=== PATIENT | female | born 1940 | race African-American/Black ===

== ENCOUNTER 2016-08-24 19:20 | Inpatient (IN) | payer MEDICARE, OTHER ==
[2016-08-24] VITALS (12 sets, daily range): BP systolic 117–194; BP diastolic 58–91; PULSE 96–107; RESP 24–32; TEMP 98.1; O2SAT 97–100
[~2016-08-24] VITALS: Ht 165.1 cm; Wt 95.0 kg
[~2016-08-24 19:20] MED LIST: AMLO5TAB22 PO; DULO20 PO; FURO80 PO; GLUCTAB PO; HYDR-3580 PO; HYDR25TA35 PO; ISOS60 PO; METO50CR PO; NEUR600T PO; TIZA4 PO
[2016-08-24] MEDS ORDERED: SODIUM CHLORIDE 0.9% FLUSH 10 ML FLUSH IVF PRN ×2 (19:30→20:30)
[2016-08-24] MEDS ORDERED: FUROSEMIDE 100 MG/10 ML VIAL IVP ONE (19:30)
--- NOTE | 2016-08-24 19:35 | PD ---
HPI Chief Complaint: Respiratory Distress Time Seen by Provider: 19:29 Travel History International Travel<30 days: No Contact w/Intl Traveler<30days: No Traveled to known affect area: No History of Present Illness HPI The patient is a 76-year-old female that apparently was short of breath earlier today and refused transport by fire rescue. She became lethargic and short of breath when a hospice nurse came to visit her today and she called the ambulance. The patient does state that she takes a fluid pill and that she gets fluid in her lungs. She also states she has diabetes. She was given Narcan in the field, her pupils were pinpoint prior to giving Narcan and she was lethargic. She was given 3 albuterol treatments in route. She was put on BiPAP by the ambulance personnel. Her CODE STATUS is unknown. Her medical problems are unknown other than what we learned about. Her medications are unknown. Review of old records reveals she has alcohol abuse and has had an opiate overdose as well as hyperlipidemia, noncompliance, arteriosclerotic cardiovascular disease, carotid artery disease, rheumatoid arthritis, gout, chronic pain, [id number] diabetes mellitus and hypertensive urgency. According to ambulance personnel the patient did become less lethargic after the Narcan. She is a patient of Dr. Joey Oconnell. [facility] Past Medical History Arthritis: No Asthma: Yes Anxiety: No Depression: No Heart Rhythm Problems: No Cancer: No Cardiac Catheterization: Yes Cardiovascular Problems: Yes (3 cardiac stents) High Cholesterol: Yes Chemotherapy: No Chest Pain: No Congestive Heart Failure: No COPD: No Cerebrovascular Accident: No Coronary Artery Disease: Yes Diabetes: Yes Patient Takes Glucophage: Yes Diminished Hearing: No Endocrine: Yes GERD: No Gout: Yes Genitourinary: No Headaches: Yes Hiatal Hernia: No Hypertension: Yes Immune Disorder: No Inguinal Hernia: Yes Implanted Vascular Access Dvce: Yes Kidney Stones: No Musculoskeletal: No Neurologic: Yes Psychiatric: No Reproductive: No Respiratory: Yes Immunizations Current: No Migraines: No Myocardial Infarction: Yes Renal Failure: No Seizures: No Sleep Apnea: No Thyroid Disease: No Ulcer: No Menopausal: Yes : 1 Para: 1 Miscarriage: 0 Tubal Ligation: Yes Past Surgical History Abdominal Surgery: Yes (INGUINAL HERNIA REPAIR) Body Medical Devices: heart stents Cardiac Surgery: Yes Coronary Stent: Yes ( 3 STENTS ) Ear Surgery: No Endocrine Surgery: No Eye Surgery: No Genitourinary Surgery: Yes (inguinal hernia) Gynecologic Surgery: No Oral Surgery: No Thoracic Surgery: No Other Surgery: Yes (stentsX3) Social History Alcohol Use: Yes (DAILY USE) Tobacco Use: No Substance Use: No Allergies-Medications (Allergen,Severity, Reaction): Coded Allergies: No Known Allergies (Unverified , 08/24/16) Reported Meds & Prescriptions Reported Meds & Active Scripts Active Active Prescriptions or Reported Medications Unobtainable Review of Systems ROS Limitations: Poor Historian Except as stated in HPI: all other systems reviewed are Neg Physical Exam Exam Limitations: Poor Historian Narrative GENERAL: The patient is alert and will answer some questions but is lethargic. She is obese. She is in slight respiratory distress. The vital signs show pulse rate of 107, respiratory rate of 32, blood pressure 194/91 with oximetry on her percent on BiPAP. The patient states that she does not have a living will and she is a full code. SKIN: Focused skin assessment warm/dry. HEAD: Atraumatic. Normocephalic. EYES: Pupils equal and round. No scleral icterus. No injection or drainage. ENT: No nasal bleeding or discharge. Mucous membranes pink and moist. NECK: Trachea midline. There is bilateral JVD. CARDIOVASCULAR: Regular rate and rhythm. No murmur appreciated. RESPIRATORY: No accessory muscle use. Scattered wheezes are heard bilaterally with a few questionable Rales bilaterally on the basis. Breath sounds equal bilaterally. GASTROINTESTINAL: Abdomen soft, non-tender, nondistended. Hepatic and splenic margins not palpable. MUSCULOSKELETAL: No obvious deformities. No clubbing. No cyanosis. There is 3 + bilateral lower extremity edema. NEUROLOGICAL: Awake and alert. No obvious cranial nerve deficits. Motor grossly within normal limits. Normal speech. PSYCHIATRIC: Appropriate mood and affect; insight and judgment normal. Data Data Last Documented VS Vital Signs Date Time Temp Pulse Resp B/P Pulse Ox O2 Delivery O2 Flow Rate FiO2 08/24/16 21:00 100 35 08/24/16 20:31 102 28 157/72 BiPAP 08/24/16 19:52 98.1 Orders Complete Blood Count With Diff (08/24/16 19:29) Comprehensive Metabolic Panel (08/24/16 19:29) B-Type Natriuretic Peptide (08/24/16 19:29) Act Partial Throm Time (Ptt) (08/24/16 19:29) Prothrombin Time / Inr (Pt) (08/24/16 19:29) Magnesium (Mg) (08/24/16 19:29) Troponin I (08/24/16 19:29) Urinalysis - C+S If Indicated (08/24/16 19:29) Iv Access Insert/Monitor (08/24/16 19:29) Electrocardiogram (08/24/16 19:29) Ecg Monitoring (08/24/16 19:29) Oximetry (08/24/16 19:29) Oxygen Administration (08/24/16 19:29) Chest, Single Ap (08/24/16 19:29) Sodium Chloride 0.9% Flush (Ns Flush) (08/24/16 19:30) Furosemide Inj (Lasix Inj) (08/24/16 19:30) Urinary Catheter Insert/Apply (08/24/16 19:30) Act Partial Throm Time (Ptt) (08/24/16 19:45) Thyroid Stimulating Hormone (08/24/16 19:45) Lactic Acid Sepsis Protocol (08/24/16 20:18) Blood Culture (08/24/16 20:18) Sodium Chloride 0.9% Flush (Ns Flush) (08/24/16 20:30) Blood Gas Venous (Vbg) (08/24/16 20:45) Labs Laboratory Tests Test 08/24/16 08/24/16 08/24/16 08/24/16 19:35 19:45 20:30 20:45 White Blood Count 11.3 TH/MM3 Red Blood Count 3.66 MIL/MM3 Hemoglobin 9.7 GM/DL Hematocrit 30.1 % Mean Corpuscular Volume 82.3 FL Mean Corpuscular Hemoglobin 26.6 PG Mean Corpuscular Hemoglobin 32.3 % Concent Red Cell Distribution Width 15.2 % Platelet Count 252 TH/MM3 Mean Platelet Volume 8.7 FL Neutrophils (%) (Auto) 76.9 % Lymphocytes (%) (Auto) 11.5 % Monocytes (%) (Auto) 10.4 % Eosinophils (%) (Auto) 0.6 % Basophils (%) (Auto) 0.6 % Neutrophils # (Auto) 8.7 TH/MM3 Lymphocytes # (Auto) 1.3 TH/MM3 Monocytes # (Auto) 1.2 TH/MM3 Eosinophils # (Auto) 0.1 TH/MM3 Basophils # (Auto) 0.1 TH/MM3 CBC Comment DIFF FINAL Differential Comment Prothrombin Time 11.0 SEC Prothromb Time International 1.0 RATIO Ratio Activated Partial 29.4 SEC Thromboplast Time Sodium Level 133 MEQ/L Potassium Level 4.5 MEQ/L Chloride Level 98 MEQ/L Carbon Dioxide Level 23.5 MEQ/L Anion Gap 12 MEQ/L Blood Urea Nitrogen 52 MG/DL Creatinine 3.33 MG/DL Estimat Glomerular Filtration 16 ML/MIN Rate Random Glucose 50 MG/DL Calcium Level 8.8 MG/DL Magnesium Level 2.0 MG/DL Total Bilirubin 0.5 MG/DL Aspartate Amino Transf 67 U/L (AST/SGOT) Alanine Aminotransferase 21 U/L (ALT/SGPT) Alkaline Phosphatase 92 U/L Troponin I 2.58 NG/ML B-Type Natriuretic Peptide 443 PG/ML Total Protein 7.5 GM/DL Albumin 3.1 GM/DL Thyroid Stimulating Hormone 1.040 uIU/ML 3rd Gen Urine Color YELLOW Urine Turbidity HAZY Urine pH 5.0 Urine Specific [place] 1.017 Urine Protein 30 mg/dL Urine Glucose (UA) NEG mg/dL Urine Ketones NEG mg/dL Urine Occult Blood TRACE Urine Nitrite NEG Urine Bilirubin NEG Urine Urobilinogen LESS THAN 2.0 MG/DL Urine Leukocyte Esterase NEG Urine Squamous Epithelial <1 /hpf Cells Urine Hyaline Casts 11 /lpf Microscopic Urinalysis Comment CULT NOT INDICATED Lactic Acid Level 0.9 mmol/L Blood Gas Puncture Site IV Blood Gas Patient Temperature 98.6 Venous Blood pH 7.17 Venous Blood Partial Pressure 62 mmHg CO2 Venous Blood Partial Pressure 46 mmHg O2 Venous Blood HCO3 21 mmol/L Venous Blood Oxygen Saturation 70 % Venous Blood Oxygen Content 8.9 Vol % Venous Blood Base Excess -5.9 mmol/L Oxygen Delivery Device BiPAP Blood Gas Ventilator Setting IPAP18/[id number] Blood Gas Inspired Oxygen 50 % [facility] Medical Decision Making Medical Screen Exam Complete: Yes Emergency Medical Condition: Yes Medical Record Reviewed: Yes Interpretation(s) The EKG shows sinus tachycardia of 106 occasional PVCs and possible anterior septal myocardial infarction which is old. The chest x-ray shows congestive heart failure with pulmonary edema. Differential Diagnosis COPD with acute exacerbation, congestive heart failure, pneumonia, narcotic overdose, anemia, renal insufficiency, electrolyte disorder, urinary tract infection, acute coronary syndrome Narrative Course There is no evidence for this patient having pneumonia other than the radiology reading. She does not have a fever, cough or significant leukocytosis. She does have renal insufficiency and elevation troponin I. The troponin I elevation is elevated likely because of the congestive heart failure and renal insufficiency. This will be monitored to see if she does have a acute coronary syndrome. Clinically, the patient has congestive heart failure and not pneumonia. I discussed the patient with ALKA Bartlett and she instructed me to admit the patient to Dr. Negrete. Diagnosis Primary Impression: Congestive heart failure Additional Impression: Elevated troponin I level Admitting Information Admitting Physician Requests: Admit Scripts Unable to Obtain Active Prescriptions or Reported Meds Serafin Lozano MD August 24, 2016 19:35
--- NOTE | 2016-08-24 20:10 | RADRPT ---
EXAM DATE/TIME: 08/24/2016 19:37 [facility] COMPARISON: CHEST SINGLE AP, August 05, 2015, 21:13. INDICATIONS : Shortness of breath. MEDICAL HISTORY : Hypertension. Myocardial infarction. Asthma. Coronary artery disease. SURGICAL HISTORY : Cardiac catheter with stent placement. ENCOUNTER: Initial ACUITY: 1 day PAIN SCORE: Non-responsive. LOCATION: Bilateral chest FINDINGS: A single portable frontal view the chest is limited by the portable nature in conjunction with the pa tient's body habitus. Left lower lobe opacity obscures the left hemidiaphragm. Right lung is clear. N o effusions. Mild cardiomegaly.CONCLUSION: Left lower lobe infiltrate. Karsten Michaels Jr., MD on August 24, 2016 at 20:08 Board Certified Radiologist. This report was verified electronically.
[2016-08-24 20:15] LABS: AUTOMATED NEUTROPHIL # 8.7 TH/MM3 (1.8-7.7); BASOPHIL # 0.1 TH/MM3 (0-0.2); BASOPHIL % 0.6 % (0.0-2.0); EOSINOPHIL # 0.1 TH/MM3 (0-0.4); EOSINOPHIL % 0.6 % (0.0-4.0); HEMATOCRIT 30.1 % (35.0-46.0); HEMO FLAGS DIFF FINAL; LYMPH % 11.5 % (9.0-44.0); LYMPHOCYTE # 1.3 TH/MM3 (1.0-4.8); MEAN CELL VOLUME 82.3 FL (80.0-100.0); MEAN CORPUSCULAR HEMOGLOBIN 26.6 PG (27.0-34.0); MEAN CORPUSCULAR HGB CONC 32.3 % (32.0-36.0); MONO % 10.4 % (0.0-8.0); NEUT % 76.9 % (16.0-70.0); PLATELET COUNT 252 TH/MM3 (150-450); RED BLOOD COUNT 3.66 MIL/MM3 (4.00-5.30); RED CELL DISTRIBUTION WIDTH 15.2 % (11.6-17.2); WHITE BLOOD COUNT 11.3 TH/MM3 (4.0-11.0)
[2016-08-24 20:21] LABS: APTT (PATIENT) 29.4 SEC (24.3-30.1)
[2016-08-24 20:40] LABS: ANION GAP 12 MEQ/L (5-15); AST (GOT) 67 U/L (15-37); BICARBONATE 23.5 MEQ/L (21.0-32.0); BLOOD UREA NITROGEN 52 MG/DL (7-18); CHLORIDE 98 MEQ/L (98-107); GLOMERULAR FILTRATION RATE 16 ML/MIN (>89); POTASSIUM 4.5 MEQ/L (3.5-5.1); SODIUM (NA) 133 MEQ/L (136-145)
[2016-08-24 20:48] LABS: ALKALINE PHOSPHATASE 92 U/L (45-117); ALT (GPT) 21 U/L (10-53); TOTAL BILIRUBIN ADULT 0.5 MG/DL (0.2-1.0)
[2016-08-24 20:51] LABS: BLOOD, URINE TRACE (NEG); COMMENT (UR) CULT NOT INDICATED; CULTURE IF INDICATED CULT NOT INDICATED; GLUCOSE,URINE NEG (NEG); HYALINE CAST, URINE 11 /lpf (RARE); KETONE, URINE NEG (NEG); NITRITE,URINE NEG (NEG); SQUAMOUS EPITHELIAL CELL URINE <1 /hpf (0-5); URINE COLOR YELLOW (YELLW/STRAW)
[2016-08-24 20:56] LABS: BLOOD GAS VENOUS BASE EXCESS -5.9 mmol/L (-2-2); BLOOD GAS VENOUS HCO3 21 mmol/L (22-26); BLOOD GAS VENOUS O2 CONTENT 8.9 Vol % (9.0-17.0); BLOOD GAS VENOUS O2 HGB SAT 70 % (70-76); BLOOD GAS VENOUS PCO2 62 mmHg (44-48); BLOOD GAS VENOUS PO2 46 mmHg (35-40); BLOOD GAS VENOUS pH 7.17 (7.360-7.400); TEMP CORR TO 98.6
[2016-08-24 20:57] LABS: CRITICAL VALUE YES; DRAW SITE IV; FIO2 50 %; OXYGEN DEVICE BiPAP; STAT YES; VENT SETTINGS IPAP18/EPAP6
[2016-08-24 21:48] LABS: BLOOD GAS BASE EXCESS -5.8 mmol/L (-2-2); BLOOD GAS CARBOXYHEMOGLOBIN 1.4 % (0-4); BLOOD GAS HCO3 21 mmol/L (22-26); BLOOD GAS METHEMOGLOBIN 0.8 % (0-2); BLOOD GAS O2 HGB SATURATION 95 % (90-100); BLOOD GAS OXYGEN CONTENT 12.5 Vol % (12.0-20.0); BLOOD GAS PCO2 58 mmHg (38-42); BLOOD GAS PO2 99 mmHG (61-120); BLOOD GAS TOTAL HGB 9.3 G/DL (12.0-16.0); CRITICAL VALUE YES; OXYGEN DEVICE BiPAP; TEMP CORR TO 98.6
[2016-08-24 21:49] LABS: DRAW SITE RT BRACHIAL; FIO2 35 %; NUMBER OF ARTERIAL PUNCTURES 1; STAT YES; VENT SETTINGS IPAP18/EPAP6
[2016-08-24] MEDS ORDERED: MAGNESIUM HYDROXIDE SUSP 30 ML CUP PO PRN (22:00)
[2016-08-24] MEDS ORDERED: SENNOSIDES 8.6 MG TAB PO PRN (22:00)
[2016-08-24] MEDS ORDERED: DEXTROSE 50% IN WATER 50 ML VIAL(D50) IV PRN (22:00)
[2016-08-24] MEDS ORDERED: LACTULOSE SYRUP 20 GM/30 ML CUP PO PRN (22:00)
[2016-08-24] MEDS ORDERED: DEXTROSE 5% IN WATE 500 ML INJ 500 ML IV SCH (22:00)
[2016-08-24] MEDS ORDERED: NALOXONE HCL 0.4 MG/ML AMP IV PRN (22:00)
[2016-08-24] MEDS ORDERED: GLUCAGON 1 MG/ML VIAL OTHER PRN (22:00)
[2016-08-24] MEDS ORDERED: ONDANSETRON HCL 4 MG/2 ML VIAL IVP PRN (22:00)
[2016-08-24] MEDS ORDERED: BISACODYL 10 MG SUPP RECTAL PRN (22:00)
[2016-08-24] MEDS ORDERED: ACETAMINOPHEN 325 MG TAB PO PRN (22:00)
[2016-08-24] MEDS: HEPARIN SODIUM - SQ 10,000 UNITS/ML VIAL SQ SCH (22:08)
--- NOTE | 2016-08-24 23:46 | RADRPT ---
EXAM DATE/TIME: 08/24/2016 22:45 [facility] COMPARISON: US KIDNEY/RENAL/BLADDER, August 04, 2015, 11:57. INDICATIONS : Increased BUN/Creatinine. MEDICAL HISTORY : Hypercholesterolemia. Hypertension. Myocardial infarction. Headaches. Asthma. Gout. Diabetes. SURGICAL HISTORY : Coronary artery stent. Tubal ligation. Inguinal hernia repair. ENCOUNTER: Subsequent ACUITY: 1 day PAIN SCORE: 1/10 LOCATION: Bilateral flank MEASUREMENTS: RIGHT KIDNEY: 10.1 x 5.0 x 4.4 cm LEFT KIDNEY: Non visualized. FINDINGS: RIGHT KIDNEY: Renal cortex is normal in thickness and echotexture. No hydronephrosis, stone, or mass. LEFT KIDNEY: Left kidney cannot be identified secondary to body habitus and difficulty positioning the patient. BLADDER: Hyde catheter within a decompressed bladder. CONCLUSION: Nonvisualization left kidney. Right kidney is unremarkable Brayan Haegn MD on August 24, 2016 at 23:44 Board Certified Radiologist. This report was verified electronically.
[2016-08-25] VITALS (17 sets, daily range): BP systolic 103–162; BP diastolic 56–72; PULSE 86–99; RESP 11–23; TEMP 96.8–99.3; O2SAT 92–100
[2016-08-25] MEDS ORDERED: CHLORHEXIDINE GLUCONATE 2 % 1 PACK (2 CLOTHS)(extra cloths) TOPICAL PRN (01:15)
[2016-08-25] MEDS: CHLORHEXIDINE GLUCONATE 2 % 1 PACK (2 CLOTHS)(taper/protocol) TOPICAL SCH (02:37)
[2016-08-25 04:23] LABS: AUTOMATED NEUTROPHIL # 7.8 TH/MM3 (1.8-7.7); BASOPHIL # 0.1 TH/MM3 (0-0.2); BASOPHIL % 0.5 % (0.0-2.0); EOSINOPHIL # 0.1 TH/MM3 (0-0.4); HEMATOCRIT 26.9 % (35.0-46.0); HEMO FLAGS DIFF FINAL; LYMPH % 13.9 % (9.0-44.0); LYMPHOCYTE # 1.5 TH/MM3 (1.0-4.8); MEAN CELL VOLUME 82.6 FL (80.0-100.0); MEAN CORPUSCULAR HEMOGLOBIN 26.5 PG (27.0-34.0); MONO % 13.8 % (0.0-8.0); NEUT % 70.8 % (16.0-70.0); PLATELET COUNT 241 TH/MM3 (150-450); RED BLOOD COUNT 3.26 MIL/MM3 (4.00-5.30); RED CELL DISTRIBUTION WIDTH 15.1 % (11.6-17.2)
[2016-08-25 04:53] LABS: BICARBONATE 25.3 MEQ/L (21.0-32.0); POTASSIUM 4.6 MEQ/L (3.5-5.1)
[2016-08-25 04:57] LABS: HDL CHOLESTEROL 79.3 MG/DL (40.0-60.0)
[2016-08-25 05:02] LABS: BLOOD GAS BASE EXCESS -4.2 mmol/L (-2-2); BLOOD GAS HCO3 23 mmol/L (22-26); BLOOD GAS METHEMOGLOBIN 1.2 % (0-2); BLOOD GAS O2 HGB SATURATION 92 % (90-100); BLOOD GAS OXYGEN CONTENT 11.4 Vol % (12.0-20.0); BLOOD GAS PCO2 59 mmHg (38-42); BLOOD GAS PO2 88 mmHg (61-120); BLOOD GAS TOTAL HGB 8.7 G/DL (12.0-16.0); TEMP CORR TO 98.6
[2016-08-25 05:03] LABS: CRITICAL VALUE YES; DRAW SITE RT RADIAL; FIO2 30 %; NUMBER OF ARTERIAL PUNCTURES 1; OXYGEN DEVICE BiPAP; STAT NO; ULNAR PULSE PRESENT; VENT SETTINGS 20IPAP/6EPAP
[2016-08-25] MEDS: DOCUSATE SODIUM 50 MG/SENNA 8.6 MG TAB PO SCH ×2 (09:00→21:39)
[2016-08-25] MEDS: SODIUM CHLORIDE 0.9% FLUSH 10 ML FLUSH IV FLUSH SCH ×2 (09:31→21:38)
[2016-08-25] MEDS: HEPARIN SODIUM - SQ 10,000 UNITS/ML VIAL SQ SCH (09:31)
[2016-08-25] MEDS ORDERED: DEXTROSE 50% IN WATER 50 ML VIAL(D50) IV PRN (09:45)
[2016-08-25] MEDS ORDERED: SODIUM CHLOR 0.9% 1000 ML INJ 1,000 ML IV ONE (09:45)
[2016-08-25] MEDS ORDERED: RESP: ALBUTEROL 2.5 MG/IPRATROPIUM 0.5 MG NEB (PRN) NEB (09:45)
[2016-08-25] MEDS ORDERED: GLUCAGON 1 MG/ML VIAL OTHER PRN (09:45)
[2016-08-25] MEDS ORDERED: ASPIRIN 325 MG TAB PO ONE (09:45)
[2016-08-25] MEDS: INSULIN NovoLIN REGULAR SUPPLEMENTAL SCALE SQ SCH ×4 (10:00→20:00)
[2016-08-25 10:05] LABS: BLOOD GAS BASE EXCESS -4.3 mmol/L (-2-2); BLOOD GAS CARBOXYHEMOGLOBIN 1.6 % (0-4); BLOOD GAS HCO3 22 mmol/L (22-26); BLOOD GAS METHEMOGLOBIN 1.2 % (0-2); BLOOD GAS O2 HGB SATURATION 97 % (90-100); BLOOD GAS OXYGEN CONTENT 12.6 Vol % (12.0-20.0); BLOOD GAS PCO2 58 mmHg (38-42); BLOOD GAS PO2 260 mmHg (61-120); BLOOD GAS TOTAL HGB 8.8 G/DL (12.0-16.0); TEMP CORR TO 98.6
[2016-08-25 10:06] LABS: CRITICAL VALUE YES; DRAW SITE RT RADIAL; FIO2 50 %; OXYGEN DEVICE BIPAP 20IPAP/6
[2016-08-25 10:07] LABS: NUMBER OF ARTERIAL PUNCTURES 1; STAT NO; ULNAR PULSE PRESENT
--- NOTE | 2016-08-25 10:15 | MH ---
cc: BRITTNY MALLOY MD DATE OF ADMISSION: 08/24/2016 DATE OF : 1940 CHIEF COMPLAINT Respiratory distress and non responsive according to the recond. RECENT TRAVEL: Travel in the last 30 days, unknown. HISTORY OF PRESENT ILLNESS This is a unfortunate 76-year-old black female who according to the record was found per her hospice nurse who had come for a visit. She was noted to be short of breath and lethargic and was sent to the emergency room for further evaluation. According to the record the patient was short of breath earlier in the day but refused transport from [facility], currently there is no family at the hospital and we are attempting to get in touch with a daughter to get further history. I looks like the patient is a Hospice patient she has multi comorbidities but it is unknown the extent of her history which includes her code status. She is currently on BiPAP, she is lethargic but she will respond to tactile or verbal stimuli with agitation and restlessness she is attempting to write a message on a piece of paper but is so weak she is unable to communicate. History will be obtained from records as much as possible. PAST MEDICAL HISTORY: 1. Noncompliance. 2. Arteriosclerotic heart disease. 3. Coronary artery disease. 4. Hyperlipidemia. 5. Rheumatoid arthritis. 6. Gout. 7. Chronic pain. 8. Non insulin dependant diabetes. 9. Hypertensive urgency. 10. Asthma. 11. coronary artery disease. According to the record the patient does take Glucophage. 12. Headaches. 13. Hypertension. 14. Implanted vascular device. 15. Neurologic disorders. 16. Previous myocardial infarction. PAST SURGICAL HISTORY: 1. Tubal ligation. 2. Inguinal hernia repair. 3. Coronary heart stents. 4. Implanted vascular device. ALLERGIES NO KNOWN ALLERGIES. MEDICATIONS: Active unknown. SOCIAL HISTORY There is daily use of alcohol noted in the record but unknown for any illicit drugs or tobacco use. REVIEW OF SYSTEMS Review of systems unable to obtain secondary to the patient's altered mental status and being a poor historian at this point. PHYSICAL EXAMINATION: VITAL SIGNS: Temperature 96.8 axillary and 98.3 orally. Pulse labile between 96 and 98. Regular rhythm, respiratory rate currently on BiPAP between 11 and 18. Blood pressure initially was 162/72 now 124/56. O2 saturation is 94 to 100 on 30% BiPAP when she becomes restless and anxious, her o2 percentage was turned up to 50%. PHYSICAL EXAMINATION GENERAL: Obese, mildly obese black male looks older than her stated age, resting in the bed, BiPAP on, lethargic but does respond to tactile or verbal stimuli in an anxious way. The skin is very dry, thick turgor especially on her lower extremities, mucous membranes are pale pink. HEAD, EYES, EARS, NOSE, AND THROAT: Atraumatic, normocephalic. Her eyes have some serous drainage and matting bilaterally. But no icterus. She has no nasal discharge. The oral cavity is not assessed secondary to be in on BiPAP. NECK: Neck is supple. Trachea is midline. CARDIOVASCULAR SYSTEM: Heart sounds S1-S2, probable systolic murmur heard at the left sternal border. She has no edema in her lower extremities but the skin turgor is very hard and thick. RESPIRATORY: Low volumes. She does have some respiratory wheezes heard in her upper miller. She had diminished sounds throughout and decreased sounds in her bases. GASTROINTESTINAL: Abdomen is round, taunt. The bowel sounds are present. MUSCULOSKELETAL: No obvious deformities, I would say that she has a trace to 1+ lower extremity edema. NEUROLOGICALLY: Lethargic. PSYCHIATRIC: Altered mental status, insight and judgement, unable to assess. DIAGNOSTIC DATA: White blood cell 11, RBC 3.26, hemoglobin 8.6, hematocrit 26.9, platelet count 241, neutrophil percentage 70.8. Monocyte 13.8, PT/INR is 1. Chemistry sodium 135, potassium 4.6, chloride 99, carbon dioxide 25.3, BUN is now 58, creatinine 3.25, glomerular filtration rate 17, random glucose is 94, it was 50 on admission, calcium 8.5. Troponins are positive with 2.58 and 2.79. B-type natriuretic peptide 443. Albumin 3.1, total protein 7.5, her HDL cholesterol is 79.3, TSH 1.040. Urine is hazy and yellow, pH is 5, specific gravity 1.017, protein 30, negative for glucose, ketones, nitrates, bilirubin and leukocyte esterase. Culture is not indicated. Methicillin-resistant Staphylococcus aureus is not indicated with a nasal smear. Blood gas this a.m. shows her temperature to be 98.6, bicarbonate 23, base access negative at 4.2, O2 saturation 92, pH is 7.21, pCO2 59, partial pressure of oxygen 88, o2 content 11.4. this is on BiPap at 30% and she is now at 50%. IMAGING STUDIES: Show chest x-ray to the left lower lobe infiltrate and renal ultrasound shows nonvisual left kidney, the right kidney is unremarkable. ASSESSMENT AND PLAN: 1. Chronic kidney disease. 2. Possible congestive heart failure. 3. Chronic obstructive pulmonary disease exacerbation. 4. History of alcohol use. 5. Coronary artery disease. 6. History of coronary artery disease. 7. History of hypertensive urgency. PLAN: 1. Our plan is to admit inpatient status. Currently we are working towards stabilizing the patient with vital signs at least of 4 hours with neuro checks she is on had a bi Pap for her respiratory status support. She does have an elevated PCO2, BiPAP is being used to assess with that control and return her back to a normal pH if that is possible. We have consulted cardiology for his expert opinion. 2. Renal diet when the patient is able to eat. 3. Currently she will be NPO. 4. In the emergency room she was given IV Lasix x one. She does have a Hyde catheter and she does have some urine output which appears to be yellow and hazy. 5. The patient's lactic acid was normal so she does not appear to be septic but we will monitor. 6. We will consult pulmonary for his expert opinion. 7. We are also consulting Hospice to see if we can obtain some history and find some family members. It has been suggested that the patient has a daughter, currently the intensive care staff is attempting to locate her along with hospice so we can get an accurate code status on this patient and know what her plan of care has been before this hospital admission. I see no note that there was any family with her when the Hospice nurse arrived. 8. We will continue monitoring her heart. It appears that she is in a sinus rhythm and will jump up to a tachycardic, sinus tachycardic rhythm with anxiety but returns back down when she begins to rest. 9. We will attempt any medication reconciliation needed, the patients plan of care is to stabilize her at present but we will continue to research what her goals and wishes are. Brittny Malloy MD DICTATED BY: CESIA Etienne /8:43 AM /9:42 AM
[2016-08-25] MEDS: DEXT 5%-NACL 0.9% 1000 ML INJ 1,000 ML IV SCH ×2 (10:54→23:08)
[2016-08-25] MEDS: methylPREDNISolone SOD SUCC 40 MG/1 ML VIAL IV PUSH SCH ×2 (10:54→17:01)
[2016-08-25] MEDS: ASPIRIN 300 MG SUPP RECTAL SCH (10:54)
[2016-08-25] MEDS: AZITHROMYCIN INJ 500 MG in SODIUM CHLOR 0.9% 250 ML INJ 250 ML IV SCH (10:55)
[2016-08-25] MEDS: PANTOPRAZOLE SODIUM 40 MG VIAL IV PUSH SCH (11:05)
[2016-08-25] MEDS: RESP: ALBUTEROL 2.5 MG/IPRATROPIUM 0.5 MG NEB (SCH) NEB ×4 (11:08→23:26)
[2016-08-25 12:27] LABS: HEMATOCRIT 26.3 % (35.0-46.0); MEAN CELL VOLUME 82.6 FL (80.0-100.0); MEAN CORPUSCULAR HEMOGLOBIN 26.4 PG (27.0-34.0); PLATELET COUNT 214 TH/MM3 (150-450); RED BLOOD COUNT 3.18 MIL/MM3 (4.00-5.30); RED CELL DISTRIBUTION WIDTH 15.2 % (11.6-17.2); REVIEW FLAG FINAL; WHITE BLOOD COUNT 10.1 TH/MM3 (4.0-11.0)
--- NOTE | 2016-08-25 12:45 | MB ---
cc: DOLORES SUAZO M.D. DATE OF CONSULTATION: 08/25/2016 DATE OF : 1940 REASON FOR CONSULTATION: The patient is a 76-year-old female with multiple medical comorbidities which include hypertension, diabetes mellitus, hyperlipidemia, coronary artery disease, morbid obesity, gout, questionable COPD, who presented to [facility] ED last night for shortness of breath and lethargy. She was found to have pinpoint pupils and she was given Narcan in the field along with albuterol treatments x3 en route. She was placed on BiPap by paramedics. A ABG was performed on a BiPap 18/6 with 35% FIO2 which showed acute hypercapnic respiratory failure with a pH of 7.19, CO2 58, pAO2 99, saturation of 95%. Her laboratory data on admission showed acute renal failure with a BUN of 52, creatinine 3.33 and elevated troponin at 2.58. The patient was given Lasix 80 mg IV push in the ER and was admitted under Dr. Negrete service from [facility]. She had a repeat arterial blood gas earlier this morning which showed acute respiratory acidosis with a pH of 7.21, CO2 59, pAO2 88 and bicarb of 23 with saturation of 92% on BiPap 20/6 with 30% FIO2. Chest x-ray on admission showed a left lower lobe infiltrate. Her labs from today showed renal dysfunction with creatinine of 3.25 and troponin elevated 2.79 from 2.58 last night. Critical care medicine was consulted for critical care management. The patient had an ultrasound of her kidneys which showed nonvisualization left kidney, right kidney is unremarkable. When seen she is awake, alert and remains on BiPap. PAST MEDICAL HISTORY: 1. Past medical history significant for diabetes mellitus. 2. Hypertension 3. Hyperlipidemia 4. Coronary artery disease 5. Chronic kidney disease 6. Gout PAST SURGICAL HISTORY: 1. Previous coronary stent placements x3 2. Previous inguinal hernia repair. SOCIAL HISTORY The patient has history of EtOH use. Nonsmoker. FAMILY HISTORY Noncontributory. CURRENT MEDICATIONS Reviewed. REVIEW OF SYSTEMS The review of systems as per HPI. Rest of the system unremarkable. PHYSICAL EXAMINATION: IN GENERAL: 76-year-old female lying in bed in no acute distress. VITAL SIGNS: Temperature 98.3. Pulse of 96 and blood pressure 153/70, saturation 100% on a BiPap. HEAD, EYES, EARS, NOSE, AND THROAT: Atraumatic, normocephalic pupil equal and round, reactive on accommodation. Extraocular muscles intact. Conjunctivae pink. Nonicteric sclerae. Oral mucosa within normal. NECK: Supple. No JVD, adenopathy or thyromegaly. Trachea midline. CARDIOVASCULAR SYSTEM: Regular rate and rhythm. Normal S1-S2. No murmurs, rubs or gallops noted. LUNGS: Pulmonary exam bilateral equal entry with crackles. ABDOMEN: Soft, obese, nontender, no distension. Positive bowel sounds. EXTREMITIES: No cyanosis, clubbing, +1 edema. NEUROLOGIC: No focal sensory deficit an awake and alert. LABORATORY DATA Sodium of 135, potassium 4.6, chloride 99, CO2 25, BUN 58, creatinine 3.25, glucose 94, troponin 2.79, WBC 11.0, hemoglobin 8.6, hematocrit 26, platelet count of 241, INR 1, PT 11.0, PTT 29.4. A urinalysis negative for nitrite, negative for leukocyte esterase. RADIOGRAPHY Chest x-ray Showed left lower lobe infiltrate. IMPRESSION 1. Acute hypercapnic respiratory failure. 2. Left-sided pneumonia. 3. Acute on chronic kidney disease. 4. Anemia. 5. Non-ST elevation IA. 6. History of diabetes mellitus. 7. Hypertension. [ 8. Hyperlipidemia. 9. Coronary artery disease. RECOMMENDATIONS 1. Monitor neuro status closely and avoid any sedatives. 2. Continue with oxygen and maintain sats above 92%. 3. Bronchodilators in the form of DuoNeb q. 4+ q. two p.r.n. for shortness of breath and start IV steroids Solu-Medrol 40 mg IV q. 4. Continue with noninvasive positive pressure ventilation. 5. We will repeat ABG now and if there is any worsening in respiratory status or clinical condition, we will proceed with intubation and mechanical ventilation. 6. Monitor heart rate and blood pressure closely and maintain MAP greater 65 mmHg. 7. Monitor cardiac enzymes with troponins and I will consult cardiology service. The case was discussed with Dr. Loaiza. Echocardiogram from July 2015 showed EF of 65-70% and pulmonary hypertension with a PA pressure 77 mmHg. 8. Will give aspirin 325 mg p.o. x1 now and repeat the 2-D echo. Next monitor renal function Is and Os and avoid nephrotoxins. Will consult nephrology service. Will give 1 liter bolus of normal saline and placed on maintenance fluids D5 NS at 75 an hour. 9. Renal ultrasound showed nonvisualization of left kidney, right kidney unremarkable. Keep n.p.o. for now until respiratory status improves and place on Protonix 40 mg IV daily for GI prophylaxis. 10. Place on antibiotics in the form of azithromycin and Zosyn and monitor for signs of infections which include fever and WBC. Check sputum culture with gram stain. 11. Follow up on blood cultures from the last night. 12. Placed on sliding scale insulin with Accu-Chek q. 6-hour for glycemic control 13. GI prophylaxis with Protonix 40 mg daily. 14. DVT prophylaxis with SCDs and will start heparin drip per cardiology's recommendations. MD CULLEN Tirado/germán /10:00 AM /12:31 PM
--- NOTE | 2016-08-25 12:48 | PD.CONS ---
HPI Service Nephrology Consult Requested By Dr. Menjivar Reason for Consult Acute and chronic kidney disease Primary Care Physician No Primary Care Physician History of Present Illness Patient is 76-year-old female with history of morbid obesity, congestive heart failure, alcohol consumption in the past, history of falls, renal insufficiency with last year. In showing 1.29, history of diabetes who has been admitted with increasing shortness of breath patient is placed on BiPAP and has given IV fluid boluses with improved urine output, her creatinine was 3.25. Declined from initial creatinine of 3.33. Patient is passing urine the 600 cc in the bag. She's been treated for pneumonia and placed on antibiotics. Review of Systems Constitutional: COMPLAINS OF: Fatigue Respiratory: COMPLAINS OF: Shortness of breath Cardiovascular: COMPLAINS OF: Dyspnea on Exertion, Lower Extremity Edema Musculoskeletal: COMPLAINS OF: Joint pain Neurologic: COMPLAINS OF: Abnormal gait Past Family Social History Allergies: Coded Allergies: No Known Allergies (Unverified , 08/24/16) Past Medical History Coronary artery disease status post stent obesity hypertension diabetes mellitus hyperlipidemia, rheumatoid arthritis, chronic pain, cellulitis asthma EtOH abuse frequent falls recent hip fracture anxiety, gout Past Surgical History Cardiac stents tubal ligation Inguinal hernia repair Reported Medications Reported Meds & Active Scripts Active Active Prescriptions or Reported Medications Unobtainable Active Ordered Medications Current Medications Medications (Trade) Dose Ordered Sig/Apolinar Route Start Time Stop Time Status Last Admin (NS Flush) 2 ml UNSCH PRN IV FLUSH 08/24/16 22:00 (NS Flush) 2 ml BID IV FLUSH 08/25/16 09:00 08/25/16 09:31 (Tylenol) 650 mg Q4H PRN PO 08/24/16 22:00 (Zofran Inj) 4 mg Q6H PRN IVP 08/24/16 22:00 (Narcan Inj) 0.4 mg UNSCH PRN IV 08/24/16 22:00 (Lindsey-Colace) 1 tab BID PO 08/25/16 09:00 (Milk Of Magnesia Liq) 30 ml Q12H PRN PO 08/24/16 22:00 (Senokot) 17.2 mg Q12H PRN PO 08/24/16 22:00 (Dulcolax Supp) 10 mg DAILY PRN RECTAL 08/24/16 22:00 (Lactulose Liq) 30 ml DAILY PRN PO 08/24/16 22:00 Miscellaneous Information Patient in critical care unit? Ass... [id number] .XX 08/25/16 01:15 (Chlorhexidine 2% Cloth) 3 pack DAILY@04 TOPICAL 08/25/16 04:00 08/29/16 04:01 08/25/16 02:37 Chlorhexidine Gluconate 3 pack 3 pack UNSCH PRN TOPICAL 08/25/16 01:15 08/30/16 01:06 (D5W-NS 1000 ml Inj) 1,000 ml @ 75 mls/hr [id number] IV 08/25/16 10:00 08/25/16 10:54 (SoluMEDROL INJ) 40 mg Q8H IV PUSH 08/25/16 10:00 08/25/16 10:54 (D50w (Vial) Inj) 50 ml UNSCH PRN IV 08/25/16 09:45 (Glucagon Inj) 1 mg UNSCH PRN OTHER 08/25/16 09:45 Insulin Human Regular 1 1 Q4H SQ 08/25/16 10:00 Piperacillin Sod/ Tazobactam Sod 50 ml @ 100 mls/hr Q8H IV 08/25/16 12:00 Azithromycin 500 mg/Sodium Chloride 250 ml @ 250 mls/hr Q24H IV 08/25/16 11:00 08/25/16 10:55 (Heparin-D5W Inj) 250 ml @ 0 mls/hr TITRATE IV 08/25/16 10:15 (Aspirin Supp) 300 mg DAILY RECTAL 08/25/16 10:15 08/25/16 10:54 (Protonix Inj) 40 mg DAILY IV PUSH 08/25/16 10:15 08/25/16 11:05 Family History Noncontributory Social History Denies smoking there is history of alcohol use in the past Physical Exam Vital Signs Vital Signs Date Time Temp Pulse Resp B/P Pulse Ox O2 Delivery O2 Flow Rate FiO2 08/25/16 12:00 96 08/25/16 12:00 98.9 96 15 133/71 99 08/25/16 10:00 94 08/25/16 08:00 98.9 87 19 125/66 100 08/25/16 08:00 87 08/25/16 07:30 100 30 08/25/16 06:00 86 08/25/16 04:33 100 30 08/25/16 04:00 89 08/25/16 04:00 96.8 89 11 124/56 100 08/25/16 02:00 91 08/25/16 00:34 98.3 98 18 162/72 94 08/25/16 00:31 98 30 08/25/16 00:20 99 32 08/24/16 23:45 96 25 117/61 100 BiPAP 08/24/16 23:05 98 30 08/24/16 22:45 98 24 127/60 98 BiPAP 08/24/16 22:09 101 25 128/58 97 Nasal Cannula 2 08/24/16 22:05 99 Nasal Cannula 2.00 08/24/16 21:56 100 30 08/24/16 21:00 100 35 08/24/16 20:31 102 28 157/72 100 BiPAP 08/24/16 19:52 98.1 08/24/16 19:49 101 30 159/73 100 BiPAP 08/24/16 19:32 100 BiPAP 08/24/16 19:25 107 32 194/91 100 08/24/16 19:20 100 50 08/24/16 19:20 100 BiPAP 50 Physical Exam GENERAL: Well-nourished, well-developed morbidly obese patient on BiPAP. SKIN: Warm and dry. HEAD: Normocephalic. EYES: No scleral icterus. No injection or drainage. NECK: Supple, trachea midline. No JVD or lymphadenopathy. CARDIOVASCULAR: Regular rate and rhythm without murmurs, gallops, or rubs. RESPIRATORY: Breath sounds diminished at bases. GASTROINTESTINAL: Abdomen soft, non-tender, distended. EXTREMITIES: No cyanosis, 2+ edema. NEUROLOGICAL: Awake, alert, and oriented x 3. Non-focal. Laboratory Laboratory Tests Test 08/24/16 08/24/16 08/24/16 08/24/16 19:35 19:45 20:30 20:45 White Blood Count 11.3 Red Blood Count 3.66 Hemoglobin 9.7 Hematocrit 30.1 Mean Corpuscular Volume 82.3 Mean Corpuscular Hemoglobin 26.6 Mean Corpuscular Hemoglobin 32.3 Concent Red Cell Distribution Width 15.2 Platelet Count 252 Mean Platelet Volume 8.7 Neutrophils (%) (Auto) 76.9 Lymphocytes (%) (Auto) 11.5 Monocytes (%) (Auto) 10.4 Eosinophils (%) (Auto) 0.6 Basophils (%) (Auto) 0.6 Neutrophils # (Auto) 8.7 Lymphocytes # (Auto) 1.3 Monocytes # (Auto) 1.2 Eosinophils # (Auto) 0.1 Basophils # (Auto) 0.1 CBC Comment DIFF FINAL Differential Comment Prothrombin Time 11.0 Prothromb Time International 1.0 Ratio Activated Partial 29.4 Thromboplast Time Sodium Level 133 Potassium Level 4.5 Chloride Level 98 Carbon Dioxide Level 23.5 Anion Gap 12 Blood Urea Nitrogen 52 Creatinine 3.33 Estimat Glomerular Filtration 16 Rate Random Glucose 50 Calcium Level 8.8 Magnesium Level 2.0 Total Bilirubin 0.5 Aspartate Amino Transf 67 (AST/SGOT) Alanine Aminotransferase 21 (ALT/SGPT) Alkaline Phosphatase 92 Troponin I 2.58 B-Type Natriuretic Peptide 443 Total Protein 7.5 Albumin 3.1 Thyroid Stimulating Hormone 1.040 3rd Gen Urine Color YELLOW Urine Turbidity HAZY Urine pH 5.0 Urine Specific [place] 1.017 Urine Protein 30 Urine Glucose (UA) NEG Urine Ketones NEG Urine Occult Blood TRACE Urine Nitrite NEG Urine Bilirubin NEG Urine Urobilinogen LESS THAN 2.0 Urine Leukocyte Esterase NEG Urine Squamous Epithelial <1 Cells Urine Hyaline Casts 11 Microscopic Urinalysis Comment CULT NOT INDICATED Lactic Acid Level 0.9 Blood Gas Puncture Site IV Blood Gas Patient Temperature 98.6 Venous Blood pH 7.17 Venous Blood Partial Pressure 62 CO2 Venous Blood Partial Pressure 46 O2 Venous Blood HCO3 21 Venous Blood Oxygen Saturation 70 Venous Blood Oxygen Content 8.9 Venous Blood Base Excess -5.9 Oxygen Delivery Device BiPAP Blood Gas Ventilator Setting IPAP18/EPAP6 Blood Gas Inspired Oxygen 50 Test 08/24/16 08/25/16 08/25/16 08/25/16 21:37 00:42 04:10 04:48 Blood Gas Puncture Site RT BRACHIAL RT RADIAL Blood Gas Patient Temperature 98.6 98.6 Blood Gas HCO3 21 23 Blood Gas Base Excess -5.8 -4.2 Blood Gas Oxygen Saturation 95 92 Arterial Blood pH 7.19 7.21 Arterial Blood Partial 58 59 Pressure CO2 Arterial Blood Partial 99 88 Pressure O2 Arterial Blood Oxygen Content 12.5 11.4 Arterial Blood 1.4 2.0 Carboxyhemoglobin Arterial Blood Methemoglobin 0.8 1.2 Blood Gas Hemoglobin 9.3 8.7 Oxygen Delivery Device BiPAP BiPAP Blood Gas Ventilator Setting IPAP18/EPAP6 20IPAP/6EPAP Blood Gas Inspired Oxygen 35 30 Nasal Screen MRSA (PCR) MRSA NOT DETECTED White Blood Count 11.0 Red Blood Count 3.26 Hemoglobin 8.6 Hematocrit 26.9 Mean Corpuscular Volume 82.6 Mean Corpuscular Hemoglobin 26.5 Mean Corpuscular Hemoglobin 32.0 Concent Red Cell Distribution Width 15.1 Platelet Count 241 Mean Platelet Volume 8.5 Neutrophils (%) (Auto) 70.8 Lymphocytes (%) (Auto) 13.9 Monocytes (%) (Auto) 13.8 Eosinophils (%) (Auto) 1.0 Basophils (%) (Auto) 0.5 Neutrophils # (Auto) 7.8 Lymphocytes # (Auto) 1.5 Monocytes # (Auto) 1.5 Eosinophils # (Auto) 0.1 Basophils # (Auto) 0.1 CBC Comment DIFF FINAL Differential Comment Sodium Level 135 Potassium Level 4.6 Chloride Level 99 Carbon Dioxide Level 25.3 Anion Gap 11 Blood Urea Nitrogen 58 Creatinine 3.25 Estimat Glomerular Filtration 17 Rate Random Glucose 94 Calcium Level 8.5 Troponin I 2.79 Triglycerides Level 84 Cholesterol Level 154 LDL Cholesterol 58 HDL Cholesterol 79.3 Cholesterol/HDL Ratio 1.94 Test 08/25/16 08/25/16 10:00 12:01 Blood Gas Puncture Site RT RADIAL Blood Gas Patient Temperature 98.6 Blood Gas HCO3 22 Blood Gas Base Excess -4.3 Blood Gas Oxygen Saturation 97 Arterial Blood pH 7.21 Arterial Blood Partial 58 Pressure CO2 Arterial Blood Partial 260 Pressure O2 Arterial Blood Oxygen Content 12.6 Arterial Blood 1.6 Carboxyhemoglobin Arterial Blood Methemoglobin 1.2 Blood Gas Hemoglobin 8.8 Oxygen Delivery Device BIPAP 20IPAP/6 Blood Gas Inspired Oxygen 50 White Blood Count 10.1 Red Blood Count 3.18 Hemoglobin 8.4 Hematocrit 26.3 Mean Corpuscular Volume 82.6 Mean Corpuscular Hemoglobin 26.4 Mean Corpuscular Hemoglobin 32.0 Concent Red Cell Distribution Width 15.2 Platelet Count 214 Mean Platelet Volume 8.6 Date/Time Procedure Status Source Growth 08/24/16 20:30 Aerobic Blood Culture - Preliminary Resulted Blood Peripheral NO GROWTH IN 1 DAY 08/24/16 20:30 Anaerobic Blood Culture - Preliminary Resulted Blood Peripheral NO GROWTH IN 1 DAY Result Diagram: 5/27/17 1201 08/25/16 0410 Imaging Last Impressions Chest X-Ray 08/24/16 1929 Signed Impressions: Service Date/Time: Wednesday, August 24, 2016 19:37 - CONCLUSION: Left lower lobe infiltrate. Karsten Michaels Jr., MD Renal Ultrasound 08/24/16 0000 Signed Impressions: Service Date/Time: Wednesday, August 24, 2016 22:45 - CONCLUSION: Nonvisualization left kidney. Right kidney is unremarkable Brayan Hagen MD Assessment and Plan Problem List: (1) JESENIA (acute kidney injury) Plan: She has hypoperfusion of the kidneys and likely due to congestive heart failure and the underlying coronary artery disease. The patient should be on diuretic use fluids cautiously Monitor intake and output I will place her on Bumex 1 mg daily Positive troponin Check ELIDA, urine protein electrophoresis for baseline (2) Carotid artery disease Plan: Status post previous stent (3) Congestive heart failure Plan: She has underlying disorder of the heart (4) DM (diabetes mellitus) Plan: Continue monitor (5) Bilateral lower extremity edema Plan: Due to congestive heart failure Problem Qualifiers (1) DM (diabetes mellitus): Evelin Samuels MD August 25, 2016 12:48
[2016-08-25 12:51] LABS: APTT (PATIENT) 32.1 SEC (24.3-30.1); PROTHROMBIN TIME - PATIENT 11.2 SEC (9.8-11.6)
[2016-08-25 12:54] LABS: BLOOD GAS BASE EXCESS -5.2 mmol/L (-2-2); BLOOD GAS CARBOXYHEMOGLOBIN 1.8 % (0-4); BLOOD GAS HCO3 21 mmol/L (22-26); BLOOD GAS METHEMOGLOBIN 1.3 % (0-2); BLOOD GAS O2 HGB SATURATION 95 % (90-100); BLOOD GAS PCO2 54 mmHg (38-42); BLOOD GAS PO2 124 mmHg (61-120); BLOOD GAS TOTAL HGB 8.8 G/DL (12.0-16.0); TEMP CORR TO 98.6
[2016-08-25 12:55] LABS: CRITICAL VALUE YES; FIO2 30 %; OXYGEN DEVICE BIPAP IPAP 20/EPAP10
[2016-08-25 12:56] LABS: DRAW SITE RT RADIAL; NUMBER OF ARTERIAL PUNCTURES 2; STAT NO; ULNAR PULSE PRESENT
[2016-08-25] MEDS ORDERED: BUMETANIDE INJ 1 MG/4 ML VIAL IV PUSH ONE (13:00)
--- NOTE | 2016-08-25 13:00 | MB ---
cc: KIT WILD M.D. DATE OF CONSULTATION: 08/25/2016 REASON FOR CONSULTATION: Tonya is a very pleasant 76-year lady, history of coronary disease status post PCI with stent to the LAD and left heart catheterization by Dr. Sam Bobo August 18, 2014 showed patent stents in the circ and LAD with mild disease in the right. An echocardiogram last year showed EF of 65%. The patient presents with chief complaint of shortness of breath, transferred by fire rescue. She was apparently being visited by hospice nurse at the time. Currently the patient is on BiPap. She appears to be lucid, and alert, but her speech is unintelligible, neither the nurse nor I can understand when she is trying to say. REVIEW OF SYSTEMS The review of systems is obviously unobtainable since I cannot clearly communicate with her. PAST MEDICAL HISTORY: Her past medical history as in history of present illness, she has a history of; Asthma. Hyperlipidemia. Coronary artery disease. Diabetes. Hypertension. Inguinal hernia. Myocardial infarction. Inguinal hernia repair. SOCIAL HISTORY: Drinks alcohol daily. Denies tobacco abuse. ALLERGIES NONE. MEDICATIONS: Albuterol Methylprednisolone Aspirin 325 times one. Piperacillin Tazobactam Azithromycin Albuterol. She received Lasix 80 IV x1 PHYSICAL EXAMINATION VITAL SIGNS: Sats are 100% percent on 30% oxygen delivered by BiPAP. Blood pressure 124/56, pulse 89, temperature 96.8. IN GENERAL: She appears to be alert, oriented x3 in mild distress NECK: Supple. No JVD or bruit. CARDIOVASCULAR SYSTEM: S1, S2. No murmurs, rubs or gallops. LUNGS: Clear to auscultation. ABDOMEN: Soft, nontender, nondistended. positive bowel sounds. EXTREMITIES: No lower extremity edema. RADIOLOGIC: Chest x-ray showed left lower lobe opacity that spares left hemidiaphragm. Conclusions; Left lower lobe infiltrate. EKG shows sinus tach at 106 beats per minute, anteroseptal Q-waves PVC left anterior fascicular block. LABORATORY DATA Blood gas on admission pH 7.17, pCO2 62, pO2 46, 50% oxygen. Blood gas today pH 7.21, pCO2 58, pO2 260 on 50% oxygen delivered by BiPap. INR 1.0, White count 1.3, hemoglobin 9.7, now is down to 8.6. hematocrit 26.9, platelet count 241, troponin is 2.58 followed by 2.79. BNP is 443, albumin 3.1, LDL is 58, sodium 135, potassium 4.6, chloride 99, bicarb 25.3, BUN 58, creatinine 3.25. AST is 67. TSH 1.040. FINAL DIAGNOSIS 1. Non STEMI 2. Coronary artery disease. 3. Respiratory acidosis. 4. Respiratory failure 5. Acute renal failure 6. Chronic renal insufficiency. 7. Pneumonia. 8. COPD exacerbation 9. Decompensated congestive heart failure 10. Anemia 11. Hyponatremia 12. Elevated white count 13. Diabetes mellitus 14. Possible narcotic overdose. 15. Hypoalbuminemia. 16. Elevated liver enzymes. DISCUSSION At this point and time I think the primary etiology to the patient's presentation is pneumonia and respiratory failure, I doubt that her troponin elevation is due to a primary obstructive etiology but I cannot completely rule this out. I suspect this is probably due to renal insufficiency, severe hypoxia and anemia. I discussed the case in detail with Dr. Menjivar, we will empirically anticoagulate her cautiously and check hemoglobin twice a day given the drop in hemoglobin. I do not think this patient is a good candidate for invasive evaluation and management due to the aforementioned multiple comorbidities and high risk for complications including mortality with intervention. The patient currently denies chest pain. Agree with renal consult, antibiotics per the senior chemist Dr. Menjivar. The patient's lipids are currently at goal therefore statin is not initiated. Beta-chantel not initiated due to respiratory distress and respiratory failure. RACHEL inhibitor not initiated due to renal insufficiency. I will defer RACHEL inhibitor and blood pressure parameters and diuretic dosing to renal. The patient's status is guarded, we will continue to follow up. MD PASCALE Salazar/germán /10:13 AM /12:47 PM
[2016-08-25 13:28] LABS: CKMB 8.3 NG/ML (0.5-3.6)
[2016-08-25] MEDS ORDERED: HALOPERIDOL LACTATE 5 MG/ML AMP IV PUSH ONE (14:30)
[2016-08-25] MEDS: PIPERACIL-TAZO 2.25 GM PREMIX 50 ML IV SCH ×2 (14:36→21:39)
--- NOTE | 2016-08-25 14:36 | HHI.PR ---
Objective Objective Results - Vital Signs Date Time Temp Pulse Resp B/P Pulse Ox O2 Delivery O2 Flow Rate FiO2 08/25/16 12:00 96 08/25/16 12:00 98.9 96 15 133/71 99 08/25/16 10:00 94 08/25/16 08:00 98.9 87 19 125/66 100 08/25/16 08:00 87 08/25/16 07:30 100 30 08/25/16 06:00 86 08/25/16 04:33 100 30 08/25/16 04:00 89 08/25/16 04:00 96.8 89 11 124/56 100 08/25/16 02:00 91 08/25/16 00:34 98.3 98 18 162/72 94 08/25/16 00:31 98 30 08/25/16 00:20 99 32 08/24/16 23:45 96 25 117/61 100 BiPAP 08/24/16 23:05 98 30 08/24/16 22:45 98 24 127/60 98 BiPAP 08/24/16 22:09 101 25 128/58 97 Nasal Cannula 2 08/24/16 22:05 99 Nasal Cannula 2.00 08/24/16 21:56 100 30 08/24/16 21:00 100 35 08/24/16 20:31 102 28 157/72 100 BiPAP 08/24/16 19:52 98.1 08/24/16 19:49 101 30 159/73 100 BiPAP 08/24/16 19:32 100 BiPAP 08/24/16 19:25 107 32 194/91 100 08/24/16 19:20 100 50 08/24/16 19:20 100 BiPAP 50 I/O 08/24/16 08/24/16 08/24/16 08/25/16 08/25/16 08/25/16 07:00 15:00 23:00 07:00 15:00 23:00 Intake Total 160 ml 157 ml Output Total 950 ml Balance 160 ml -793 ml Intake Oral 160 ml IV Total 157 ml Output Urine Total 950 ml Stool Total 0 ml # Bowel Movements 0 Result Diagram: 08/25/16 1201 08/25/16 7940 Other Results Laboratory Tests Test 08/24/16 08/24/16 08/24/16 08/24/16 19:35 19:45 20:30 20:45 White Blood Count 11.3 Red Blood Count 3.66 Hemoglobin 9.7 Hematocrit 30.1 Mean Corpuscular Volume 82.3 Mean Corpuscular Hemoglobin 26.6 Mean Corpuscular Hemoglobin 32.3 Concent Red Cell Distribution Width 15.2 Platelet Count 252 Mean Platelet Volume 8.7 Neutrophils (%) (Auto) 76.9 Lymphocytes (%) (Auto) 11.5 Monocytes (%) (Auto) 10.4 Eosinophils (%) (Auto) 0.6 Basophils (%) (Auto) 0.6 Neutrophils # (Auto) 8.7 Lymphocytes # (Auto) 1.3 Monocytes # (Auto) 1.2 Eosinophils # (Auto) 0.1 Basophils # (Auto) 0.1 CBC Comment DIFF FINAL Differential Comment Prothrombin Time 11.0 Prothromb Time International 1.0 Ratio Activated Partial 29.4 Thromboplast Time Sodium Level 133 Potassium Level 4.5 Chloride Level 98 Carbon Dioxide Level 23.5 Anion Gap 12 Blood Urea Nitrogen 52 Creatinine 3.33 Estimat Glomerular Filtration 16 Rate Random Glucose 50 Calcium Level 8.8 Magnesium Level 2.0 Total Bilirubin 0.5 Aspartate Amino Transf 67 (AST/SGOT) Alanine Aminotransferase 21 (ALT/SGPT) Alkaline Phosphatase 92 Troponin I 2.58 B-Type Natriuretic Peptide 443 Total Protein 7.5 Albumin 3.1 Thyroid Stimulating Hormone 1.040 3rd Gen Urine Color YELLOW Urine Turbidity HAZY Urine pH 5.0 Urine Specific [place] 1.017 Urine Protein 30 Urine Glucose (UA) NEG Urine Ketones NEG Urine Occult Blood TRACE Urine Nitrite NEG Urine Bilirubin NEG Urine Urobilinogen LESS THAN 2.0 Urine Leukocyte Esterase NEG Urine Squamous Epithelial <1 Cells Urine Hyaline Casts 11 Microscopic Urinalysis Comment CULT NOT INDICATED Lactic Acid Level 0.9 Blood Gas Puncture Site IV Blood Gas Patient Temperature 98.6 Venous Blood pH 7.17 Venous Blood Partial Pressure 62 CO2 Venous Blood Partial Pressure 46 O2 Venous Blood HCO3 21 Venous Blood Oxygen Saturation 70 Venous Blood Oxygen Content 8.9 Venous Blood Base Excess -5.9 Oxygen Delivery Device BiPAP Blood Gas Ventilator Setting IPAP18/EPAP6 Blood Gas Inspired Oxygen 50 Test 08/24/16 08/25/16 08/25/16 08/25/16 21:37 00:42 04:10 04:48 Blood Gas Puncture Site RT BRACHIAL RT RADIAL Blood Gas Patient Temperature 98.6 98.6 Blood Gas HCO3 21 23 Blood Gas Base Excess -5.8 -4.2 Blood Gas Oxygen Saturation 95 92 Arterial Blood pH 7.19 7.21 Arterial Blood Partial 58 59 Pressure CO2 Arterial Blood Partial 99 88 Pressure O2 Arterial Blood Oxygen Content 12.5 11.4 Arterial Blood 1.4 2.0 Carboxyhemoglobin Arterial Blood Methemoglobin 0.8 1.2 Blood Gas Hemoglobin 9.3 8.7 Oxygen Delivery Device BiPAP BiPAP Blood Gas Ventilator Setting IPAP18/EPAP6 20IPAP/6EPAP Blood Gas Inspired Oxygen 35 30 Nasal Screen MRSA (PCR) MRSA NOT DETECTED White Blood Count 11.0 Red Blood Count 3.26 Hemoglobin 8.6 Hematocrit 26.9 Mean Corpuscular Volume 82.6 Mean Corpuscular Hemoglobin 26.5 Mean Corpuscular Hemoglobin 32.0 Concent Red Cell Distribution Width 15.1 Platelet Count 241 Mean Platelet Volume 8.5 Neutrophils (%) (Auto) 70.8 Lymphocytes (%) (Auto) 13.9 Monocytes (%) (Auto) 13.8 Eosinophils (%) (Auto) 1.0 Basophils (%) (Auto) 0.5 Neutrophils # (Auto) 7.8 Lymphocytes # (Auto) 1.5 Monocytes # (Auto) 1.5 Eosinophils # (Auto) 0.1 Basophils # (Auto) 0.1 CBC Comment DIFF FINAL Differential Comment Sodium Level 135 Potassium Level 4.6 Chloride Level 99 Carbon Dioxide Level 25.3 Anion Gap 11 Blood Urea Nitrogen 58 Creatinine 3.25 Estimat Glomerular Filtration 17 Rate Random Glucose 94 Calcium Level 8.5 Troponin I 2.79 Triglycerides Level 84 Cholesterol Level 154 LDL Cholesterol 58 HDL Cholesterol 79.3 Cholesterol/HDL Ratio 1.94 Test 08/25/16 08/25/16 08/25/16 10:00 12:01 12:48 Blood Gas Puncture Site RT RADIAL RT RADIAL Blood Gas Patient Temperature 98.6 98.6 Blood Gas HCO3 22 21 Blood Gas Base Excess -4.3 -5.2 Blood Gas Oxygen Saturation 97 95 Arterial Blood pH 7.21 7.22 Arterial Blood Partial 58 54 Pressure CO2 Arterial Blood Partial 260 124 Pressure O2 Arterial Blood Oxygen Content 12.6 12.0 Arterial Blood 1.6 1.8 Carboxyhemoglobin Arterial Blood Methemoglobin 1.2 1.3 Blood Gas Hemoglobin 8.8 8.8 Oxygen Delivery Device BIPAP 20IPAP/6 BIPAP IPAP 20/EPAP10 Blood Gas Inspired Oxygen 50 30 White Blood Count 10.1 Red Blood Count 3.18 Hemoglobin 8.4 Hematocrit 26.3 Mean Corpuscular Volume 82.6 Mean Corpuscular Hemoglobin 26.4 Mean Corpuscular Hemoglobin 32.0 Concent Red Cell Distribution Width 15.2 Platelet Count 214 Mean Platelet Volume 8.6 Prothrombin Time 11.2 Prothromb Time International 1.0 Ratio Activated Partial 32.1 Thromboplast Time Total Creatine Kinase 1762 Creatine Kinase MB 8.3 Creatine Kinase MB % 0.5 Troponin I 2.75 Date/Time Procedure Status Source Growth 08/24/16 20:30 Aerobic Blood Culture - Preliminary Resulted Blood Peripheral NO GROWTH IN 1 DAY 08/24/16 20:30 Anaerobic Blood Culture - Preliminary Resulted Blood Peripheral NO GROWTH IN 1 DAY Physical Exam Physical Exam PHYSICAL EXAMINATION GENERAL: This is a well-developed, well-nourished female who appears to be in no acute distress. She is alert and awake, []. HEAD: Normocephalic without any lesion or mass noted. Facial features appear symmetric. EYES: Perrla, Normal eye movement, [] Icterus. [] Conj congestion. OROPHARYNGEAL: Oropharynx without erythema or edema. MOUTH/THROAT: Tongue midline []. Buccal mucosa is moist []. NECK: Supple. No nuchal rigidity or lymphadenopathy. Trachea midline without deviation. Thyroid not palpable, no bruits appreciated. CARDIAC: Regular rhythm, regular rate, S1 and S2 are heard. Murmur []; no gallops or rubs. LUNGS: Clear to auscultation bilaterally. [] wheeze, [] rhonchi or [] rale. No use of accessory muscles on inspiration or expiration. ABDOMEN: Soft, nontender, no organomegaly or masses. Bowel sounds are heard in all four quadrants. No rebound. No guarding. EXTREMITIES: [] edema. Pulses equal bilateral. [] cyanosis. NEUROLOGICAL: Patient mood and affect appropriate. Cranial nerves II through XII grossly intact. Muscle strength 5/5 in the upper and lower extremities bilaterally. Deep tendon reflexes are 2+ in the upper and lower extremities bilaterally. SKIN:Warm and moist PSYCH: Mood and affect appropriate A/P Assessment and Plan patient seen and examined Please refer to admission h 7 P for details 76 yr old female with encephalopathy, hypercapneuc resp failur likely sec to PNeumonia, JESENIA on CKD, elevated troponin likely sec to CKD and h/o DM Admit to ICU BIPAP for now, may need intubation as patient is fighting BIPAP restraints for now continue antibiotics i/v fluids Appreciate All consultants inputs neighbors at bed side discussed with nursing staff discussed with Brittny Tariq MD August 25, 2016 14:36
--- NOTE | 2016-08-25 15:49 | EKG ---
Date Performed: 08/24/2016 Time Performed: 19:28:11 PTAGE: 76 years EKG: SINUS TACHYCARDIA WITH OCCASIONAL VENTRICULAR PREMATURE COMPLEXES POSSIBLE LEFT ATRIAL ENLA RGEMENT ANTEROSEPTAL MYOCARDIAL INFARCTION ABNORMAL ECG Non-specific ST-T wave change [place] borderline leftward Since PREVIOUS TRACING 11/01/2015, T-wave changes anterolaterally have improved. PREVIOUS TRAC IN11/01/2015 13.27.45 DOCTOR: Sandeep Kumar Interpretating Date/Time 08/25/2016 15:48:32
--- NOTE | 2016-08-25 16:37 | MB ---
cc: HUNTER WERNER DATE OF CONSULTATION: 08/25/2016. REASON FOR CONSULTATION: Evaluation of shortness of breath. REQUESTING PHYSICIAN: Dr. Brittny Negrete. HISTORY OF PRESENT ILLNESS: Ms. Booker is a 76-year-old -[place] female with history of COPD and hypertension. The patient was brought to the hospital because her primary physician, Dr. Joey Oconnell, called for hospice consult. Mago went to see her at her home and found her unresponsive and EVAC was called. The patient was brought to the emergency room. She was found to have pinpoint pupils. She was given Narcan. She had a blood gas done in the hospital. Her pH was 7.17, pC02 of 62, p02 of 46 on 50% BiPAP. She was weaned down to 30% BiPAP. The last blood gas showed pH 7.22, pc02 54, p02 124. The patient then suddenly became awake and pulled off the mask and does not want anything to be done. Now she is on 4 liters nasal cannula saturating at 100% but again is very lethargic and not able to get any information from her. At this time, her niece and her , who lives in [facility] is here and she tells me that she talks to her frequently and tells me that she is drinking excessively and has been over-using her pain medication and also has been using cocaine. She has one daughter who is in [place] and as per the niece the daughter and the granddaughter will be arriving here on Saturday. PAST MEDICAL HISTORY: Her past medical history is as per the record and is significant for: 1. History of COPD. 2. Hypertension. 3. EtOH abuse. 4. Coronary artery disease. 5. Hyperlipidemia. 6. Rheumatoid arthritis. 7. Chronic pain. 8. Asthma. MEDICATIONS: She is currently on: 1. Albuterol and Atrovent nebulizer treatment. 2. Zithromax 500 milligrams a day. 3. Heparin drip because of increased troponin. 4. Aspirin 300 milligrams a day. 5. Protonix 40 milligrams a day. 6. Solu-Medrol 40 milligrams q. 8 hours. ALLERGIES: NO KNOWN DRUG ALLERGIES. SOCIAL HISTORY: She has history of smoking, alcohol and crack use. 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 FAMILY HISTORY: She has a daughter who lives in [place]. REVIEW OF SYSTEMS: Cannot assess. PHYSICAL EXAMINATION: GENERAL: An elderly female very lethargic on 4 liters nasal cannula. VITAL SIGNS: Blood pressure 136/71, heart rate 96, respirations 16, temperature 98.9. HEAD, EYES, EARS, NOSE, THROAT: Pupils are small but reactive to light. NECK: The neck is supple. JVP not raised. CHEST: Air entry equal bilaterally. No rhonchi. CARDIOVASCULAR: S1 and S2 normal. ABDOMEN: Benign. EXTREMITIES: No edema. LABORATORY EVALUATION: Her white blood cell count is 10.1, hemoglobin 10.4, hematocrit 26.3, MCV 82, platelet count 214,000. INR is 1.0. Sodium 135, potassium 4.6, chloride 99, carbon dioxide 25, BUN 58, creatinine 3.25. Troponin 2.79. IMAGING STUDIES: Her chest x-ray shows left lower lobe infiltrate. Ultrasound of the kidneys shows nonvisualization of the left kidney. IMPRESSION: 1. Hypercapnic respiratory failure. 2. Possible drug overdose. 3. Renal insufficiency. 4. Hypertension. 5. History of nicotine use, alcohol used and cocaine use. 6. Metabolic acidosis. 7. History of coronary artery disease. 8. Rheumatoid arthritis. PLAN: 1. I discussed with the patient's niece we will wean her oxygen to 2 liters nasal cannula and if she gets short of breath, put her on BiPAP and as a last resort, she will be intubated. 2. Continue her antibiotic. 3. Monitor electrolytes. I discussed this with Dr. Menjivar. Further treatment will depend on the course in the hospital. Thank you, Dr. Negrete, for this consult. MD ZELDA Nieves/JCBrenna /3:52 PM /3:58 PM ARIADNA
[2016-08-25] MEDS: MULTIVITAMIN TAB PO SCH (17:01)
[2016-08-25] MEDS: THIAMINE HCL 100 MG TAB PO SCH (17:01)
[2016-08-25] MEDS: FOLIC ACID 1 MG TAB PO SCH (17:01)
[2016-08-25 17:07] LABS: BLOOD GAS BASE EXCESS -4.4 mmol/L (-2-2); BLOOD GAS CARBOXYHEMOGLOBIN 1.7 % (0-4); BLOOD GAS HCO3 22 mmol/L (22-26); BLOOD GAS METHEMOGLOBIN 1.1 % (0-2); BLOOD GAS O2 HGB SATURATION 94 % (90-100); BLOOD GAS PCO2 54 mmHg (38-42); BLOOD GAS PO2 102 mmHg (61-120); BLOOD GAS TOTAL HGB 8.9 G/DL (12.0-16.0); CRITICAL VALUE YES; OXYGEN DEVICE NASAL CANNULA; TEMP CORR TO 98.6
[2016-08-25 17:08] LABS: DRAW SITE LT RADIAL; LITER FLOW 3 L/M; NUMBER OF ARTERIAL PUNCTURES 2; ULNAR PULSE PRESENT
[2016-08-25 17:09] LABS: STAT NO
[2016-08-25 19:01] LABS: APTT (PATIENT) 55.1 SEC (24.3-30.1)
[2016-08-25 19:18] LABS: URINE TOTAL PROTEIN TIMED 20.3 MG/DL
[2016-08-25 19:22] LABS: AMPHETAMINE, URINE NEG (NEG); BARBITURATES, URINE NEG (NEG); COCAINE, URINE NEG (NEG)
[2016-08-25 20:43] LABS: BLOOD GAS BASE EXCESS -4.1 mmol/L (-2-2); BLOOD GAS CARBOXYHEMOGLOBIN 1.4 % (0-4); BLOOD GAS HCO3 22 mmol/L (22-26); BLOOD GAS METHEMOGLOBIN 0.9 % (0-2); BLOOD GAS O2 HGB SATURATION 96 % (90-100); BLOOD GAS OXYGEN CONTENT 12.6 Vol % (12.0-20.0); BLOOD GAS PCO2 53 mmHg (38-42); BLOOD GAS PO2 118 mmHg (61-120); BLOOD GAS TOTAL HGB 9.2 G/DL (12.0-16.0); CRITICAL VALUE YES; TEMP CORR TO 98.6
[2016-08-25 20:44] LABS: DRAW SITE RT RADIAL; LITER FLOW 2 L/M; NUMBER OF ARTERIAL PUNCTURES 1; OXYGEN DEVICE NASAL CANNULA; STAT NO; ULNAR PULSE PRESENT
[2016-08-26] VITALS (18 sets, daily range): BP systolic 144–186; BP diastolic 80–86; PULSE 97–122; RESP 18–26; TEMP 98.4–99.4; O2SAT 93–100
[2016-08-26 01:13] LABS: APTT (PATIENT) 40.8 SEC (24.3-30.1)
[2016-08-26] MEDS: INSULIN NovoLIN REGULAR SUPPLEMENTAL SCALE SQ SCH ×6 (02:00→22:00)
[2016-08-26] MEDS: RESP: ALBUTEROL 2.5 MG/IPRATROPIUM 0.5 MG NEB (SCH) NEB ×6 (02:32→23:28)
[2016-08-26] MEDS: PIPERACIL-TAZO 2.25 GM PREMIX 50 ML IV SCH ×3 (03:37→20:51)
[2016-08-26] MEDS: methylPREDNISolone SOD SUCC 40 MG/1 ML VIAL IV PUSH SCH ×3 (03:38→17:49)
[2016-08-26] MEDS: CHLORHEXIDINE GLUCONATE 2 % 1 PACK (2 CLOTHS)(taper/protocol) TOPICAL SCH (04:00)
[2016-08-26 05:45] LABS: BLOOD GAS BASE EXCESS -2.9 mmol/L (-2-2); BLOOD GAS CARBOXYHEMOGLOBIN 1.5 % (0-4); BLOOD GAS HCO3 22 mmol/L (22-26); BLOOD GAS METHEMOGLOBIN 1.2 % (0-2); BLOOD GAS O2 HGB SATURATION 96 % (90-100); BLOOD GAS OXYGEN CONTENT 13.4 Vol % (12.0-20.0); BLOOD GAS PCO2 46 mmHg (38-42); BLOOD GAS PO2 121 mmHg (61-120); BLOOD GAS TOTAL HGB 9.8 G/DL (12.0-16.0); CRITICAL VALUE NO; DRAW SITE RT RADIAL; FIO2 30 %; NUMBER OF ARTERIAL PUNCTURES 1; OXYGEN DEVICE BIPAP; STAT NO; TEMP CORR TO 98.6; ULNAR PULSE PRESENT; VENT SETTINGS IPAP20/EPAP10
--- NOTE | 2016-08-26 07:54 | HHI.CCPN ---
Subjective Remarks/Hospital Course The patient is a 76-year-old female with multiple medical comorbidities which include hypertension, diabetes mellitus, hyperlipidemia, coronary artery disease , morbid obesity, gout, questionable COPD, who presented to [facility] ED last night for shortness of breath and lethargy. She was found to have pinpoint pupils and she was given Narcan in the field along with albuterol treatments x3 en route. She was placed on BiPap by paramedics. A ABG was performed on a BiPap 18/6 with 35% FIO2 which showed acute hypercapnic respiratory failure with a pH of 7.19, CO2 58, pAO2 99, saturation of 95%. Her laboratory data on admission showed acute renal failure with a BUN of 52, creatinine 3.33 and elevated troponin at 2.58. The patient was given Lasix 80 mg IV push in the ER and was admitted under Dr. Negrete service from [facility]. She had a repeat arterial blood gas earlier this morning which showed acute respiratory acidosis with a pH of 7.21, CO2 59, pAO2 88 and bicarb of 23 with saturation of 92% on BiPap 20/6 with 30% FIO2. Chest x-ray on admission showed a left lower lobe infiltrate. Her labs from today showed renal dysfunction with creatinine of 3.25 and troponin elevated 2.79 from 2.58 last night. Critical care medicine was consulted for critical care management. The patient had an ultrasound of her kidneys which showed nonvisualization left kidney, right kidney is unremarkable. When seen she is awake, alert and remains on BiPap. 08/26 Patient was on BIPAP overnight from 12A-6Am. ABG on BIPAP showed improvements in her resp acidosis with PH: 7.31/CO2: 46/PAO2:121. Now on 3L oxygen. On Heparin drip. Objective Vital Signs Date Time Temp Pulse Resp B/P Pulse Ox O2 Delivery O2 Flow Rate FiO2 08/26/16 02:35 100 30 08/26/16 02:00 97 08/26/16 00:00 98.4 22 144/80 08/26/16 00:00 Nasal Cannula 3.00 Intake and Output 08/25/16 08/25/16 08/26/16 08:00 16:00 00:00 Intake Total 157 ml 1595 ml 1055 ml Output Total 950 ml 725 ml 1850 ml Balance -793 ml 870 ml -795 ml Result Diagram: 08/25/16 1201 08/25/16 0410 Other Results Laboratory Tests Test 08/25/16 08/25/16 08/25/16 08/25/16 10:00 12:01 12:48 16:00 Blood Gas Puncture Site RT RADIAL RT RADIAL Blood Gas Patient Temperature 98.6 98.6 Blood Gas HCO3 22 mmol/L 21 mmol/L Blood Gas Base Excess -4.3 mmol/L -5.2 mmol/L Blood Gas Oxygen Saturation 97 % 95 % Arterial Blood pH 7.21 7.22 Arterial Blood Partial 58 mmHg 54 mmHg Pressure CO2 Arterial Blood Partial 260 mmHg 124 mmHg Pressure O2 Arterial Blood Oxygen Content 12.6 Vol % 12.0 Vol % Arterial Blood 1.6 % 1.8 % Carboxyhemoglobin Arterial Blood Methemoglobin 1.2 % 1.3 % Blood Gas Hemoglobin 8.8 G/DL 8.8 G/DL Oxygen Delivery Device BIPAP 20IPAP/6 BIPAP IPAP 20/EPAP10 Blood Gas Inspired Oxygen 50 % 30 % White Blood Count 10.1 TH/MM3 Red Blood Count 3.18 MIL/MM3 Hemoglobin 8.4 GM/DL Hematocrit 26.3 % Mean Corpuscular Volume 82.6 FL Mean Corpuscular Hemoglobin 26.4 PG Mean Corpuscular Hemoglobin 32.0 % Concent Red Cell Distribution Width 15.2 % Platelet Count 214 TH/MM3 Mean Platelet Volume 8.6 FL Prothrombin Time 11.2 SEC Prothromb Time International 1.0 RATIO Ratio Activated Partial 32.1 SEC Thromboplast Time Total Creatine Kinase 1762 U/L Creatine Kinase MB 8.3 NG/ML Creatine Kinase MB % 0.5 % Troponin I 2.75 NG/ML Urine Opiates Screen NEG Urine Barbiturates Screen NEG Urine Amphetamines Screen NEG Urine Benzodiazepines Screen NEG Urine Cocaine Screen NEG Urine Cannabinoids Screen NEG Test 08/25/16 08/25/16 08/25/16 08/26/16 17:00 18:16 20:35 00:07 Blood Gas Puncture Site LT RADIAL RT RADIAL Blood Gas Patient Temperature 98.6 98.6 Blood Gas HCO3 22 mmol/L 22 mmol/L Blood Gas Base Excess -4.4 mmol/L -4.1 mmol/L Blood Gas Oxygen Saturation 94 % 96 % Arterial Blood pH 7.23 7.24 Arterial Blood Partial 54 mmHg 53 mmHg Pressure CO2 Arterial Blood Partial 102 mmHg 118 mmHg Pressure O2 Arterial Blood Oxygen Content 12.0 Vol % 12.6 Vol % Arterial Blood 1.7 % 1.4 % Carboxyhemoglobin Arterial Blood Methemoglobin 1.1 % 0.9 % Blood Gas Hemoglobin 8.9 G/DL 9.2 G/DL Oxygen Delivery Device NASAL CANNULA NASAL CANNULA Blood Gas Liter Flow 3 L/M 2 L/M Activated Partial 55.1 SEC 40.8 SEC Thromboplast Time Troponin I 2.55 NG/ML Test 08/26/16 05:35 Blood Gas Puncture Site RT RADIAL Blood Gas Patient Temperature 98.6 Blood Gas HCO3 22 mmol/L Blood Gas Base Excess -2.9 mmol/L Blood Gas Oxygen Saturation 96 % Arterial Blood pH 7.31 Arterial Blood Partial 46 mmHg Pressure CO2 Arterial Blood Partial 121 mmHg Pressure O2 Arterial Blood Oxygen Content 13.4 Vol % Arterial Blood 1.5 % Carboxyhemoglobin Arterial Blood Methemoglobin 1.2 % Blood Gas Hemoglobin 9.8 G/DL Oxygen Delivery Device BIPAP Blood Gas Ventilator Setting IPAP20/EPAP10 Blood Gas Inspired Oxygen 30 % Imaging Last Impressions Chest X-Ray 08/24/16 1929 Signed Impressions: Service Date/Time: Wednesday, August 24, 2016 19:37 - CONCLUSION: Left lower lobe infiltrate. Karsten Michaels Jr., MD Renal Ultrasound 08/24/16 0000 Signed Impressions: Service Date/Time: Wednesday, August 24, 2016 22:45 - CONCLUSION: Nonvisualization left kidney. Right kidney is unremarkable Brayan Hagen MD Objective Remarks GENERAL: Patient is 76 yo lying in bed in NAD SKIN: Warm and dry. HEAD: Normocephalic. EYES: No scleral icterus. No injection or drainage. NECK: Supple, trachea midline. No JVD or lymphadenopathy. CARDIOVASCULAR:Tachy without murmurs, gallops, or rubs. RESPIRATORY: Breath sounds equal bilaterally. No accessory muscle use. GASTROINTESTINAL: Abdomen soft, non-tender, nondistended. MUSCULOSKELETAL: No cyanosis, edema. Neuro: Awake, restless A/P Assessment and Plan . Acute hypercapnic respiratory failure. 2. Left-sided pneumonia. 3. Acute on chronic kidney disease. 4. Anemia. 5. Non-ST elevation PR. 6. History of diabetes mellitus. 7. Hypertension. 8. Hyperlipidemia. 9. Coronary artery disease. 10 Hx ETOH, tobacco use Plan Neuro: Monitor neuro status and avoid any sedatives. Continue with thiamine, MVI and Folic acid. UDS is negative Pulm: Continue with oxygen and maintain sats above 92%. Bronchodilators, Solu-Medrol 40 mg IV q.8 NIPPV PRN for resp distress. Pulm is following- Dr. Butterfield CV: Monitor HR and BP and maintain MAP > 65 mmHg. Monitor cardiac enzymes with troponins, cards- Dr. Loaiza. Echo from July 2015 showed EF of 65-70% and pulmonary hypertension with a PA pressure 77 mmHg. For 2D echo, continue with ASA daily and heparin drip : Monitor renal function Is and Os and avoid nephrotoxins. Change IVF NS at 75 an hour, Bumex 1mg daily per renal. Renal ultrasound showed nonvisualization of left kidney, right kidney unremarkable. GI: on Protonix 40 mg IV daily for GI prophylaxis. ID: Continue with abx(azithromycin and Zosyn) and monitor for signs of infections( fever and WBC). Check sputum culture Follow up on blood cultures from 08/24: NGTD Endo: SSI with Accu-Chek q. 6-hour for glycemic control Heme: Monitor CBC GI prophylaxis with Protonix 40 mg daily. DVT prophylaxis with SCDs and will start heparin drip Follow up o labs level 3 Maeghan Menjivar MD August 26, 2016 07:54
[2016-08-26] MEDS ORDERED: SODIUM CHLOR 0.9% 1000 ML INJ 1,000 ML IV SCH (08:00)
[2016-08-26] MEDS: MULTIVITAMIN TAB PO SCH (09:00)
[2016-08-26] MEDS: FOLIC ACID 1 MG TAB PO SCH (09:00)
[2016-08-26] MEDS: THIAMINE HCL 100 MG TAB PO SCH (09:00)
[2016-08-26] MEDS: DOCUSATE SODIUM 50 MG/SENNA 8.6 MG TAB PO SCH ×2 (09:00→20:51)
[2016-08-26] MEDS ORDERED: HALOPERIDOL LACTATE 5 MG/ML AMP IV PUSH ONE (09:15)
[2016-08-26] MEDS: SODIUM CHLORIDE 0.9% FLUSH 10 ML FLUSH IV FLUSH SCH ×2 (09:37→20:54)
[2016-08-26] MEDS: AZITHROMYCIN INJ 500 MG in SODIUM CHLOR 0.9% 250 ML INJ 250 ML IV SCH (10:10)
[2016-08-26] MEDS: PANTOPRAZOLE SODIUM 40 MG VIAL IV PUSH SCH (10:13)
[2016-08-26] MEDS: BUMETANIDE INJ 1 MG/4 ML VIAL IV PUSH SCH (10:14)
[2016-08-26] MEDS: ASPIRIN 300 MG SUPP RECTAL SCH (10:14)
[2016-08-26] MEDS ORDERED: LORazepam 2 MG/ML VIAL ONE (11:43)
[2016-08-26] MEDS ORDERED: LORazepam 2 MG/ML VIAL IV PUSH ONE (11:45)
--- NOTE | 2016-08-26 11:54 | HHI.PR ---
Subjective Subjective Remarks on BIPAP, anxious, just received Haldol following simple commands unable to obtain ROS on heparin gtt Review of Systems Constitutional Constitutional Remarks unable to obtain ROS Vitals/Results Intake & Output 08/25/16 08/25/16 08/26/16 15:00 23:00 07:00 Intake Total 1595 ml 1055 ml 528 ml Output Total 725 ml 1850 ml 1000 ml Balance 870 ml -795 ml -472 ml Intake Oral 240 ml IV Total 1595 ml 815 ml 528 ml Output Urine Total 725 ml 1850 ml 1000 ml # Bowel Movements 0 1 Vital Signs Vital Signs Date Time Temp Pulse Resp B/P Pulse Ox O2 Delivery O2 Flow Rate FiO2 08/26/16 11:25 98 35 08/26/16 08:11 94 Nasal Cannula 3.00 08/26/16 06:00 99 08/26/16 04:00 99 08/26/16 04:00 Nasal Cannula 3.00 30 08/26/16 04:00 98.7 106 18 147/80 98 08/26/16 02:35 100 30 08/26/16 02:00 97 08/26/16 00:00 98.4 103 22 144/80 100 08/26/16 00:00 Nasal Cannula 3.00 30 08/26/16 00:00 103 08/25/16 22:00 87 08/25/16 20:26 100 Nasal Cannula 2.00 08/25/16 20:00 99.3 98 23 134/61 92 08/25/16 20:00 Nasal Cannula 3.00 30 08/25/16 20:00 95 08/25/16 18:00 90 08/25/16 17:00 Nasal Cannula 3.00 08/25/16 16:00 99.2 90 16 103/59 100 08/25/16 16:00 Nasal Cannula 4.00 08/25/16 16:00 90 08/25/16 14:00 Nasal Cannula 4.00 08/25/16 14:00 99 08/25/16 12:00 Bi-Pap 30 08/25/16 12:00 96 08/25/16 12:00 98.9 96 15 133/71 99 CBC/BMP: 08/25/16 1201 08/25/16 0410 Lab Results Laboratory Tests Test 08/25/16 08/25/16 08/25/1627/17 12:01 12:48 16:00 17:00 White Blood Count 10.1 TH/MM3 Red Blood Count 3.18 MIL/MM3 Hemoglobin 8.4 GM/DL Hematocrit 26.3 % Mean Corpuscular Volume 82.6 FL Mean Corpuscular Hemoglobin 26.4 PG Mean Corpuscular Hemoglobin 32.0 % Concent Red Cell Distribution Width 15.2 % Platelet Count 214 TH/MM3 Mean Platelet Volume 8.6 FL Prothrombin Time 11.2 SEC Prothromb Time International 1.0 RATIO Ratio Activated Partial 32.1 SEC Thromboplast Time Total Creatine Kinase 1762 U/L Creatine Kinase MB 8.3 NG/ML Creatine Kinase MB % 0.5 % Troponin I 2.75 NG/ML Blood Gas Puncture Site RT RADIAL LT RADIAL Blood Gas Patient Temperature 98.6 98.6 Blood Gas HCO3 21 mmol/L 22 mmol/L Blood Gas Base Excess -5.2 mmol/L -4.4 mmol/L Blood Gas Oxygen Saturation 95 % 94 % Arterial Blood pH 7.22 7.23 Arterial Blood Partial 54 mmHg 54 mmHg Pressure CO2 Arterial Blood Partial 124 mmHg 102 mmHg Pressure O2 Arterial Blood Oxygen Content 12.0 Vol % 12.0 Vol % Arterial Blood 1.8 % 1.7 % Carboxyhemoglobin Arterial Blood Methemoglobin 1.3 % 1.1 % Blood Gas Hemoglobin 8.8 G/DL 8.9 G/DL Oxygen Delivery Device BIPAP IPAP NASAL CANNULA 20/EPAP10 Blood Gas Inspired Oxygen 30 % Urine Opiates Screen NEG Urine Barbiturates Screen NEG Urine Amphetamines Screen NEG Urine Benzodiazepines Screen NEG Urine Cocaine Screen NEG Urine Cannabinoids Screen NEG Blood Gas Liter Flow 3 L/M Test 08/25/16 08/25/16 08/26/16 08/26/16 18:16 20:35 00:07 05:35 Activated Partial 55.1 SEC 40.8 SEC Thromboplast Time Troponin I 2.55 NG/ML Blood Gas Puncture Site RT RADIAL RT RADIAL Blood Gas Patient Temperature 98.6 98.6 Blood Gas HCO3 22 mmol/L 22 mmol/L Blood Gas Base Excess -4.1 mmol/L -2.9 mmol/L Blood Gas Oxygen Saturation 96 % 96 % Arterial Blood pH 7.24 7.31 Arterial Blood Partial 53 mmHg 46 mmHg Pressure CO2 Arterial Blood Partial 118 mmHg 121 mmHg Pressure O2 Arterial Blood Oxygen Content 12.6 Vol % 13.4 Vol % Arterial Blood 1.4 % 1.5 % Carboxyhemoglobin Arterial Blood Methemoglobin 0.9 % 1.2 % Blood Gas Hemoglobin 9.2 G/DL 9.8 G/DL Oxygen Delivery Device NASAL CANNULA BIPAP Blood Gas Liter Flow 2 L/M Blood Gas Ventilator Setting IPAP20/EPAP10 Blood Gas Inspired Oxygen 30 % Physical Exam General General Appearance: Well Developed, Anxious Eyes Eye Exam: Pupils Equal, Pupils Reactive Ears & Nose Ears & Nose Exam: Nasal Mucosa [place] Throat Throat Exam: Oral Mucosa [place] & Moist Neck Neck Exam: Neck Supple, Trachea Midline Pulmonary Resp Exam: Crackles, Decreased Bases Cardiology CV Exam: Regular Gastrointestinal/Abdomen GI Exam: Soft, Non-Tender, Bowel Sounds Present, Non-Distended Musculoskeletal MS Exam: Joints Intact Integumentary Skin Exam: Warm, Dry Extremeties Extremities Exam: Pedal Pulses Palpable, Trace Edema Neurologic Neuro Exam: Awake, Moving All Extremities VTE Prophylaxis VTE Prophylaxis Meds: Heparin Assessment/Plan Problem List: (1) Respiratory failure (2) NSTEMI (non-ST elevated myocardial infarction) (3) Anemia (4) Elevated troponin I level (5) Congestive heart failure (6) DM (diabetes mellitus) (7) JESENIA (acute kidney injury) (8) Pneumonia (9) Chronic kidney disease (10) CAD (coronary artery disease) (11) HYPERTENSION NOS (12) Heart murmur Assessment/Plan 76 year elderly pt. with multiple comorbidities, was on hospice. Patient was found unresponsive, and respiratory distress Acute respiratory failure, hypercapnic, hypoxic Possible pneumonia, left lower lobe. Maybe aspiration. Critical care currently managing, patient on BiPAP. Pulmonology also following patient Continue with IV steroids, DuoNeb's, -Continue with empiric antibiotics and follow cultures -ABG results noted, respiratory acidosis improving. Acute CHF Elevated troponin, possibly non-STEMI secondary to cardiac demand Decrease IV fluids to 50 an hour Continue with IV Bumex Monitor intake and output 2-D echo currently pending -Appreciate cardiology input-Patient not appropriate candidate for any invasive cardiology procedures. Continue with IV heparin -Continue aspirin -Lipid profile results noted. Acute on CKD, minimal improvement. Diuresing well. -continue cautious hydration -continue Bumex 1 mg IV daily -appreciate nephrology input. Questionable report of OD, ETOH, substance abuse. -drug screen negative -continue Folic acid and Thiamine and MVI Anemia, poss. CKD -monitor CBC closely Hypertension, stable -Monitor closely -will obtain home med list. Condition guarded, patient was on hospice. Consult palliative care for assistance with identifying goals of care, CODE STATUS. D/W RN D/W Dr. Negrete This pt. was seen by myself and Dr. Negrete, this note is written on her behalf. Problem Qualifiers (1) Respiratory failure: Qualified Code: J96.02 - Acute respiratory failure with hypercapnia (2) Anemia: Qualified Code: D64.9 - Anemia, unspecified type (3) Congestive heart failure: Qualified Code: I50.9 - Acute congestive heart failure, unspecified congestive heart failure type (4) DM (diabetes mellitus): (5) Pneumonia: Qualified Code: J18.1 - Pneumonia of left lower lobe due to infectious organism (6) CAD (coronary artery disease): Qualified Code: I25.10 - Coronary artery disease involving [place] coronary artery of [place] heart, angina presence unspecified Frannie Bassett August 26, 2016 11:54
--- NOTE | 2016-08-26 11:55 | PD.CARD.PN ---
Subjective Subjective Remarks on bipap, alert in nad Objective Vital Signs / I&O Vital Signs Date Time Temp Pulse Resp B/P Pulse Ox O2 Delivery O2 Flow Rate FiO2 08/26/16 11:25 98 35 08/26/16 08:11 94 Nasal Cannula 3.00 08/26/16 06:00 99 08/26/16 04:00 99 08/26/16 04:00 Nasal Cannula 3.00 30 08/26/16 04:00 98.7 106 18 147/80 98 08/26/16 02:35 100 30 08/26/16 02:00 97 08/26/16 00:00 98.4 103 22 144/80 100 08/26/16 00:00 Nasal Cannula 3.00 30 08/26/16 00:00 103 08/25/16 22:00 87 08/25/16 20:26 100 Nasal Cannula 2.00 08/25/16 20:00 99.3 98 23 134/61 92 08/25/16 20:00 Nasal Cannula 3.00 30 08/25/16 20:00 95 08/25/16 18:00 90 08/25/16 17:00 Nasal Cannula 3.00 08/25/16 16:00 99.2 90 16 103/59 100 08/25/16 16:00 Nasal Cannula 4.00 08/25/16 16:00 90 08/25/16 14:00 Nasal Cannula 4.00 08/25/16 14:00 99 08/25/16 12:00 Bi-Pap 30 08/25/16 12:00 96 08/25/16 12:00 98.9 96 15 133/71 99 I/O 08/25/16 08/25/16 08/25/16 08/26/16 08/26/16 08/26/16 07:00 15:00 23:00 07:00 15:00 23:00 Intake Total 157 ml 1595 ml 1055 ml 528 ml Output Total 950 ml 725 ml 1850 ml 1000 ml Balance -793 ml 870 ml -795 ml -472 ml Intake Oral 240 ml IV Total 157 ml 1595 ml 815 ml 528 ml Output Urine Total 950 ml 725 ml 1850 ml 1000 ml Stool Total 0 ml # Bowel Movements 0 0 1 Laboratory GENERAL: SKIN: Warm and dry. HEAD: Normocephalic. EYES: No scleral icterus. No injection or drainage. NECK: Supple, trachea midline. No JVD or lymphadenopathy. CARDIOVASCULAR: Regular rate and rhythm without murmurs, gallops, or rubs. RESPIRATORY: Breath sounds equal bilaterally. No accessory muscle use. GASTROINTESTINAL: Abdomen soft, non-tender, nondistended. MUSCULOSKELETAL: No cyanosis, or edema. BACK: Nontender without obvious deformity. No CVA tenderness. Laboratory Tests Test 08/25/16 08/25/16 08/25/16 08/25/16 12:01 12:48 16:00 17:00 White Blood Count 10.1 TH/MM3 Red Blood Count 3.18 MIL/MM3 Hemoglobin 8.4 GM/DL Hematocrit 26.3 % Mean Corpuscular Volume 82.6 FL Mean Corpuscular Hemoglobin 26.4 PG Mean Corpuscular Hemoglobin 32.0 % Concent Red Cell Distribution Width 15.2 % Platelet Count 214 TH/MM3 Mean Platelet Volume 8.6 FL Prothrombin Time 11.2 SEC Prothromb Time International 1.0 RATIO Ratio Activated Partial 32.1 SEC Thromboplast Time Total Creatine Kinase 1762 U/L Creatine Kinase MB 8.3 NG/ML Creatine Kinase MB % 0.5 % Troponin I 2.75 NG/ML Blood Gas Puncture Site RT RADIAL LT RADIAL Blood Gas Patient Temperature 98.6 98.6 Blood Gas HCO3 21 mmol/L 22 mmol/L Blood Gas Base Excess -5.2 mmol/L -4.4 mmol/L Blood Gas Oxygen Saturation 95 % 94 % Arterial Blood pH 7.22 7.23 Arterial Blood Partial 54 mmHg 54 mmHg Pressure CO2 Arterial Blood Partial 124 mmHg 102 mmHg Pressure O2 Arterial Blood Oxygen Content 12.0 Vol % 12.0 Vol % Arterial Blood 1.8 % 1.7 % Carboxyhemoglobin Arterial Blood Methemoglobin 1.3 % 1.1 % Blood Gas Hemoglobin 8.8 G/DL 8.9 G/DL Oxygen Delivery Device BIPAP IPAP NASAL CANNULA 20/EPAP10 Blood Gas Inspired Oxygen 30 % Urine Opiates Screen NEG Urine Barbiturates Screen NEG Urine Amphetamines Screen NEG Urine Benzodiazepines Screen NEG Urine Cocaine Screen NEG Urine Cannabinoids Screen NEG Blood Gas Liter Flow 3 L/M Test 08/25/16 08/25/16 08/26/16 08/26/16 18:16 20:35 00:07 05:35 Activated Partial 55.1 SEC 40.8 SEC Thromboplast Time Troponin I 2.55 NG/ML Blood Gas Puncture Site RT RADIAL RT RADIAL Blood Gas Patient Temperature 98.6 98.6 Blood Gas HCO3 22 mmol/L 22 mmol/L Blood Gas Base Excess -4.1 mmol/L -2.9 mmol/L Blood Gas Oxygen Saturation 96 % 96 % Arterial Blood pH 7.24 7.31 Arterial Blood Partial 53 mmHg 46 mmHg Pressure CO2 Arterial Blood Partial 118 mmHg 121 mmHg Pressure O2 Arterial Blood Oxygen Content 12.6 Vol % 13.4 Vol % Arterial Blood 1.4 % 1.5 % Carboxyhemoglobin Arterial Blood Methemoglobin 0.9 % 1.2 % Blood Gas Hemoglobin 9.2 G/DL 9.8 G/DL Oxygen Delivery Device NASAL CANNULA BIPAP Blood Gas Liter Flow 2 L/M Blood Gas Ventilator Setting IPAP20/EPAP10 Blood Gas Inspired Oxygen 30 % Assessment and Plan Problem List: (1) Liver function tests abnormal (2) Chronic kidney disease (3) Troponin level elevated (4) Non-compliant behavior (5) CORONARY ATHEROSCLEROSIS OF [place] CORONARY VESSEL (6) CAD (coronary artery disease) (7) Carotid stenosis (8) DM (diabetes mellitus) (9) JESENIA (acute kidney injury) (10) NSTEMI (non-ST elevated myocardial infarction) Assessment and Plan 1.) NSTEMI - trop elevation due to hypoxia, arf, cri, anemia, on hep, aspirin, ldl at goal, statin held due to elevated lft, leni held due to arf, beta chantel held due to respiratory failure, continue supportive care Problem Qualifiers (1) DM (diabetes mellitus): Real Loaiza MD August 26, 2016 11:55
[2016-08-26 11:56] LABS: AUTOMATED NEUTROPHIL # 8.7 TH/MM3 (1.8-7.7); BASOPHIL % 0.2 % (0.0-2.0); HEMATOCRIT 27.5 % (35.0-46.0); HEMO FLAGS DIFF FINAL; LYMPH % 4.1 % (9.0-44.0); LYMPHOCYTE # 0.4 TH/MM3 (1.0-4.8); MEAN CELL VOLUME 81.6 FL (80.0-100.0); MEAN CORPUSCULAR HEMOGLOBIN 26.7 PG (27.0-34.0); MEAN CORPUSCULAR HGB CONC 32.7 % (32.0-36.0); MONO % 4.6 % (0.0-8.0); NEUT % 91.1 % (16.0-70.0); PLATELET COUNT 259 TH/MM3 (150-450); RED BLOOD COUNT 3.37 MIL/MM3 (4.00-5.30); RED CELL DISTRIBUTION WIDTH 15.4 % (11.6-17.2); WHITE BLOOD COUNT 9.5 TH/MM3 (4.0-11.0)
[2016-08-26 11:57] LABS: AUTOMATED NEUTROPHIL # 8.6 TH/MM3 (1.8-7.7); BASOPHIL % 0.3 % (0.0-2.0); HEMATOCRIT 27.1 % (35.0-46.0); HEMO FLAGS DIFF FINAL; LYMPH % 3.4 % (9.0-44.0); LYMPHOCYTE # 0.3 TH/MM3 (1.0-4.8); MEAN CELL VOLUME 81.1 FL (80.0-100.0); MEAN CORPUSCULAR HEMOGLOBIN 26.7 PG (27.0-34.0); MEAN CORPUSCULAR HGB CONC 32.9 % (32.0-36.0); MONO % 4.9 % (0.0-8.0); NEUT % 91.4 % (16.0-70.0); PLATELET COUNT 247 TH/MM3 (150-450); RED BLOOD COUNT 3.34 MIL/MM3 (4.00-5.30); RED CELL DISTRIBUTION WIDTH 15.4 % (11.6-17.2); WHITE BLOOD COUNT 9.5 TH/MM3 (4.0-11.0)
--- NOTE | 2016-08-26 11:59 | HHI.NPPN ---
Subjective History of Present Illness 76 year old female with ARF/CHF/Pneumonia Objective Data Data 08/25/16 08/26/16 19:00 07:00 Intake Total 1595 ml 1583 ml Output Total 725 ml 2850 ml Balance 870 ml -1267 ml Intake Oral 240 ml IV Total 1595 ml 1343 ml Output Urine Total 725 ml 2850 ml # Bowel Movements 1 Vital Signs Date Time Temp Pulse Resp B/P Pulse Ox O2 Delivery O2 Flow Rate FiO2 08/26/16 11:25 98 35 08/26/16 08:11 94 Nasal Cannula 3.00 08/26/16 06:00 99 08/26/16 04:00 99 08/26/16 04:00 Nasal Cannula 3.00 30 08/26/16 04:00 98.7 106 18 147/80 98 08/26/16 02:35 100 30 08/26/16 02:00 97 08/26/16 00:00 98.4 103 22 144/80 100 08/26/16 00:00 Nasal Cannula 3.00 30 08/26/16 00:00 103 08/25/16 22:00 87 08/25/16 20:26 100 Nasal Cannula 2.00 08/25/16 20:00 99.3 98 23 134/61 92 08/25/16 20:00 Nasal Cannula 3.00 30 08/25/16 20:00 95 08/25/16 18:00 90 08/25/16 17:00 Nasal Cannula 3.00 08/25/16 16:00 99.2 90 16 103/59 100 08/25/16 16:00 Nasal Cannula 4.00 08/25/16 16:00 90 08/25/16 14:00 Nasal Cannula 4.00 08/25/16 14:00 99 08/25/16 12:00 Bi-Pap 30 08/25/16 12:00 96 08/25/16 12:00 98.9 96 15 133/71 99 -: 08/25/16 1201 08/25/16 0410 Physical Exam General Appearance: Well Developed, Anxious Eyes Eye Exam: Pupils Equal, Pupils Reactive Ears & Nose Ears & Nose Exam: Nasal Mucosa [place] Throat Throat Exam: Oral Mucosa [place] & Moist Neck Neck Exam: Neck Supple, Trachea Midline Pulmonary Resp Exam: Crackles, Decreased Bases Cardiology CV Exam: Regular Gastrointestinal/Abdomen GI Exam: Soft, Non-Tender, Bowel Sounds Present, Non-Distended Musculoskeletal MS Exam: Joints Intact Integumentary Skin Exam: Warm, Dry Extremeties Extremities Exam: Pedal Pulses Palpable, Trace Edema Neurologic Neuro Exam: Awake, Moving All Extremities Assessment/Plan Problem List: (1) JESENIA (acute kidney injury) Plan: She has hypoperfusion of the kidneys and likely due to congestive heart failure and the underlying coronary artery disease. she has good response to Bumex 3.5 L out CXR showed pulmonary edema EKG abnormal Cardiology following NSTAMI (2) Carotid artery disease Plan: Status post previous stent (3) Congestive heart failure Plan: She has underlying disorder of the heart (4) DM (diabetes mellitus) Plan: Continue monitor (5) Bilateral lower extremity edema Plan: Due to congestive heart failure Problem Qualifiers (1) Congestive heart failure: Qualified Code: I50.9 - Acute congestive heart failure, unspecified congestive heart failure type (2) DM (diabetes mellitus): Evelin Samuels MD August 26, 2016 11:59
[2016-08-26 12:04] LABS: APTT (PATIENT) 58.5 SEC (24.3-30.1)
[2016-08-26 12:32] LABS: ALKALINE PHOSPHATASE 81 U/L (45-117); ALT (GPT) 19 U/L (10-53); ANION GAP 12 MEQ/L (5-15); AST (GOT) 42 U/L (15-37); BICARBONATE 25.1 MEQ/L (21.0-32.0); BICARBONATE 27.1 MEQ/L (21.0-32.0); BLOOD UREA NITROGEN 39 MG/DL (7-18); CHLORIDE 107 MEQ/L (98-107); CREATINE KINASE 707 U/L (26-192); GLOMERULAR FILTRATION RATE 30 ML/MIN (>89); POTASSIUM 3.7 MEQ/L (3.5-5.1); SODIUM (NA) 144 MEQ/L (136-145); TOTAL BILIRUBIN ADULT 0.3 MG/DL (0.2-1.0)
[2016-08-26] MEDS: ACETAMINOPHEN/HYDROcodone 325 MG/5 MG TAB PO PRN ×3 (12:41→22:20)
--- NOTE | 2016-08-26 12:48 | EC ---
Study Study Date:08/26/2016 STUDY CONCLUSIONS SUMMARY - Procedure narrative: Transthoracic echocardiography. Image quality was fair. Scanning was performed from the parasternal, apical, and subcostal acoustic windows. - Left ventricle: The cavity size was normal. Wall thickness was normal. Systolic function was normal. The estimated ejection fraction was in the range of 55% to 60%. Although no diagnostic regional wall motion abnormality was identified, this possibility cannot be completely excluded on the basis of this study. - Aortic valve: Trileaflet; moderately thickened, mildly calcified leaflets. Trace regurgitation. Mean gradient: 36mm Hg suggesting moderate stenosis. - Mitral valve: Mildly calcified annulus. Trace regurgitation. - Tricuspid valve: Mild regurgitation. - Pulmonary arteries: PA peak pressure: 69mm Hg (S). If LV function is below 40, please consider prescribing an ACEI or ARB or document rationale for non-use. PROCEDURE DATA STUDY STATUS: Elective. Procedure: Transthoracic echocardiography. Image quality was fair. Scanning was performed from the parasternal, apical, and subcostal acoustic windows. Study completion: The patient tolerated the procedure well. Transthoracic echocardiography. M-mode, complete 2D, complete spectral Doppler, and color Doppler. Height: Height: 65in. Weight: Weight: 227.5lb. Body mass index: BMI: 37.9kg/m^2. Body surface area: BSA: 2.09m^2. Patient status: Inpatient. CARDIAC ANATOMY LEFT VENTRICLE: The cavity size was normal. Wall thickness was normal. Systolic function was normal. The estimated ejection fraction was in the range of 55% to 60%. Although no diagnostic regional wall motion abnormality was identified, this possibility cannot be completely excluded on the basis of this study. AORTIC VALVE: Trileaflet; moderately thickened, mildly calcified leaflets. Doppler: Trace regurgitation. Valve area: 0.58cm^2(VTI). Indexed valve area: 0.28cm^2/m^2 (VTI). Valve area: 0.65cm^2 (Vmax). Indexed valve area: 0.31cm^2/m^2 (Vmax). Mean gradient: 36mm Hg suggesting moderate stenosis. Peak gradient: 77mm Hg (S). AORTA: Aortic root: The aortic root was normal in size. MITRAL VALVE: Mildly calcified annulus. Doppler: Transvalvular velocity was within the normal range. There was no evidence for stenosis. Trace regurgitation. Valve area by pressure half-time: 3.44cm^2. Indexed valve area by pressure half-time: 1.65cm^2/m^2. Valve area by continuity equation (using LVOT flow): 1.36cm^2. Indexed valve area by continuity equation (using LVOT flow): 0.65cm^2/m^2. Mean gradient: 5mm Hg (D). Peak gradient: 19mm Hg (D). LEFT ATRIUM: The atrium was normal in size. RIGHT VENTRICLE: The cavity size was normal. Wall thickness was normal. PULMONIC VALVE: Doppler: Transvalvular velocity was within the normal range. There was no evidence for stenosis. No regurgitation. TRICUSPID VALVE: Structurally normal valve. Doppler: Transvalvular velocity was within the normal range. Mild regurgitation. PULMONARY ARTERY: The main pulmonary artery was normal-sized. RIGHT ATRIUM: The atrium was normal in size. PERICARDIUM: There was no pericardial effusion. SYSTEMIC VEINS: Inferior vena cava: The vessel was normal in size. Patient weight: 227.5lb _Ejection fraction:_ 65-75% _Fractional shortening:_ 32% up to 5Kg 5-11.5Kg 11.6-22.9Kg 23-45Kg 45-57Kg Aortic Root 7-13 <17 13-22 17-27 17-27 LA diam 6-13 <23 24-38 33-47 37-40 RVID 10-17 7-15 7-15 7-18 8-17 LVIDd 12-22 <32 24-38 33-47 37-40 LVPW 2-4 3-6 5-7 6-8 7-8 IVS 2-4 3-6 5-7 6-8 7-8 BASIC MEASUREMENTS ADULT NORMAL Left ventricle LV internal dimension, ED, chordal 43.5 mm 43-52 level, PLAX LV internal dimension, ES, chordal 31.2 mm 23-38 level, PLAX Fractional shortening, chordal level, *28 % >29 PLAX LV posterior wall thickness, ED 7.54 mm IVS/LVPW ratio, ED *1.46 <1.3 Ventricular septum Septal thickness, ED 11 mm Left atrium Anterior-posterior dimension 32 mm Anterior-posterior dimension index 1.53 cm/m^2 <2.2 Right ventricle RV internal dimension, ED, PLAX 22.7 mm 19-38 DOPPLER MEASUREMENTS ADULT NORMAL Main pulmonary artery Pressure, S *69 mm Hg =30 Aortic valve Peak velocity, S 370 cm/s Mean velocity, S 277 cm/s VTI, S 42.4 cm Mean gradient, S 36 mm Hg Peak gradient, S 77 mm Hg Valve area, VTI 0.58 cm^2 Valve area index, VTI 0.28 cm^2/m^2 Valve area, Vmax 0.65 cm^2 Valve area index, Vmax 0.31 cm^2/m^2 Mitral valve Peak E-wave velocity 93.2 cm/s Peak A-wave velocity 144 cm/s Mean velocity, D 90.9 cm/s Pressure half-time 64 ms Mean gradient, D 5 mm Hg Peak gradient, D 19 mm Hg Peak E/A ratio 0.6 Valve area, pressure half-time 3.44 cm^2 Valve area index, pressure half-time 1.65 cm^2/m^2 Valve area, LVOT continuity 1.36 cm^2 Valve area index, LVOT continuity 0.65 cm^2/m^2 Tricuspid valve Regurgitant peak velocity 383 cm/s Peak RV-RA gradient, S 59 mm Hg Maximal regurgitant velocity 383 cm/s Systemic veins Estimated CVP 10 mm Hg Right ventricle RV pressure, S *69 mm Hg <30 LEGEND: Mean values are shown as u=mean value. Asterisk (*) moorcho values outside specified normal range. Prepared and signed by Prudencio Briones [id number]
[2016-08-26 12:56] LABS: CKMB 3.1 NG/ML (0.5-3.6)
[2016-08-26 13:10] LABS: BLOOD GAS BASE EXCESS -2.2 mmol/L (-2-2); BLOOD GAS CARBOXYHEMOGLOBIN 1.4 % (0-4); BLOOD GAS HCO3 23 mmol/L (22-26); BLOOD GAS METHEMOGLOBIN 1.2 % (0-2); BLOOD GAS O2 HGB SATURATION 96 % (90-100); BLOOD GAS OXYGEN CONTENT 12.2 Vol % (12.0-20.0); BLOOD GAS PCO2 45 mmHg (38-42); BLOOD GAS PO2 128 mmHg (61-120); BLOOD GAS TOTAL HGB 8.8 G/DL (12.0-16.0); TEMP CORR TO 98.6
[2016-08-26 13:11] LABS: CRITICAL VALUE NO; LITER FLOW 3 L/M; OXYGEN DEVICE NASAL CANNULA
[2016-08-26 13:12] LABS: DRAW SITE RT RADIAL; NUMBER OF ARTERIAL PUNCTURES 2; STAT NO; ULNAR PULSE PRESENT
[2016-08-26] MEDS ORDERED: ACETAMINOPHEN/HYDROcodone 325 MG/5 MG TAB PO ONE (14:45)
--- NOTE | 2016-08-26 16:16 | RADRPT ---
EXAM DATE/TIME: 08/26/2016 15:09 [place] COMPARISON: CHEST SINGLE AP, August 24, 2016, 19:37. INDICATIONS : Short of breath MEDICAL HISTORY : Hypertension. Myocardial infarction. Asthma. Coronary artery disease. SURGICAL HISTORY : Cardiac catheter with stent placement. ENCOUNTER: Initial ACUITY: 3 days PAIN SCORE: Non-responsive. LOCATION: Bilateral chest FINDINGS: Moderate patchy infiltrates are noted within the lungs bilaterally consistent with moderate pulmonary edema versus pneumonia. Clinical correlation is recommended. The heart is enlarged. Degenerative changes and scoliosis of the thoracic spine are noted. CONCLUSION: 1. Moderate patchy infiltrates bilaterally consistent with moderate pulmonary edema versus pneumonia . Clinical correlation is recommended. 2. Cardiomegaly. 3. Degenerative changes and scoliosis of the thoracic spine. 4. Degenerative changes are again noted involving the shoulders bilaterally. Marvin Doran MD on August 26, 2016 at 16:09 Board Certified Radiologist. This report was verified electronically.
[2016-08-26] MEDS: hydrALAZINE HCL 20 MG/ML VIAL IV PUSH PRN (18:08)
--- NOTE | 2016-08-26 19:03 | HHI.PR ---
Subjective Remarks 76 YOAA female with Hypercapnoic RF,COPD takes off CPAP and desaturates No Fever More awake, confused Objective Vital Signs Vital Signs Date Time Temp Pulse Resp B/P Pulse Ox O2 Delivery O2 Flow Rate FiO2 08/26/16 18:00 109 08/26/16 16:29 93 35 08/26/16 16:00 Bi-Pap 35 08/26/16 16:00 98.8 100 22 164/85 100 08/26/16 16:00 100 08/26/16 15:30 Bi-Pap 35 08/26/16 14:00 112 08/26/16 12:00 109 08/26/16 12:00 Nasal Cannula 3.00 08/26/16 12:00 99.0 109 24 151/80 100 08/26/16 11:25 98 35 08/26/16 10:00 Bi-Pap 30 08/26/16 10:00 105 08/26/16 08:11 94 Nasal Cannula 3.00 08/26/16 08:00 111 08/26/16 08:00 99.4 111 18 151/80 93 08/26/16 08:00 Nasal Cannula 3.00 08/26/16 06:00 99 08/26/16 04:00 99 08/26/16 04:00 Nasal Cannula 3.00 30 08/26/16 04:00 98.7 106 18 147/80 98 08/26/16 02:35 100 30 08/26/16 02:00 97 08/26/16 00:00 98.4 103 22 144/80 100 08/26/16 00:00 Nasal Cannula 3.00 30 08/26/16 00:00 103 08/25/16 22:00 87 08/25/16 20:26 100 Nasal Cannula 2.00 08/25/16 20:00 99.3 98 23 134/61 92 08/25/16 20:00 Nasal Cannula 3.00 30 08/25/16 20:00 95 I/O 08/25/16 08/25/16 08/25/16 08/26/16 08/26/16 08/26/16 07:00 15:00 23:00 07:00 15:00 23:00 Intake Total 157 ml 1595 ml 1055 ml 528 ml 970 ml Output Total 950 ml 725 ml 1850 ml 1000 ml 1500 ml Balance -793 ml 870 ml -795 ml -472 ml -530 ml Intake Oral 240 ml 120 ml IV Total 157 ml 1595 ml 815 ml 528 ml 850 ml Output Urine Total 950 ml 725 ml 1850 ml 1000 ml 1500 ml Stool Total 0 ml # Bowel Movements 0 0 1 Result Diagram: 08/26/16 1123 08/26/16 1123 Objective Remarks GENERAL: Obese female, mild sob SKIN: Warm and dry. HEAD: Normocephalic. EYES: No scleral icterus. No injection or drainage. NECK: Supple, trachea midline. No JVD or lymphadenopathy. CARDIOVASCULAR: Regular rate and rhythm without murmurs, gallops, or rubs. RESPIRATORY: Breath sounds equal bilaterally. No accessory muscle use. GASTROINTESTINAL: Abdomen soft, non-tender, nondistended. MUSCULOSKELETAL: No cyanosis, or edema. BACK: Nontender without obvious deformity. No CVA tenderness. A/P Assessment and Plan Hypercpnoic RF COPD HTN RA PLAN: Encourage to use CPAP Supplement 02 to keep sat >90% IV Solumedrol Cont x Jeff Butterfield MD August 26, 2016 19:03
[2016-08-26] MEDS ORDERED: BUMETANIDE INJ 1 MG/4 ML VIAL IV PUSH ONE (19:30)
[2016-08-26] MEDS ORDERED: METOPROLOL TARTRATE 25 MG TAB PO SCH (21:00)
[2016-08-26] MEDS ORDERED: NITROGLYCERIN 2% OINT 1 GM PACKET TOPICAL ONE (22:15)
[2016-08-26] MEDS: MELATONIN 5 MG TAB PO SCH (22:17)
[2016-08-26] MEDS: QUEtiapine FUMARATE 25 MG TAB PO SCH (22:17)
[2016-08-26] MEDS: DEXMEDETOMIDINE INJ 200 MCG in SODIUM CHLORIDE 0.9% INJ 50 ML IV SCH (22:42)
[2016-08-27] VITALS (14 sets, daily range): BP systolic 148–193; BP diastolic 70–133; PULSE 76–100; RESP 23–34; TEMP 97.4–98.8; O2SAT 90–100
[2016-08-27] MEDS: DEXMEDETOMIDINE INJ 200 MCG in SODIUM CHLORIDE 0.9% INJ 50 ML IV SCH ×4 (00:18→09:14)
[2016-08-27] MEDS: methylPREDNISolone SOD SUCC 40 MG/1 ML VIAL IV PUSH SCH ×3 (01:55→17:29)
[2016-08-27] MEDS: INSULIN NovoLIN REGULAR SUPPLEMENTAL SCALE SQ SCH ×6 (02:00→21:46)
[2016-08-27] MEDS: RESP: ALBUTEROL 2.5 MG/IPRATROPIUM 0.5 MG NEB (SCH) NEB ×6 (03:13→23:46)
[2016-08-27] MEDS: CHLORHEXIDINE GLUCONATE 2 % 1 PACK (2 CLOTHS)(taper/protocol) TOPICAL SCH (04:00)
[2016-08-27] MEDS: QUEtiapine FUMARATE 25 MG TAB PO SCH ×3 (04:06→20:42)
[2016-08-27] MEDS: PIPERACIL-TAZO 2.25 GM PREMIX 50 ML IV SCH ×3 (04:06→17:31)
[2016-08-27] MEDS: LABETALOL HCL 100 MG/20 ML VIAL IV PUSH PRN (04:49)
[2016-08-27] MEDS: hydrALAZINE HCL 20 MG/ML VIAL IV PUSH PRN ×2 (06:11)
[2016-08-27 06:12] LABS: BASOPHIL % 0.2 % (0.0-2.0); HEMATOCRIT 29.9 % (35.0-46.0); HEMO FLAGS DIFF FINAL; LYMPH % 4.2 % (9.0-44.0); LYMPHOCYTE # 0.5 TH/MM3 (1.0-4.8); MEAN CORPUSCULAR HEMOGLOBIN 25.6 PG (27.0-34.0); MEAN CORPUSCULAR HGB CONC 31.2 % (32.0-36.0); NEUT % 90.6 % (16.0-70.0); PLATELET COUNT 269 TH/MM3 (150-450); RED BLOOD COUNT 3.65 MIL/MM3 (4.00-5.30); RED CELL DISTRIBUTION WIDTH 15.3 % (11.6-17.2)
[2016-08-27 06:22] LABS: APTT (PATIENT) 43.2 SEC (24.3-30.1)
[2016-08-27 06:54] LABS: ALKALINE PHOSPHATASE 86 U/L (45-117); ALT (GPT) 22 U/L (10-53); ANION GAP 11 MEQ/L (5-15); AST (GOT) 42 U/L (15-37); BICARBONATE 27.3 MEQ/L (21.0-32.0); BLOOD UREA NITROGEN 34 MG/DL (7-18); CHLORIDE 108 MEQ/L (98-107); GLOMERULAR FILTRATION RATE 40 ML/MIN (>89); POTASSIUM 3.9 MEQ/L (3.5-5.1); SODIUM (NA) 146 MEQ/L (136-145); TOTAL BILIRUBIN ADULT 0.4 MG/DL (0.2-1.0)
--- NOTE | 2016-08-27 07:16 | HHI.CCPN ---
Subjective Remarks/Hospital Course The patient is a 76-year-old female with multiple medical comorbidities which include hypertension, diabetes mellitus, hyperlipidemia, coronary artery disease , morbid obesity, gout, questionable COPD, who presented to [facility] ED last night for shortness of breath and lethargy. She was found to have pinpoint pupils and she was given Narcan in the field along with albuterol treatments x3 en route. She was placed on BiPap by paramedics. A ABG was performed on a BiPap 18/6 with 35% FIO2 which showed acute hypercapnic respiratory failure with a pH of 7.19, CO2 58, pAO2 99, saturation of 95%. Her laboratory data on admission showed acute renal failure with a BUN of 52, creatinine 3.33 and elevated troponin at 2.58. The patient was given Lasix 80 mg IV push in the ER and was admitted under Dr. Negrete service from [facility]. She had a repeat arterial blood gas earlier this morning which showed acute respiratory acidosis with a pH of 7.21, CO2 59, pAO2 88 and bicarb of 23 with saturation of 92% on BiPap 20/6 with 30% FIO2. Chest x-ray on admission showed a left lower lobe infiltrate. Her labs from today showed renal dysfunction with creatinine of 3.25 and troponin elevated 2.79 from 2.58 last night. Critical care medicine was consulted for critical care management. The patient had an ultrasound of her kidneys which showed nonvisualization left kidney, right kidney is unremarkable. When seen she is awake, alert and remains on BiPap. 08/26 Patient was on BIPAP overnight from 12A-6Am. ABG on BIPAP showed improvements in her resp acidosis with PH: 7.31/CO2: 46/PAO2:121. Now on 3L oxygen. On Heparin drip. 08/27 Patient was placed on Precedex drip last night for agitation. Hypertensive. Afebrile. renal function is improving with Cr: 1.53 today from 1.95. Remains on Heparin drip. Objective Vital Signs Date Time Temp Pulse Resp B/P Pulse Ox O2 Delivery O2 Flow Rate FiO2 08/27/16 02:00 96 08/27/16 00:00 Bi-Pap 3.00 35 08/27/16 00:00 97.6 25 148/70 100 Intake and Output 08/26/16 08/26/16 08/27/16 08:00 16:00 00:00 Intake Total 528 ml 970 ml 454 ml Output Total 1000 ml 1500 ml 1500 ml Balance -472 ml -530 ml -1046 ml Result Diagram: 08/27/16 0514 08/27/16 0514 Other Results Laboratory Tests Test 08/26/16 08/26/16 08/26/16 08/27/16 11:23 12:58 22:12 05:14 White Blood Count 9.5 TH/MM3 11.0 TH/MM3 Red Blood Count 3.37 MIL/MM3 3.65 MIL/MM3 Hemoglobin 9.0 GM/DL 9.3 GM/DL Hematocrit 27.5 % 29.9 % Mean Corpuscular Volume 81.6 FL 82.0 FL Mean Corpuscular Hemoglobin 26.7 PG 25.6 PG Mean Corpuscular Hemoglobin 32.7 % 31.2 % Concent Red Cell Distribution Width 15.4 % 15.3 % Platelet Count 259 TH/MM3 269 TH/MM3 Mean Platelet Volume 8.6 FL 8.9 FL Neutrophils (%) (Auto) 91.1 % 90.6 % Lymphocytes (%) (Auto) 4.1 % 4.2 % Monocytes (%) (Auto) 4.6 % 5.0 % Eosinophils (%) (Auto) 0.0 % 0.0 % Basophils (%) (Auto) 0.2 % 0.2 % Neutrophils # (Auto) 8.7 TH/MM3 10.0 TH/MM3 Lymphocytes # (Auto) 0.4 TH/MM3 0.5 TH/MM3 Monocytes # (Auto) 0.4 TH/MM3 0.6 TH/MM3 Eosinophils # (Auto) 0.0 TH/MM3 0.0 TH/MM3 Basophils # (Auto) 0.0 TH/MM3 0.0 TH/MM3 CBC Comment DIFF FINAL DIFF FINAL Differential Comment Activated Partial 58.5 SEC 43.2 SEC Thromboplast Time Sodium Level 144 MEQ/L 146 MEQ/L Potassium Level 3.7 MEQ/L 3.9 MEQ/L Chloride Level 107 MEQ/L 108 MEQ/L Carbon Dioxide Level 25.1 MEQ/L 27.3 MEQ/L Anion Gap 12 MEQ/L 11 MEQ/L Blood Urea Nitrogen 39 MG/DL 34 MG/DL Creatinine 1.95 MG/DL 1.53 MG/DL Estimat Glomerular Filtration 30 ML/MIN 40 ML/MIN Rate Random Glucose 155 MG/DL 190 MG/DL Calcium Level 8.6 MG/DL 9.4 MG/DL Phosphorus Level 3.1 MG/DL Total Bilirubin 0.3 MG/DL 0.4 MG/DL Aspartate Amino Transf 42 U/L 42 U/L (AST/SGOT) Alanine Aminotransferase 19 U/L 22 U/L (ALT/SGPT) Alkaline Phosphatase 81 U/L 86 U/L Total Creatine Kinase 707 U/L Creatine Kinase MB 3.1 NG/ML Creatine Kinase MB % 0.4 % Troponin I 1.89 NG/ML 3.26 NG/ML Total Protein 7.1 GM/DL 7.5 GM/DL Albumin 2.7 GM/DL 2.8 GM/DL Blood Gas Puncture Site RT RADIAL Blood Gas Patient Temperature 98.6 Blood Gas HCO3 23 mmol/L Blood Gas Base Excess -2.2 mmol/L Blood Gas Oxygen Saturation 96 % Arterial Blood pH 7.33 Arterial Blood Partial 45 mmHg Pressure CO2 Arterial Blood Partial 128 mmHg Pressure O2 Arterial Blood Oxygen Content 12.2 Vol % Arterial Blood 1.4 % Carboxyhemoglobin Arterial Blood Methemoglobin 1.2 % Blood Gas Hemoglobin 8.8 G/DL Oxygen Delivery Device NASAL CANNULA Blood Gas Liter Flow 3 L/M Imaging Last Impressions Chest X-Ray 08/26/16 0000 Signed Impressions: Service Date/Time: Friday, August 26, 2016 15:09 - CONCLUSION: 1. Moderate patchy infiltrates bilaterally consistent with moderate pulmonary edema versus pneumonia. Clinical correlation is recommended. 2. Cardiomegaly. 3. Degenerative changes and scoliosis of the thoracic spine. 4. Degenerative changes are again noted involving the shoulders bilaterally. Marvin Doran MD Renal Ultrasound 08/24/16 0000 Signed Impressions: Service Date/Time: Wednesday, August 24, 2016 22:45 - CONCLUSION: Nonvisualization left kidney. Right kidney is unremarkable Brayan Hagen MD Objective Remarks GENERAL: Patient is 76 yo lying in bed in NAD SKIN: Warm and dry. HEAD: Normocephalic. EYES: No scleral icterus. No injection or drainage. NECK: Supple, trachea midline. No JVD or lymphadenopathy. CARDIOVASCULAR:Tachy without murmurs, gallops, or rubs. RESPIRATORY: Breath sounds equal bilaterally. No accessory muscle use. GASTROINTESTINAL: Abdomen soft, non-tender, nondistended. MUSCULOSKELETAL: No cyanosis, edema. Neuro: Awake, restless A/P Assessment and Plan 1. Acute hypercapnic respiratory failure. 2. Left-sided pneumonia. 3. Acute on chronic kidney disease. 4. Anemia. 5. Non-ST elevation NH. 6. History of diabetes mellitus. 7. Hypertension. 8. Hyperlipidemia. 9. Coronary artery disease. 10 Hx ETOH, tobacco use Plan Neuro: Placed on Precedex drip last night for agitation. Monitor neuro status and avoid any sedatives. Continue with thiamine, MVI and Folic acid. On Seroquel 25mg Q8, Melatonin 5,g qhs UDS is negative Pulm: Continue with oxygen and maintain sats above 92%. Bronchodilators, Solu-Medrol 40 mg IV q.8 NIPPV PRN for resp distress. Pulm is following- Dr. Butterfield CV: Monitor HR and BP and maintain MAP > 65 mmHg. Increase Lopressor 50mg Q12 Monitor cardiac enzymes with troponins, cards- Dr. Loaiza. Echo from July 2015 showed EF of 65-70% and pulmonary hypertension with a PA pressure 77 mmHg. Echo from 08/25 showed EF 55-60%, mod , pulm HTN with PAP 69mmHg, continue with ASA daily and heparin drip : Monitor renal function Is and Os and avoid nephrotoxins. Bumex 1mg daily , off IVF Renal ultrasound showed nonvisualization of left kidney, right kidney unremarkable. Renal function is improving with Cr: 1.53 today from 1.95 GI: on Protonix 40 mg IV daily for GI prophylaxis. ID: Continue with abx(azithromycin and Zosyn) and monitor for signs of infections( fever and WBC). Follow up on blood cultures from 08/24: NGTD Endo: SSI with Accu-Chek q. 6-hour for glycemic control Heme: Monitor CBC GI prophylaxis with Protonix 40 mg daily. DVT prophylaxis with SCDs and will start heparin drip Follow up o labs level 3 Meaghan Menjivar MD August 27, 2016 07:15
[2016-08-27 07:57] LABS: CREATINE KINASE 371 U/L (26-192)
[2016-08-27 08:37] LABS: CKMB 3.4 NG/ML (0.5-3.6)
[2016-08-27] MEDS: THIAMINE HCL 100 MG TAB PO SCH (09:11)
[2016-08-27] MEDS: FOLIC ACID 1 MG TAB PO SCH (09:12)
[2016-08-27] MEDS: BUMETANIDE INJ 1 MG/4 ML VIAL IV PUSH SCH (09:12)
[2016-08-27] MEDS: ASPIRIN 300 MG SUPP RECTAL SCH (09:12)
[2016-08-27] MEDS: MULTIVITAMIN TAB PO SCH (09:12)
[2016-08-27] MEDS: PANTOPRAZOLE SODIUM 40 MG VIAL IV PUSH SCH (09:12)
[2016-08-27] MEDS: SODIUM CHLORIDE 0.9% FLUSH 10 ML FLUSH IV FLUSH SCH ×2 (09:12→20:46)
[2016-08-27] MEDS: METOPROLOL TARTRATE 25 MG TAB PO SCH ×2 (09:13→20:42)
[2016-08-27] MEDS: DOCUSATE SODIUM 50 MG/SENNA 8.6 MG TAB PO SCH ×2 (09:13→20:43)
--- NOTE | 2016-08-27 09:32 | PD.CARD.PN ---
Subjective Subjective Remarks asleep in nad Objective Vital Signs / I&O Vital Signs Date Time Temp Pulse Resp B/P Pulse Ox O2 Delivery O2 Flow Rate FiO2 08/27/16 06:00 83 08/27/16 04:00 Bi-Pap 3.00 35 08/27/16 04:00 100 08/27/16 04:00 98.8 100 26 193/133 90 08/27/16 02:00 96 08/27/16 00:00 Bi-Pap 3.00 35 08/27/16 00:00 97.6 93 25 148/70 100 08/27/16 00:00 93 08/26/16 23:35 100 30 08/26/16 22:00 106 08/26/16 20:23 100 Nasal Cannula 3.00 08/26/16 20:00 98.4 122 26 186/86 100 08/26/16 20:00 Bi-Pap 3.00 35 08/26/16 20:00 122 08/26/16 18:00 109 08/26/16 16:29 93 35 08/26/16 16:00 Bi-Pap 35 08/26/16 16:00 98.8 100 22 164/85 100 08/26/16 16:00 100 08/26/16 15:30 Bi-Pap 35 08/26/16 14:00 112 08/26/16 12:00 109 08/26/16 12:00 Nasal Cannula 3.00 08/26/16 12:00 99.0 109 24 151/80 100 08/26/16 11:25 98 35 08/26/16 10:00 Bi-Pap 30 08/26/16 10:00 105 I/O 08/26/16 08/26/16 08/26/16 08/27/16 08/27/16 08/27/16 07:00 15:00 23:00 07:00 15:00 23:00 Intake Total 528 ml 970 ml 454 ml 300 ml Output Total 1000 ml 1500 ml 1500 ml 750 ml Balance -472 ml -530 ml -1046 ml -450 ml Intake Oral 120 ml 40 ml IV Total 528 ml 850 ml 454 ml 260 ml Output Urine Total 1000 ml 1500 ml 1500 ml 750 ml # Bowel Movements 1 1 1 Laboratory GENERAL: SKIN: Warm and dry. HEAD: Normocephalic. EYES: No scleral icterus. No injection or drainage. NECK: Supple, trachea midline. No JVD or lymphadenopathy. CARDIOVASCULAR: Regular rate and rhythm without murmurs, gallops, or rubs. RESPIRATORY: Breath sounds equal bilaterally. No accessory muscle use. GASTROINTESTINAL: Abdomen soft, non-tender, nondistended. MUSCULOSKELETAL: No cyanosis, or edema. BACK: Nontender without obvious deformity. No CVA tenderness. Laboratory Tests Test 08/26/16 08/26/16 08/26/16 08/27/16 11:23 12:58 22:12 05:14 White Blood Count 9.5 TH/MM3 11.0 TH/MM3 Red Blood Count 3.37 MIL/MM3 3.65 MIL/MM3 Hemoglobin 9.0 GM/DL 9.3 GM/DL Hematocrit 27.5 % 29.9 % Mean Corpuscular Volume 81.6 FL 82.0 FL Mean Corpuscular Hemoglobin 26.7 PG 25.6 PG Mean Corpuscular Hemoglobin 32.7 % 31.2 % Concent Red Cell Distribution Width 15.4 % 15.3 % Platelet Count 259 TH/MM3 269 TH/MM3 Mean Platelet Volume 8.6 FL 8.9 FL Neutrophils (%) (Auto) 91.1 % 90.6 % Lymphocytes (%) (Auto) 4.1 % 4.2 % Monocytes (%) (Auto) 4.6 % 5.0 % Eosinophils (%) (Auto) 0.0 % 0.0 % Basophils (%) (Auto) 0.2 % 0.2 % Neutrophils # (Auto) 8.7 TH/MM3 10.0 TH/MM3 Lymphocytes # (Auto) 0.4 TH/MM3 0.5 TH/MM3 Monocytes # (Auto) 0.4 TH/MM3 0.6 TH/MM3 Eosinophils # (Auto) 0.0 TH/MM3 0.0 TH/MM3 Basophils # (Auto) 0.0 TH/MM3 0.0 TH/MM3 CBC Comment DIFF FINAL DIFF FINAL Differential Comment Activated Partial 58.5 SEC 43.2 SEC Thromboplast Time Sodium Level 144 MEQ/L 146 MEQ/L Potassium Level 3.7 MEQ/L 3.9 MEQ/L Chloride Level 107 MEQ/L 108 MEQ/L Carbon Dioxide Level 25.1 MEQ/L 27.3 MEQ/L Anion Gap 12 MEQ/L 11 MEQ/L Blood Urea Nitrogen 39 MG/DL 34 MG/DL Creatinine 1.95 MG/DL 1.53 MG/DL Estimat Glomerular Filtration 30 ML/MIN 40 ML/MIN Rate Random Glucose 155 MG/DL 190 MG/DL Calcium Level 8.6 MG/DL 9.4 MG/DL Phosphorus Level 3.1 MG/DL Total Bilirubin 0.3 MG/DL 0.4 MG/DL Aspartate Amino Transf 42 U/L 42 U/L (AST/SGOT) Alanine Aminotransferase 19 U/L 22 U/L (ALT/SGPT) Alkaline Phosphatase 81 U/L 86 U/L Total Creatine Kinase 707 U/L 371 U/L Creatine Kinase MB 3.1 NG/ML 3.4 NG/ML Creatine Kinase MB % 0.4 % 0.9 % Troponin I 1.89 NG/ML 3.26 NG/ML 4.38 NG/ML Total Protein 7.1 GM/DL 7.5 GM/DL Albumin 2.7 GM/DL 2.8 GM/DL Blood Gas Puncture Site RT RADIAL Blood Gas Patient Temperature 98.6 Blood Gas HCO3 23 mmol/L Blood Gas Base Excess -2.2 mmol/L Blood Gas Oxygen Saturation 96 % Arterial Blood pH 7.33 Arterial Blood Partial 45 mmHg Pressure CO2 Arterial Blood Partial 128 mmHg Pressure O2 Arterial Blood Oxygen Content 12.2 Vol % Arterial Blood 1.4 % Carboxyhemoglobin Arterial Blood Methemoglobin 1.2 % Blood Gas Hemoglobin 8.8 G/DL Oxygen Delivery Device NASAL CANNULA Blood Gas Liter Flow 3 L/M Assessment and Plan Problem List: (1) Liver function tests abnormal (2) Chronic kidney disease (3) Troponin level elevated (4) Non-compliant behavior (5) CORONARY ATHEROSCLEROSIS OF [place] CORONARY VESSEL (6) CAD (coronary artery disease) (7) Carotid stenosis (8) DM (diabetes mellitus) (9) JESENIA (acute kidney injury) (10) NSTEMI (non-ST elevated myocardial infarction) Assessment and Plan 1.) NSTEMI - trop elevation due to hypoxia, arf, cri, anemia, on hep, aspirin, ldl at goal, statin held due to elevated lft, leni held due to arf, beta chantel started, continue supportive care. consider cath if patient consents and becomes more medically stable Problem Qualifiers (1) CAD (coronary artery disease): Qualified Code: I25.10 - Coronary artery disease involving [place] coronary artery of [place] heart, angina presence unspecified (2) DM (diabetes mellitus): Real Loaiza MD August 27, 2016 09:31
--- NOTE | 2016-08-27 10:58 | PD.CONS ---
Consult Service Palliative Care Consult Requested By Anthony CALLAWAY . Primary Care Physician No Primary Care Physician Reason for Consultation a. To assist with evaluation and management of symptoms including: dyspnea, anxiety/agitation, b. To assist medical decision maker(s) with: better understanding of current medical conditions; weighing benefits/burdens of medical treatment options; making medical treatment decisions. HPI History of Present Illness This 76-year-old patient presented to ED 08/24/16 with reports of shortness of breath, she apparently initially refused transport EMS. She later became lethargic and short of breath when a [facility] hospice nurse was visiting her, who then notified an ambulance. Patient reporting taking a fluid pill for fluid in her lungs also reporting diabetes. She did receive Narcan her EMS pupils were pinpoint, lethargic. According to EMS she was less lethargic after Narcan. She received albuterol nebulizers en route. EMS applied BiPAP. Other history not known. Per ED review of available records it was noted that she has a history of alcohol abuse, prior opiate overdose, hyperlipidemia, nonadherent to medication regimens, arteriosclerotic cardiovascular disease, CAD, RA, gout, chronic pain, diabetes, hypertension. * ED course: EKG noted sinus tach. Possible old anterior septal KS. CXR= congestive heart failure with pulmonary edema. BUN 52/creatinine 3.33. GFR 16. Glucose 50. Troponin I 2.58. BNP 443. Troponin felt to be secondary to CHF, renal insufficiency. Further monitoring warranted for a ACS. Lactic acid unremarkable. She was admitted for further evaluation and management of CHF. * Echocardiogram 08/26 EF= 5560 percent. No diagnostic regional wall motion abnormality identified, could not be completely excluded. Moderately thickened aortic valve trace regurg. Suggestive of moderate stenosis. Trace mitral regurg. PA peek pressure 69 * She was admitted to ICU, full code default though apparently attempting to locate family. Patient apparently on hospice in the home setting; attempting to locate family through hospice contacts. * Nephrology consulted; urine output adequate, JESENIA felt to be secondary to hypoperfusion of the kidneys secondary to CHF and underlying CAD. Cautious use of diuretics. ELIDA pending. Continue to follow. * Cardiology consulted; cardiology indicates underlying etiology is likely pneumonia and respiratory failure doubts troponin secondary to obstructive etiology but cannot rule out. Feels this is secondary to renal insufficiency severe hypoxia and anemia. Begin treatment with them. Anticoagulants, monitor H&H. Not a good candidate for invasive evaluation due to multiple comorbidities high risk. * Pulmonology consulted ; discussion with patient niece regarding weaning oxygen , BiPAP as needed, intubation as last resort. Continue antibiotics. * 08/26 patient on BiPAP overnight. Some improvement per ABG. On heparin drip. Some episodes of anxiety requiring Haldol. Following commands. Continues to go on/off of BiPAP. Desaturation when off of BiPAP. CXR notable for patchy infiltrates bilaterally consistent with moderate pulmonary edema versus pneumonia. Cardiomegaly. Palliative care was consulted to assist with clarification of goals of treatment as it was noted patient formerly on hospice. * 08/27 requiring Precedex drip overnight for agitation. Hypertensive. Renal functions improving-->> 34/ 1.53 * HOSPICE HISTORY : I d/w [facility]IAS rep 08/18/16, patient accounting representative had arrived to unit to follow-up on patient at time of my arrival for consultation-->> apparently pt was being evaluated for [facility] admission at home, had not been enrolled yet, and tufter operator out to do admitting visit notified EMS as pt was altered. This referral for hospice apparently came from med attending at recent [place] hospitalization for edema, cardiac conditions, recurrent falls. Patient seen in room, respiratory therapy at bedside. She is undergoing nebulizer treatment. She is awake though does not open eyes. She is confused, attempting to take off oxygen mask and nasal cannula. She intermittently follows commands. She appears oriented to self only. She does not answer most of my other questions. Function/Cognitive Trajectory Patient apparently lived at home , seeking hospice support prior to this admission.[ d/w V[facility]AS 08/27/16-->> apparently pt was being evaluated for [facility] admission [facility], and tufter operator notified EMS as pt was altered. This referral for hospice apparently came from med attending at recent [place] hospitalization for edema, cardiac conditions, recurrent falls] Per review of EMR she is noted to have [place] [facility] [place]) in 2014 following a fall and hip fracture. Other EMR visits available from [facility] note patient with frequent falls, often poor historian. Of note she has a visit 08/2014 which noted she was found in the home with poor surroundings/ home in disarray and unable to care for herself, +With some confusion /elevated alcohol level. 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 She was apparently scheduled prior to that to receive home health services but presented to the hospital before that was initiated. She refused SNF placement at that discharge.--08/27 1pm upon later conversation with patient daughter, granddaughter who live out of state and informed that patient had been living at home independently able to attend her own needs, and for the most part cognitively sharp intermittent Past Family Social History Coded Allergies: No Known Allergies (Unverified , 08/24/16) Past Medical History Coronary artery disease status post stent obesity hypertension diabetes mellitus hyperlipidemia, rheumatoid arthritis, chronic pain, cellulitis asthma EtOH abuse frequent falls recent hip fracture anxiety, gout . Past Surgical History Cardiac stents tubal ligation Inguinal hernia repair . Reported Medications Patient unable to provide med hx current presentation, per most recent admission in our EMR 10/2015 meds at that time: Norvasc (Amlodipine Besylate) 10 Mg Tab 10 Mg PO DAILY 30 Days Imdur 60 Mg (Isosorbide Mononitrate) 60 Mg Tabcr 60 Mg PO DAILY 30 Days Metformin (Metformin HCl) 500 Mg Tab 500 Mg PO BID Zanaflex 4 mg (Tizanidine HCl) 4 Mg Tab 4 Mg PO Q8H Hydrocodone/Acetaminophen 7.5 mg/325 mg 1 Tab 1 Tab PO QID PRN Trimethoprim Sulfate/Poly (Polymyxin B-Trimethoprim) Polymyxn Flaquita 1 Drop LEFT EYE TID Metoprolol Succinate ER 50 mg (Metoprolol Succinate) 50 Mg Tab 50 Mg PO DAILY Gabapentin 100 Mg Cap 300 Mg PO TID Lasix 20 Mg Tab (Furosemide) 20 Mg Tab 20 Mg PO BID . Current Medications Medications (Trade) Dose Ordered Sig/Apolinar Route Start Time Stop Time Status Last Admin (NS Flush) 2 ml UNSCH PRN IV FLUSH 08/24/16 22:00 (NS Flush) 2 ml BID IV FLUSH 08/25/16 09:00 08/27/16 09:12 (Tylenol) 650 mg Q4H PRN PO 08/24/16 22:00 (Zofran Inj) 4 mg Q6H PRN IVP 08/24/16 22:00 (Narcan Inj) 0.4 mg UNSCH PRN IV 08/24/16 22:00 (Lindsey-Colace) 1 tab BID PO 08/25/16 09:00 08/27/16 09:13 (Milk Of Magnesia Liq) 30 ml Q12H PRN PO 08/24/16 22:00 (Senokot) 17.2 mg Q12H PRN PO 08/24/16 22:00 (Dulcolax Supp) 10 mg DAILY PRN RECTAL 08/24/16 22:00 (Lactulose Liq) 30 ml DAILY PRN PO 08/24/16 22:00 Miscellaneous Information Patient in critical care unit? Ass... [id number] .XX 08/25/16 01:15 (Chlorhexidine 2% Cloth) 3 pack DAILY@04 TOPICAL 08/25/16 04:00 08/29/16 04:01 08/27/16 04:00 (Chlorhexidine 2% Cloth) 3 pack UNSCH PRN TOPICAL 08/25/16 01:15 08/30/16 01:06 (SoluMEDROL INJ) 40 mg Q8H IV PUSH 08/25/16 10:00 08/27/16 09:31 (D50w (Vial) Inj) 50 ml UNSCH PRN IV 08/25/16 09:45 (Glucagon Inj) 1 mg UNSCH PRN OTHER 08/25/16 09:45 Insulin Human Regular 1 1 Q4H SQ 08/25/16 10:00 08/27/16 06:00 Piperacillin Sod/ Tazobactam Sod 50 ml @ 100 mls/hr Q8H IV 08/25/16 12:00 08/27/16 04:06 Azithromycin 500 mg/Sodium Chloride 250 ml @ 250 mls/hr Q24H IV 08/25/16 11:00 08/26/16 10:10 (Heparin-D5W Inj) 250 ml @ 0 mls/hr TITRATE IV 08/25/16 10:15 (Aspirin Supp) 300 mg DAILY RECTAL 08/25/16 10:15 08/27/16 09:12 (Protonix Inj) 40 mg DAILY IV PUSH 08/25/16 10:15 08/27/16 09:12 (Bumex Inj) 1 mg DAILY IV PUSH 08/26/16 09:00 08/27/16 09:12 (Vitamin B1) 100 mg DAILY PO 08/25/16 15:45 08/27/16 09:11 (Folate) 1 mg DAILY PO 08/25/16 15:45 08/27/16 09:12 (Theragran) 1 tab DAILY PO 08/25/16 15:45 08/27/16 09:12 ([place] 5-325 Mg) 1 tab Q6H PRN PO 08/26/16 12:45 08/26/16 22:20 (Dilaudid Pf Inj) 0.8 mg Q4H PRN IV PUSH 08/26/16 15:30 Hydralazine HCl 10 mg 10 mg Q6H PRN IV PUSH 08/26/16 18:00 08/27/16 06:11 (Precedex Inj/NS Inj) 52 ml @ 0 mls/hr TITRATE IV 08/26/16 19:15 08/27/16 09:14 (Melatonin) 5 mg HS PO 08/26/16 21:00 08/26/16 22:17 (SEROquel) 25 mg Q8H PO 08/26/16 21:00 08/27/16 04:06 (Trandate Inj) 10 mg Q6H PRN IV PUSH 08/27/16 04:45 08/27/16 04:49 (Lopressor) 50 mg Q12HR PO 08/27/16 09:00 08/27/16 09:13 Family History Per review of EMR: Father of unknown causes Mother at 58 secondary to a stroke . Substance Use Tobacco: Family indicates lifetime nonsmoker Alcohol: Per EMR history of heavy alcohol use; family indicates "alcohol problems for a long time", though most recent drinking habits are not known Prescription med abuse: Per EMR history of opioid overdose, overuse of opiate medications; per prior records pharmacist indicating patient with frequent refill requests/forged prescriptions-per family they report long time opiate use /abuse for at least the past 15 years. 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 Supported by daughter, granddaughter who lives in [place]. Supported locally by a niece. Spiritual/Cultural Factors Orthodoxy . Living Will: Never completed Health Care Surrogate: Never completed Ethical and Legal Issues Patient is currently unable to participate in decision-making. Not clear if she will regain ability to participate. Reported to have a daughter in [place] en route. Per prior records is , with one child. Per [place] statutes this one child would be appropriate legal decision maker. Does not appear the patient has any written advance directive/HCS. Physical Exam Vital Signs Date Time Temp Pulse Resp B/P Pulse Ox O2 Delivery O2 Flow Rate FiO2 08/27/16 06:00 83 08/27/16 04:00 Bi-Pap 3.00 35 08/27/16 04:00 100 08/27/16 04:00 98.8 100 26 193/133 90 08/27/16 02:00 96 08/27/16 00:00 Bi-Pap 3.00 35 08/27/16 00:00 97.6 93 25 148/70 100 08/27/16 00:00 93 08/26/16 23:35 100 30 08/26/16 22:00 106 08/26/16 20:23 100 Nasal Cannula 3.00 08/26/16 20:00 98.4 122 26 186/86 100 08/26/16 20:00 Bi-Pap 3.00 35 08/26/16 20:00 122 08/26/16 18:00 109 08/26/16 16:29 93 35 08/26/16 16:00 Bi-Pap 35 08/26/16 16:00 98.8 100 22 164/85 100 08/26/16 16:00 100 08/26/16 15:30 Bi-Pap 35 08/26/16 14:00 112 08/26/16 12:00 109 08/26/16 12:00 Nasal Cannula 3.00 08/26/16 12:00 99.0 109 24 151/80 100 08/26/16 11:25 98 35 08/26/16 08/27/16 19:00 07:00 Intake Total 970 ml 754 ml Output Total 1500 ml 2250 ml Balance -530 ml -1496 ml Intake Oral 120 ml 40 ml IV Total 850 ml 714 ml Output Urine Total 1500 ml 2250 ml # Bowel Movements 2 Exam CONSTITUTIONAL/GENERAL: This is an adequately nourished patient, overweight female, confused, restless at times TUBES/LINES/DRAINS: Peripheral IV right upper extremity, Hyde catheter, nasal cannula, nebulizer mask, SCDs SKIN: No jaundice, rashes, or lesions. No wounds seen anteriorly. Skin temperature warm. HEAD: Atraumatic. Normocephalic. EYES: Pupils are pinpoint, questionable reaction to light. She squeezes eyes closed when I attempt to examine. No scleral icterus. No injection or drainage. Fundi not examined. ENT: Nose without bleeding or purulent drainage. Does not open mouth for oropharynx exam. NECK: Trachea midline. Supple, nontender. No palpable thyroid enlargement or nodularity. CARDIOVASCULAR: Regular rate and rhythm without murmur, difficult to auscultate over loud respiratory sounds. No JVD. Peripheral pulses symmetric. Trace peripheral edema. RESPIRATORY/CHEST: Symmetric, at times labored respirations. Loud expiratory wheezes throughout. Breath sounds equal bilaterally. GASTROINTESTINAL: Abdomen soft, no apparent tenderness, nondistended. No palpable masses. No guarding. Bowel sounds hypoactive. GENITOURINARY: Without palpable bladder distension. Hyde catheter in place- draining dark orange yellow urine. MUSCULOSKELETAL: Extremities without clubbing, cyanosis, or edema. No joint tenderness or effusion noted. No calf tenderness. No mottling or clubbing. LYMPHATICS: No palpable cervical or supraclavicular adenopathy. NEUROLOGICAL: Awake ; though keeps eyes closed. She does move all 4 extremities spontaneously. Intermittently follows commands. Confused, oriented to self only. PSYCHIATRIC: Intermittently restless at times. . Diagnostic Tests Laboratory Laboratory Tests Test 08/24/16 08/24/16 08/24/16 08/24/16 19:35 19:45 20:30 20:45 White Blood Count 11.3 TH/MM3 (4.0-11.0) Red Blood Count 3.66 MIL/MM3 (4.00-5.30) Hemoglobin 9.7 GM/DL (11.6-15.3) Hematocrit 30.1 % (35.0-46.0) Mean Corpuscular Volume 82.3 FL (80.0-100.0) Mean Corpuscular Hemoglobin 26.6 PG (27.0-34.0) Mean Corpuscular Hemoglobin 32.3 % Concent (32.0-36.0) Red Cell Distribution Width 15.2 % (11.6-17.2) Platelet Count 252 TH/MM3 (150-450) Mean Platelet Volume 8.7 FL (7.0-11.0) Neutrophils (%) (Auto) 76.9 % (16.0-70.0) Lymphocytes (%) (Auto) 11.5 % (9.0-44.0) Monocytes (%) (Auto) 10.4 % (0.0-8.0) Eosinophils (%) (Auto) 0.6 % (0.0-4.0) Basophils (%) (Auto) 0.6 % (0.0-2.0) Neutrophils # (Auto) 8.7 TH/MM3 (1.8-7.7) Lymphocytes # (Auto) 1.3 TH/MM3 (1.0-4.8) Monocytes # (Auto) 1.2 TH/MM3 (0-0.9) Eosinophils # (Auto) 0.1 TH/MM3 (0-0.4) Basophils # (Auto) 0.1 TH/MM3 (0-0.2) CBC Comment DIFF FINAL Differential Comment Prothrombin Time 11.0 SEC (9.8-11.6) Prothromb Time International 1.0 RATIO Ratio Activated Partial 29.4 SEC Thromboplast Time (24.3-30.1) Sodium Level 133 MEQ/L (136-145) Potassium Level 4.5 MEQ/L (3.5-5.1) Chloride Level 98 MEQ/L (98-107) Carbon Dioxide Level 23.5 MEQ/L (21.0-32.0) Anion Gap 12 MEQ/L (5-15) Blood Urea Nitrogen 52 MG/DL (7-18) Creatinine 3.33 MG/DL (0.50-1.00) Estimat Glomerular Filtration 16 ML/MIN (>89) Rate Random Glucose 50 MG/DL (74-106) Calcium Level 8.8 MG/DL (8.5-10.1) Magnesium Level 2.0 MG/DL (1.5-2.5) Total Bilirubin 0.5 MG/DL (0.2-1.0) Aspartate Amino Transf 67 U/L (15-37) (AST/SGOT) Alanine Aminotransferase 21 U/L (10-53) (ALT/SGPT) Alkaline Phosphatase 92 U/L (45-117) Troponin I 2.58 NG/ML (0.02-0.05) B-Type Natriuretic Peptide 443 PG/ML (0-100) Total Protein 7.5 GM/DL (6.4-8.2) Albumin 3.1 GM/DL (3.4-5.0) Thyroid Stimulating Hormone 1.040 uIU/ML 3rd Gen (0.358-3.740) Urine Color YELLOW (YELLW/STRAW) Urine Turbidity HAZY (CLEAR) Urine pH 5.0 (5.0-8.5) Urine Specific [place] 1.017 (1.002-1.035) Urine Protein 30 mg/dL (NEG-TRACE) Urine Glucose (UA) NEG mg/dL (NEG) Urine Ketones NEG mg/dL (NEG) Urine Occult Blood TRACE (NEG) Urine Nitrite NEG (NEG) Urine Bilirubin NEG (NEG) Urine Urobilinogen LESS THAN 2.0 MG/DL (LESS THAN 2.0) Urine Leukocyte Esterase NEG (NEG) Urine Squamous Epithelial <1 /hpf (0-5) Cells Urine Hyaline Casts 11 /lpf (RARE) Microscopic Urinalysis Comment CULT NOT INDICATED Lactic Acid Level 0.9 mmol/L (0.4-2.0) Blood Gas Puncture Site IV Blood Gas Patient Temperature 98.6 Venous Blood pH 7.17 (7.360-7.400) Venous Blood Partial Pressure 62 mmHg (44-48) CO2 Venous Blood Partial Pressure 46 mmHg (35-40) O2 Venous Blood HCO3 21 mmol/L (22-26) Venous Blood Oxygen Saturation 70 % (70-76) Venous Blood Oxygen Content 8.9 Vol % (9.0-17.0) Venous Blood Base Excess -5.9 mmol/L (-2-2) Oxygen Delivery Device BiPAP Blood Gas Ventilator Setting IPAP18/EPAP6 Blood Gas Inspired Oxygen 50 % Test 08/24/16 08/25/16 08/25/16 08/25/16 21:37 00:42 04:10 04:48 Blood Gas Puncture Site RT BRACHIAL RT RADIAL Blood Gas Patient Temperature 98.6 98.6 Blood Gas HCO3 21 mmol/L 23 mmol/L (22-26) (22-26) Blood Gas Base Excess -5.8 mmol/L -4.2 mmol/L (-2-2) (-2-2) Blood Gas Oxygen Saturation 95 % (90-100) 92 % (90-100) Arterial Blood pH 7.19 7.21 (7.380-7.420) (7.380-7.420) Arterial Blood Partial 58 mmHg (38-42) 59 mmHg (38-42) Pressure CO2 Arterial Blood Partial 99 mmHG 88 mmHg Pressure O2 (61-120) (61-120) Arterial Blood Oxygen Content 12.5 Vol % 11.4 Vol % (12.0-20.0) (12.0-20.0) Arterial Blood 1.4 % (0-4) 2.0 % (0-4) Carboxyhemoglobin Arterial Blood Methemoglobin 0.8 % (0-2) 1.2 % (0-2) Blood Gas Hemoglobin 9.3 G/DL 8.7 G/DL (12.0-16.0) (12.0-16.0) Oxygen Delivery Device BiPAP BiPAP Blood Gas Ventilator Setting IPAP18/EPAP6 20IPAP/6EPAP Blood Gas Inspired Oxygen 35 % 30 % Nasal Screen MRSA (PCR) MRSA NOT DETECTED (NOT DETECT) White Blood Count 11.0 TH/MM3 (4.0-11.0) Red Blood Count 3.26 MIL/MM3 (4.00-5.30) Hemoglobin 8.6 GM/DL (11.6-15.3) Hematocrit 26.9 % (35.0-46.0) Mean Corpuscular Volume 82.6 FL (80.0-100.0) Mean Corpuscular Hemoglobin 26.5 PG (27.0-34.0) Mean Corpuscular Hemoglobin 32.0 % Concent (32.0-36.0) Red Cell Distribution Width 15.1 % (11.6-17.2) Platelet Count 241 TH/MM3 (150-450) Mean Platelet Volume 8.5 FL (7.0-11.0) Neutrophils (%) (Auto) 70.8 % (16.0-70.0) Lymphocytes (%) (Auto) 13.9 % (9.0-44.0) Monocytes (%) (Auto) 13.8 % (0.0-8.0) Eosinophils (%) (Auto) 1.0 % (0.0-4.0) Basophils (%) (Auto) 0.5 % (0.0-2.0) Neutrophils # (Auto) 7.8 TH/MM3 (1.8-7.7) Lymphocytes # (Auto) 1.5 TH/MM3 (1.0-4.8) Monocytes # (Auto) 1.5 TH/MM3 (0-0.9) Eosinophils # (Auto) 0.1 TH/MM3 (0-0.4) Basophils # (Auto) 0.1 TH/MM3 (0-0.2) CBC Comment DIFF FINAL Differential Comment Sodium Level 135 MEQ/L (136-145) Potassium Level 4.6 MEQ/L (3.5-5.1) Chloride Level 99 MEQ/L (98-107) Carbon Dioxide Level 25.3 MEQ/L (21.0-32.0) Anion Gap 11 MEQ/L (5-15) Blood Urea Nitrogen 58 MG/DL (7-18) Creatinine 3.25 MG/DL (0.50-1.00) Estimat Glomerular Filtration 17 ML/MIN (>89) Rate Random Glucose 94 MG/DL (74-106) Calcium Level 8.5 MG/DL (8.5-10.1) Troponin I 2.79 NG/ML (0.02-0.05) Triglycerides Level 84 MG/DL (42-150) Cholesterol Level 154 MG/DL (120-200) LDL Cholesterol 58 MG/DL (0-99) HDL Cholesterol 79.3 MG/DL (40.0-60.0) Cholesterol/HDL Ratio 1.94 RATIO Test 08/25/16 08/25/16 08/25/16 08/25/16 10:00 12:01 12:48 16:00 Blood Gas Puncture Site RT RADIAL RT RADIAL Blood Gas Patient Temperature 98.6 98.6 Blood Gas HCO3 22 mmol/L 21 mmol/L (22-26) (22-26) Blood Gas Base Excess -4.3 mmol/L -5.2 mmol/L (-2-2) (-2-2) Blood Gas Oxygen Saturation 97 % (90-100) 95 % (90-100) Arterial Blood pH 7.21 7.22 (7.380-7.420) (7.380-7.420) Arterial Blood Partial 58 mmHg (38-42) 54 mmHg (38-42) Pressure CO2 Arterial Blood Partial 260 mmHg 124 mmHg Pressure O2 (61-120) (61-120) Arterial Blood Oxygen Content 12.6 Vol % 12.0 Vol % (12.0-20.0) (12.0-20.0) Arterial Blood 1.6 % (0-4) 1.8 % (0-4) Carboxyhemoglobin Arterial Blood Methemoglobin 1.2 % (0-2) 1.3 % (0-2) Blood Gas Hemoglobin 8.8 G/DL 8.8 G/DL (12.0-16.0) (12.0-16.0) Oxygen Delivery Device BIPAP 20IPAP/6 BIPAP IPAP 20/EPAP10 Blood Gas Inspired Oxygen 50 % 30 % White Blood Count 10.1 TH/MM3 (4.0-11.0) Red Blood Count 3.18 MIL/MM3 (4.00-5.30) Hemoglobin 8.4 GM/DL (11.6-15.3) Hematocrit 26.3 % (35.0-46.0) Mean Corpuscular Volume 82.6 FL (80.0-100.0) Mean Corpuscular Hemoglobin 26.4 PG (27.0-34.0) Mean Corpuscular Hemoglobin 32.0 % Concent (32.0-36.0) Red Cell Distribution Width 15.2 % (11.6-17.2) Platelet Count 214 TH/MM3 (150-450) Mean Platelet Volume 8.6 FL (7.0-11.0) Prothrombin Time 11.2 SEC (9.8-11.6) Prothromb Time International 1.0 RATIO Ratio Activated Partial 32.1 SEC Thromboplast Time (24.3-30.1) Total Creatine Kinase 1762 U/L (26-192) Creatine Kinase MB 8.3 NG/ML (0.5-3.6) Creatine Kinase MB % 0.5 % (0.0-4.0) Troponin I 2.75 NG/ML (0.02-0.05) Urine Opiates Screen NEG (NEG) Urine Barbiturates Screen NEG (NEG) Urine Amphetamines Screen NEG (NEG) Urine Benzodiazepines Screen NEG (NEG) Urine Cocaine Screen NEG (NEG) Urine Cannabinoids Screen NEG (NEG) Test 08/25/16 08/25/16 08/25/16 08/26/16 17:00 18:16 20:35 00:07 Blood Gas Puncture Site LT RADIAL RT RADIAL Blood Gas Patient Temperature 98.6 98.6 Blood Gas HCO3 22 mmol/L 22 mmol/L (22-26) (22-26) Blood Gas Base Excess -4.4 mmol/L -4.1 mmol/L (-2-2) (-2-2) Blood Gas Oxygen Saturation 94 % (90-100) 96 % (90-100) Arterial Blood pH 7.23 7.24 (7.380-7.420) (7.380-7.420) Arterial Blood Partial 54 mmHg (38-42) 53 mmHg (38-42) Pressure CO2 Arterial Blood Partial 102 mmHg 118 mmHg Pressure O2 (61-120) (61-120) Arterial Blood Oxygen Content 12.0 Vol % 12.6 Vol % (12.0-20.0) (12.0-20.0) Arterial Blood 1.7 % (0-4) 1.4 % (0-4) Carboxyhemoglobin Arterial Blood Methemoglobin 1.1 % (0-2) 0.9 % (0-2) Blood Gas Hemoglobin 8.9 G/DL 9.2 G/DL (12.0-16.0) (12.0-16.0) Oxygen Delivery Device NASAL CANNULA NASAL CANNULA Blood Gas Liter Flow 3 L/M 2 L/M Activated Partial 55.1 SEC 40.8 SEC Thromboplast Time (24.3-30.1) (24.3-30.1) Troponin I 2.55 NG/ML (0.02-0.05) Test 08/26/16 08/26/16 08/26/16 08/26/16 05:35 11:23 12:58 22:12 Blood Gas Puncture Site RT RADIAL RT RADIAL Blood Gas Patient Temperature 98.6 98.6 Blood Gas HCO3 22 mmol/L 23 mmol/L (22-26) (22-26) Blood Gas Base Excess -2.9 mmol/L -2.2 mmol/L (-2-2) (-2-2) Blood Gas Oxygen Saturation 96 % (90-100) 96 % (90-100) Arterial Blood pH 7.31 7.33 (7.380-7.420) (7.380-7.420) Arterial Blood Partial 46 mmHg (38-42) 45 mmHg (38-42) Pressure CO2 Arterial Blood Partial 121 mmHg 128 mmHg Pressure O2 (61-120) (61-120) Arterial Blood Oxygen Content 13.4 Vol % 12.2 Vol % (12.0-20.0) (12.0-20.0) Arterial Blood 1.5 % (0-4) 1.4 % (0-4) Carboxyhemoglobin Arterial Blood Methemoglobin 1.2 % (0-2) 1.2 % (0-2) Blood Gas Hemoglobin 9.8 G/DL 8.8 G/DL (12.0-16.0) (12.0-16.0) Oxygen Delivery Device BIPAP NASAL CANNULA Blood Gas Ventilator Setting IPAP20/EPAP10 Blood Gas Inspired Oxygen 30 % White Blood Count 9.5 TH/MM3 (4.0-11.0) Red Blood Count 3.37 MIL/MM3 (4.00-5.30) Hemoglobin 9.0 GM/DL (11.6-15.3) Hematocrit 27.5 % (35.0-46.0) Mean Corpuscular Volume 81.6 FL (80.0-100.0) Mean Corpuscular Hemoglobin 26.7 PG (27.0-34.0) Mean Corpuscular Hemoglobin 32.7 % Concent (32.0-36.0) Red Cell Distribution Width 15.4 % (11.6-17.2) Platelet Count 259 TH/MM3 (150-450) Mean Platelet Volume 8.6 FL (7.0-11.0) Neutrophils (%) (Auto) 91.1 % (16.0-70.0) Lymphocytes (%) (Auto) 4.1 % (9.0-44.0) Monocytes (%) (Auto) 4.6 % (0.0-8.0) Eosinophils (%) (Auto) 0.0 % (0.0-4.0) Basophils (%) (Auto) 0.2 % (0.0-2.0) Neutrophils # (Auto) 8.7 TH/MM3 (1.8-7.7) Lymphocytes # (Auto) 0.4 TH/MM3 (1.0-4.8) Monocytes # (Auto) 0.4 TH/MM3 (0-0.9) Eosinophils # (Auto) 0.0 TH/MM3 (0-0.4) Basophils # (Auto) 0.0 TH/MM3 (0-0.2) CBC Comment DIFF FINAL Differential Comment Activated Partial 58.5 SEC Thromboplast Time (24.3-30.1) Sodium Level 144 MEQ/L (136-145) Potassium Level 3.7 MEQ/L (3.5-5.1) Chloride Level 107 MEQ/L (98-107) Carbon Dioxide Level 25.1 MEQ/L (21.0-32.0) Anion Gap 12 MEQ/L (5-15) Blood Urea Nitrogen 39 MG/DL (7-18) Creatinine 1.95 MG/DL (0.50-1.00) Estimat Glomerular Filtration 30 ML/MIN (>89) Rate Random Glucose 155 MG/DL (74-106) Calcium Level 8.6 MG/DL (8.5-10.1) Phosphorus Level 3.1 MG/DL (2.5-4.9) Total Bilirubin 0.3 MG/DL (0.2-1.0) Aspartate Amino Transf 42 U/L (15-37) (AST/SGOT) Alanine Aminotransferase 19 U/L (10-53) (ALT/SGPT) Alkaline Phosphatase 81 U/L (45-117) Total Creatine Kinase 707 U/L (26-192) Creatine Kinase MB 3.1 NG/ML (0.5-3.6) Creatine Kinase MB % 0.4 % (0.0-4.0) Troponin I 1.89 NG/ML 3.26 NG/ML (0.02-0.05) (0.02-0.05) Total Protein 7.1 GM/DL (6.4-8.2) Albumin 2.7 GM/DL (3.4-5.0) Blood Gas Liter Flow 3 L/M Test 08/27/16 05:14 White Blood Count 11.0 TH/MM3 (4.0-11.0) Red Blood Count 3.65 MIL/MM3 (4.00-5.30) Hemoglobin 9.3 GM/DL (11.6-15.3) Hematocrit 29.9 % (35.0-46.0) Mean Corpuscular Volume 82.0 FL (80.0-100.0) Mean Corpuscular Hemoglobin 25.6 PG (27.0-34.0) Mean Corpuscular Hemoglobin 31.2 % Concent (32.0-36.0) Red Cell Distribution Width 15.3 % (11.6-17.2) Platelet Count 269 TH/MM3 (150-450) Mean Platelet Volume 8.9 FL (7.0-11.0) Neutrophils (%) (Auto) 90.6 % (16.0-70.0) Lymphocytes (%) (Auto) 4.2 % (9.0-44.0) Monocytes (%) (Auto) 5.0 % (0.0-8.0) Eosinophils (%) (Auto) 0.0 % (0.0-4.0) Basophils (%) (Auto) 0.2 % (0.0-2.0) Neutrophils # (Auto) 10.0 TH/MM3 (1.8-7.7) Lymphocytes # (Auto) 0.5 TH/MM3 (1.0-4.8) Monocytes # (Auto) 0.6 TH/MM3 (0-0.9) Eosinophils # (Auto) 0.0 TH/MM3 (0-0.4) Basophils # (Auto) 0.0 TH/MM3 (0-0.2) CBC Comment DIFF FINAL Differential Comment Activated Partial 43.2 SEC Thromboplast Time (24.3-30.1) Sodium Level 146 MEQ/L (136-145) Potassium Level 3.9 MEQ/L (3.5-5.1) Chloride Level 108 MEQ/L (98-107) Carbon Dioxide Level 27.3 MEQ/L (21.0-32.0) Anion Gap 11 MEQ/L (5-15) Blood Urea Nitrogen 34 MG/DL (7-18) Creatinine 1.53 MG/DL (0.50-1.00) Estimat Glomerular Filtration 40 ML/MIN (>89) Rate Random Glucose 190 MG/DL (74-106) Calcium Level 9.4 MG/DL (8.5-10.1) Total Bilirubin 0.4 MG/DL (0.2-1.0) Aspartate Amino Transf 42 U/L (15-37) (AST/SGOT) Alanine Aminotransferase 22 U/L (10-53) (ALT/SGPT) Alkaline Phosphatase 86 U/L (45-117) Total Creatine Kinase 371 U/L (26-192) Creatine Kinase MB 3.4 NG/ML (0.5-3.6) Creatine Kinase MB % 0.9 % (0.0-4.0) Troponin I 4.38 NG/ML (0.02-0.05) Total Protein 7.5 GM/DL (6.4-8.2) Albumin 2.8 GM/DL (3.4-5.0) Result Diagram: 08/27/16 0514 08/27/16 0514 Microbiology Microbiology Date/Time Procedure Status Source Growth 08/24/16 20:15 Aerobic Blood Culture - Preliminary Resulted Blood Peripheral NO GROWTH IN 2 DAYS 08/24/16 20:15 Anaerobic Blood Culture - Preliminary Resulted Blood Peripheral NO GROWTH IN 2 DAYS 08/24/16 20:30 Aerobic Blood Culture - Preliminary Resulted Blood Peripheral NO GROWTH IN 2 DAYS 08/24/16 20:30 Anaerobic Blood Culture - Preliminary Resulted Blood Peripheral NO GROWTH IN 2 DAYS Imaging Last Impressions Chest X-Ray 08/26/16 0000 Signed Impressions: Service Date/Time: Friday, August 26, 2016 15:09 - CONCLUSION: 1. Moderate patchy infiltrates bilaterally consistent with moderate pulmonary edema versus pneumonia. Clinical correlation is recommended. 2. Cardiomegaly. 3. Degenerative changes and scoliosis of the thoracic spine. 4. Degenerative changes are again noted involving the shoulders bilaterally. Marvin Doran MD Renal Ultrasound 08/24/16 0000 Signed Impressions: Service Date/Time: Wednesday, August 24, 2016 22:45 - CONCLUSION: Nonvisualization left kidney. Right kidney is unremarkable Brayan Hagen MD Patient/Family Conference Family Conference Time (mins): 30 Family Conference Location: Telephone Issues Discussed: --I have left a voicemail for patient daughter. She is reported to be en route from [place] expected to arrive Saturday. --I later spoke with the patient manuelito Jones. She is local and in fairly close communication with patient. She indicates that family had no idea patient was pursuing hospice enrollment, it does not sound as if they would support hospice at this time. She indicates they were not aware of recent hospice referral or recent hospitalization. She communicates with patient, patient family every so often. She indicates patient lives alone and had been "doing okay ". Reporting not a good appetite but patient never with a good appetite. Patient no longer drives. Patient able to walk without assistive devices. She does report patient with mild confusion on and off for some time, but the patient isn't always cognitively sharp. I briefly reviewed with her patient overall condition, treatments in place, the patient medically stable at this time though is high risk for potential complications and decline related to underlying medical conditions. Advised that we would like to meet further with daughter, and any other supporting family members as clinical course evolves to further clarify goals of treatment. ===>>1pm. Call back from patient daughter, granddaughter. Spoke with them at length via phone. They are currently out of state and will not be traveling to [place] until September 10. Discussion included the following: * Palliative care role, purpose, approach * Additional medical, psychosocial, and spiritual history * Patients general health, functional status, and cognitive changes in the months leading up to the current hospitalization * Patient/family understanding of the current medical problems * Patient/family understanding of prognosis * Patients goals of care as best understood from advance directives and/or conversations and/or values * Current medical treatment options and benefits/burdens of those options * Questions answered to the best of my ability * Palliative care contact information provided Spoke with patient granddaughter and mother (they are on the same line) at length. Review current hospitalization, diagnoses, treatments in place. Review the patient current condition is stable however she does remain high risk for potential complications/setbacks. Upon discussion of patient social, medical history they indicate that the patient does live alone, had been doing well, independent and able to attend to her own needs. They are unaware of any recent hospitalizations prompting a hospice referral. They are not certain if the patient was gravely ill and just didn't want to tell them, they were not aware of any hospice proceedings. They talked to the patient nearly every day. They indicate patient has struggled with prescription opiates and alcohol for many years at least the past 15 years. She has in the past gone to group homes or rehabilitation for treatment and had "gotten better" but then would relapse back to prescription medications. They are not certain of most recent use of substances they believe she was using Lortab though it is not known the quantity or frequency. Not known her most recent alcohol use habits. They endorse she has never smoked. She has had asthma for many years, has never had COPD. At this time they endorse patient would want to continue to treat whatever conditions are treatable including remain a full code, goals aggressive based on patient known wishes. They indicate they are NOT currently traveling to [place], originally planned to travel here urgently, however as pt is stable, now planning travel here September 10. . Assessment and Plan Disease Oriented Problem List: (1) Hypertensive urgency (2) ETOH abuse (3) Chronic pain (4) Mixed hyperlipidemia (5) Congestive heart failure (6) DM (diabetes mellitus) (7) Carotid artery disease (8) JESENIA (acute kidney injury) (9) Bilateral lower extremity edema (10) Respiratory failure (11) Anemia (12) CAD (coronary artery disease) (13) Chronic kidney disease (14) Elevated troponin I level (15) CORONARY ATHEROSCLEROSIS OF [place] CORONARY VESSEL (16) Liver function tests abnormal Symptom Scale: (1) Anxiety 0-10 Scale: Unable to quantify (2) Dyspnea 0-10 Scale: Unable to quantify (3) Pain 0-10 Scale: Unable to quantify Pertinent Non-Medical Issues Psychosocial:Per EMR: 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 Supported by daughter, granddaughter who lives in [place]. Supported locally by a niece. Spiritual:Orthodoxy Legal:Patient is currently unable to participate in decision-making. Not clear if she will regain ability to participate. Reported to have a daughter in [place] en route. Per prior records is , with one child. Per [place] statutes this one child would be appropriate legal decision maker. Does not appear the patient has any written advance directive/HCS. Ethical issues impacting care: Important Contacts Daughter MIESHA RICHARDSON ([place])- Would be approp legal dec maker granddaughter Kristi [phone]- is with pt MOTHER, can reach them at either # niece Mirian Alegria [phone] sister Ibis Booker [phone] Local friend/neighbor Ms Castaneda [phone] . Prognosis This patient was admitted for lethargy, shortness of breath. She apparently had been recently seeking hospice enrollment in the home setting. She has multiple chronic medical conditions including ASTHMA, CAD and CHF. Not clear that her cardiac function is end-stage at this time (echocardiogram this admission indicates EF 5560 percent), appears to have significant pulmonary issues currently. On and off of BiPAP. She has apparently had ongoing shortness of breath, edema, cardiac issues, and recurrent falls as per available history. As per review of records she has generally not been able to care for herself well in the home setting, and at times is not able to adhere to recommended medical treatments. Not clear she has a terminal diagnosis, some of her conditions possibly could be better managed if she had caregiver/ support to increase her adherence to medical treatments, possibly in an SNF setting. Code Status: Full Code Plan * Legal decision maker: Patient is currently unable to participate in decision- making. Not clear if she will regain ability to participate. Reported to have a daughter in [place] en route. Per prior records is , with one child. Per [place] statutes this one child would be appropriate legal decision maker. Does not appear the patient has any written advance directive/HCS. * Goals: Spoke with patient daughter, granddaughter via phone. At this time they endorse patient would want to continue to treat whatever conditions are treatable including remain a full code, goals aggressive based on patient known wishes. They are not sure why patient was seeking hospice enrollment, they are not aware of any recent acute illnesses. I have also spoken briefly with the patient niece, see family conference for additional detail. * CODE STATUS: Full code * SYMPTOMS: --Dyspnea-history ASTHMA, CHF. Requiring BiPAP this admission/ alternating w NC 4-5L .+ Wheezing.+ Pulmonary edema per CXR. EF 5560 %. paver operator reporting screening/admitting O2 sats 84% on room air. Recurrent falls, hospitalizations at other facilities,? Related to respiratory status. --Pain-possibly with chronic pain syndromes, in the past patient has been on multiple opiate analgesics, history of hip replacement. Reported recurrent falls. + Admitted with AMS/lethargy, cautious use of opiates. Currently has as needed [place], hydromorphone. Has not utilized yet. --Agitation/anxiety--has been altered since admission. History per EMR of EtOH, opiate use/abuse; possibly has some chronic encephalopathy?/ Recent use habits not known, Chronic anxiety?, Which would be exacerbated by dyspnea/SOB/ acute hospitalization. Has been requiring Precedex, Haldol on and off during admission course. Confused. Continue current management avoiding benzodiazepines if possible which could make potential delirium worse. Family indicates patient is usually cognitively sharp * Palliative care will continue to follow during hospital course as condition evolves, to assist patient/decision-maker with understanding of medical conditions, weighing benefits/burdens of treatment options, for clarification of goals of treatment. Additionally will assist with any symptoms of palliative concern Time Spent Total Floor Time (mins): 60 Thank you for the opportunity to participate in the care of Ms. Booker. Attestation To help prompt me to consider important information that might be impacting today's encounter and assessment, information from prior notes written by myself or my colleagues may have been "brought forward" into today's note. My signature on this note, however, is an attestation that I personally performed the exam, history, and/or decision-making noted today, and, unless otherwise indicated, the interactions with patient, family, and staff as well as the review of records all occurred today. I also attest that the listed assessment and stated plan reflect my best clinical judgment today based on the combination of historical information, prior notes, and today's exam/ interactions. When time spent is documented, it refers only to time spent today by the signer, or if indicated, combined time spent today by collaborating physician/nurse practitioner. Sultana Guerrier August 27, 2016 10:58
[2016-08-27] MEDS: AZITHROMYCIN INJ 500 MG in SODIUM CHLOR 0.9% 250 ML INJ 250 ML IV SCH (11:00)
--- NOTE | 2016-08-27 12:11 | HHI.PR ---
Subjective Subjective Remarks off Bipap, on oxygen at 3L/NC sats 98 on Precedex gtt, was agitated sleeping continue on hep gtt unable to obtain ROS Review of Systems Constitutional Constitutional Remarks unable to obtain ROS Vitals/Results Intake & Output 08/26/16 08/26/16 08/27/16 15:00 23:00 07:00 Intake Total 970 ml 454 ml 300 ml Output Total 1500 ml 1500 ml 750 ml Balance -530 ml -1046 ml -450 ml Intake Oral 120 ml 40 ml IV Total 850 ml 454 ml 260 ml Output Urine Total 1500 ml 1500 ml 750 ml # Bowel Movements 1 1 Vital Signs Vital Signs Date Time Temp Pulse Resp B/P Pulse Ox O2 Delivery O2 Flow Rate FiO2 08/27/16 08:25 100 Nasal Cannula 2.00 08/27/16 06:00 83 08/27/16 04:00 Bi-Pap 3.00 35 08/27/16 04:00 100 08/27/16 04:00 98.8 100 26 193/133 90 08/27/16 02:00 96 08/27/16 00:00 Bi-Pap 3.00 35 08/27/16 00:00 97.6 93 25 148/70 100 08/27/16 00:00 93 08/26/16 23:35 100 30 08/26/16 22:00 106 08/26/16 20:23 100 Nasal Cannula 3.00 08/26/16 20:00 98.4 122 26 186/86 100 08/26/16 20:00 Bi-Pap 3.00 35 08/26/16 20:00 122 08/26/16 18:00 109 08/26/16 16:29 93 35 08/26/16 16:00 Bi-Pap 35 08/26/16 16:00 98.8 100 22 164/85 100 08/26/16 16:00 100 08/26/16 15:30 Bi-Pap 35 08/26/16 14:00 112 CBC/BMP: 08/27/16 0514 08/27/16 0514 Lab Results Laboratory Tests Test 08/26/16 08/26/16 08/27/16 12:58 22:12 05:14 Blood Gas Puncture Site RT RADIAL Blood Gas Patient Temperature 98.6 Blood Gas HCO3 23 mmol/L Blood Gas Base Excess -2.2 mmol/L Blood Gas Oxygen Saturation 96 % Arterial Blood pH 7.33 Arterial Blood Partial 45 mmHg Pressure CO2 Arterial Blood Partial 128 mmHg Pressure O2 Arterial Blood Oxygen Content 12.2 Vol % Arterial Blood 1.4 % Carboxyhemoglobin Arterial Blood Methemoglobin 1.2 % Blood Gas Hemoglobin 8.8 G/DL Oxygen Delivery Device NASAL CANNULA Blood Gas Liter Flow 3 L/M Troponin I 3.26 NG/ML 4.38 NG/ML White Blood Count 11.0 TH/MM3 Red Blood Count 3.65 MIL/MM3 Hemoglobin 9.3 GM/DL Hematocrit 29.9 % Mean Corpuscular Volume 82.0 FL Mean Corpuscular Hemoglobin 25.6 PG Mean Corpuscular Hemoglobin 31.2 % Concent Red Cell Distribution Width 15.3 % Platelet Count 269 TH/MM3 Mean Platelet Volume 8.9 FL Neutrophils (%) (Auto) 90.6 % Lymphocytes (%) (Auto) 4.2 % Monocytes (%) (Auto) 5.0 % Eosinophils (%) (Auto) 0.0 % Basophils (%) (Auto) 0.2 % Neutrophils # (Auto) 10.0 TH/MM3 Lymphocytes # (Auto) 0.5 TH/MM3 Monocytes # (Auto) 0.6 TH/MM3 Eosinophils # (Auto) 0.0 TH/MM3 Basophils # (Auto) 0.0 TH/MM3 CBC Comment DIFF FINAL Differential Comment Activated Partial 43.2 SEC Thromboplast Time Sodium Level 146 MEQ/L Potassium Level 3.9 MEQ/L Chloride Level 108 MEQ/L Carbon Dioxide Level 27.3 MEQ/L Anion Gap 11 MEQ/L Blood Urea Nitrogen 34 MG/DL Creatinine 1.53 MG/DL Estimat Glomerular Filtration 40 ML/MIN Rate Random Glucose 190 MG/DL Calcium Level 9.4 MG/DL Total Bilirubin 0.4 MG/DL Aspartate Amino Transf 42 U/L (AST/SGOT) Alanine Aminotransferase 22 U/L (ALT/SGPT) Alkaline Phosphatase 86 U/L Total Creatine Kinase 371 U/L Creatine Kinase MB 3.4 NG/ML Creatine Kinase MB % 0.9 % Total Protein 7.5 GM/DL Albumin 2.8 GM/DL Physical Exam General General Appearance: Well Developed, No Acute Distress, Sleeping Eyes Eye Exam: Pupils Equal, Pupils Reactive Ears & Nose Ears & Nose Exam: Nasal Mucosa [place] Throat Throat Exam: Oral Mucosa [place] & Moist Neck Neck Exam: Neck Supple, Trachea Midline Pulmonary Resp Exam: Crackles, Decreased Bases Resp Remarks faint rales exp. wheezes Cardiology CV Exam: Regular, Murmur Gastrointestinal/Abdomen GI Exam: Soft, Non-Tender, Bowel Sounds Present, Non-Distended Genitourinary Exam: Clear Urine Remarks thomason Musculoskeletal MS Exam: Joints Intact Integumentary Skin Exam: Warm, Dry Extremeties Extremities Exam: Pedal Pulses Palpable, Trace Edema Neurologic Neuro Exam: Sedated VTE Prophylaxis VTE Prophylaxis Meds: Heparin Assessment/Plan Problem List: (1) Respiratory failure (2) NSTEMI (non-ST elevated myocardial infarction) (3) Anemia (4) Elevated troponin I level (5) Congestive heart failure (6) DM (diabetes mellitus) (7) JESENIA (acute kidney injury) (8) Pneumonia (9) Chronic kidney disease (10) CAD (coronary artery disease) (11) HYPERTENSION NOS (12) Heart murmur Assessment/Plan 76 year elderly pt. with multiple comorbidities, was on hospice. Patient was found unresponsive, and respiratory distress Acute respiratory failure, hypercapnic, hypoxic Possible pneumonia, left lower lobe. Maybe aspiration. Critical care currently managing, off Bipap -on Precedex for agitation Pulmonology also following patient Continue with IV steroids, DuoNeb's, -Continue with empiric antibiotics and follow cultures -repeat CXR results noted Agitation -started on Seroquel -continue Precedex Acute CHF Elevated troponin, possibly non-STEMI secondary to cardiac demand Continue with IV Bumex Monitor intake and output 2-D echo EF 55-60%, aortic valve thickened, mod stenosis -Appreciate cardiology input-Patient not appropriate candidate for any invasive cardiology procedures. Continue with IV heparin -Continue aspirin -Lipid profile results noted. Unable to start statins due to elevated LFTs -started on BB Acute on CKD, minimal improvement. Diuresing well. -continue cautious hydration -continue Bumex 1 mg IV daily -appreciate nephrology input. -renal function improving Questionable report of OD, ETOH, substance abuse. -drug screen negative -continue Folic acid and Thiamine and MVI Anemia, poss. CKD -monitor CBC closely Hypertension, stable -continue BB -PRN meds added Appreciate palliative care input Condition guarded continue with above treatment D/W Dr. Negrete This pt. was seen by myself and Dr. Negrete, this note is written on her behalf. Problem Qualifiers (1) Respiratory failure: Qualified Code: J96.02 - Acute respiratory failure with hypercapnia (2) Anemia: Qualified Code: D64.9 - Anemia, unspecified type (3) Congestive heart failure: Qualified Code: I50.9 - Acute congestive heart failure, unspecified congestive heart failure type (4) DM (diabetes mellitus): (5) Pneumonia: Qualified Code: J18.1 - Pneumonia of left lower lobe due to infectious organism (6) CAD (coronary artery disease): Qualified Code: I25.10 - Coronary artery disease involving [place] coronary artery of morongo heart, angina presence unspecified Frannie Bassett IT WE[employer] DEVELOPMENT CONSULTANT August 27, 2016 12:11
--- NOTE | 2016-08-27 12:28 | HHI.NPPN ---
Subjective History of Present Illness 76 year old female with ARF/CHF/Pneumonia Objective Data Data 08/26/16 08/27/16 19:00 07:00 Intake Total 970 ml 754 ml Output Total 1500 ml 2250 ml Balance -530 ml -1496 ml Intake Oral 120 ml 40 ml IV Total 850 ml 714 ml Output Urine Total 1500 ml 2250 ml # Bowel Movements 2 Vital Signs Date Time Temp Pulse Resp B/P Pulse Ox O2 Delivery O2 Flow Rate FiO2 08/27/16 08:25 100 Nasal Cannula 2.00 08/27/16 06:00 83 08/27/16 04:00 Bi-Pap 3.00 35 08/27/16 04:00 100 08/27/16 04:00 98.8 100 26 193/133 90 08/27/16 02:00 96 08/27/16 00:00 Bi-Pap 3.00 35 08/27/16 00:00 97.6 93 25 148/70 100 08/27/16 00:00 93 08/26/16 23:35 100 30 08/26/16 22:00 106 08/26/16 20:23 100 Nasal Cannula 3.00 08/26/16 20:00 98.4 122 26 186/86 100 08/26/16 20:00 Bi-Pap 3.00 35 08/26/16 20:00 122 08/26/16 18:00 109 08/26/16 16:29 93 35 08/26/16 16:00 Bi-Pap 35 08/26/16 16:00 98.8 100 22 164/85 100 08/26/16 16:00 100 08/26/16 15:30 Bi-Pap 35 08/26/16 14:00 112 -: 08/27/16 0514 08/27/16 0514 Physical Exam General Appearance: Well Developed, Anxious Eyes Eye Exam: Pupils Equal, Pupils Reactive Ears & Nose Ears & Nose Exam: Nasal Mucosa [place] Throat Throat Exam: Oral Mucosa [place] & Moist Neck Neck Exam: Neck Supple, Trachea Midline Pulmonary Resp Exam: Crackles, Decreased Bases Cardiology CV Exam: Regular Gastrointestinal/Abdomen GI Exam: Soft, Non-Tender, Bowel Sounds Present, Non-Distended Musculoskeletal MS Exam: Joints Intact Integumentary Skin Exam: Warm, Dry Extremeties Extremities Exam: Pedal Pulses Palpable, Trace Edema Neurologic Neuro Exam: Awake, Moving All Extremities Assessment/Plan Problem List: (1) JESENIA (acute kidney injury) Plan: She has hypoperfusion of the kidneys and likely due to congestive heart failure and the underlying coronary artery disease. she has good response to Bumex 3.7 L out received extra Bumex yesterday IVF decreased to 50 cc/hr chronic medical issues/ d/w Hospice [facility] following NSTAMI (2) Carotid artery disease Plan: Status post previous stent (3) Congestive heart failure Plan: She has underlying disorder of the heart (4) DM (diabetes mellitus) Plan: Continue monitor Problem Qualifiers (1) Congestive heart failure: Qualified Code: I50.9 - Acute congestive heart failure, unspecified congestive heart failure type (2) DM (diabetes mellitus): Evelin Samuels MD August 27, 2016 12:28
[2016-08-27] MEDS: ACETAMINOPHEN/HYDROcodone 325 MG/5 MG TAB PO PRN (16:27)
--- NOTE | 2016-08-27 16:56 | HHI.PR ---
Subjective Remarks 76 YOAA female with Hypercapnoic RF,COPD takes off CPAP and desaturates No Fever More awake, confused Weaned to NC Objective Vital Signs Vital Signs Date Time Temp Pulse Resp B/P Pulse Ox O2 Delivery O2 Flow Rate FiO2 08/27/16 12:00 95 Nasal Cannula 2.00 08/27/16 12:00 98.1 84 23 167/83 95 08/27/16 12:00 84 08/27/16 10:00 81 08/27/16 08:25 100 Nasal Cannula 2.00 08/27/16 08:00 97.4 80 23 172/83 99 08/27/16 08:00 99 Nasal Cannula 3.00 08/27/16 08:00 83 08/27/16 06:00 83 08/27/16 04:00 Bi-Pap 3.00 35 08/27/16 04:00 100 08/27/16 04:00 98.8 100 26 193/133 90 08/27/16 02:00 96 08/27/16 00:00 Bi-Pap 3.00 35 08/27/16 00:00 97.6 93 25 148/70 100 08/27/16 00:00 93 08/26/16 23:35 100 30 08/26/16 22:00 106 08/26/16 20:23 100 Nasal Cannula 3.00 08/26/16 20:00 98.4 122 26 186/86 100 08/26/16 20:00 Bi-Pap 3.00 35 08/26/16 20:00 122 08/26/16 18:00 109 I/O 08/26/16 08/26/16 08/26/16 08/27/16 08/27/16 08/27/16 06:59 14:59 22:59 06:59 14:59 22:59 Intake Total 528 ml 970 ml 454 ml 300 ml Output Total 1000 ml 1500 ml 1500 ml 750 ml Balance -472 ml -530 ml -1046 ml -450 ml Intake Oral 120 ml 40 ml IV Total 528 ml 850 ml 454 ml 260 ml Output Urine Total 1000 ml 1500 ml 1500 ml 750 ml # Bowel Movements 1 1 1 Result Diagram: 08/27/1651308/27/16513 Objective Remarks GENERAL: Obese female, mild sob SKIN: Warm and dry. HEAD: Normocephalic. EYES: No scleral icterus. No injection or drainage. NECK: Supple, trachea midline. No JVD or lymphadenopathy. CARDIOVASCULAR: Regular rate and rhythm without murmurs, gallops, or rubs. RESPIRATORY: Breath sounds equal bilaterally. No accessory muscle use. GASTROINTESTINAL: Abdomen soft, non-tender, nondistended. MUSCULOSKELETAL: No cyanosis, or edema. BACK: Nontender without obvious deformity. No CVA tenderness. A/P Assessment and Plan Hypercpnoic RF COPD HTN RA PLAN: Encourage to use CPAP Supplement 02 to keep sat >90% IV Solumedrol Cont Abx Wean off 02 if she maintains RA sat >90% Jeff Butterfield MD August 27, 2016 16:56
[2016-08-27] MEDS: HEPARIN-D5W INJ 250 ML IV SCH (17:32)
[2016-08-27] MEDS: MELATONIN 5 MG TAB PO SCH (20:42)
[2016-08-27] MEDS: HYDROmorphone HCL PF 1 MG/ML VIAL IV PUSH PRN (20:45)
[2016-08-28] VITALS (17 sets, daily range): BP systolic 156–207; BP diastolic 75–92; PULSE 73–90; RESP 21–34; TEMP 97.9–98.7; O2SAT 94–100
[2016-08-28] MEDS: PIPERACIL-TAZO 2.25 GM PREMIX 50 ML IV SCH ×4 (00:18→17:32)
[2016-08-28] MEDS: methylPREDNISolone SOD SUCC 40 MG/1 ML VIAL IV PUSH SCH ×3 (02:50→17:32)
[2016-08-28] MEDS: INSULIN NovoLIN REGULAR SUPPLEMENTAL SCALE SQ SCH ×6 (02:51→21:01)
[2016-08-28] MEDS: ACETAMINOPHEN/HYDROcodone 325 MG/5 MG TAB PO PRN ×4 (02:52→21:00)
[2016-08-28] MEDS: RESP: ALBUTEROL 2.5 MG/IPRATROPIUM 0.5 MG NEB (SCH) NEB ×5 (03:06→20:55)
[2016-08-28] MEDS: CHLORHEXIDINE GLUCONATE 2 % 1 PACK (2 CLOTHS)(taper/protocol) TOPICAL SCH (04:00)
[2016-08-28 05:50] LABS: AUTOMATED NEUTROPHIL # 9.1 TH/MM3 (1.8-7.7); BASOPHIL % 0.1 % (0.0-2.0); HEMATOCRIT 30.1 % (35.0-46.0); HEMO FLAGS DIFF FINAL; LYMPH % 6.6 % (9.0-44.0); LYMPHOCYTE # 0.7 TH/MM3 (1.0-4.8); MEAN CELL VOLUME 82.1 FL (80.0-100.0); MEAN CORPUSCULAR HEMOGLOBIN 25.9 PG (27.0-34.0); MEAN CORPUSCULAR HGB CONC 31.5 % (32.0-36.0); MONO % 6.8 % (0.0-8.0); NEUT % 86.5 % (16.0-70.0); PLATELET COUNT 266 TH/MM3 (150-450); RED BLOOD COUNT 3.66 MIL/MM3 (4.00-5.30); RED CELL DISTRIBUTION WIDTH 15.7 % (11.6-17.2); WHITE BLOOD COUNT 10.5 TH/MM3 (4.0-11.0)
[2016-08-28 06:14] LABS: ALT (GPT) 35 U/L (10-53); ANION GAP 9 MEQ/L (5-15); BICARBONATE 29.2 MEQ/L (21.0-32.0); BLOOD UREA NITROGEN 39 MG/DL (7-18); CHLORIDE 108 MEQ/L (98-107); GLOMERULAR FILTRATION RATE 36 ML/MIN (>89); POTASSIUM 3.7 MEQ/L (3.5-5.1); SODIUM (NA) 146 MEQ/L (136-145)
[2016-08-28 06:16] LABS: ALKALINE PHOSPHATASE 82 U/L (45-117); AST (GOT) 48 U/L (15-37); TOTAL BILIRUBIN ADULT 0.3 MG/DL (0.2-1.0)
[2016-08-28] MEDS: QUEtiapine FUMARATE 25 MG TAB PO SCH ×3 (06:17→20:59)
--- NOTE | 2016-08-28 07:26 | HHI.CCPN ---
Subjective Remarks/Hospital Course The patient is a 76-year-old female with multiple medical comorbidities which include hypertension, diabetes mellitus, hyperlipidemia, coronary artery disease , morbid obesity, gout, questionable COPD, who presented to [facility] ED last night for shortness of breath and lethargy. She was found to have pinpoint pupils and she was given Narcan in the field along with albuterol treatments x3 en route. She was placed on BiPap by paramedics. A ABG was performed on a BiPap 18/6 with 35% FIO2 which showed acute hypercapnic respiratory failure with a pH of 7.19, CO2 58, pAO2 99, saturation of 95%. Her laboratory data on admission showed acute renal failure with a BUN of 52, creatinine 3.33 and elevated troponin at 2.58. The patient was given Lasix 80 mg IV push in the ER and was admitted under Dr. Negrete service from [facility]. She had a repeat arterial blood gas earlier this morning which showed acute respiratory acidosis with a pH of 7.21, CO2 59, pAO2 88 and bicarb of 23 with saturation of 92% on BiPap 20/6 with 30% FIO2. Chest x-ray on admission showed a left lower lobe infiltrate. Her labs from today showed renal dysfunction with creatinine of 3.25 and troponin elevated 2.79 from 2.58 last night. Critical care medicine was consulted for critical care management. The patient had an ultrasound of her kidneys which showed nonvisualization left kidney, right kidney is unremarkable. When seen she is awake, alert and remains on BiPap. 08/26 Patient was on BIPAP overnight from 12A-6Am. ABG on BIPAP showed improvements in her resp acidosis with PH: 7.31/CO2: 46/PAO2:121. Now on 3L oxygen. On Heparin drip. 08/27 Patient was placed on Precedex drip last night for agitation. Hypertensive. Afebrile. renal function is improving with Cr: 1.53 today from 1.95. Remains on Heparin drip. 08/28 No events overnight. Patient is off Precedex drip. Awake and alert on heparin drip, Objective Vital Signs Date Time Temp Pulse Resp B/P Pulse Ox O2 Delivery O2 Flow Rate FiO2 08/28/16 06:00 89 08/28/16 04:00 98.5 24 156/75 99 08/28/16 04:00 Nasal Cannula 2.00 08/27/16 04:00 35 Intake and Output 08/27/16 08/27/16 08/28/16 08:00 16:00 00:00 Intake Total 300 ml 848 ml 762 ml Output Total 750 ml 1350 ml 550 ml Balance -450 ml -502 ml 212 ml Result Diagram: 08/28/16 0518 08/28/16 0518 Other Results Laboratory Tests Test 08/28/16 05:18 White Blood Count 10.5 TH/MM3 Red Blood Count 3.66 MIL/MM3 Hemoglobin 9.5 GM/DL Hematocrit 30.1 % Mean Corpuscular Volume 82.1 FL Mean Corpuscular Hemoglobin 25.9 PG Mean Corpuscular Hemoglobin 31.5 % Concent Red Cell Distribution Width 15.7 % Platelet Count 266 TH/MM3 Mean Platelet Volume 8.3 FL Neutrophils (%) (Auto) 86.5 % Lymphocytes (%) (Auto) 6.6 % Monocytes (%) (Auto) 6.8 % Eosinophils (%) (Auto) 0.0 % Basophils (%) (Auto) 0.1 % Neutrophils # (Auto) 9.1 TH/MM3 Lymphocytes # (Auto) 0.7 TH/MM3 Monocytes # (Auto) 0.7 TH/MM3 Eosinophils # (Auto) 0.0 TH/MM3 Basophils # (Auto) 0.0 TH/MM3 CBC Comment DIFF FINAL Differential Comment Sodium Level 146 MEQ/L Potassium Level 3.7 MEQ/L Chloride Level 108 MEQ/L Carbon Dioxide Level 29.2 MEQ/L Anion Gap 9 MEQ/L Blood Urea Nitrogen 39 MG/DL Creatinine 1.66 MG/DL Estimat Glomerular Filtration 36 ML/MIN Rate Random Glucose 144 MG/DL Calcium Level 9.0 MG/DL Total Bilirubin 0.3 MG/DL Aspartate Amino Transf 48 U/L (AST/SGOT) Alanine Aminotransferase 35 U/L (ALT/SGPT) Alkaline Phosphatase 82 U/L Total Protein 7.0 GM/DL Albumin 2.7 GM/DL Imaging Last Impressions Chest X-Ray 08/26/16 0000 Signed Impressions: Service Date/Time: Friday, August 26, 2016 15:09 - CONCLUSION: 1. Moderate patchy infiltrates bilaterally consistent with moderate pulmonary edema versus pneumonia. Clinical correlation is recommended. 2. Cardiomegaly. 3. Degenerative changes and scoliosis of the thoracic spine. 4. Degenerative changes are again noted involving the shoulders bilaterally. Marvin Doran MD Renal Ultrasound 08/24/16 0000 Signed Impressions: Service Date/Time: Wednesday, August 24, 2016 22:45 - CONCLUSION: Nonvisualization left kidney. Right kidney is unremarkable Brayan Hagen MD Objective Remarks GENERAL: Patient is 76 yo lying in bed in NAD SKIN: Warm and dry. HEAD: Normocephalic. EYES: No scleral icterus. No injection or drainage. NECK: Supple, trachea midline. No JVD or lymphadenopathy. CARDIOVASCULAR:Tachy without murmurs, gallops, or rubs. RESPIRATORY: Breath sounds equal bilaterally. No accessory muscle use. GASTROINTESTINAL: Abdomen soft, non-tender, nondistended. MUSCULOSKELETAL: No cyanosis, edema. Neuro: Awake, restless A/P Assessment and Plan 1. Acute hypercapnic respiratory failure. 2. Left-sided pneumonia. 3. Acute on chronic kidney disease. 4. Anemia. 5. Non-ST elevation [place]. 6. History of diabetes mellitus. 7. Hypertension. 8. Hyperlipidemia. 9. Coronary artery disease. 10 Hx ETOH, tobacco use Plan Neuro: Off Precedex drip. Monitor neuro status and avoid any sedatives. Continue with thiamine, MVI and Folic acid. On Seroquel 25mg Q8, Melatonin 5,g qhs UDS is negative Pulm: Continue with oxygen and maintain sats above 92%. Bronchodilators, Solu-Medrol 40 mg IV q.8 NIPPV PRN for resp distress. Pulm is following- Dr. Butterfield CV: Monitor HR and BP and maintain MAP > 65 mmHg. Lopressor 50mg Q12 Monitor cardiac enzymes with troponins, cards- Dr. Loaiza. Echo from July 2015 showed EF of 65-70% and pulmonary hypertension with a PA pressure 77 mmHg. Echo from 08/25 showed EF 55-60%, mod , pulm HTN with PAP 69mmHg, continue with ASA daily and heparin drip Not on Viral-I due to JESENIA, : Monitor renal function Is and Os and avoid nephrotoxins. Bumex 1mg daily , renal is following Dr. Samuels Renal ultrasound showed nonvisualization of left kidney, right kidney unremarkable. Cr: 1.66 from 1.53 GI: on Protonix 40 mg IV daily for GI prophylaxis. ID: Continue with abx(azithromycin and Zosyn) and monitor for signs of infections( fever and WBC). Blood cultures from 08/24: NGTD Endo: SSI with Accu-Chek q. 6-hour for glycemic control Heme: Monitor CBC GI prophylaxis with Protonix 40 mg daily. DVT prophylaxis with SCDs- heparin drip level 3 Meaghan Menjivar MD August 28, 2016 07:26
[2016-08-28] MEDS: HYDROmorphone HCL PF 1 MG/ML VIAL IV PUSH PRN ×3 (08:33→22:28)
[2016-08-28] MEDS: METOPROLOL TARTRATE 25 MG TAB PO SCH ×2 (08:38→21:00)
[2016-08-28] MEDS: THIAMINE HCL 100 MG TAB PO SCH (08:38)
[2016-08-28] MEDS: PANTOPRAZOLE SODIUM 40 MG VIAL IV PUSH SCH (08:38)
[2016-08-28] MEDS: FOLIC ACID 1 MG TAB PO SCH (08:39)
[2016-08-28] MEDS: MULTIVITAMIN TAB PO SCH (08:39)
[2016-08-28] MEDS: ASPIRIN 300 MG SUPP RECTAL SCH (08:39)
[2016-08-28] MEDS: BUMETANIDE INJ 1 MG/4 ML VIAL IV PUSH SCH (08:39)
[2016-08-28] MEDS: DOCUSATE SODIUM 50 MG/SENNA 8.6 MG TAB PO SCH ×2 (08:39→21:00)
[2016-08-28] MEDS: SODIUM CHLORIDE 0.9% FLUSH 10 ML FLUSH IV FLUSH SCH ×2 (08:39→20:59)
--- NOTE | 2016-08-28 09:04 | RADRPT ---
EXAM DATE/TIME: 08/28/2016 08:01 [place] COMPARISON: CHEST SINGLE AP, August 26, 2016, 15:09. INDICATIONS : COPD. MEDICAL HISTORY : Chronic obstructive pulmonary disease. Hypertension Myocardial infarction. Asthma. Coronary arter y disease. SURGICAL HISTORY : Cardiac catheter with stent placement. ENCOUNTER: Subsequent ACUITY: 4 - 6 days PAIN SCORE: 0/10 LOCATION: Bilateral chest FINDINGS: There continues to be some increase in central markings bilaterally with prominence the pulmonary vas culature suggestive of pulmonary edema. The pattern is about the same compared to the prior examinati on. The heart size remains enlarged but stable. Small bilateral effusions. No significant changes com pared to the prior study. CONCLUSION: No significant change with the pulmonary edema. Davon Orozco MD on August 28, 2016 at 9:01 Board Certified Radiologist. This report was verified electronically.
--- NOTE | 2016-08-28 09:55 | HHI.PR ---
Subjective Subjective Remarks off precedex, calm, pleasant awake, oriented x to self, hospital, year. Not sure why she is here appropriate, discussed hospice, asking if she is going to pt. states she lives alone and not sure what she took agreeable that needs more help and supervision sats 98 on oxygen at 2L/NC continue on hep gtt no cp no sob feeding herself and doing well Review of Systems Constitutional Constitutional Remarks 12 point ROS completed, limited Vitals/Results Intake & Output 08/27/16 08/27/16 08/28/16 15:00 23:00 07:00 Intake Total 848 ml 762 ml 578 ml Output Total 1350 ml 550 ml 450 ml Balance -502 ml 212 ml 128 ml Intake Oral 300 ml 480 ml 400 ml IV Total 548 ml 282 ml 178 ml Output Urine Total 1350 ml 550 ml 450 ml # Bowel Movements 1 1 1 Vital Signs Vital Signs Date Time Temp Pulse Resp B/P Pulse Ox O2 Delivery O2 Flow Rate FiO2 08/28/16 07:52 98 Nasal Cannula 2.00 08/28/16 06:00 89 08/28/16 04:00 78 08/28/16 04:00 98.5 78 24 156/75 99 08/28/16 04:00 100 Nasal Cannula 2.00 08/28/16 02:00 81 08/28/16 00:00 100 Nasal Cannula 2.00 08/28/16 00:00 98.2 80 30 167/82 100 08/28/16 00:00 80 08/27/16 22:00 76 08/27/16 21:25 100 High Flow Nasal Cannula 2.00 08/27/16 20:00 98.1 86 32 159/75 100 08/27/16 20:00 86 08/27/16 20:00 100 Nasal Cannula 2.00 08/27/16 18:00 80 08/27/16 16:00 91 08/27/16 16:00 97.8 91 34 175/81 100 08/27/16 16:00 100 Nasal Cannula 2.00 08/27/16 14:00 89 08/27/16 12:00 95 Nasal Cannula 2.00 08/27/16 12:00 98.1 84 23 167/83 95 08/27/16 12:00 84 08/27/16 10:00 81 CBC/BMP: 08/28/16 0518 08/28/16 0518 Lab Results Laboratory Tests Test 08/28/16 08/28/16 05:18 08:33 White Blood Count 10.5 TH/MM3 Red Blood Count 3.66 MIL/MM3 Hemoglobin 9.5 GM/DL Hematocrit 30.1 % Mean Corpuscular Volume 82.1 FL Mean Corpuscular Hemoglobin 25.9 PG Mean Corpuscular Hemoglobin 31.5 % Concent Red Cell Distribution Width 15.7 % Platelet Count 266 TH/MM3 Mean Platelet Volume 8.3 FL Neutrophils (%) (Auto) 86.5 % Lymphocytes (%) (Auto) 6.6 % Monocytes (%) (Auto) 6.8 % Eosinophils (%) (Auto) 0.0 % Basophils (%) (Auto) 0.1 % Neutrophils # (Auto) 9.1 TH/MM3 Lymphocytes # (Auto) 0.7 TH/MM3 Monocytes # (Auto) 0.7 TH/MM3 Eosinophils # (Auto) 0.0 TH/MM3 Basophils # (Auto) 0.0 TH/MM3 CBC Comment DIFF FINAL Differential Comment Sodium Level 146 MEQ/L Potassium Level 3.7 MEQ/L Chloride Level 108 MEQ/L Carbon Dioxide Level 29.2 MEQ/L Anion Gap 9 MEQ/L Blood Urea Nitrogen 39 MG/DL Creatinine 1.66 MG/DL Estimat Glomerular Filtration 36 ML/MIN Rate Random Glucose 144 MG/DL Calcium Level 9.0 MG/DL Total Bilirubin 0.3 MG/DL Aspartate Amino Transf 48 U/L (AST/SGOT) Alanine Aminotransferase 35 U/L (ALT/SGPT) Alkaline Phosphatase 82 U/L Total Protein 7.0 GM/DL Albumin 2.7 GM/DL Troponin I 3.06 NG/ML Physical Exam General General Appearance: Well Developed, No Acute Distress, Comfortable Eyes Eye Exam: Pupils Equal, Pupils Reactive Ears & Nose Ears & Nose Exam: Nasal Mucosa [place] Throat Throat Exam: Oral Mucosa [place] & Moist Neck Neck Exam: Neck Supple, Trachea Midline Pulmonary Resp Exam: Crackles, Decreased Bases Resp Remarks faint rales Cardiology CV Exam: Regular, Murmur Gastrointestinal/Abdomen GI Exam: Soft, Non-Tender, Bowel Sounds Present, Non-Distended Genitourinary Exam: Clear Urine Remarks thomason Musculoskeletal MS Exam: Joints Intact Integumentary Skin Exam: Warm, Dry Extremeties Extremities Exam: Pedal Pulses Palpable, Trace Edema Neurologic Neuro Exam: Alert, Awake, Speech Clear, Moving All Extremities, No Focal Deficits Psychiatric Psych Exam: Appropriate Responses VTE Prophylaxis VTE Prophylaxis Device: SCDs VTE Prophylaxis Meds: Heparin Assessment/Plan Problem List: (1) Respiratory failure (2) NSTEMI (non-ST elevated myocardial infarction) (3) Anemia (4) Elevated troponin I level (5) Congestive heart failure (6) DM (diabetes mellitus) (7) JESENIA (acute kidney injury) (8) Pneumonia (9) Chronic kidney disease (10) CAD (coronary artery disease) (11) HYPERTENSION NOS (12) Heart murmur Assessment/Plan 76 year elderly pt. with multiple comorbidities, was on hospice. Patient was found unresponsive, and respiratory distress Acute respiratory failure, hypercapnic, hypoxic Possible pneumonia, left lower lobe. Maybe aspiration. Critical care currently managing, off Bipap -off Precedex Pulmonology also following patient Continue with IV steroids, DuoNeb's, -Continue with empiric antibiotics and follow cultures -CXR results noted, pulm edema Agitation -continue Seroquel -improved, awake, oriented x 2, cooperative Acute CHF Elevated troponin, possibly non-STEMI secondary to cardiac demand Continue with IV Bumex Monitor intake and output 2-D echo EF 55-60%, aortic valve thickened, mod stenosis -Appreciate cardiology input-Patient not appropriate candidate for any invasive cardiology procedures. Continue with IV heparin-consider discontinuing -Continue aspirin -Lipid profile results noted. Unable to start statins due to elevated LFTs -continue BB Acute on CKD, minimal improvement. Diuresing well. -continue cautious hydration -continue Bumex 1 mg IV daily -appreciate nephrology input. -renal function improving Questionable report of OD, ETOH, substance abuse. -drug screen negative -continue Folic acid and Thiamine and MVI Anemia, poss. CKD -monitor CBC closely Hypertension, stable -continue BB -PRN meds added Appreciate palliative care input discussed hospice, pt. asking reason for services, questions answered. She agrees she needs more help and supervision. keep in ICU now, improving poss transfer out of ICU tomorrow if CCM agrees. D/W Dr. Negrete D/W RN D/W pt This pt. was seen by myself and Dr. Negrete, this note is written on her behalf. Problem Qualifiers (1) Respiratory failure: Qualified Code: J96.02 - Acute respiratory failure with hypercapnia (2) Anemia: Qualified Code: D64.9 - Anemia, unspecified type (3) Congestive heart failure: Qualified Code: I50.9 - Acute congestive heart failure, unspecified congestive heart failure type (4) DM (diabetes mellitus): (5) Pneumonia: Qualified Code: J18.1 - Pneumonia of left lower lobe due to infectious organism (6) CAD (coronary artery disease): Qualified Code: I25.10 - Coronary artery disease involving [place] coronary artery of [place] heart, angina presence unspecified Frannie Bassett August 28, 2016 09:55
--- NOTE | 2016-08-28 12:27 | HHI.NPPN ---
Subjective History of Present Illness 76 year old female with ARF/CHF/Pneumonia Objective Data Data 08/27/16 08/28/16 19:00 07:00 Intake Total 848 ml 1340 ml Output Total 1350 ml 1000 ml Balance -502 ml 340 ml Intake Oral 300 ml 880 ml IV Total 548 ml 460 ml Output Urine Total 1350 ml 1000 ml # Bowel Movements 1 2 Vital Signs Date Time Temp Pulse Resp B/P Pulse Ox O2 Delivery O2 Flow Rate FiO2 08/28/16 07:52 98 Nasal Cannula 2.00 08/28/16 06:00 89 08/28/16 04:00 78 08/28/16 04:00 98.5 78 24 156/75 99 08/28/16 04:00 100 Nasal Cannula 2.00 08/28/16 02:00 81 08/28/16 00:00 100 Nasal Cannula 2.00 08/28/16 00:00 98.2 80 30 167/82 100 08/28/16 00:00 80 08/27/16 22:00 76 08/27/16 21:25 100 High Flow Nasal Cannula 2.00 08/27/16 20:00 98.1 86 32 159/75 100 08/27/16 20:00 86 08/27/16 20:00 100 Nasal Cannula 2.00 08/27/16 18:00 80 08/27/16 16:00 91 08/27/16 16:00 97.8 91 34 175/81 100 08/27/16 16:00 100 Nasal Cannula 2.00 08/27/16 14:00 89 -: 08/28/16 0518 08/28/16 0518 Physical Exam General Appearance: Well Developed, No Acute Distress, Comfortable Eyes Eye Exam: Pupils Equal, Pupils Reactive Ears & Nose Ears & Nose Exam: Nasal Mucosa [place] Throat Throat Exam: Oral Mucosa [place] & Moist Neck Neck Exam: Neck Supple, Trachea Midline Pulmonary Resp Exam: Crackles, Decreased Bases Cardiology CV Exam: Regular, Murmur Gastrointestinal/Abdomen GI Exam: Soft, Non-Tender, Bowel Sounds Present, Non-Distended Genitourinary Exam: Clear Urine Musculoskeletal MS Exam: Joints Intact Integumentary Skin Exam: Warm, Dry Extremeties Extremities Exam: Pedal Pulses Palpable, Trace Edema Neurologic Neuro Exam: Alert, Awake, Speech Clear, Moving All Extremities, No Focal Deficits Psychiatric Psych Exam: Appropriate Responses VTE Prophylaxis Device: SCDs Assessment/Plan Problem List: (1) JESENIA (acute kidney injury) Plan: She has hypoperfusion of the kidneys and likely due to congestive heart failure and the underlying coronary artery disease. she has good response to Bumex 2.3 L out IVF stopped cr 1.6 change Bumex to PO chronic medical issues Cardiology following NSTAMI (2) Carotid artery disease Plan: Status post previous stent (3) Congestive heart failure Plan: She has underlying disorder of the heart (4) DM (diabetes mellitus) Plan: Continue monitor Problem Qualifiers (1) Congestive heart failure: Qualified Code: I50.9 - Acute congestive heart failure, unspecified congestive heart failure type (2) DM (diabetes mellitus): Evelin Samuels MD August 28, 2016 12:26
[2016-08-28] MEDS: AZITHROMYCIN INJ 500 MG in SODIUM CHLOR 0.9% 250 ML INJ 250 ML IV SCH (12:53)
[2016-08-28] MEDS: hydrALAZINE HCL 20 MG/ML VIAL IV PUSH PRN (12:54)
--- NOTE | 2016-08-28 14:00 | PD.CARD.PN ---
Subjective Subjective Remarks alert in nad Objective Vital Signs / I&O Vital Signs Date Time Temp Pulse Resp B/P Pulse Ox O2 Delivery O2 Flow Rate FiO2 08/28/16 13:00 85 08/28/16 12:51 28 08/28/16 12:00 95 Nasal Cannula 2.00 08/28/16 12:00 79 08/28/16 11:00 73 08/28/16 10:00 81 08/28/16 09:00 86 08/28/16 08:00 100 Nasal Cannula 2.00 08/28/16 08:00 82 08/28/16 07:52 98 Nasal Cannula 2.00 08/28/16 06:00 89 08/28/16 04:00 78 08/28/16 04:00 98.5 78 24 156/75 99 08/28/16 04:00 100 Nasal Cannula 2.00 08/28/16 02:00 81 08/28/16 00:00 100 Nasal Cannula 2.00 08/28/16 00:00 98.2 80 30 167/82 100 08/28/16 00:00 80 08/27/16 22:00 76 08/27/16 21:25 100 High Flow Nasal Cannula 2.00 08/27/16 20:00 98.1 86 32 159/75 100 08/27/16 20:00 86 08/27/16 20:00 100 Nasal Cannula 2.00 08/27/16 18:00 80 08/27/16 16:00 91 08/27/16 16:00 97.8 91 34 175/81 100 08/27/16 16:00 100 Nasal Cannula 2.00 08/27/16 14:00 89 I/O 08/27/16 08/27/16 08/27/16 08/28/16 08/28/16 08/28/16 07:00 15:00 23:00 07:00 15:00 23:00 Intake Total 300 ml 848 ml 762 ml 578 ml Output Total 750 ml 1350 ml 550 ml 450 ml Balance -450 ml -502 ml 212 ml 128 ml Intake Oral 40 ml 300 ml 480 ml 400 ml IV Total 260 ml 548 ml 282 ml 178 ml Output Urine Total 750 ml 1350 ml 550 ml 450 ml # Bowel Movements 1 1 1 1 Physical Exam GENERAL: SKIN: Warm and dry. HEAD: Normocephalic. EYES: No scleral icterus. No injection or drainage. NECK: Supple, trachea midline. No JVD or lymphadenopathy. CARDIOVASCULAR: Regular rate and rhythm without murmurs, gallops, or rubs. RESPIRATORY: Breath sounds equal bilaterally. No accessory muscle use. GASTROINTESTINAL: Abdomen soft, non-tender, nondistended. MUSCULOSKELETAL: No cyanosis, or edema. BACK: Nontender without obvious deformity. No CVA tenderness. Laboratory Laboratory Tests Test 08/28/16 08/28/16 05:18 08:33 White Blood Count 10.5 TH/MM3 Red Blood Count 3.66 MIL/MM3 Hemoglobin 9.5 GM/DL Hematocrit 30.1 % Mean Corpuscular Volume 82.1 FL Mean Corpuscular Hemoglobin 25.9 PG Mean Corpuscular Hemoglobin 31.5 % Concent Red Cell Distribution Width 15.7 % Platelet Count 266 TH/MM3 Mean Platelet Volume 8.3 FL Neutrophils (%) (Auto) 86.5 % Lymphocytes (%) (Auto) 6.6 % Monocytes (%) (Auto) 6.8 % Eosinophils (%) (Auto) 0.0 % Basophils (%) (Auto) 0.1 % Neutrophils # (Auto) 9.1 TH/MM3 Lymphocytes # (Auto) 0.7 TH/MM3 Monocytes # (Auto) 0.7 TH/MM3 Eosinophils # (Auto) 0.0 TH/MM3 Basophils # (Auto) 0.0 TH/MM3 CBC Comment DIFF FINAL Differential Comment Sodium Level 146 MEQ/L Potassium Level 3.7 MEQ/L Chloride Level 108 MEQ/L Carbon Dioxide Level 29.2 MEQ/L Anion Gap 9 MEQ/L Blood Urea Nitrogen 39 MG/DL Creatinine 1.66 MG/DL Estimat Glomerular Filtration 36 ML/MIN Rate Random Glucose 144 MG/DL Calcium Level 9.0 MG/DL Total Bilirubin 0.3 MG/DL Aspartate Amino Transf 48 U/L (AST/SGOT) Alanine Aminotransferase 35 U/L (ALT/SGPT) Alkaline Phosphatase 82 U/L Total Protein 7.0 GM/DL Albumin 2.7 GM/DL Troponin I 3.06 NG/ML Assessment and Plan Problem List: (1) Liver function tests abnormal (2) Chronic kidney disease (3) Troponin level elevated (4) Non-compliant behavior (5) CORONARY ATHEROSCLEROSIS OF [place] CORONARY VESSEL (6) CAD (coronary artery disease) (7) Carotid stenosis (8) DM (diabetes mellitus) (9) JESENIA (acute kidney injury) (10) NSTEMI (non-ST elevated myocardial infarction) Assessment and Plan 1.) NSTEMI - trop elevation due to hypoxia, arf, cri, anemia, on hep, aspirin, ldl at goal, statin held due to elevated lft, leni held due to arf, beta chantel started, continue supportive care. consider cath if patient consents and becomes more medically stable 2.) Moderate to severe - suspect she would be high risk for avr, will consult and d/w ct surg Problem Qualifiers (1) CAD (coronary artery disease): Qualified Code: I25.10 - Coronary artery disease involving [place] coronary artery of [place] heart, angina presence unspecified (2) DM (diabetes mellitus): Real Loaiza MD August 28, 2016 14:00
--- NOTE | 2016-08-28 16:39 | HHI.HCPN ---
Reason for visit a. To assist with evaluation and management of symptoms including: dyspnea, anxiety/agitation, b. To assist medical decision maker(s) with: better understanding of current medical conditions; weighing benefits/burdens of medical treatment options; making medical treatment decisions. Subjective/Interval History Pt is seen today to follow-up on confusion, dyspnea as well as goals. Stable, improving overnight. Tolerating nasal cannula today. CXR with no significant changes continues to indicate small bilateral pleural effusions, pulmonary edema. Unremarkable. WBC 10. Having bowel movements, adequate urine output via Hyde. Blood cultures from 08/24 negative to date. Medical attending, nursing reported patient with significantly improved neurological status today. Patient seen in room no visitors present. She is just awoken from a nap. She is alert, mostly oriented though at times forgetful and confuses detail. Oriented to president, [facility] , could not remember the hospital name and named the year 2011 but seem to retain correction of 2016. Fairly limited insight hospitalization. Endorses that she had been doing pretty well at home prior to this she does not recall the day she was found and brought into the hospital. She indicates her neighbor helps her with grocery shopping, she is able to prepare her own meals and takes care of her own house and takes care of herself. Offered to call her daughter to provide an update, she is in agreement with this. ROS essentially negative, she denies any pain, denies any breathing difficulties, reports no abdominal or GI complaints. Given her forgetfulness and limited insight would recommend utilize shared decision making involving her daughter with any decisions to be made going forward. Advance Directives Living Will: Never completed Health Care Surrogate: Never completed Objective Vital Signs Date Time Temp Pulse Resp B/P Pulse Ox O2 Delivery O2 Flow Rate FiO2 08/28/16 13:00 85 08/28/16 12:51 28 08/28/16 12:00 95 Nasal Cannula 2.00 08/28/16 12:00 79 08/28/16 11:00 73 08/28/16 10:00 81 08/28/16 09:00 86 08/28/16 08:00 100 Nasal Cannula 2.00 08/28/16 08:00 82 08/28/16 07:52 98 Nasal Cannula 2.00 08/28/16 06:00 89 08/28/16 04:00 78 08/28/16 04:00 98.5 78 24 156/75 99 08/28/16 04:00 100 Nasal Cannula 2.00 08/28/16 02:00 81 08/28/16 00:00 100 Nasal Cannula 2.00 08/28/16 00:00 98.2 80 30 167/82 100 08/28/16 00:00 80 08/27/16 22:00 76 08/27/16 21:25 100 High Flow Nasal Cannula 2.00 08/27/16 20:00 98.1 86 32 159/75 100 08/27/16 20:00 86 08/27/16 20:00 100 Nasal Cannula 2.00 08/27/16 18:00 80 Intake & Output 08/28/16 08/28/16 07:00 19:00 Intake Total 1340 ml Output Total 1000 ml Balance 340 ml Intake Oral 880 ml IV Total 460 ml Output Urine Total 1000 ml # Bowel Movements 2 Physical Exam CONSTITUTIONAL/GENERAL: This is an adequately nourished patient, overweight female, confused, restless at times TUBES/LINES/DRAINS: Peripheral IV right upper extremity, Hyde catheter, nasal cannula, nebulizer mask, SCDs SKIN: No jaundice, rashes, or lesions. No wounds seen anteriorly. Skin temperature warm. HEAD: Atraumatic. Normocephalic. EYES: Pupils are pinpoint, questionable reaction to light. She squeezes eyes closed when I attempt to examine. No scleral icterus. No injection or drainage. Fundi not examined. ENT: Nose without bleeding or purulent drainage. Does not open mouth for oropharynx exam. NECK: Trachea midline. Supple, nontender. No palpable thyroid enlargement or nodularity. CARDIOVASCULAR: Regular rate and rhythm without murmur, difficult to auscultate over loud respiratory sounds. No JVD. Peripheral pulses symmetric. Trace peripheral edema. RESPIRATORY/CHEST: Symmetric, at times labored respirations. Loud expiratory wheezes throughout. Breath sounds equal bilaterally. GASTROINTESTINAL: Abdomen soft, no apparent tenderness, nondistended. No palpable masses. No guarding. Bowel sounds hypoactive. GENITOURINARY: Without palpable bladder distension. Hyde catheter in place- draining dark orange yellow urine. MUSCULOSKELETAL: Extremities without clubbing, cyanosis, or edema. No joint tenderness or effusion noted. No calf tenderness. No mottling or clubbing. LYMPHATICS: No palpable cervical or supraclavicular adenopathy. NEUROLOGICAL: Awake ; though keeps eyes closed. She does move all 4 extremities spontaneously. Intermittently follows commands. Confused, oriented to self only. PSYCHIATRIC: Intermittently restless at times. . Diagnostic Tests Laboratory Laboratory Tests Test 08/25/16 08/25/16 08/25/16 08/26/16 17:00 18:16 20:35 00:07 Blood Gas Puncture Site LT RADIAL RT RADIAL Blood Gas Patient Temperature 98.6 98.6 Blood Gas HCO3 22 mmol/L 22 mmol/L (22-26) (22-26) Blood Gas Base Excess -4.4 mmol/L -4.1 mmol/L (-2-2) (-2-2) Blood Gas Oxygen Saturation 94 % (90-100) 96 % (90-100) Arterial Blood pH 7.23 7.24 (7.380-7.420) (7.380-7.420) Arterial Blood Partial 54 mmHg (38-42) 53 mmHg (38-42) Pressure CO2 Arterial Blood Partial 102 mmHg 118 mmHg Pressure O2 (61-120) (61-120) Arterial Blood Oxygen Content 12.0 Vol % 12.6 Vol % (12.0-20.0) (12.0-20.0) Arterial Blood 1.7 % (0-4) 1.4 % (0-4) Carboxyhemoglobin Arterial Blood Methemoglobin 1.1 % (0-2) 0.9 % (0-2) Blood Gas Hemoglobin 8.9 G/DL 9.2 G/DL (12.0-16.0) (12.0-16.0) Oxygen Delivery Device NASAL CANNULA NASAL CANNULA Blood Gas Liter Flow 3 L/M 2 L/M Activated Partial 55.1 SEC 40.8 SEC Thromboplast Time (24.3-30.1) (24.3-30.1) Troponin I 2.55 NG/ML (0.02-0.05) Test 08/26/16 08/26/16 08/26/16 08/26/16 05:35 11:23 12:58 22:12 Blood Gas Puncture Site RT RADIAL RT RADIAL Blood Gas Patient Temperature 98.6 98.6 Blood Gas HCO3 22 mmol/L 23 mmol/L (22-26) (22-26) Blood Gas Base Excess -2.9 mmol/L -2.2 mmol/L (-2-2) (-2-2) Blood Gas Oxygen Saturation 96 % (90-100) 96 % (90-100) Arterial Blood pH 7.31 7.33 (7.380-7.420) (7.380-7.420) Arterial Blood Partial 46 mmHg (38-42) 45 mmHg (38-42) Pressure CO2 Arterial Blood Partial 121 mmHg 128 mmHg Pressure O2 (61-120) (61-120) Arterial Blood Oxygen Content 13.4 Vol % 12.2 Vol % (12.0-20.0) (12.0-20.0) Arterial Blood 1.5 % (0-4) 1.4 % (0-4) Carboxyhemoglobin Arterial Blood Methemoglobin 1.2 % (0-2) 1.2 % (0-2) Blood Gas Hemoglobin 9.8 G/DL 8.8 G/DL (12.0-16.0) (12.0-16.0) Oxygen Delivery Device BIPAP NASAL CANNULA Blood Gas Ventilator Setting [id number]/[id number] Blood Gas Inspired Oxygen 30 % White Blood Count 9.5 TH/MM3 (4.0-11.0) Red Blood Count 3.37 MIL/MM3 (4.00-5.30) Hemoglobin 9.0 GM/DL (11.6-15.3) Hematocrit 27.5 % (35.0-46.0) Mean Corpuscular Volume 81.6 FL (80.0-100.0) Mean Corpuscular Hemoglobin 26.7 PG (27.0-34.0) Mean Corpuscular Hemoglobin 32.7 % Concent (32.0-36.0) Red Cell Distribution Width 15.4 % (11.6-17.2) Platelet Count 259 TH/MM3 (150-450) Mean Platelet Volume 8.6 FL (7.0-11.0) Neutrophils (%) (Auto) 91.1 % (16.0-70.0) Lymphocytes (%) (Auto) 4.1 % (9.0-44.0) Monocytes (%) (Auto) 4.6 % (0.0-8.0) Eosinophils (%) (Auto) 0.0 % (0.0-4.0) Basophils (%) (Auto) 0.2 % (0.0-2.0) Neutrophils # (Auto) 8.7 TH/MM3 (1.8-7.7) Lymphocytes # (Auto) 0.4 TH/MM3 (1.0-4.8) Monocytes # (Auto) 0.4 TH/MM3 (0-0.9) Eosinophils # (Auto) 0.0 TH/MM3 (0-0.4) Basophils # (Auto) 0.0 TH/MM3 (0-0.2) CBC Comment DIFF FINAL Differential Comment Activated Partial 58.5 SEC Thromboplast Time (24.3-30.1) Sodium Level 144 MEQ/L (136-145) Potassium Level 3.7 MEQ/L (3.5-5.1) Chloride Level 107 MEQ/L (98-107) Carbon Dioxide Level 25.1 MEQ/L (21.0-32.0) Anion Gap 12 MEQ/L (5-15) Blood Urea Nitrogen 39 MG/DL (7-18) Creatinine 1.95 MG/DL (0.50-1.00) Estimat Glomerular Filtration 30 ML/MIN (>89) Rate Random Glucose 155 MG/DL (74-106) Calcium Level 8.6 MG/DL (8.5-10.1) Phosphorus Level 3.1 MG/DL (2.5-4.9) Total Bilirubin 0.3 MG/DL (0.2-1.0) Aspartate Amino Transf 42 U/L (15-37) (AST/SGOT) Alanine Aminotransferase 19 U/L (10-53) (ALT/SGPT) Alkaline Phosphatase 81 U/L (45-117) Total Creatine Kinase 707 U/L (26-192) Creatine Kinase MB 3.1 NG/ML (0.5-3.6) Creatine Kinase MB % 0.4 % (0.0-4.0) Troponin I 1.89 NG/ML 3.26 NG/ML (0.02-0.05) (0.02-0.05) Total Protein 7.1 GM/DL (6.4-8.2) Albumin 2.7 GM/DL (3.4-5.0) Blood Gas Liter Flow 3 L/M Test 08/27/16 08/28/16 08/28/16 05:14 05:18 08:33 White Blood Count 11.0 TH/MM3 10.5 TH/MM3 (4.0-11.0) (4.0-11.0) Red Blood Count 3.65 MIL/MM3 3.66 MIL/MM3 (4.00-5.30) (4.00-5.30) Hemoglobin 9.3 GM/DL 9.5 GM/DL (11.6-15.3) (11.6-15.3) Hematocrit 29.9 % 30.1 % (35.0-46.0) (35.0-46.0) Mean Corpuscular Volume 82.0 FL 82.1 FL (80.0-100.0) (80.0-100.0) Mean Corpuscular Hemoglobin 25.6 PG 25.9 PG (27.0-34.0) (27.0-34.0) Mean Corpuscular Hemoglobin 31.2 % 31.5 % Concent (32.0-36.0) (32.0-36.0) Red Cell Distribution Width 15.3 % 15.7 % (11.6-17.2) (11.6-17.2) Platelet Count 269 TH/MM3 266 TH/MM3 (150-450) (150-450) Mean Platelet Volume 8.9 FL 8.3 FL (7.0-11.0) (7.0-11.0) Neutrophils (%) (Auto) 90.6 % 86.5 % (16.0-70.0) (16.0-70.0) Lymphocytes (%) (Auto) 4.2 % 6.6 % (9.0-44.0) (9.0-44.0) Monocytes (%) (Auto) 5.0 % (0.0-8.0) 6.8 % (0.0-8.0) Eosinophils (%) (Auto) 0.0 % (0.0-4.0) 0.0 % (0.0-4.0) Basophils (%) (Auto) 0.2 % (0.0-2.0) 0.1 % (0.0-2.0) Neutrophils # (Auto) 10.0 TH/MM3 9.1 TH/MM3 (1.8-7.7) (1.8-7.7) Lymphocytes # (Auto) 0.5 TH/MM3 0.7 TH/MM3 (1.0-4.8) (1.0-4.8) Monocytes # (Auto) 0.6 TH/MM3 0.7 TH/MM3 (0-0.9) (0-0.9) Eosinophils # (Auto) 0.0 TH/MM3 0.0 TH/MM3 (0-0.4) (0-0.4) Basophils # (Auto) 0.0 TH/MM3 0.0 TH/MM3 (0-0.2) (0-0.2) CBC Comment DIFF FINAL DIFF FINAL Differential Comment Activated Partial 43.2 SEC Thromboplast Time (24.3-30.1) Sodium Level 146 MEQ/L 146 MEQ/L (136-145) (136-145) Potassium Level 3.9 MEQ/L 3.7 MEQ/L (3.5-5.1) (3.5-5.1) Chloride Level 108 MEQ/L 108 MEQ/L (98-107) (98-107) Carbon Dioxide Level 27.3 MEQ/L 29.2 MEQ/L (21.0-32.0) (21.0-32.0) Anion Gap 11 MEQ/L (5-15) 9 MEQ/L (5-15) Blood Urea Nitrogen 34 MG/DL (7-18) 39 MG/DL (7-18) Creatinine 1.53 MG/DL 1.66 MG/DL (0.50-1.00) (0.50-1.00) Estimat Glomerular Filtration 40 ML/MIN (>89) 36 ML/MIN (>89) Rate Random Glucose 190 MG/DL 144 MG/DL (74-106) (74-106) Calcium Level 9.4 MG/DL 9.0 MG/DL (8.5-10.1) (8.5-10.1) Total Bilirubin 0.4 MG/DL 0.3 MG/DL (0.2-1.0) (0.2-1.0) Aspartate Amino Transf 42 U/L (15-37) 48 U/L (15-37) (AST/SGOT) Alanine Aminotransferase 22 U/L (10-53) 35 U/L (10-53) (ALT/SGPT) Alkaline Phosphatase 86 U/L (45-117) 82 U/L (45-117) Total Creatine Kinase 371 U/L (26-192) Creatine Kinase MB 3.4 NG/ML (0.5-3.6) Creatine Kinase MB % 0.9 % (0.0-4.0) Troponin I 4.38 NG/ML 3.06 NG/ML (0.02-0.05) (0.02-0.05) Total Protein 7.5 GM/DL 7.0 GM/DL (6.4-8.2) (6.4-8.2) Albumin 2.8 GM/DL 2.7 GM/DL (3.4-5.0) (3.4-5.0) Result Diagram: 08/28/1651708/28/16517 Assessment and Plan Disease Oriented Problem List: (1) Hypertensive urgency (2) ETOH abuse (3) Chronic pain (4) Mixed hyperlipidemia (5) Congestive heart failure (6) DM (diabetes mellitus) (7) Carotid artery disease (8) JESENIA (acute kidney injury) (9) Bilateral lower extremity edema (10) Respiratory failure (11) Anemia (12) CAD (coronary artery disease) (13) Chronic kidney disease (14) Elevated troponin I level (15) CORONARY ATHEROSCLEROSIS OF [place] CORONARY VESSEL (16) Liver function tests abnormal Symptom Scale: (1) Anxiety 0-10 Scale: Unable to quantify (2) Dyspnea 0-10 Scale: Unable to quantify (3) Pain 0-10 Scale: Unable to quantify Pertinent Non-Medical Issues Psychosocial:Per EMR: 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 Supported by daughter, granddaughter who lives in [place]. Supported locally by a niece. Spiritual:Evangelical Legal:Patient is currently unable to participate in decision-making. Not clear if she will regain ability to participate. Reported to have a daughter in [place] en route. Per prior records is , with one child. Per [place] statutes this one child would be appropriate legal decision maker. Does not appear the patient has any written advance directive/HCS. Ethical issues impacting care: Important Contacts Daughter MIESHA RICHARDSON ([place])- Would be approp legal dec maker granddaalda Berry [phone]- is with pt MOTHER, can reach them at either # niece Mirian Alegria [phone] sister Ibis Booker [phone] Local friend/neighbor Ms Castaneda [phone] . Prognosis This patient was admitted for lethargy, shortness of breath. She apparently had been recently seeking hospice enrollment in the home setting. She has multiple chronic medical conditions including ASTHMA, CAD and CHF. Not clear that her cardiac function is end-stage at this time (echocardiogram this admission indicates EF 5560 percent), appears to have significant pulmonary issues currently. On and off of BiPAP. She has apparently had ongoing shortness of breath, edema, cardiac issues, and recurrent falls as per available history. As per review of records she has generally not been able to care for herself well in the home setting, and at times is not able to adhere to recommended medical treatments. Not clear she has a terminal diagnosis, some of her conditions possibly could be better managed if she had caregiver/ support to increase her adherence to medical treatments, possibly in an SNF setting. Code Status: Full Code Plan * Legal decision maker: Patient mental status improving. She does still have some forgetfulness/ limited insight. Given her forgetfulness and limited insight would recommend utilize shared decision making involving her daughter with any decisions to be made going forward. Per [place] statutes this one child would be appropriate legal decision maker. Does not appear the patient has any written advance directive/HCS. * Goals: Updated patient daughter today via phone. Patient is becoming more clear and able to participate. Conditions appear to be generally improving. Does not appear she has a terminal or end-stage condition. Goals at this time are aggressive though daughter wants to continue to have ongoing discussions with her mom regarding any possible cardiovascular procedures etc. as they are not certain with what she would want to undergo. They're going have ongoing discussions regarding CODE STATUS as well. * CODE STATUS: Full code * SYMPTOMS: --Deconditioning-due to acute hospitalization recommend PT eval/assist with remobilization --Dyspnea-history ASTHMA, CHF. Requiring BiPAP this admission/ alternating w NC 4-5L .+ Wheezing.+ Pulmonary edema per CXR. EF 5560 %. 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 Recurrent falls, hospitalizations at other facilities,? Related to respiratory status. This is improved today now tolerating nasal cannula alternating with room air. Breathing comfortably. We'll continue to evaluate. --Pain-possibly with chronic pain syndromes, in the past patient has been on multiple opiate analgesics, history of hip replacement. Reported recurrent falls. + Admitted with AMS/lethargy, cautious use of opiates. Currently has as needed [place], hydromorphone. Has not utilized yet--the day during visit denies pain. We'll continue to evaluate. --Agitation/anxiety--has been altered since admission. History per EMR of EtOH, opiate use/abuse; possibly has some chronic encephalopathy?/ Recent use habits not known, Chronic anxiety?, Which would be exacerbated by dyspnea/SOB/ acute hospitalization. Has been requiring Precedex, Haldol on and off during admission course. Confused. Continue current management avoiding benzodiazepines if possible which could make potential delirium worse. Family indicates patient is usually cognitively sharp--this is improving today 08/28 she appears to be nearing baseline sharp mental status. * Palliative care will continue to follow during hospital course as condition evolves, to assist patient/decision-maker with understanding of medical conditions, weighing benefits/burdens of treatment options, for clarification of goals of treatment. Additionally will assist with any symptoms of palliative concern Attestation To help prompt me to consider important information that might be impacting today's encounter and assessment, information from prior notes written by myself or my colleagues may have been "brought forward" into today's note. My signature on this note, however, is an attestation that I personally performed the exam, history, and/or decision-making noted today, and, unless otherwise indicated, the interactions with patient, family, and staff as well as the review of records all occurred today. I also attest that the listed assessment and stated plan reflect my best clinical judgment today based on the combination of historical information, prior notes, and today's exam/ interactions. When time spent is documented, it refers only to time spent today by the signer, or if indicated, combined time spent today by collaborating physician/nurse practitioner. Sultana Guerrier August 28, 2016 16:39
[2016-08-28] MEDS: HEPARIN-D5W INJ 250 ML IV SCH (17:04)
--- NOTE | 2016-08-28 18:57 | HHI.PR ---
Subjective Remarks 76 YOAA female with Hypercapnoic RF,COPD takes off CPAP and desaturates No Fever More awake, confused Weaned to NC No new complaint Objective Vital Signs Vital Signs Date Time Temp Pulse Resp B/P Pulse Ox O2 Delivery O2 Flow Rate FiO2 08/28/16 14:00 79 08/28/16 13:00 85 08/28/16 12:51 28 08/28/16 12:00 95 Nasal Cannula 2.00 08/28/16 12:00 79 08/28/16 11:00 73 08/28/16 10:00 81 08/28/16 09:00 86 08/28/16 08:00 100 Nasal Cannula 2.00 08/28/16 08:00 82 08/28/16 07:52 98 Nasal Cannula 2.00 08/28/16 06:00 89 08/28/16 04:00 78 08/28/16 04:00 98.5 78 24 156/75 99 08/28/16 04:00 100 Nasal Cannula 2.00 08/28/16 02:00 81 08/28/16 00:00 100 Nasal Cannula 2.00 08/28/16 00:00 98.2 80 30 167/82 100 08/28/16 00:00 80 08/27/16 22:00 76 08/27/16 21:25 100 High Flow Nasal Cannula 2.00 08/27/16 20:00 98.1 86 32 159/75 100 08/27/16 20:00 86 08/27/16 20:00 100 Nasal Cannula 2.00 I/O 08/27/16 08/27/16 08/27/16 08/28/16 08/28/16 08/28/16 07:00 15:00 23:00 07:00 15:00 23:00 Intake Total 300 ml 848 ml 762 ml 578 ml Output Total 750 ml 1350 ml 550 ml 450 ml Balance -450 ml -502 ml 212 ml 128 ml Intake Oral 40 ml 300 ml 480 ml 400 ml IV Total 260 ml 548 ml 282 ml 178 ml Output Urine Total 750 ml 1350 ml 550 ml 450 ml # Bowel Movements 1 1 1 1 Result Diagram: 08/28/1618 08/28/1618 Objective Remarks GENERAL: Obese female, mild sob SKIN: Warm and dry. HEAD: Normocephalic. EYES: No scleral icterus. No injection or drainage. NECK: Supple, trachea midline. No JVD or lymphadenopathy. CARDIOVASCULAR: Regular rate and rhythm without murmurs, gallops, or rubs. RESPIRATORY: Breath sounds equal bilaterally. No accessory muscle use. GASTROINTESTINAL: Abdomen soft, non-tender, nondistended. MUSCULOSKELETAL: No cyanosis, or edema. BACK: Nontender without obvious deformity. No CVA tenderness. A/P Assessment and Plan Hypercpnoic RF COPD HTN RA PLAN: Encourage to use CPAP Supplement 02 to keep sat >90% IV Solumedrol Cont Abx Wean off 02 if she maintains RA sat >90% Stable from pulm standpoint to tr to floor Jeff Butterfield MD August 28, 2016 18:57
[2016-08-28] MEDS: MELATONIN 5 MG TAB PO SCH (20:59)
[2016-08-29] VITALS (13 sets, daily range): BP systolic 149–203; BP diastolic 70–91; PULSE 72–80; RESP 14–24; TEMP 97.9–98.2; O2SAT 98–100
[2016-08-29] MEDS: PIPERACIL-TAZO 2.25 GM PREMIX 50 ML IV SCH ×4 (00:20→18:00)
[2016-08-29] MEDS: RESP: ALBUTEROL 2.5 MG/IPRATROPIUM 0.5 MG NEB (SCH) NEB ×7 (00:35→23:31)
[2016-08-29] MEDS: methylPREDNISolone SOD SUCC 40 MG/1 ML VIAL IV PUSH SCH ×3 (02:19→17:02)
[2016-08-29] MEDS: INSULIN NovoLIN REGULAR SUPPLEMENTAL SCALE SQ SCH ×6 (02:21→21:35)
[2016-08-29] MEDS: QUEtiapine FUMARATE 25 MG TAB PO SCH ×3 (03:51→21:34)
[2016-08-29] MEDS: HYDROmorphone HCL PF 1 MG/ML VIAL IV PUSH PRN ×3 (03:51→18:45)
[2016-08-29] MEDS: CHLORHEXIDINE GLUCONATE 2 % 1 PACK (2 CLOTHS)(taper/protocol) TOPICAL SCH (04:00)
[2016-08-29 06:53] LABS: APTT (PATIENT) 56.1 SEC (24.3-30.1); AUTOMATED NEUTROPHIL # 8.3 TH/MM3 (1.8-7.7); BASOPHIL % 0.2 % (0.0-2.0); HEMATOCRIT 30.9 % (35.0-46.0); HEMO FLAGS DIFF FINAL; LYMPH % 6.5 % (9.0-44.0); LYMPHOCYTE # 0.6 TH/MM3 (1.0-4.8); MEAN CELL VOLUME 82.6 FL (80.0-100.0); MEAN CORPUSCULAR HEMOGLOBIN 25.7 PG (27.0-34.0); MEAN CORPUSCULAR HGB CONC 31.1 % (32.0-36.0); MONO % 7.1 % (0.0-8.0); NEUT % 86.2 % (16.0-70.0); PLATELET COUNT 253 TH/MM3 (150-450); RED BLOOD COUNT 3.74 MIL/MM3 (4.00-5.30); RED CELL DISTRIBUTION WIDTH 15.5 % (11.6-17.2); WHITE BLOOD COUNT 9.6 TH/MM3 (4.0-11.0)
[2016-08-29 07:01] LABS: ALT (GPT) 31 U/L (10-53); ANION GAP 10 MEQ/L (5-15); AST (GOT) 30 U/L (15-37); BICARBONATE 28.9 MEQ/L (21.0-32.0); BLOOD UREA NITROGEN 34 MG/DL (7-18); CHLORIDE 105 MEQ/L (98-107); GLOMERULAR FILTRATION RATE 37 ML/MIN (>89); SODIUM (NA) 144 MEQ/L (136-145)
[2016-08-29 07:04] LABS: ALKALINE PHOSPHATASE 71 U/L (45-117); TOTAL BILIRUBIN ADULT 0.3 MG/DL (0.2-1.0)
[2016-08-29] MEDS: PANTOPRAZOLE SODIUM 40 MG VIAL IV PUSH SCH (08:48)
[2016-08-29] MEDS: LABETALOL HCL 100 MG/20 ML VIAL IV PUSH PRN (08:48)
[2016-08-29] MEDS: THIAMINE HCL 100 MG TAB PO SCH (08:50)
[2016-08-29] MEDS: DOCUSATE SODIUM 50 MG/SENNA 8.6 MG TAB PO SCH ×2 (08:50→21:00)
[2016-08-29] MEDS: METOPROLOL TARTRATE 25 MG TAB PO SCH ×2 (08:50→21:35)
[2016-08-29] MEDS: MULTIVITAMIN TAB PO SCH (08:50)
[2016-08-29] MEDS: FOLIC ACID 1 MG TAB PO SCH (08:50)
[2016-08-29] MEDS: BUMETANIDE INJ 1 MG/4 ML VIAL IV PUSH SCH (08:50)
[2016-08-29] MEDS: ASPIRIN 300 MG SUPP RECTAL SCH (08:51)
[2016-08-29] MEDS: SODIUM CHLORIDE 0.9% FLUSH 10 ML FLUSH IV FLUSH SCH ×2 (08:51→21:35)
[2016-08-29] MEDS: ACETAMINOPHEN/HYDROcodone 325 MG/5 MG TAB PO PRN ×2 (09:01→16:08)
--- NOTE | 2016-08-29 10:46 | HHI.CCPN ---
Subjective Remarks/Hospital Course The patient is a 76-year-old female with multiple medical comorbidities which include hypertension, diabetes mellitus, hyperlipidemia, coronary artery disease , morbid obesity, gout, questionable COPD, who presented to [facility] ED last night for shortness of breath and lethargy. She was found to have pinpoint pupils and she was given Narcan in the field along with albuterol treatments x3 en route. She was placed on BiPap by paramedics. A ABG was performed on a BiPap 18/6 with 35% FIO2 which showed acute hypercapnic respiratory failure with a pH of 7.19, CO2 58, pAO2 99, saturation of 95%. Her laboratory data on admission showed acute renal failure with a BUN of 52, creatinine 3.33 and elevated troponin at 2.58. The patient was given Lasix 80 mg IV push in the ER and was admitted under Dr. Negrete service from [facility]. She had a repeat arterial blood gas earlier this morning which showed acute respiratory acidosis with a pH of 7.21, CO2 59, pAO2 88 and bicarb of 23 with saturation of 92% on BiPap 20/6 with 30% FIO2. Chest x-ray on admission showed a left lower lobe infiltrate. Her labs from today showed renal dysfunction with creatinine of 3.25 and troponin elevated 2.79 from 2.58 last night. Critical care medicine was consulted for critical care management. The patient had an ultrasound of her kidneys which showed nonvisualization left kidney, right kidney is unremarkable. When seen she is awake, alert and remains on BiPap. 08/26 Patient was on BIPAP overnight from 12A-6Am. ABG on BIPAP showed improvements in her resp acidosis with PH: 7.31/CO2: 46/PAO2:121. Now on 3L oxygen. On Heparin drip. 08/27 Patient was placed on Precedex drip last night for agitation. Hypertensive. Afebrile. renal function is improving with Cr: 1.53 today from 1.95. Remains on Heparin drip. 08/28 No events overnight. Patient is off Precedex drip. Awake and alert on heparin drip, Subjective 08/29: On nasal cannula. Afebrile. No acute events overnight. Remains on heparin drip. Objective Vital Signs Date Time Temp Pulse Resp B/P Pulse Ox O2 Delivery O2 Flow Rate FiO2 08/29/16 08:00 100 Nasal Cannula 2.00 08/29/16 06:00 77 08/29/16 04:00 97.9 16 193/90 08/27/16 04:00 35 Intake and Output 08/28/16 08/28/16 08/29/16 08:00 16:00 00:00 Intake Total 578 ml 748 ml 1151 ml Output Total 450 ml 750 ml 850 ml Balance 128 ml -2 ml 301 ml Result Diagram: 08/29/16 0510 08/29/16 0510 Other Results Microbiology Date/Time Procedure Status Source Growth 08/24/16 20:30 Aerobic Blood Culture - Preliminary Resulted Blood Peripheral NO GROWTH IN 4 DAYS 08/24/16 20:30 Anaerobic Blood Culture - Preliminary Resulted Blood Peripheral NO GROWTH IN 4 DAYS Imaging Last Impressions Chest X-Ray 08/28/16 0000 Signed Impressions: Service Date/Time: Sunday, August 28, 2016 08:01 - CONCLUSION: No significant change with the pulmonary edema. Davon Orozco MD Renal Ultrasound 08/24/16 0000 Signed Impressions: Service Date/Time: Wednesday, August 24, 2016 22:45 - CONCLUSION: Nonvisualization left kidney. Right kidney is unremarkable Brayan Hagen MD Objective Remarks GENERAL: 76-year-old female, lying in bed in no acute distress SKIN: Warm and dry. No rash HEAD: Normocephalic. EYES: No scleral icterus. No injection or drainage. NECK: Supple, trachea midline. No JVD or lymphadenopathy. CARDIOVASCULAR: RRR. S1, S2 No S4. 2/6 systolic murmur right upper sternal border RESPIRATORY: Breath sounds equal bilaterally. No accessory muscle use. GASTROINTESTINAL: Abdomen soft, non-tender, nondistended. Hypoactive bowel sounds MUSCULOSKELETAL: No significant peripheral edema Neuro: Awake, restless. Cranial nerves II through grossly intact. Strength is equal and symmetric with normal sensation. A/P Assessment and Plan Neuro/Psych: EtOH Peripheral neuropathy Chronic pain syndrome Anxiety disorder Frequent falls Currently on Dilaudid 0.8 mg every 4 hours as needed for pain Previously on Neurontin 300 mg twice a day PT/OT evaluate and treat Monitor for DTs Thiamine, folate and multivitamin daily On Seroquel 25 every 8 for anxiety CV: NSTEMI Hypertension Coronary artery disease history of stent Left carotid stenosis - high-grade 2014 Dyslipidemia Moderate aortic stenosis valve area 0.58 cm Hypertension/pulmonary 2-D echocardiogram revealed EF 55-60%. SUZE [address] moderate stenosis Currently on aspirin 81 mg by mouth daily previously on 300 per rectum daily Continue Lopressor 50 mg twice a day. No VIRAL inhibitor secondary to acute kidney injury. No lipid-lowering agents secondary to elevated liver function tests Dr. Loaiza following Resp: Acute hypoxic respiratory failure left-sided pneumonia History of asthma Nasal cannula to maintain saturations greater than equal to 92%. Currently on 3 L Incentive spirometry while awake Duo nebs every 4 hours GI: Advance diet as tolerated/heart healthy/renal. Pured Protonix for GI prophylaxis Lindsey-Colace twice a day for bowel regimen : Hyde if indicated Endo: Diabetes mellitus Gout Sliding-scale insulin to maintain euglycemia with Accu-Cheks every 4 hours Renal: Acute on chronic kidney injury Followed with nephrology. Avoid nephrotoxic drugs Accurate I's and O's Currently on Bumex 1 mg IV daily. Adequate diuresis Heme: Anemia/normocytic No indications for transfusion of blood products at this time. Recheck CBC in a.m. ID: Possible community-acquired pneumonia/left lumbar Currently on Zosyn/Zithromax since 08/24 08/24 - blood cultures 2 - no growth MSK: RA Morbid obesity PT/OT evaluate and treat FEN: Replace electrolytes as clinically indicated Access - Utilize peripheral IV. Central line if indicated Prophylaxis - GI - Protonix - DVT - SCD/heparin drip level 3 Uri Marie MD August 29, 2016 10:46 9. Coronary artery disease. 10 Hx ETOH, tobacco use Plan Neuro: Off Precedex drip. Monitor neuro status and avoid any sedatives. Continue with thiamine, MVI and Folic acid. On Seroquel 25mg Q8, Melatonin 5,g qhs UDS is negative Pulm: Continue with oxygen and maintain sats above 92%. Bronchodilators, Solu-Medrol 40 mg IV q.8 NIPPV PRN for resp distress. Pulm is following- Dr. Butterfield CV: Monitor HR and BP and maintain MAP > 65 mmHg. Lopressor 50mg Q12 Monitor cardiac enzymes with troponins, cards- Dr. Loaiza. Echo from July 2015 showed EF of 65-70% and pulmonary hypertension with a PA pressure 77 mmHg. Echo from 08/25 showed EF 55-60%, mod , pulm HTN with PAP 69mmHg, continue with ASA daily and heparin drip Not on Viral-I due to JESENIA, : Monitor renal function Is and Os and avoid nephrotoxins. Bumex 1mg daily , renal is following Dr. Samuels Renal ultrasound showed nonvisualization of left kidney, right kidney unremarkable. Cr: 1.66 from 1.53 GI: on Protonix 40 mg IV daily for GI prophylaxis. ID: Continue with abx(azithromycin and Zosyn) and monitor for signs of infections( fever and WBC). Blood cultures from 08/24: NGTD Endo: SSI with Accu-Chek q. 6-hour for glycemic control Heme: Monitor CBC GI prophylaxis with Protonix 40 mg daily. DVT prophylaxis with SCDs- heparin drip level 3 Uri Marie MD August 29, 2016 10:46
--- NOTE | 2016-08-29 11:17 | HHI.NPPN ---
Subjective History of Present Illness 76 year old female with ARF/CHF/Pneumonia Objective Data Data 08/28/16 08/29/16 19:00 07:00 Intake Total 748 ml 1784 ml Output Total 750 ml 1300 ml Balance -2 ml 484 ml Intake Oral 500 ml 880 ml IV Total 248 ml 904 ml Output Urine Total 750 ml 1300 ml # Bowel Movements 0 0 Vital Signs Date Time Temp Pulse Resp B/P Pulse Ox O2 Delivery O2 Flow Rate FiO2 08/29/16 08:00 100 Nasal Cannula 2.00 08/29/16 06:00 77 08/29/16 04:00 74 08/29/16 04:00 97.9 74 16 193/90 98 08/29/16 04:00 98 Nasal Cannula 2.00 08/29/16 02:00 72 08/29/16 00:00 98 Nasal Cannula 2.00 08/29/16 00:00 98.2 75 16 149/75 98 08/29/16 00:00 75 08/28/16 22:00 86 08/28/16 20:56 99 Nasal Cannula 2.00 08/28/16 20:00 90 08/28/16 20:00 98.2 90 24 207/92 98 08/28/16 20:00 98 Nasal Cannula 2.00 08/28/16 18:00 85 08/28/16 16:00 97.9 80 34 172/83 94 08/28/16 16:00 80 08/28/16 16:00 95 Nasal Cannula 2.00 08/28/16 14:00 79 08/28/16 13:00 85 08/28/16 12:51 28 08/28/16 12:00 95 Nasal Cannula 2.00 08/28/16 12:00 79 08/28/16 12:00 98.1 79 34 191/91 95 -: 08/29/16 0510 08/29/16 0510 Physical Exam General Appearance: Well Developed, No Acute Distress, Comfortable Eyes Eye Exam: Pupils Equal, Pupils Reactive Ears & Nose Ears & Nose Exam: Nasal [place] Throat Throat Exam: Oral [place] & Moist Neck Neck Exam: Neck Supple, Trachea Midline Pulmonary Resp Exam: Crackles, Decreased Bases Cardiology CV Exam: Regular, Murmur Gastrointestinal/Abdomen GI Exam: Soft, Non-Tender, Bowel Sounds Present, Non-Distended Genitourinary Exam: Clear Urine Musculoskeletal MS Exam: Joints Intact Integumentary Skin Exam: Warm, Dry Extremeties Extremities Exam: Pedal Pulses Palpable, Trace Edema Neurologic Neuro Exam: Alert, Awake, Speech Clear, Moving All Extremities, No Focal Deficits Psychiatric Psych Exam: Appropriate Responses VTE Prophylaxis Device: SCDs Assessment/Plan Problem List: (1) JESENIA (acute kidney injury) Plan: She has hypoperfusion of the kidneys and likely due to congestive heart failure and the underlying coronary artery disease. she has good response to Bumex 2 L out cr 1.6 on Bumex may change to PO chronic medical issues Cardiology following NSTAMI on heparin (2) Carotid artery disease Plan: Status post previous stent (3) Congestive heart failure Plan: She has underlying disorder of the heart (4) DM (diabetes mellitus) Plan: Continue monitor Problem Qualifiers (1) Congestive heart failure: Qualified Code: I50.9 - Acute congestive heart failure, unspecified congestive heart failure type (2) DM (diabetes mellitus): Evelin Samuels MD August 29, 2016 11:17
[2016-08-29] MEDS: AZITHROMYCIN INJ 500 MG in SODIUM CHLOR 0.9% 250 ML INJ 250 ML IV SCH (12:28)
--- NOTE | 2016-08-29 14:19 | HHI.PR ---
Subjective Interval History awake alert and oriented on 2 l NC answering questions appropriately BAck pain better on heparin GTT Vitals/Results Intake & Output 08/28/16 08/28/16 08/29/16 15:00 23:00 07:00 Intake Total 748 ml 1151 ml 633 ml Output Total 750 ml 850 ml 450 ml Balance -2 ml 301 ml 183 ml Intake Oral 500 ml 480 ml 400 ml IV Total 248 ml 671 ml 233 ml Output Urine Total 750 ml 850 ml 450 ml # Bowel Movements 0 0 Vital Signs Vital Signs Date Time Temp Pulse Resp B/P Pulse Ox O2 Delivery O2 Flow Rate FiO2 08/29/16 14:00 74 08/29/16 12:00 98 Nasal Cannula 2.00 08/29/16 10:00 78 08/29/16 08:00 72 08/29/16 08:00 100 Nasal Cannula 2.00 08/29/16 08:00 97 Nasal Cannula 2.00 08/29/16 06:00 77 08/29/16 04:00 74 08/29/16 04:00 97.9 74 16 193/90 98 08/29/16 04:00 98 Nasal Cannula 2.00 08/29/16 02:00 72 08/29/16 00:00 98 Nasal Cannula 2.00 08/29/16 00:00 98.2 75 16 149/75 98 08/29/16 00:00 75 08/28/16 22:00 86 08/28/16 20:56 99 Nasal Cannula 2.00 08/28/16 20:00 90 08/28/16 20:00 98.2 90 24 207/92 98 08/28/16 20:00 98 Nasal Cannula 2.00 08/28/16 18:00 85 08/28/16 16:00 97.9 80 34 172/83 94 08/28/16 16:00 80 08/28/16 16:00 95 Nasal Cannula 2.00 CBC/BMP: 08/29/16 0510 08/29/16 0510 Lab Results Laboratory Tests Test 08/29/16 05:10 White Blood Count 9.6 TH/MM3 Red Blood Count 3.74 MIL/MM3 Hemoglobin 9.6 GM/DL Hematocrit 30.9 % Mean Corpuscular Volume 82.6 FL Mean Corpuscular Hemoglobin 25.7 PG Mean Corpuscular Hemoglobin 31.1 % Concent Red Cell Distribution Width 15.5 % Platelet Count 253 TH/MM3 Mean Platelet Volume 8.8 FL Neutrophils (%) (Auto) 86.2 % Lymphocytes (%) (Auto) 6.5 % Monocytes (%) (Auto) 7.1 % Eosinophils (%) (Auto) 0.0 % Basophils (%) (Auto) 0.2 % Neutrophils # (Auto) 8.3 TH/MM3 Lymphocytes # (Auto) 0.6 TH/MM3 Monocytes # (Auto) 0.7 TH/MM3 Eosinophils # (Auto) 0.0 TH/MM3 Basophils # (Auto) 0.0 TH/MM3 CBC Comment DIFF FINAL Differential Comment Activated Partial 56.1 SEC Thromboplast Time Sodium Level 144 MEQ/L Potassium Level 4.0 MEQ/L Chloride Level 105 MEQ/L Carbon Dioxide Level 28.9 MEQ/L Anion Gap 10 MEQ/L Blood Urea Nitrogen 34 MG/DL Creatinine 1.62 MG/DL Estimat Glomerular Filtration 37 ML/MIN Rate Random Glucose 143 MG/DL Calcium Level 8.7 MG/DL Total Bilirubin 0.3 MG/DL Aspartate Amino Transf 30 U/L (AST/SGOT) Alanine Aminotransferase 31 U/L (ALT/SGPT) Alkaline Phosphatase 71 U/L Total Protein 6.8 GM/DL Albumin 2.7 GM/DL Physical Exam General General Appearance: Well Developed, No Acute Distress, Comfortable Eyes Eye Exam: Pupils Equal, Pupils Reactive Ears & Nose Ears & Nose Exam: Nasal [place] Throat Throat Exam: Oral [place] & Moist Neck Neck Exam: Neck Supple, Trachea Midline Pulmonary Resp Exam: Crackles, Decreased Bases Cardiology CV Exam: Regular, Murmur Gastrointestinal/Abdomen GI Exam: Soft, Non-Tender, Bowel Sounds Present, Non-Distended Genitourinary Exam: Clear Urine Musculoskeletal MS Exam: Joints Intact Integumentary Skin Exam: Warm, Dry Extremeties Extremities Exam: Pedal Pulses Palpable, Trace Edema Neurologic Neuro Exam: Alert, Awake, Speech Clear, Moving All Extremities, No Focal Deficits Psychiatric Psych Exam: Appropriate Responses VTE Prophylaxis VTE Prophylaxis Device: SCDs VTE Prophylaxis Meds: Heparin Assessment/Plan Problem List: (1) Respiratory failure (2) NSTEMI (non-ST elevated myocardial infarction) (3) Anemia (4) Elevated troponin I level (5) Congestive heart failure (6) DM (diabetes mellitus) (7) JESENIA (acute kidney injury) (8) Pneumonia (9) Chronic kidney disease (10) CAD (coronary artery disease) (11) HYPERTENSION NOS (12) Heart murmur Assessment/Plan 76 year elderly pt. with multiple comorbidities, was on hospice. Patient was found unresponsive, and respiratory distress Acute respiratory failure, hypercapnic, hypoxic Possible pneumonia, left lower lobe. Maybe aspiration. Critical care currently managing, off Bipap -off Precedex Pulmonology also following patient Continue with IV steroids, DuoNeb's, -Continue with empiric antibiotics and follow cultures -CXR results noted, pulm edema Agitation -continue Seroquel -improved, awake, oriented x 2, cooperative Acute CHF Elevated troponin, possibly non-STEMI secondary to cardiac demand Continue with IV Bumex Monitor intake and output 2-D echo EF 55-60%, aortic valve thickened, mod stenosis -Appreciate cardiology input Continue with IV heparin -awaiting CTS consult, if she is a candidate for VAlve repair surgery. If yes, Dr Loaiza would proceed with cardiac cath. -Continue aspirin -Lipid profile results noted. Unable to start statins due to elevated LFTs -continue BB Acute on CKD, minimal improvement. Diuresing well. -continue cautious hydration -continue Bumex 1 mg IV daily -appreciate nephrology input. -renal function improving Questionable report of OD, ETOH, substance abuse. -drug screen negative -continue Folic acid and Thiamine and MVI Anemia, poss. CKD -monitor CBC closely Hypertension, stable -continue BB -PRN meds added Appreciate palliative care input keep in ICU now, improving D/W Dr. Negrete D/W RN D/W pt This pt. was seen by myself and Dr. Negrete, this note is written on her behalf. Problem Qualifiers (1) Respiratory failure: Qualified Code: J96.02 - Acute respiratory failure with hypercapnia (2) Anemia: Qualified Code: D64.9 - Anemia, unspecified type (3) Congestive heart failure: Qualified Code: I50.9 - Acute congestive heart failure, unspecified congestive heart failure type (4) DM (diabetes mellitus): (5) Pneumonia: Qualified Code: J18.1 - Pneumonia of left lower lobe due to infectious organism (6) CAD (coronary artery disease): Qualified Code: I25.10 - Coronary artery disease involving [place] coronary artery of [place] heart, angina presence unspecified Brittny Negrete MD August 29, 2016 14:19
--- NOTE | 2016-08-29 14:24 | PD.CARD.PN ---
Subjective Subjective Remarks alert in nad Objective Vital Signs / I&O Vital Signs Date Time Temp Pulse Resp B/P Pulse Ox O2 Delivery O2 Flow Rate FiO2 08/29/16 14:00 74 08/29/16 12:00 98 Nasal Cannula 2.00 08/29/16 10:00 78 08/29/16 08:00 72 08/29/16 08:00 100 Nasal Cannula 2.00 08/29/16 08:00 97 Nasal Cannula 2.00 08/29/16 06:00 77 08/29/16 04:00 74 08/29/16 04:00 97.9 74 16 193/90 98 08/29/16 04:00 98 Nasal Cannula 2.00 08/29/16 02:00 72 08/29/16 00:00 98 Nasal Cannula 2.00 08/29/16 00:00 98.2 75 16 149/75 98 08/29/16 00:00 75 08/28/16 22:00 86 08/28/16 20:56 99 Nasal Cannula 2.00 08/28/16 20:00 90 08/28/16 20:00 98.2 90 24 207/92 98 08/28/16 20:00 98 Nasal Cannula 2.00 08/28/16 18:00 85 08/28/16 16:00 97.9 80 34 172/83 94 08/28/16 16:00 80 08/28/16 16:00 95 Nasal Cannula 2.00 I/O 08/28/16 08/28/16 08/28/16 08/29/16 08/29/16 08/29/16 07:00 15:00 23:00 07:00 15:00 23:00 Intake Total 578 ml 748 ml 1151 ml 633 ml Output Total 450 ml 750 ml 850 ml 450 ml Balance 128 ml -2 ml 301 ml 183 ml Intake Oral 400 ml 500 ml 480 ml 400 ml IV Total 178 ml 248 ml 671 ml 233 ml Output Urine Total 450 ml 750 ml 850 ml 450 ml # Bowel Movements 1 0 0 Physical Exam GENERAL: SKIN: Warm and dry. HEAD: Normocephalic. EYES: No scleral icterus. No injection or drainage. NECK: Supple, trachea midline. No JVD or lymphadenopathy. CARDIOVASCULAR: Regular rate and rhythm without murmurs, gallops, or rubs. RESPIRATORY: Breath sounds equal bilaterally. No accessory muscle use. GASTROINTESTINAL: Abdomen soft, non-tender, nondistended. MUSCULOSKELETAL: No cyanosis, or edema. BACK: Nontender without obvious deformity. No CVA tenderness. Laboratory Laboratory Tests Test 08/29/16 05:10 White Blood Count 9.6 TH/MM3 Red Blood Count 3.74 MIL/MM3 Hemoglobin 9.6 GM/DL Hematocrit 30.9 % Mean Corpuscular Volume 82.6 FL Mean Corpuscular Hemoglobin 25.7 PG Mean Corpuscular Hemoglobin 31.1 % Concent Red Cell Distribution Width 15.5 % Platelet Count 253 TH/MM3 Mean Platelet Volume 8.8 FL Neutrophils (%) (Auto) 86.2 % Lymphocytes (%) (Auto) 6.5 % Monocytes (%) (Auto) 7.1 % Eosinophils (%) (Auto) 0.0 % Basophils (%) (Auto) 0.2 % Neutrophils # (Auto) 8.3 TH/MM3 Lymphocytes # (Auto) 0.6 TH/MM3 Monocytes # (Auto) 0.7 TH/MM3 Eosinophils # (Auto) 0.0 TH/MM3 Basophils # (Auto) 0.0 TH/MM3 CBC Comment DIFF FINAL Differential Comment Activated Partial 56.1 SEC Thromboplast Time Sodium Level 144 MEQ/L Potassium Level 4.0 MEQ/L Chloride Level 105 MEQ/L Carbon Dioxide Level 28.9 MEQ/L Anion Gap 10 MEQ/L Blood Urea Nitrogen 34 MG/DL Creatinine 1.62 MG/DL Estimat Glomerular Filtration 37 ML/MIN Rate Random Glucose 143 MG/DL Calcium Level 8.7 MG/DL Total Bilirubin 0.3 MG/DL Aspartate Amino Transf 30 U/L (AST/SGOT) Alanine Aminotransferase 31 U/L (ALT/SGPT) Alkaline Phosphatase 71 U/L Total Protein 6.8 GM/DL Albumin 2.7 GM/DL Assessment and Plan Problem List: (1) Liver function tests abnormal (2) Chronic kidney disease (3) Troponin level elevated (4) Non-compliant behavior (5) CORONARY ATHEROSCLEROSIS OF [place] CORONARY VESSEL (6) CAD (coronary artery disease) (7) Carotid stenosis (8) DM (diabetes mellitus) (9) JESENIA (acute kidney injury) (10) NSTEMI (non-ST elevated myocardial infarction) Assessment and Plan 1.) NSTEMI - trop elevation due to hypoxia, arf, cri, anemia, on hep, aspirin, ldl at goal, statin held due to elevated lft, leni held due to arf, beta chantel started, continue supportive care. consider cath if patient consents and becomes more medically stable 2.) Moderate to severe - suspect she would be high risk for avr, will consult and d/w ct surg Problem Qualifiers (1) CAD (coronary artery disease): Qualified Code: I25.10 - Coronary artery disease involving [place] coronary artery of [place] heart, angina presence unspecified (2) DM (diabetes mellitus): Real Loaiaz MD August 29, 2016 14:23
--- NOTE | 2016-08-29 14:32 | MB ---
cc: JOAO KINCAID DATE OF CONSULTATION: 08/29/2016 DATE OF : 1940 HISTORY OF PRESENT ILLNESS A 76-year-old female that presented to the emergency room via [facility] for shortness of breath and lethargy, apparently was found to have pinpoint pupils, was given Narcan in the field also albuterol treatments and placed on BiPAP per the paramedics. They did an ABG in the emergency department that showed acute hypercapnic respiratory failure with a pH of 7.19, CO2 58, PO2 99 with sat of 95 on BiPAP. Her lab work showed acute renal failure with a BUN 52 and creatinine 3.3, elevated troponin 2.58. She was given some Lasix in the emergency department and was admitted to the intensive care unit. Chest x-ray also showed a left lower lobe infiltrate. During the course of her treatment she had an echocardiogram which showed an EF of 55-60%, moderate aortic stenosis, trace regurgitation. We were consulted regarding the aortic stenosis. The patient was also seen by Dr. Loaiza for a history of coronary disease status post PCI with stent to the LAD. Heart cath was done in 2014 which showed patent stents to the circumflex and LAD with mild disease in the right. The patient was confused after her initial admission and she seems to have some forgetfulness but is able to converse. PAST MEDICAL HISTORY 1. Asthma. 2. Hyperlipidemia. 3. Coronary artery disease. 4. Diabetes mellitus. 5. Hypertension. 6. Inguinal hernia repair. 7. Myocardial infarction. ALLERGIES No known allergies. MEDICATIONS Home medications: None have been reported. Current medications in the hospital include: 1. Albuterol. 2. Prednisone. 3. Aspirin. 4. Zosyn. 5. Azithromycin. REVIEW OF SYSTEMS As above in the HPI. Other 12 systems unremarkable. PHYSICAL EXAMINATION VITAL SIGNS: Blood pressure 149/70 to 190/90, heart rate 77, O2 sat 100 on two liters, afebrile. GENERAL: The patient is sitting up in bed awake, following commands, slightly forgetful. HEENT: Head is normocephalic, atraumatic. Pupils equal and reactive. Oral mucosa pink and moist. NECK: Supple. No JVD. HEART: Heart sounds S1, S2. Grade 2/6 systolic murmur right upper sternal border. LUNGS: Diminished in the bases, otherwise clear to auscultation. ABDOMEN: Soft, round, nontender. Positive bowel sounds. EXTREMITIES: No significant peripheral edema. NEUROLOGIC: Alert and oriented. Cranial nerves II through XII intact. Strength is equal with normal sensation. LABORATORY Hemoglobin 9.6, hematocrit 30, white cell count 9.6, platelet count 253. Sodium 144, potassium 4.0, BUN 34, creatinine improved to 1.62. Troponin elevated at 3.06. Currently the patient is on a heparin drip. Urine is unremarkable. Toxicology screen is negative. Micro is negative blood cultures in five days. IMAGING Chest x-ray yesterday morning: No significant change with pulmonary edema. EKG EKG showed initial sinus tachycardia with some poor R-wave progression. IMPRESSION 1. The patient ruled in for a non-ST elevation myocardial infarction with history of coronary artery disease, prior stenting to the LAD. Last catheterization was in 2014 which showed a patent stent to the circumflex and LAD at that time. 2. Coronary artery disease. 3. Respiratory failure with hypercapnic respiratory acidosis improved, now on nasal cannula at two liters. 4. Acute renal failure with chronic kidney disease. 5. Possible COPD exacerbation. 6. Decompensated congestive heart failure. 7. Anemia. 8. Diabetes mellitus. 9. Her records showed that she has some ETOH abuse, however, there is no ETOH level confirmed. PLAN/RECOMMENDATIONS At this time Dr. Kincaid did speak with the daughter who will be arriving in the area in the next couple of days for Roland, Mita Tapia, who states her mother is very coherent and is unaware of any home hospice involvement. However, palliative care did see the patient here in the hospital and is a full code. Depending upon the decision of the daughter the patient at this time wishes no surgical intervention. She still has not had even a cath at this point. We will leave this up to the discretion of the host/hostess restaurant whether to proceed with aggressive measures. We will continue to follow as needed. Dictated by: CHRISTINA Shanks MD JOSE Galvan/BEKA /1:01 PM /2:23 PM
[2016-08-29] MEDS: hydrALAZINE HCL 20 MG/ML VIAL IV PUSH PRN (16:07)
--- NOTE | 2016-08-29 20:14 | HHI.PR ---
Subjective Remarks 76 YOAA female with Hypercapnoic RF,COPD takes off CPAP and desaturates No Fever Weaned to NC Follows commands, in jolly mood today No new complaint Objective Vital Signs Vital Signs Date Time Temp Pulse Resp B/P Pulse Ox O2 Delivery O2 Flow Rate FiO2 08/29/16 18:00 80 08/29/16 16:00 97.9 75 18 203/88 100 08/29/16 16:00 98 Nasal Cannula 2.00 08/29/16 16:00 80 08/29/16 14:00 74 08/29/16 12:00 75 18 195/91 98 08/29/16 12:00 98 Nasal Cannula 2.00 08/29/16 10:00 75 19 156/70 100 08/29/16 10:00 78 08/29/16 08:00 72 08/29/16 08:00 100 Nasal Cannula 2.00 08/29/16 08:00 98.1 74 24 200/91 100 08/29/16 08:00 97 Nasal Cannula 2.00 08/29/16 06:00 77 08/29/16 04:00 74 08/29/16 04:00 97.9 74 16 193/90 98 08/29/16 04:00 98 Nasal Cannula 2.00 08/29/16 02:00 72 08/29/16 00:00 98 Nasal Cannula 2.00 08/29/16 00:00 98.2 75 16 149/75 98 08/29/16 00:00 75 08/28/16 22:00 86 08/28/16 20:56 99 Nasal Cannula 2.00 I/O 08/28/16 08/28/16 08/28/16 08/29/16 08/29/16 08/29/16 07:00 15:00 23:00 07:00 15:00 23:00 Intake Total 578 ml 748 ml 1151 ml 633 ml 157 ml Output Total 450 ml 750 ml 850 ml 450 ml 750 ml Balance 128 ml -2 ml 301 ml 183 ml -593 ml Intake Oral 400 ml 500 ml 480 ml 400 ml IV Total 178 ml 248 ml 671 ml 233 ml 157 ml Output Urine Total 450 ml 750 ml 850 ml 450 ml 750 ml # Bowel Movements 1 0 0 Result Diagram: 08/29/1610 08/29/16 0510 Objective Remarks GENERAL: Obese female, mild sob SKIN: Warm and dry. HEAD: Normocephalic. EYES: No scleral icterus. No injection or drainage. NECK: Supple, trachea midline. No JVD or lymphadenopathy. CARDIOVASCULAR: Regular rate and rhythm without murmurs, gallops, or rubs. RESPIRATORY: Breath sounds equal bilaterally. No accessory muscle use. GASTROINTESTINAL: Abdomen soft, non-tender, nondistended. MUSCULOSKELETAL: No cyanosis, or edema. BACK: Nontender without obvious deformity. No CVA tenderness. A/P Assessment and Plan Hypercpnoic RF COPD HTN RA PLAN: Encourage to use CPAP Supplement 02 to keep sat >90% DC Solumedrol Po prednisone Cont Abx Wean off 02 if she maintains RA sat >90% Stable from pulm standpoint to tr to floor Jeff Butterfield MD August 29, 2016 20:14
[2016-08-29] MEDS: MELATONIN 5 MG TAB PO SCH (21:34)
[2016-08-29] MEDS: predniSONE 10 MG TAB PO SCH (21:35)
[2016-08-29] MEDS: HEPARIN-D5W INJ 250 ML IV SCH (21:42)
[2016-08-30] VITALS (21 sets, daily range): BP systolic 129–183; BP diastolic 61–88; PULSE 57–83; RESP 12–32; TEMP 97.6–98.5; O2SAT 93–100
[2016-08-30] MEDS: PIPERACIL-TAZO 2.25 GM PREMIX 50 ML IV SCH ×4 (00:27→17:07)
[2016-08-30] MEDS: ACETAMINOPHEN/HYDROcodone 325 MG/5 MG TAB PO PRN ×3 (01:44→20:21)
[2016-08-30] MEDS: INSULIN NovoLIN REGULAR SUPPLEMENTAL SCALE SQ SCH ×6 (01:47→21:24)
[2016-08-30] MEDS: HYDROmorphone HCL PF 1 MG/ML VIAL IV PUSH PRN ×4 (02:42→21:25)
[2016-08-30] MEDS: RESP: ALBUTEROL 2.5 MG/IPRATROPIUM 0.5 MG NEB (SCH) NEB ×6 (03:14→23:19)
--- NOTE | 2016-08-30 04:59 | RADRPT ---
EXAM DATE/TIME: 08/30/2016 04:03 [place] COMPARISON: CHEST SINGLE AP, August 28, 2016, 8:01. INDICATIONS : Shortness of breath, possible pulmonary disease. MEDICAL HISTORY : Chronic obstructive pulmonary disease. Hypertension Myocardial infarction. Asthma SURGICAL HISTORY : Coronary artery stent. ENCOUNTER: Subsequent ACUITY: 1 week PAIN SCORE: 0/10 LOCATION: Bilateral chest FINDINGS: Hazy bilateral pleuroparenchymal opacity appears slightly worse than on previous. Cardiac contours ar e grossly stable with borderline heart size. There is mild central vascular congestion. CONCLUSION: Slight worsening in aeration Manjinder Serrano MD on August 30, 2016 at 4:57 Board Certified Radiologist. This report was verified electronically.
[2016-08-30] MEDS: QUEtiapine FUMARATE 25 MG TAB PO SCH ×3 (06:06→20:21)
[2016-08-30] MEDS: ASPIRIN 81 MG CHEW TAB CHEW SCH (08:55)
[2016-08-30] MEDS: SODIUM CHLORIDE 0.9% FLUSH 10 ML FLUSH IV FLUSH SCH ×2 (08:56→20:21)
[2016-08-30] MEDS: FOLIC ACID 1 MG TAB PO SCH (08:56)
[2016-08-30] MEDS: predniSONE 10 MG TAB PO SCH ×2 (08:56→20:21)
[2016-08-30] MEDS: BUMETANIDE INJ 1 MG/4 ML VIAL IV PUSH SCH (08:56)
[2016-08-30] MEDS: PANTOPRAZOLE SODIUM 40 MG VIAL IV PUSH SCH (08:56)
[2016-08-30] MEDS: METOPROLOL TARTRATE 25 MG TAB PO SCH ×2 (08:57→20:20)
[2016-08-30] MEDS: THIAMINE HCL 100 MG TAB PO SCH (08:57)
[2016-08-30] MEDS: MULTIVITAMIN TAB PO SCH (08:57)
[2016-08-30] MEDS: DOCUSATE SODIUM 50 MG/SENNA 8.6 MG TAB PO SCH ×2 (09:00→20:21)
[2016-08-30] MEDS: AZITHROMYCIN INJ 500 MG in SODIUM CHLOR 0.9% 250 ML INJ 250 ML IV SCH (10:04)
--- NOTE | 2016-08-30 10:23 | PD.CAR.PN ---
CVT Progress Note Subjective/Hospital Course: 76-year-old female with , who presented to [facility] ED for shortness of breath and lethargy. She was found to have pinpoint pupils and she was given Narcan in the field along with albuterol treatments x3 en route. She was placed on BiPap by paramedics. ABG was performed on a BiPap 18/6 with 35% FIO2 which showed acute hypercapnic respiratory failure with a pH of 7.19, CO2 58, pAO2 99, saturation of 95%. Her laboratory data on admission showed acute renal failure with a BUN of 52, creatinine 3.33 and elevated troponin at 2.58. The patient was given Lasix 80 mg IV push in the ER and was admitted under Dr. Negrete service from [facility]. She had a repeat arterial blood gas earlier this morning which showed acute respiratory acidosis with a pH of 7.21, CO2 59, pAO2 88 and bicarb of 23 with saturation of 92% on BiPap 20/6 with 30% FIO2. Chest x-ray on admission showed a left lower lobe infiltrate. Ruled in for possible NSTEMI - trop elevation may be elevated also with hypoxia, ARF, ECHO showed : Moderate to severe on hep, aspirin, ldl at goal, statin held due to elevated lft, leni held due to arf, beta chantel started, continue supportive care. consider cath if patient consents and becomes more medically stable 2.) Moderate to severe - valve area suspect she would be high risk for avr , will consult and d/w ct surg PMH : hypertension, diabetes mellitus, hyperlipidemia, coronary artery disease/ stent to LAD and Circ morbid obesity, gout, questionable COPD 08/29: On nasal cannula. Afebrile. No acute events overnight. Remains on heparin drip. 08/30 on nasal cannula at 2 liters, on Heparin gtt, leni held 2/2 creatinine , statin held 2/2 elevated LFT pt states she lives alone, her neighbor drives her if needed, she takes care of herself and is not under hospice care at home she wants to wait on arrival of her daughter from [place] to discuss any heart cath / and surgery Objective: GENERAL: A&0 x 3 SKIN: Warm and dry.fair skin turgor HEAD: Normocephalic. EYES: No scleral icterus. No injection or drainage. NECK: Supple, trachea midline. No JVD or lymphadenopathy. CARDIOVASCULAR: Regular rate and rhythm 2/6 sm RESPIRATORY: Breath sounds equal bilaterally diminished in bases . No accessory muscle use. GASTROINTESTINAL: Abdomen soft, non-tender, nondistended. MUSCULOSKELETAL: No cyanosis, or edema. BACK: Nontender without obvious deformity. No CVA tenderness. Vital Signs Date Time Temp Pulse Resp B/P Pulse Ox O2 Delivery O2 Flow Rate FiO2 08/30/16 08:06 99 Nasal Cannula 2.00 08/30/16 06:00 65 08/30/16 04:00 74 08/30/16 04:00 98.3 74 20 181/86 99 08/30/16 04:00 99 Nasal Cannula 2.00 08/30/16 02:00 72 08/30/16 00:00 97.6 69 12 183/87 100 08/30/16 00:00 69 08/30/16 00:00 99 Nasal Cannula 2.00 08/29/16 22:00 73 08/29/16 20:30 99 Nasal Cannula 2.00 08/29/16 20:00 98 Nasal Cannula 2.00 08/29/16 20:00 99 Nasal Cannula 2.00 08/29/16 20:00 98.2 74 14 153/71 99 08/29/16 20:00 74 08/29/16 18:00 80 08/29/16 16:00 97.9 75 18 203/88 100 08/29/16 16:00 98 Nasal Cannula 2.00 08/29/16 16:00 80 08/29/16 14:00 74 08/29/16 12:00 75 18 195/91 98 08/29/16 12:00 98 Nasal Cannula 2.00 Result Diagram: 08/29/16 0510 08/29/16 0510 (1) Liver function tests abnormal (2) Chronic kidney disease Plan: renal following / creatinine 1.62 (3) Troponin level elevated (4) Non-compliant behavior (5) CAD (coronary artery disease) Plan: ? NSTEMI/ cath 2014 patent stent LAD and Circ Dr Loaiza following / eval for Heart cath if pt agrees mod to severe await further discussion for TAVR vs AVR if pt and daughter agree (6) Carotid stenosis (7) DM (diabetes mellitus) (8) JESENIA (acute kidney injury) (9) NSTEMI (non-ST elevated myocardial infarction) Problem Qualifiers (1) CAD (coronary artery disease): Qualified Code: I25.10 - Coronary artery disease involving [place] coronary artery of [place] heart, angina presence unspecified (2) DM (diabetes mellitus): Mitali Bhagat Aug 30, 2016 10:23
[2016-08-30 10:46] LABS: AUTOMATED NEUTROPHIL # 9.7 TH/MM3 (1.8-7.7); BASOPHIL % 0.1 % (0.0-2.0); HEMATOCRIT 33.2 % (35.0-46.0); HEMO FLAGS DIFF FINAL; LYMPH % 6.9 % (9.0-44.0); LYMPHOCYTE # 0.8 TH/MM3 (1.0-4.8); MEAN CELL VOLUME 83.3 FL (80.0-100.0); MEAN CORPUSCULAR HEMOGLOBIN 25.3 PG (27.0-34.0); MEAN CORPUSCULAR HGB CONC 30.4 % (32.0-36.0); MONO % 7.9 % (0.0-8.0); NEUT % 85.1 % (16.0-70.0); PLATELET COUNT 238 TH/MM3 (150-450); RED BLOOD COUNT 3.98 MIL/MM3 (4.00-5.30); RED CELL DISTRIBUTION WIDTH 15.6 % (11.6-17.2); WHITE BLOOD COUNT 11.4 TH/MM3 (4.0-11.0)
--- NOTE | 2016-08-30 11:08 | HHI.NPPN ---
Subjective History of Present Illness 76 year old female with ARF/CHF/Pneumonia Objective Data Data 08/29/16 08/30/16 19:00 07:00 Intake Total 157 ml 1248 ml Output Total 750 ml 700 ml Balance -593 ml 548 ml Intake Oral 700 ml IV Total 157 ml 548 ml Output Urine Total 750 ml 700 ml Vital Signs Date Time Temp Pulse Resp B/P Pulse Ox O2 Delivery O2 Flow Rate FiO2 08/30/16 10:00 69 08/30/16 10:00 69 24 99 08/30/16 09:00 83 27 176/88 97 08/30/16 08:06 99 Nasal Cannula 2.00 08/30/16 08:00 97.6 72 18 170/81 100 08/30/16 08:00 100 Nasal Cannula 2.00 08/30/16 08:00 67 08/30/16 07:00 67 24 158/70 99 08/30/16 06:00 65 08/30/16 04:00 74 08/30/16 04:00 98.3 74 20 181/86 99 08/30/16 04:00 99 Nasal Cannula 2.00 08/30/16 02:00 72 08/30/16 00:00 97.6 69 12 183/87 100 08/30/16 00:00 69 08/30/16 00:00 99 Nasal Cannula 2.00 08/29/16 22:00 73 08/29/16 20:30 99 Nasal Cannula 2.00 08/29/16 20:00 98 Nasal Cannula 2.00 08/29/16 20:00 99 Nasal Cannula 2.00 08/29/16 20:00 98.2 74 14 153/71 99 08/29/16 20:00 74 08/29/16 18:00 80 08/29/16 16:00 97.9 75 18 203/88 100 08/29/16 16:00 98 Nasal Cannula 2.00 08/29/16 16:00 80 08/29/16 14:00 74 08/29/16 12:00 75 18 195/91 98 08/29/16 12:00 98 Nasal Cannula 2.00 -: 08/30/16 1015 08/29/16 0510 Physical Exam General Appearance: Well Developed, No Acute Distress, Comfortable Eyes Eye Exam: Pupils Equal, Pupils Reactive Ears & Nose Ears & Nose Exam: Nasal Mucosa [place] Throat Throat Exam: Oral Mucosa [place] & Moist Neck Neck Exam: Neck Supple, Trachea Midline Pulmonary Resp Exam: Crackles, Decreased Bases Cardiology CV Exam: Regular, Murmur Gastrointestinal/Abdomen GI Exam: Soft, Non-Tender, Bowel Sounds Present, Non-Distended Genitourinary Exam: Clear Urine Musculoskeletal MS Exam: Joints Intact Integumentary Skin Exam: Warm, Dry Extremeties Extremities Exam: Pedal Pulses Palpable, Trace Edema Neurologic Neuro Exam: Alert, Awake, Speech Clear, Moving All Extremities, No Focal Deficits Psychiatric Psych Exam: Appropriate Responses VTE Prophylaxis Device: SCDs Assessment/Plan Problem List: (1) JESENIA (acute kidney injury) Plan: She has hypoperfusion of the kidneys and likely due to congestive heart failure and the underlying coronary artery disease. she has good response to Bumex UOP 1.4 L last cr 1.6 on Bumex iv chronic medical issues Cardiology following NSTAMI on heparin (2) Carotid artery disease Plan: Status post previous stent (3) Congestive heart failure Plan: She has underlying disorder of the heart (4) DM (diabetes mellitus) Plan: Continue monitor Problem Qualifiers (1) Congestive heart failure: Qualified Code: I50.9 - Acute congestive heart failure, unspecified congestive heart failure type (2) DM (diabetes mellitus): Evelin Samuels MD Aug 30, 2016 11:08
[2016-08-30 11:12] LABS: ALT (GPT) 28 U/L (10-53); ANION GAP 9 MEQ/L (5-15); AST (GOT) 18 U/L (15-37); BICARBONATE 29.8 MEQ/L (21.0-32.0); BLOOD UREA NITROGEN 44 MG/DL (7-18); CHLORIDE 104 MEQ/L (98-107); GLOMERULAR FILTRATION RATE 35 ML/MIN (>89); POTASSIUM 3.7 MEQ/L (3.5-5.1); SODIUM (NA) 143 MEQ/L (136-145)
[2016-08-30 11:14] LABS: ALKALINE PHOSPHATASE 66 U/L (45-117); TOTAL BILIRUBIN ADULT 0.3 MG/DL (0.2-1.0)
--- NOTE | 2016-08-30 12:15 | HHI.CCPN ---
Subjective Remarks/Hospital Course The patient is a 76-year-old female with multiple medical comorbidities which include hypertension, diabetes mellitus, hyperlipidemia, coronary artery disease , morbid obesity, gout, questionable COPD, who presented to [facility] ED last night for shortness of breath and lethargy. She was found to have pinpoint pupils and she was given Narcan in the field along with albuterol treatments x3 en route. She was placed on BiPap by paramedics. A ABG was performed on a BiPap 18/6 with 35% FIO2 which showed acute hypercapnic respiratory failure with a pH of 7.19, CO2 58, pAO2 99, saturation of 95%. Her laboratory data on admission showed acute renal failure with a BUN of 52, creatinine 3.33 and elevated troponin at 2.58. The patient was given Lasix 80 mg IV push in the ER and was admitted under Dr. Negrete service from [facility]. She had a repeat arterial blood gas earlier this morning which showed acute respiratory acidosis with a pH of 7.21, CO2 59, pAO2 88 and bicarb of 23 with saturation of 92% on BiPap 20/6 with 30% FIO2. Chest x-ray on admission showed a left lower lobe infiltrate. Her labs from today showed renal dysfunction with creatinine of 3.25 and troponin elevated 2.79 from 2.58 last night. Critical care medicine was consulted for critical care management. The patient had an ultrasound of her kidneys which showed nonvisualization left kidney, right kidney is unremarkable. When seen she is awake, alert and remains on BiPap. 08/26 Patient was on BIPAP overnight from 12A-6Am. ABG on BIPAP showed improvements in her resp acidosis with PH: 7.31/CO2: 46/PAO2:121. Now on 3L oxygen. On Heparin drip. 08/27 Patient was placed on Precedex drip last night for agitation. Hypertensive. Afebrile. renal function is improving with Cr: 1.53 today from 1.95. Remains on Heparin drip. 08/28 No events overnight. Patient is off Precedex drip. Awake and alert on heparin drip, 08/29: On nasal cannula. Afebrile. No acute events overnight. Remains on heparin drip. Subjective 08/30: On 3 L nasal cannula. Creatinine about 1.7. Patient states she feels great and wants treatable. Doesn't want to make any decisions regarding surgery at this time. Objective Vital Signs Date Time Temp Pulse Resp B/P Pulse Ox O2 Delivery O2 Flow Rate FiO2 08/30/16 10:00 69 08/30/16 10:00 24 99 08/30/16 08:06 Nasal Cannula 2.00 08/30/16 08:00 97.6 08/27/16 04:00 35 Intake and Output 08/29/16 08/29/16 08/29/16 07:59 15:59 23:59 Intake Total 633 ml 157 ml 669 ml Output Total 450 ml 750 ml 400 ml Balance 183 ml -593 ml 269 ml Result Diagram: 08/30/16 1015 08/30/16 1015 Imaging Last Impressions Chest X-Ray 08/30/16 0600 Signed Impressions: Service Date/Time: August 04:03 - CONCLUSION: Slight worsening in aeration Manjinder Serrano MD Renal Ultrasound 08/24/16 0000 Signed Impressions: Service Date/Time: Wednesday, August 24, 2016 22:45 - CONCLUSION: Nonvisualization left kidney. Right kidney is unremarkable Brayan Hagen MD Objective Remarks GENERAL: 76-year-old female, lying in bed in no acute distress SKIN: Warm and dry. No rash HEAD: Normocephalic. EYES: No scleral icterus. No injection or drainage. NECK: Supple, trachea midline. No JVD or lymphadenopathy. CARDIOVASCULAR: RRR. S1, S2 No S4. 2/6 systolic murmur right upper sternal border RESPIRATORY: Breath sounds equal bilaterally. No accessory muscle use. GASTROINTESTINAL: Abdomen soft, non-tender, nondistended. Hypoactive bowel sounds MUSCULOSKELETAL: No significant peripheral edema Neuro: Awake, restless. Cranial nerves II through grossly intact. Strength is equal and symmetric with normal sensation. A/P Assessment and Plan Neuro/Psych: EtOH Peripheral neuropathy Chronic pain syndrome Anxiety disorder Frequent falls Currently on Dilaudid 0.8 mg every 4 hours as needed for pain Previously on Neurontin 300 mg twice a day PT/OT evaluate and treat Monitor for DTs Thiamine, folate and multivitamin daily On Seroquel 25 every 8 for anxiety CV: NSTEMI Hypertension Coronary artery disease history of stent Left carotid stenosis - high-grade 2014 Dyslipidemia Moderate aortic stenosis valve area 0.58 cm Hypertension/pulmonary 2-D echocardiogram revealed EF 55-60%. SUZE [address] moderate stenosis Currently on aspirin 81 mg by mouth daily previously on 300 per rectum daily Continue Lopressor 50 mg twice a day. No RACHEL inhibitor secondary to acute kidney injury. No lipid-lowering agents secondary to elevated liver function tests Dr. Loaiza following. Dr. Kincaid following as well CT surgery. Resp: Acute hypoxic respiratory failure left-sided pneumonia History of asthma Nasal cannula to maintain saturations greater than equal to 92%. Currently on 3 L Incentive spirometry while awake Duo nebs every 4 hours GI: Advance diet as tolerated/heart healthy/renal. Pured Protonix for GI prophylaxis Lindsey-Colace twice a day for bowel regimen : [place] if indicated Endo: Diabetes mellitus Gout Sliding-scale insulin to maintain euglycemia with Accu-Cheks every before meals and at bedtime Renal: Acute on chronic kidney injury Followed with nephrology. Avoid nephrotoxic drugs Accurate I's and O's Currently on Bumex 1 mg IV daily. Adequate diuresis Heme: Anemia/normocytic No indications for transfusion of blood products at this time. Recheck CBC in a.m. ID: Possible community-acquired pneumonia/left lumbar Currently on Zosyn/Zithromax since 08/24 08/24 - blood cultures 2 - no growth MSK: RA Morbid obesity PT/OT evaluate and treat FEN: Replace electrolytes as clinically indicated Access - Utilize peripheral IV. Central line if indicated Prophylaxis - GI - Protonix - DVT - SCD/heparin drip level 2 Patient is stable from a critical care medicine standpoint. We will transferred to [facility] and assign care to hospitalist in a.m. 08/31/16 Uri Marie MD Aug 30, 2016 12:15
--- NOTE | 2016-08-30 13:29 | HHI.PR ---
Subjective Interval History awake alert and oriented no acute issues wants something to read anxious to go ho me met with CTS yesterday and does not want to undergo any surgery at this time heparin GTT turned off Vitals/Results Intake & Output 08/29/16 08/29/16 08/30/16 15:00 23:00 07:00 Intake Total 157 ml 669 ml 579 ml Output Total 750 ml 400 ml 300 ml Balance -593 ml 269 ml 279 ml Intake Oral 300 ml 400 ml IV Total 157 ml 369 ml 179 ml Output Urine Total 750 ml 400 ml 300 ml Vital Signs Vital Signs Date Time Temp Pulse Resp B/P Pulse Ox O2 Delivery O2 Flow Rate FiO2 08/30/16 12:00 99 Nasal Cannula 2.00 08/30/16 12:00 69 08/30/16 12:00 98.3 71 19 140/73 99 08/30/16 11:00 71 19 140/73 99 08/30/16 10:00 69 08/30/16 10:00 69 24 99 08/30/16 09:00 83 27 176/88 97 08/30/16 08:06 99 Nasal Cannula 2.00 08/30/16 08:00 97.6 72 18 170/81 100 08/30/16 08:00 100 Nasal Cannula 2.00 08/30/16 08:00 67 08/30/16 07:00 67 24 158/70 99 08/30/16 06:00 65 08/30/16 04:00 74 08/30/16 04:00 98.3 74 20 181/86 99 08/30/16 04:00 99 Nasal Cannula 2.00 08/30/16 02:00 72 08/30/16 00:00 97.6 69 12 183/87 100 08/30/16 00:00 69 08/30/16 00:00 99 Nasal Cannula 2.00 08/29/16 22:00 73 08/29/16 20:30 99 Nasal Cannula 2.00 08/29/16 20:00 98 Nasal Cannula 2.00 08/29/16 20:00 99 Nasal Cannula 2.00 08/29/16 20:00 98.2 74 14 153/71 99 08/29/16 20:00 74 08/29/16 18:00 80 08/29/16 16:00 97.9 75 18 203/88 100 08/29/16 16:00 98 Nasal Cannula 2.00 08/29/16 16:00 80 08/29/16 14:00 74 CBC/BMP: 08/30/16 1015 08/30/16 1015 Lab Results Laboratory Tests Test 08/30/16 10:15 White Blood Count 11.4 TH/MM3 Red Blood Count 3.98 MIL/MM3 Hemoglobin 10.1 GM/DL Hematocrit 33.2 % Mean Corpuscular Volume 83.3 FL Mean Corpuscular Hemoglobin 25.3 PG Mean Corpuscular Hemoglobin 30.4 % Concent Red Cell Distribution Width 15.6 % Platelet Count 238 TH/MM3 Mean Platelet Volume 8.4 FL Neutrophils (%) (Auto) 85.1 % Lymphocytes (%) (Auto) 6.9 % Monocytes (%) (Auto) 7.9 % Eosinophils (%) (Auto) 0.0 % Basophils (%) (Auto) 0.1 % Neutrophils # (Auto) 9.7 TH/MM3 Lymphocytes # (Auto) 0.8 TH/MM3 Monocytes # (Auto) 0.9 TH/MM3 Eosinophils # (Auto) 0.0 TH/MM3 Basophils # (Auto) 0.0 TH/MM3 CBC Comment DIFF FINAL Differential Comment Sodium Level 143 MEQ/L Potassium Level 3.7 MEQ/L Chloride Level 104 MEQ/L Carbon Dioxide Level 29.8 MEQ/L Anion Gap 9 MEQ/L Blood Urea Nitrogen 44 MG/DL Creatinine 1.72 MG/DL Estimat Glomerular Filtration 35 ML/MIN Rate Random Glucose 177 MG/DL Calcium Level 8.5 MG/DL Phosphorus Level 3.9 MG/DL Magnesium Level 2.0 MG/DL Total Bilirubin 0.3 MG/DL Aspartate Amino Transf 18 U/L (AST/SGOT) Alanine Aminotransferase 28 U/L (ALT/SGPT) Alkaline Phosphatase 66 U/L Total Protein 6.4 GM/DL Albumin 2.5 GM/DL Physical Exam General General Appearance: Well Developed, No Acute Distress, Comfortable Eyes Eye Exam: Pupils Equal, Pupils Reactive Ears & Nose Ears & Nose Exam: Nasal Mucosa [place] Throat Throat Exam: Oral Mucosa [place] & Moist Neck Neck Exam: Neck Supple, Trachea Midline Pulmonary Resp Exam: Crackles, Decreased Bases Cardiology CV Exam: Regular, Murmur Gastrointestinal/Abdomen GI Exam: Soft, Non-Tender, Bowel Sounds Present, Non-Distended Genitourinary Exam: Clear Urine Musculoskeletal MS Exam: Joints Intact Integumentary Skin Exam: Warm, Dry Extremeties Extremities Exam: Pedal Pulses Palpable, Trace Edema Neurologic Neuro Exam: Alert, Awake, Speech Clear, Moving All Extremities, No Focal Deficits Psychiatric Psych Exam: Appropriate Responses VTE Prophylaxis VTE Prophylaxis Device: SCDs VTE Prophylaxis Meds: Heparin Assessment/Plan Problem List: (1) Respiratory failure (2) NSTEMI (non-ST elevated myocardial infarction) (3) Anemia (4) Elevated troponin I level (5) Congestive heart failure (6) DM (diabetes mellitus) (7) JESENIA (acute kidney injury) (8) Pneumonia (9) Chronic kidney disease (10) CAD (coronary artery disease) (11) HYPERTENSION NOS (12) Heart murmur Assessment/Plan 76 year elderly pt. with multiple comorbidities. Patient was found unresponsive , and respiratory distress Acute respiratory failure, hypercapnic, hypoxic Possible pneumonia, left lower lobe. Maybe aspiration. Critical care currently managing, off Bipap on 3 L NC -off Precedex for some time Pulmonology also following patient po prednisone 10 mg po bid -ContinueZosyn, d/c Azithromycin -CXR results noted, pulm edema, now resolved Agitation -continue Seroquel -improved, awake, oriented x 3, cooperative Acute CHF Elevated troponin, possibly non-STEMI secondary to cardiac demand IV Bumex, change to po Monitor intake and output 2-D echo EF 55-60%, aortic valve thickened, mod stenosis -Appreciate cardiology input disContinue IV heparin Appreciate CTS input, d/w patient, she does not want to pursue with any surgery at this time -Continue aspirin -Lipid profile results noted. Unable to start statins due to elevated LFTs -continue BB Acute on CKD, minimal improvement. Diuresing well. -continue cautious hydration -continue Bumex , change to po -appreciate nephrology input. -renal function improving Questionable report of OD, ETOH, substance abuse. -drug screen negative -continue Folic acid and Thiamine and MVI Anemia, poss. CKD -monitor CBC closely Hypertension, stable -continue BB -PRN meds added Appreciate palliative care input ok to transfer to floor PT eval d/c planning D/W Dr. Negrete D/W RN D/W pt This pt. was seen by myself and Dr. Negrete, this note is written on her behalf. Problem Qualifiers (1) Respiratory failure: Qualified Code: J96.02 - Acute respiratory failure with hypercapnia (2) Anemia: Qualified Code: D64.9 - Anemia, unspecified type (3) Congestive heart failure: Qualified Code: I50.9 - Acute congestive heart failure, unspecified congestive heart failure type (4) DM (diabetes mellitus): (5) Pneumonia: Qualified Code: J18.1 - Pneumonia of left lower lobe due to infectious organism (6) CAD (coronary artery disease): Qualified Code: I25.10 - Coronary artery disease involving [place] coronary artery of [place] heart, angina presence unspecified Brittny Negrete MD Aug 30, 2016 13:29
--- NOTE | 2016-08-30 13:51 | PD.CARD.PN ---
Subjective Subjective Remarks alert in nad Objective Vital Signs / I&O Vital Signs Date Time Temp Pulse Resp B/P Pulse Ox O2 Delivery O2 Flow Rate FiO2 08/30/16 12:00 99 Nasal Cannula 2.00 08/30/16 12:00 69 08/30/16 12:00 98.3 71 19 140/73 99 08/30/16 11:00 71 19 140/73 99 08/30/16 10:00 69 08/30/16 10:00 69 24 99 08/30/16 09:00 83 27 176/88 97 08/30/16 08:06 99 Nasal Cannula 2.00 08/30/16 08:00 97.6 72 18 170/81 100 08/30/16 08:00 100 Nasal Cannula 2.00 08/30/16 08:00 67 08/30/16 07:00 67 24 158/70 99 08/30/16 06:00 65 08/30/16 04:00 74 08/30/16 04:00 98.3 74 20 181/86 99 08/30/16 04:00 99 Nasal Cannula 2.00 08/30/16 02:00 72 08/30/16 00:00 97.6 69 12 183/87 100 08/30/16 00:00 69 08/30/16 00:00 99 Nasal Cannula 2.00 08/29/16 22:00 73 08/29/16 20:30 99 Nasal Cannula 2.00 08/29/16 20:00 98 Nasal Cannula 2.00 08/29/16 20:00 99 Nasal Cannula 2.00 08/29/16 20:00 98.2 74 14 153/71 99 08/29/16 20:00 74 08/29/16 18:00 80 08/29/16 16:00 97.9 75 18 203/88 100 08/29/16 16:00 98 Nasal Cannula 2.00 08/29/16 16:00 80 08/29/16 14:00 74 I/O 08/29/16 08/29/16 08/29/16 08/30/16 08/30/16 08/30/16 07:00 15:00 23:00 07:00 15:00 23:00 Intake Total 633 ml 157 ml 669 ml 579 ml Output Total 450 ml 750 ml 400 ml 300 ml Balance 183 ml -593 ml 269 ml 279 ml Intake Oral 400 ml 300 ml 400 ml IV Total 233 ml 157 ml 369 ml 179 ml Output Urine Total 450 ml 750 ml 400 ml 300 ml Physical Exam GENERAL: SKIN: Warm and dry. HEAD: Normocephalic. EYES: No scleral icterus. No injection or drainage. NECK: Supple, trachea midline. No JVD or lymphadenopathy. CARDIOVASCULAR: Regular rate and rhythm without murmurs, gallops, or rubs. RESPIRATORY: Breath sounds equal bilaterally. No accessory muscle use. GASTROINTESTINAL: Abdomen soft, non-tender, nondistended. MUSCULOSKELETAL: No cyanosis, or edema. BACK: Nontender without obvious deformity. No CVA tenderness. Laboratory Laboratory Tests Test 08/30/16 10:15 White Blood Count 11.4 TH/MM3 Red Blood Count 3.98 MIL/MM3 Hemoglobin 10.1 GM/DL Hematocrit 33.2 % Mean Corpuscular Volume 83.3 FL Mean Corpuscular Hemoglobin 25.3 PG Mean Corpuscular Hemoglobin 30.4 % Concent Red Cell Distribution Width 15.6 % Platelet Count 238 TH/MM3 Mean Platelet Volume 8.4 FL Neutrophils (%) (Auto) 85.1 % Lymphocytes (%) (Auto) 6.9 % Monocytes (%) (Auto) 7.9 % Eosinophils (%) (Auto) 0.0 % Basophils (%) (Auto) 0.1 % Neutrophils # (Auto) 9.7 TH/MM3 Lymphocytes # (Auto) 0.8 TH/MM3 Monocytes # (Auto) 0.9 TH/MM3 Eosinophils # (Auto) 0.0 TH/MM3 Basophils # (Auto) 0.0 TH/MM3 CBC Comment DIFF FINAL Differential Comment Sodium Level 143 MEQ/L Potassium Level 3.7 MEQ/L Chloride Level 104 MEQ/L Carbon Dioxide Level 29.8 MEQ/L Anion Gap 9 MEQ/L Blood Urea Nitrogen 44 MG/DL Creatinine 1.72 MG/DL Estimat Glomerular Filtration 35 ML/MIN Rate Random Glucose 177 MG/DL Calcium Level 8.5 MG/DL Phosphorus Level 3.9 MG/DL Magnesium Level 2.0 MG/DL Total Bilirubin 0.3 MG/DL Aspartate Amino Transf 18 U/L (AST/SGOT) Alanine Aminotransferase 28 U/L (ALT/SGPT) Alkaline Phosphatase 66 U/L Total Protein 6.4 GM/DL Albumin 2.5 GM/DL Assessment and Plan Problem List: (1) Liver function tests abnormal (2) Chronic kidney disease (3) Troponin level elevated (4) Non-compliant behavior (5) CAD (coronary artery disease) (6) Carotid stenosis (7) DM (diabetes mellitus) (8) JESENIA (acute kidney injury) (9) NSTEMI (non-ST elevated myocardial infarction) Assessment and Plan 1.) NSTEMI - trop elevation due to hypoxia, arf, cri, anemia, on hep, aspirin, ldl at goal, statin held due to elevated lft, leni held due to arf, beta chantel started, continue supportive care. consider cath if patient consents and becomes more medically stable 2.) Moderate to severe - suspect she would be high risk for avr, patient refuses avr, dc heparin, transfer to telemetry Problem Qualifiers (1) CAD (coronary artery disease): Qualified Code: I25.10 - Coronary artery disease involving [place] coronary artery of [place] heart, angina presence unspecified (2) DM (diabetes mellitus): Real Loaiza MD Aug 30, 2016 13:51
--- NOTE | 2016-08-30 19:39 | HHI.PR ---
Subjective Remarks 76 YOAA female with Hypercapnoic RF,COPD No Fever Weaned to NC Follows commands, in jolly mood today No new complaint Anxious to go home Objective Vital Signs Vital Signs Date Time Temp Pulse Resp B/P Pulse Ox O2 Delivery O2 Flow Rate FiO2 08/30/16 18:00 71 08/30/16 17:00 78 32 140/76 95 08/30/16 16:00 98.5 71 15 160/72 96 08/30/16 16:00 96 Nasal Cannula 2.00 08/30/16 16:00 71 08/30/16 15:00 67 15 160/68 95 08/30/16 14:00 68 14 138/61 93 08/30/16 14:00 68 08/30/16 13:01 74 24 129/76 94 08/30/16 13:00 75 24 94 08/30/16 12:00 99 Nasal Cannula 2.00 08/30/16 12:00 69 08/30/16 12:00 98.3 71 19 140/73 99 08/30/16 11:00 71 19 140/73 99 08/30/16 10:00 69 08/30/16 10:00 69 24 99 08/30/16 09:00 83 27 176/88 97 08/30/16 08:06 99 Nasal Cannula 2.00 08/30/16 08:00 97.6 72 18 170/81 100 08/30/16 08:00 100 Nasal Cannula 2.00 08/30/16 08:00 67 08/30/16 07:00 67 24 158/70 99 08/30/16 06:00 65 08/30/16 04:00 74 08/30/16 04:00 98.3 74 20 181/86 99 08/30/16 04:00 99 Nasal Cannula 2.00 08/30/16 02:00 72 08/30/16 00:00 97.6 69 12 183/87 100 08/30/16 00:00 69 08/30/16 00:00 99 Nasal Cannula 2.00 08/29/16 22:00 73 08/29/16 20:30 99 Nasal Cannula 2.00 08/29/16 20:00 98 Nasal Cannula 2.00 08/29/16 20:00 99 Nasal Cannula 2.00 08/29/16 20:00 98.2 74 14 153/71 99 08/29/16 20:00 74 I/O 08/29/16 08/29/16 08/29/16 08/30/16 08/30/16 08/30/16 07:00 15:00 23:00 07:00 15:00 23:00 Intake Total 633 ml 157 ml 669 ml 579 ml 1083 ml Output Total 450 ml 750 ml 400 ml 300 ml 475 ml Balance 183 ml -593 ml 269 ml 279 ml 608 ml Intake Oral 400 ml 300 ml 400 ml 666 ml IV Total 233 ml 157 ml 369 ml 179 ml 417 ml Output Urine Total 450 ml 750 ml 400 ml 300 ml 475 ml Stool Total 0 ml # Bowel Movements 0 Result Diagram: 08/30/16 1015 08/30/16 1015 Objective Remarks GENERAL: Obese female, mild sob SKIN: Warm and dry. HEAD: Normocephalic. EYES: No scleral icterus. No injection or drainage. NECK: Supple, trachea midline. No JVD or lymphadenopathy. CARDIOVASCULAR: Regular rate and rhythm without murmurs, gallops, or rubs. RESPIRATORY: Breath sounds equal bilaterally. No accessory muscle use. GASTROINTESTINAL: Abdomen soft, non-tender, nondistended. MUSCULOSKELETAL: No cyanosis, or edema. BACK: Nontender without obvious deformity. No CVA tenderness. A/P Assessment and Plan Hypercpnoic RF COPD HTN RA PLAN: use CPAP PRN Po prednisone Cont Abx Wean off 02 if she maintains RA sat >90% Stable from pulm standpoint to tr to floor Jeff Butterfield MD Aug 30, 2016 19:39
[2016-08-30] MEDS: MELATONIN 5 MG TAB PO SCH (20:21)
[2016-08-31] VITALS (14 sets, daily range): BP systolic 143–178; BP diastolic 65–82; PULSE 55–97; RESP 14–27; TEMP 97.7–98.8; O2SAT 94–100
[2016-08-31] MEDS: PIPERACIL-TAZO 2.25 GM PREMIX 50 ML IV SCH ×4 (00:32→18:01)
[2016-08-31] MEDS: INSULIN NovoLIN REGULAR SUPPLEMENTAL SCALE SQ SCH ×6 (02:00→21:44)
[2016-08-31] MEDS: RESP: ALBUTEROL 2.5 MG/IPRATROPIUM 0.5 MG NEB (SCH) NEB ×6 (03:42→23:54)
[2016-08-31] MEDS: QUEtiapine FUMARATE 25 MG TAB PO SCH ×3 (05:26→21:39)
[2016-08-31] MEDS: HYDROmorphone HCL PF 1 MG/ML VIAL IV PUSH PRN ×4 (05:27→20:08)
[2016-08-31 06:06] LABS: AUTOMATED NEUTROPHIL # 9.8 TH/MM3 (1.8-7.7); BASOPHIL % 0.2 % (0.0-2.0); EOSINOPHIL % 0.1 % (0.0-4.0); HEMATOCRIT 32.9 % (35.0-46.0); LYMPH % 9.2 % (9.0-44.0); LYMPHOCYTE # 1.1 TH/MM3 (1.0-4.8); MEAN CELL VOLUME 82.1 FL (80.0-100.0); MEAN CORPUSCULAR HEMOGLOBIN 26.5 PG (27.0-34.0); MEAN CORPUSCULAR HGB CONC 32.3 % (32.0-36.0); MONO % 8.4 % (0.0-8.0); NEUT % 82.1 % (16.0-70.0); PLATELET COUNT 248 TH/MM3 (150-450); RED BLOOD COUNT 4.01 MIL/MM3 (4.00-5.30); RED CELL DISTRIBUTION WIDTH 15.7 % (11.6-17.2); WHITE BLOOD COUNT 11.9 TH/MM3 (4.0-11.0)
[2016-08-31 06:10] LABS: HEMO FLAGS AUTO DIFF
[2016-08-31 06:35] LABS: BICARBONATE 30.6 MEQ/L (21.0-32.0); POTASSIUM 4.1 MEQ/L (3.5-5.1)
[2016-08-31 07:06] LABS: BANDS 3 % (0-6); NEUTROPHIL # MANUAL DIFF 9.2 TH/MM3 (1.8-7.7); PLATELET ESTIMATE SMEAR NORMAL (NORMAL); PLATELET MORPHOLOGY NORMAL (NORMAL); POLYS (SEG NEUTROPHILS) 74 % (16-70); SCAN/DIFF FINAL DIFF MANUAL; WBC DIFF SAMPLE 100
[2016-08-31] MEDS: THIAMINE HCL 100 MG TAB PO SCH (08:11)
[2016-08-31] MEDS: ASPIRIN 81 MG CHEW TAB CHEW SCH (08:11)
[2016-08-31] MEDS: MULTIVITAMIN TAB PO SCH (08:11)
[2016-08-31] MEDS: DOCUSATE SODIUM 50 MG/SENNA 8.6 MG TAB PO SCH ×2 (08:12→21:00)
[2016-08-31] MEDS: METOPROLOL TARTRATE 25 MG TAB PO SCH ×2 (08:12→21:39)
[2016-08-31] MEDS: PANTOPRAZOLE SODIUM 40 MG VIAL IV PUSH SCH (08:12)
[2016-08-31] MEDS: FOLIC ACID 1 MG TAB PO SCH (08:12)
[2016-08-31] MEDS: FUROSEMIDE 40 MG TAB PO SCH (08:12)
[2016-08-31] MEDS: SODIUM CHLORIDE 0.9% FLUSH 10 ML FLUSH IV FLUSH SCH ×2 (08:12→21:40)
[2016-08-31] MEDS: predniSONE 10 MG TAB PO SCH ×2 (08:12→21:39)
[2016-08-31] MEDS: ACETAMINOPHEN/HYDROcodone 325 MG/5 MG TAB PO PRN (08:21)
--- NOTE | 2016-08-31 08:58 | PD.CARD.PN ---
Subjective Subjective Remarks asleep in nad Objective Vital Signs / I&O Vital Signs Date Time Temp Pulse Resp B/P Pulse Ox O2 Delivery O2 Flow Rate FiO2 08/31/16 07:00 18 08/31/16 06:00 60 08/31/16 04:00 100 Nasal Cannula 4.00 08/31/16 04:00 63 08/31/16 04:00 98.8 60 14 171/78 100 08/31/16 02:00 60 08/31/16 00:00 98.0 72 27 178/82 94 08/31/16 00:00 72 08/31/16 00:00 100 Nasal Cannula 4.00 08/30/16 22:00 57 08/30/16 20:13 100 Nasal Cannula 4.00 08/30/16 20:00 100 Nasal Cannula 4.00 08/30/16 20:00 71 08/30/16 20:00 98.4 71 19 146/70 98 08/30/16 18:00 71 08/30/16 17:00 78 32 140/76 95 08/30/16 16:00 98.5 71 15 160/72 96 08/30/16 16:00 96 Nasal Cannula 2.00 08/30/16 16:00 71 08/30/16 15:00 67 15 160/68 95 08/30/16 14:00 68 14 138/61 93 08/30/16 14:00 68 08/30/16 13:01 74 24 129/76 94 08/30/16 13:00 75 24 94 08/30/16 12:00 99 Nasal Cannula 2.00 08/30/16 12:00 69 08/30/16 12:00 98.3 71 19 140/73 99 08/30/16 11:00 71 19 140/73 99 08/30/16 10:00 69 08/30/16 10:00 69 24 99 08/30/16 09:00 83 27 176/88 97 I/O 08/30/16 08/30/16 08/30/16 08/31/16 08/31/16 08/31/16 07:00 15:00 23:00 07:00 15:00 23:00 Intake Total 579 ml 1083 ml 530 ml 312 ml Output Total 300 ml 475 ml 700 ml 400 ml Balance 279 ml 608 ml -170 ml -88 ml Intake Oral 400 ml 666 ml 480 ml 240 ml IV Total 179 ml 417 ml 50 ml 72 ml Output Urine Total 300 ml 475 ml 700 ml 400 ml Stool Total 0 ml # Bowel Movements 0 0 Physical Exam GENERAL: SKIN: Warm and dry. HEAD: Normocephalic. EYES: No scleral icterus. No injection or drainage. NECK: Supple, trachea midline. No JVD or lymphadenopathy. CARDIOVASCULAR: Regular rate and rhythm without murmurs, gallops, or rubs. RESPIRATORY: Breath sounds equal bilaterally. No accessory muscle use. GASTROINTESTINAL: Abdomen soft, non-tender, nondistended. MUSCULOSKELETAL: No cyanosis, or edema. BACK: Nontender without obvious deformity. No CVA tenderness. Laboratory Laboratory Tests Test 08/30/16 08/31/16 10:15 05:27 White Blood Count 11.4 TH/MM3 11.9 TH/MM3 Red Blood Count 3.98 MIL/MM3 4.01 MIL/MM3 Hemoglobin 10.1 GM/DL 10.6 GM/DL Hematocrit 33.2 % 32.9 % Mean Corpuscular Volume 83.3 FL 82.1 FL Mean Corpuscular Hemoglobin 25.3 PG 26.5 PG Mean Corpuscular Hemoglobin 30.4 % 32.3 % Concent Red Cell Distribution Width 15.6 % 15.7 % Platelet Count 238 TH/MM3 248 TH/MM3 Mean Platelet Volume 8.4 FL 8.4 FL Neutrophils (%) (Auto) 85.1 % 82.1 % Lymphocytes (%) (Auto) 6.9 % 9.2 % Monocytes (%) (Auto) 7.9 % 8.4 % Eosinophils (%) (Auto) 0.0 % 0.1 % Basophils (%) (Auto) 0.1 % 0.2 % Neutrophils # (Auto) 9.7 TH/MM3 9.8 TH/MM3 Lymphocytes # (Auto) 0.8 TH/MM3 1.1 TH/MM3 Monocytes # (Auto) 0.9 TH/MM3 1.0 TH/MM3 Eosinophils # (Auto) 0.0 TH/MM3 0.0 TH/MM3 Basophils # (Auto) 0.0 TH/MM3 0.0 TH/MM3 CBC Comment DIFF FINAL AUTO DIFF Differential Comment FINAL DIFF MANUAL Sodium Level 143 MEQ/L 142 MEQ/L Potassium Level 3.7 MEQ/L 4.1 MEQ/L Chloride Level 104 MEQ/L 103 MEQ/L Carbon Dioxide Level 29.8 MEQ/L 30.6 MEQ/L Anion Gap 9 MEQ/L 8 MEQ/L Blood Urea Nitrogen 44 MG/DL 44 MG/DL Creatinine 1.72 MG/DL 1.63 MG/DL Estimat Glomerular Filtration 35 ML/MIN 37 ML/MIN Rate Random Glucose 177 MG/DL 113 MG/DL Calcium Level 8.5 MG/DL 8.0 MG/DL Phosphorus Level 3.9 MG/DL 4.0 MG/DL Magnesium Level 2.0 MG/DL Total Bilirubin 0.3 MG/DL Aspartate Amino Transf 18 U/L (AST/SGOT) Alanine Aminotransferase 28 U/L (ALT/SGPT) Alkaline Phosphatase 66 U/L Total Protein 6.4 GM/DL Albumin 2.5 GM/DL 2.2 GM/DL Differential Total Cells 100 Counted Neutrophils % (Manual) 74 % Band Neutrophils % 3 % Lymphocytes % 16 % Monocytes % 7 % Neutrophils # (Manual) 9.2 TH/MM3 Platelet Estimate NORMAL Platelet Morphology Comment NORMAL Red Cell Morphology Comment NORMAL Activated Partial 21.0 SEC Thromboplast Time Assessment and Plan Problem List: (1) Liver function tests abnormal (2) Chronic kidney disease (3) Troponin level elevated (4) Non-compliant behavior (5) CAD (coronary artery disease) (6) Carotid stenosis (7) DM (diabetes mellitus) (8) JESENIA (acute kidney injury) (9) NSTEMI (non-ST elevated myocardial infarction) Assessment and Plan 1.) NSTEMI - trop elevation due to hypoxia, arf, cri, anemia, on hep, aspirin, ldl at goal, statin held due to elevated lft, leni held due to arf, beta chantel started, continue supportive care. consider cath if patient consents and becomes more medically stable 2.) Moderate to severe - suspect she would be high risk for avr, patient refuses avr, dc heparin, transfer to telemetry 3.) HTN - add norvasc 5 mg qd Problem Qualifiers (1) CAD (coronary artery disease): Qualified Code: I25.10 - Coronary artery disease involving [place] coronary artery of [place] heart, angina presence unspecified (2) DM (diabetes mellitus): Real Loaiza MD Aug 31, 2016 08:58
[2016-08-31] MEDS ORDERED: amLODIPine BESYLATE 5 MG TAB PO ONE (09:00)
--- NOTE | 2016-08-31 10:37 | HHI.PR ---
Subjective Subjective Remarks sitting up in chair, alert and oriented x 2-3 no cp no sob eating ok no complaints Review of Systems Constitutional Constitutional Remarks 12 point ROS completed, negative except as noted above, unreliable Vitals/Results Intake & Output 08/30/16 08/30/16 08/31/16 15:00 23:00 07:00 Intake Total 1083 ml 530 ml 312 ml Output Total 475 ml 700 ml 400 ml Balance 608 ml -170 ml -88 ml Intake Oral 666 ml 480 ml 240 ml IV Total 417 ml 50 ml 72 ml Output Urine Total 475 ml 700 ml 400 ml Stool Total 0 ml # Bowel Movements 0 0 Vital Signs Vital Signs Date Time Temp Pulse Resp B/P Pulse Ox O2 Delivery O2 Flow Rate FiO2 08/31/16 09:06 99 Nasal Cannula 2.00 08/31/16 08:00 58 08/31/16 08:00 100 Nasal Cannula 4.00 08/31/16 07:00 18 08/31/16 06:00 60 08/31/16 04:00 100 Nasal Cannula 4.00 08/31/16 04:00 63 08/31/16 04:00 98.8 60 14 171/78 100 08/31/16 02:00 60 08/31/16 00:00 98.0 72 27 178/82 94 08/31/16 00:00 72 08/31/16 00:00 100 Nasal Cannula 4.00 08/30/16 22:00 57 08/30/16 20:13 100 Nasal Cannula 4.00 08/30/16 20:00 100 Nasal Cannula 4.00 08/30/16 20:00 71 08/30/16 20:00 98.4 71 19 146/70 98 08/30/16 18:00 71 08/30/16 17:00 78 32 140/76 95 08/30/16 16:00 98.5 71 15 160/72 96 08/30/16 16:00 96 Nasal Cannula 2.00 08/30/16 16:00 71 08/30/16 15:00 67 15 160/68 95 08/30/16 14:00 68 14 138/61 93 08/30/16 14:00 68 08/30/16 13:01 74 24 129/76 94 08/30/16 13:00 75 24 94 08/30/16 12:00 99 Nasal Cannula 2.00 08/30/16 12:00 69 08/30/16 12:00 98.3 71 19 140/73 99 08/30/16 11:00 71 19 140/73 99 CBC/BMP: 08/31/16 0527 08/31/16 0527 Lab Results Laboratory Tests Test 08/31/16 05:27 White Blood Count 11.9 TH/MM3 Red Blood Count 4.01 MIL/MM3 Hemoglobin 10.6 GM/DL Hematocrit 32.9 % Mean Corpuscular Volume 82.1 FL Mean Corpuscular Hemoglobin 26.5 PG Mean Corpuscular Hemoglobin 32.3 % Concent Red Cell Distribution Width 15.7 % Platelet Count 248 TH/MM3 Mean Platelet Volume 8.4 FL Neutrophils (%) (Auto) 82.1 % Lymphocytes (%) (Auto) 9.2 % Monocytes (%) (Auto) 8.4 % Eosinophils (%) (Auto) 0.1 % Basophils (%) (Auto) 0.2 % Neutrophils # (Auto) 9.8 TH/MM3 Lymphocytes # (Auto) 1.1 TH/MM3 Monocytes # (Auto) 1.0 TH/MM3 Eosinophils # (Auto) 0.0 TH/MM3 Basophils # (Auto) 0.0 TH/MM3 CBC Comment AUTO DIFF Differential Total Cells 100 Counted Neutrophils % (Manual) 74 % Band Neutrophils % 3 % Lymphocytes % 16 % Monocytes % 7 % Neutrophils # (Manual) 9.2 TH/MM3 Differential Comment FINAL DIFF MANUAL Platelet Estimate NORMAL Platelet Morphology Comment NORMAL Red Cell Morphology Comment NORMAL Activated Partial 21.0 SEC Thromboplast Time Sodium Level 142 MEQ/L Potassium Level 4.1 MEQ/L Chloride Level 103 MEQ/L Carbon Dioxide Level 30.6 MEQ/L Anion Gap 8 MEQ/L Blood Urea Nitrogen 44 MG/DL Creatinine 1.63 MG/DL Estimat Glomerular Filtration 37 ML/MIN Rate Random Glucose 113 MG/DL Calcium Level 8.0 MG/DL Phosphorus Level 4.0 MG/DL Albumin 2.2 GM/DL Physical Exam General General Appearance: Well Developed, No Acute Distress, Comfortable Eyes Eye Exam: Pupils Equal, Pupils Reactive Ears & Nose Ears & Nose Exam: Nasal Mucosa [place] Throat Throat Exam: Oral Mucosa [place] & Moist Neck Neck Exam: Neck Supple, Trachea Midline Pulmonary Resp Exam: Decreased Bases Resp Remarks exp. wheezes Cardiology CV Exam: Regular, Murmur Gastrointestinal/Abdomen GI Exam: Soft, Non-Tender, Bowel Sounds Present, Non-Distended Genitourinary Exam: Clear Urine Remarks thomason Musculoskeletal MS Exam: Joints Intact Integumentary Skin Exam: Warm, Dry Extremeties Extremities Exam: Pedal Pulses Palpable, Trace Edema Neurologic Neuro Exam: Alert, Awake, Speech Clear, Moving All Extremities, No Focal Deficits Psychiatric Psych Exam: Appropriate Responses VTE Prophylaxis VTE Prophylaxis Device: SCDs VTE Prophylaxis Meds: Heparin Assessment/Plan Problem List: (1) Respiratory failure (2) NSTEMI (non-ST elevated myocardial infarction) (3) Anemia (4) Elevated troponin I level (5) Congestive heart failure (6) DM (diabetes mellitus) (7) JESENIA (acute kidney injury) (8) Pneumonia (9) Chronic kidney disease (10) CAD (coronary artery disease) (11) HYPERTENSION NOS (12) Heart murmur Assessment/Plan 76 year elderly pt. with multiple comorbidities. Patient was found unresponsive , and respiratory distress Acute respiratory failure, hypercapnic, hypoxic Possible pneumonia, left lower lobe. Maybe aspiration. -continue on oxygen as needed -off Precedex for some time Pulmonology also following patient po prednisone 10 mg po bid -cont. abx -improved, no resp. distress. Agitation-resolved, -continue Seroquel -improved, awake, oriented x 3, cooperative Acute CHF Elevated troponin, possibly non-STEMI secondary to cardiac demand IV Bumex, change to po Monitor intake and output 2-D echo EF 55-60%, aortic valve thickened, mod stenosis -Appreciate cardiology input. [facility] recommended, pt declined further workup disContinue IV heparin -Appreciate CTS input, d/w patient, she does not want to pursue with any surgery at this time -Continue aspirin -Lipid profile results noted. Unable to start statins due to elevated LFTs -continue BB Acute on CKD, minimal improvement. Diuresing well. -Continue Lasix PO -renal function improved -appreciate nephrology input. -D/C thomason Questionable report of OD, ETOH, substance abuse. -drug screen negative -continue Folic acid and Thiamine and MVI Anemia, poss. CKD -monitor CBC closely Hypertension, stable -continue BB -PRN meds added Appreciate palliative care input ok to transfer to floor PT eval DC planning for SNF DC thomason Poss dc today or tomorrow if arrangements are made D/W Dr. Negrete D/W RN D/W pt This pt. was seen by myself and Dr. Negrete, this note is written on her behalf. Problem Qualifiers (1) Respiratory failure: Qualified Code: J96.02 - Acute respiratory failure with hypercapnia (2) Anemia: Qualified Code: D64.9 - Anemia, unspecified type (3) Congestive heart failure: Qualified Code: I50.9 - Acute congestive heart failure, unspecified congestive heart failure type (4) DM (diabetes mellitus): (5) Pneumonia: Qualified Code: J18.1 - Pneumonia of left lower lobe due to infectious organism (6) CAD (coronary artery disease): Qualified Code: I25.10 - Coronary artery disease involving [place] coronary artery of [place] heart, angina presence unspecified Frannie Bassett Aug 31, 2016 10:37 artery of [place] heart, angina presence unspecified Frannie Bassett Aug 31, 2016 10:37
--- NOTE | 2016-08-31 10:40 | HHI.NPPN ---
Subjective History of Present Illness 76 year old female with ARF/CHF/Pneumonia Objective Data Data 08/30/16 08/31/16 18:59 06:59 Intake Total 1083 ml 842 ml Output Total 475 ml 1100 ml Balance 608 ml -258 ml Intake Oral 666 ml 720 ml IV Total 417 ml 122 ml Output Urine Total 475 ml 1100 ml Stool Total 0 ml # Bowel Movements 0 0 Vital Signs Date Time Temp Pulse Resp B/P Pulse Ox O2 Delivery O2 Flow Rate FiO2 08/31/16 10:00 60 08/31/16 09:06 99 Nasal Cannula 2.00 08/31/16 08:00 58 08/31/16 08:00 100 Nasal Cannula 4.00 08/31/16 07:00 18 08/31/16 06:00 60 08/31/16 04:00 100 Nasal Cannula 4.00 08/31/16 04:00 63 08/31/16 04:00 98.8 60 14 171/78 100 08/31/16 02:00 60 08/31/16 00:00 98.0 72 27 178/82 94 08/31/16 00:00 72 08/31/16 00:00 100 Nasal Cannula 4.00 08/30/16 22:00 57 08/30/16 20:13 100 Nasal Cannula 4.00 08/30/16 20:00 100 Nasal Cannula 4.00 08/30/16 20:00 71 08/30/16 20:00 98.4 71 19 146/70 98 08/30/16 18:00 71 08/30/16 17:00 78 32 140/76 95 08/30/16 16:00 98.5 71 15 160/72 96 08/30/16 16:00 96 Nasal Cannula 2.00 08/30/16 16:00 71 08/30/16 15:00 67 15 160/68 95 08/30/16 14:00 68 14 138/61 93 08/30/16 14:00 68 08/30/16 13:01 74 24 129/76 94 08/30/16 13:00 75 24 94 08/30/16 12:00 99 Nasal Cannula 2.00 08/30/16 12:00 69 08/30/16 12:00 98.3 71 19 140/73 99 08/30/16 11:00 71 19 140/73 99 -: 08/31/16 0527 08/31/16 0527 Physical Exam General Appearance: Well Developed, No Acute Distress, Comfortable Eyes Eye Exam: Pupils Equal, Pupils Reactive Ears & Nose Ears & Nose Exam: Nasal Mucosa [place] Throat Throat Exam: Oral Mucosa [place] & Moist Neck Neck Exam: Neck Supple, Trachea Midline Pulmonary Resp Exam: Crackles, Decreased Bases Cardiology CV Exam: Regular, Murmur Gastrointestinal/Abdomen GI Exam: Soft, Non-Tender, Bowel Sounds Present, Non-Distended Genitourinary Exam: Clear Urine Musculoskeletal MS Exam: Joints Intact Integumentary Skin Exam: Warm, Dry Extremeties Extremities Exam: Pedal Pulses Palpable, Trace Edema Neurologic Neuro Exam: Alert, Awake, Speech Clear, Moving All Extremities, No Focal Deficits Psychiatric Psych Exam: Appropriate Responses VTE Prophylaxis Device: SCDs Assessment/Plan Problem List: (1) JESENIA (acute kidney injury) Plan: She has hypoperfusion of the kidneys and likely due to congestive heart failure and the underlying coronary artery disease. she has good response 1.5L cr 1.6 on Lasix PO chronic medical issues Cardiology following NSTAMI on heparin (2) Carotid artery disease Plan: Status post previous stent (3) Congestive heart failure Plan: She has underlying disorder of the heart (4) DM (diabetes mellitus) Plan: Continue monitor Problem Qualifiers (1) Congestive heart failure: Qualified Code: I50.9 - Acute congestive heart failure, unspecified congestive heart failure type (2) DM (diabetes mellitus): Evelin Samuels MD Aug 31, 2016 10:40
[2016-08-31] MEDS ORDERED: QUET1TAB7 PO (13:06)
[2016-08-31] MEDS ORDERED: GNP100TA3 PO (13:06)
[2016-08-31] MEDS ORDERED: METO25TA3 PO (13:06)
[2016-08-31] MEDS ORDERED: THERTAB15 PO (13:06)
[2016-08-31] MEDS ORDERED: Folic Acid PO (13:06)
[2016-08-31] MEDS ORDERED: ASPI81CH25 CHEW (13:06)
[2016-08-31] MEDS ORDERED: IPRASOL NEB (13:06)
[2016-08-31] MEDS ORDERED: PRED10 PO (13:06)
[2016-08-31] MEDS ORDERED: FURO40TA PO (13:06)
[2016-08-31] MEDS ORDERED: AMLO5 PO (13:06)
--- NOTE | 2016-08-31 13:06 | HHI.DCPOC ---
Discharge Care Plan Diagnosis: (1) NSTEMI (non-ST elevated myocardial infarction) (2) HYPERTENSION NOS Your Health Problems Are: Chest Pain Shortness of Breath Goals to Promote Your Health * To prevent worsening of your condition and complications * To maintain your health at the optimal level Directions to Meet Your Goals Take your medications as prescribed Follow your dietary instruction Follow activity as directed Keep your appointments as scheduled Take your immunizations and boosters as scheduled If your symptoms worsen call your PCP, if no PCP go to Urgent Care Center or Emergency Room Smoking is Dangerous to Your Health. Avoid second hand smoke Call the 24-hour hour crisis hotline for domestic abuse at Frannie Bassett Aug 31, 2016 13:06
--- NOTE | 2016-08-31 18:25 | HHI.PR ---
Subjective Remarks 76 YOAA female with Hypercapnoic RF,COPD No Fever Weaned to NC Follows commands, in jolly mood today No new complaint No N,Ve Objective Vital Signs Vital Signs Date Time Temp Pulse Resp B/P Pulse Ox O2 Delivery O2 Flow Rate FiO2 08/31/16 16:45 Room Air 08/31/16 15:40 97.7 97 20 143/69 97 08/31/16 14:00 60 08/31/16 13:04 18 08/31/16 12:00 68 08/31/16 12:00 100 Room Air 08/31/16 12:00 98.0 64 18 158/74 100 08/31/16 10:00 60 08/31/16 09:06 99 Nasal Cannula 2.00 08/31/16 08:00 98.0 58 20 178/81 100 08/31/16 08:00 58 08/31/16 08:00 100 Nasal Cannula 4.00 08/31/16 06:00 60 08/31/16 04:00 100 Nasal Cannula 4.00 08/31/16 04:00 63 08/31/16 04:00 98.8 60 14 171/78 100 08/31/16 02:00 60 08/31/16 00:00 98.0 72 27 178/82 94 08/31/16 00:00 72 08/31/16 00:00 100 Nasal Cannula 4.00 08/30/16 22:00 57 08/30/16 20:13 100 Nasal Cannula 4.00 08/30/16 20:00 100 Nasal Cannula 4.00 08/30/16 20:00 71 08/30/16 20:00 98.4 71 19 146/70 98 I/O 08/30/16 08/30/16 08/30/16 08/31/16 08/31/16 08/31/16 07:00 15:00 23:00 07:00 15:00 23:00 Intake Total 579 ml 1083 ml 530 ml 312 ml 530 ml Output Total 300 ml 475 ml 700 ml 400 ml 350 ml Balance 279 ml 608 ml -170 ml -88 ml 180 ml Intake Oral 400 ml 666 ml 480 ml 240 ml 480 ml IV Total 179 ml 417 ml 50 ml 72 ml 50 ml Output Urine Total 300 ml 475 ml 700 ml 400 ml 350 ml Stool Total 0 ml # Bowel Movements 0 0 0 Result Diagram: 08/31/1652608/31/16526 Objective Remarks GENERAL: Obese female, mild sob SKIN: Warm and dry. HEAD: Normocephalic. EYES: No scleral icterus. No injection or drainage. NECK: Supple, trachea midline. No JVD or lymphadenopathy. CARDIOVASCULAR: Regular rate and rhythm without murmurs, gallops, or rubs. RESPIRATORY: Breath sounds equal bilaterally. No accessory muscle use. GASTROINTESTINAL: Abdomen soft, non-tender, nondistended. MUSCULOSKELETAL: No cyanosis, or edema. BACK: Nontender without obvious deformity. No CVA tenderness. A/P Assessment and Plan Hypercpnoic RF COPD HTN RA PLAN: use CPAP PRN Po prednisone Cont Abx Wean off 02 if she maintains RA sat >90% Stable from pulm standpoint. Jeff Butterfield MD Aug 31, 2016 18:25
[2016-08-31] MEDS: MELATONIN 5 MG TAB PO SCH (21:38)
[2016-09-01] VITALS (9 sets, daily range): BP systolic 143–168; BP diastolic 65–76; PULSE 61–67; RESP 16–20; TEMP 97.8–98.4; O2SAT 95–100
[2016-09-01] MEDS: HYDROmorphone HCL PF 1 MG/ML VIAL IV PUSH PRN ×6 (00:17→23:58)
[2016-09-01] MEDS: SODIUM CHLORIDE 0.9% FLUSH 10 ML FLUSH IV FLUSH PRN ×3 (00:18→11:24)
[2016-09-01] MEDS: PIPERACIL-TAZO 2.25 GM PREMIX 50 ML IV SCH ×5 (00:21→23:58)
[2016-09-01] MEDS: INSULIN NovoLIN REGULAR SUPPLEMENTAL SCALE SQ SCH ×5 (02:00→21:25)
[2016-09-01] MEDS: RESP: ALBUTEROL 2.5 MG/IPRATROPIUM 0.5 MG NEB (SCH) NEB ×5 (03:31→20:01)
[2016-09-01] MEDS: QUEtiapine FUMARATE 25 MG TAB PO SCH ×3 (06:25→20:41)
[2016-09-01] MEDS: DOCUSATE SODIUM 50 MG/SENNA 8.6 MG TAB PO SCH ×2 (08:23→20:41)
[2016-09-01] MEDS: FUROSEMIDE 40 MG TAB PO SCH (08:24)
[2016-09-01] MEDS: predniSONE 10 MG TAB PO SCH (08:24)
[2016-09-01] MEDS: FOLIC ACID 1 MG TAB PO SCH (08:24)
[2016-09-01] MEDS: ASPIRIN 81 MG CHEW TAB CHEW SCH (08:24)
[2016-09-01] MEDS: MULTIVITAMIN TAB PO SCH (08:24)
[2016-09-01] MEDS: METOPROLOL TARTRATE 25 MG TAB PO SCH ×2 (08:25→15:47)
[2016-09-01] MEDS: PANTOPRAZOLE SODIUM 40 MG VIAL IV PUSH SCH (08:25)
[2016-09-01] MEDS: SODIUM CHLORIDE 0.9% FLUSH 10 ML FLUSH IV FLUSH SCH ×2 (08:25→20:41)
[2016-09-01] MEDS: THIAMINE HCL 100 MG TAB PO SCH (08:25)
[2016-09-01] MEDS ORDERED: amLODIPine BESYLATE 5 MG TAB PO SCH (09:00)
--- NOTE | 2016-09-01 09:51 | HHI.PR ---
Subjective Subjective Remarks sleeping, awakes to voice no cp no sob eating ok no complaints chronic pain, requesting Dilaudid and [place]. RN has been given PO Review of Systems Constitutional Constitutional Remarks 12 point ROS completed, negative except as noted above, unreliable Vitals/Results Intake & Output 08/31/16 08/31/16 09/01/16 15:00 23:00 07:00 Intake Total 530 ml 480 ml 440 ml Output Total 350 ml 100 ml 650 ml Balance 180 ml 380 ml -210 ml Intake Oral 480 ml 480 ml 440 ml IV Total 50 ml Output Urine Total 350 ml 100 ml 650 ml # Bowel Movements 0 0 1 Vital Signs Vital Signs Date Time Temp Pulse Resp B/P Pulse Ox O2 Delivery O2 Flow Rate FiO2 09/01/16 08:00 98.1 63 20 168/75 95 09/01/16 07:30 98 21 09/01/16 03:45 98.4 63 16 153/70 100 09/01/16 03:33 96 21 08/31/16 23:55 97 21 08/31/16 23:22 98.6 55 18 147/65 97 08/31/16 20:13 98.2 71 18 161/74 100 08/31/16 20:05 97 21 08/31/16 20:00 Room Air 08/31/16 16:45 Room Air 08/31/16 15:40 97.7 97 20 143/69 97 08/31/16 14:00 60 08/31/16 13:04 18 08/31/16 12:00 68 08/31/16 12:00 100 Room Air 08/31/16 12:00 98.0 64 18 158/74 100 08/31/16 10:00 60 CBC/BMP: 08/31/16 0527 08/31/16 0527 Physical Exam General General Appearance: Well Developed, No Acute Distress, Comfortable Eyes Eye Exam: Pupils Equal, Pupils Reactive Ears & Nose Ears & Nose Exam: Nasal Mucosa [place] Throat Throat Exam: Oral Mucosa [place] & Moist Neck Neck Exam: Neck Supple, Trachea Midline Pulmonary Resp Exam: Decreased Bases Resp Remarks exp. wheezes Cardiology CV Exam: Regular, Murmur Gastrointestinal/Abdomen GI Exam: Soft, Non-Tender, Bowel Sounds Present, Non-Distended Genitourinary Exam: Clear Urine Remarks thomason Musculoskeletal MS Exam: Joints Intact Integumentary Skin Exam: Warm, Dry Extremeties Extremities Exam: Pedal Pulses Palpable, Trace Edema Neurologic Neuro Exam: Alert, Awake, Speech Clear, Moving All Extremities, No Focal Deficits Psychiatric Psych Exam: Appropriate Responses VTE Prophylaxis VTE Prophylaxis Device: SCDs VTE Prophylaxis Meds: Heparin Assessment/Plan Problem List: (1) Respiratory failure (2) NSTEMI (non-ST elevated myocardial infarction) (3) Anemia (4) Elevated troponin I level (5) Congestive heart failure (6) DM (diabetes mellitus) (7) JESENIA (acute kidney injury) (8) Pneumonia (9) Chronic kidney disease (10) CAD (coronary artery disease) (11) HYPERTENSION NOS (12) Heart murmur Assessment/Plan 76 year elderly pt. with multiple comorbidities. Patient was found unresponsive , and respiratory distress Acute respiratory failure, hypercapnic, hypoxic Possible pneumonia, left lower lobe. Maybe aspiration. -continue on oxygen as needed -off Precedex for some time Pulmonology also following patient po prednisone 10 mg po bid -cont. abx -improved, no resp. distress. Now on room air Agitation-resolved, -continue Seroquel -improved, awake, oriented x 3, cooperative Acute CHF Elevated troponin, possibly non-STEMI secondary to cardiac demand -continue PO Lasix Monitor intake and output 2-D echo EF 55-60%, aortic valve thickened, mod stenosis -Appreciate cardiology input. [facility] recommended, pt declined further workup disContinued IV heparin -Appreciate CTS input, d/w patient, she does not want to pursue with any surgery at this time -Continue aspirin -Lipid profile results noted. Unable to start statins due to elevated LFTs -continue BB Acute on CKD, minimal improvement. Diuresing well. -Continue Lasix PO -renal function improved -appreciate nephrology input. -voiding okay Questionable report of OD, ETOH, substance abuse. -drug screen negative -continue Folic acid and Thiamine and MVI -recommend that family seek OP assistance with substance abuse, spoke to daughter in [place] Anemia, poss. CKD -monitor CBC closely Hypertension, stable -continue BB -PRN meds added OOB with assistance continue with PT Appreciate palliative care input pt and family declining hospice services. Pt. and daughter agreeable with SNF placement. Discharge to SNF today if arrangements made F/U PCP, Cardiology Activity-as tolerated Diet-heart healthy D/W Dr. Negrete D/W RN D/W pt D/W CM D/W pt's daughter in [place], she wanted drug rehab. Explained pt. needs continued medical care at SNF, questions answered in detail. Recommended that they get involved in dc process at SNF. Pt. may benefit from [facility] or [facility] after rehab. This pt. was seen by myself and Dr. Negrete, this note is written on her behalf. Problem Qualifiers (1) Respiratory failure: Qualified Code: J96.02 - Acute respiratory failure with hypercapnia (2) Anemia: Qualified Code: D64.9 - Anemia, unspecified type (3) Congestive heart failure: Qualified Code: I50.9 - Acute congestive heart failure, unspecified congestive heart failure type (4) DM (diabetes mellitus): (5) Pneumonia: Qualified Code: J18.1 - Pneumonia of left lower lobe due to infectious organism (6) CAD (coronary artery disease): Qualified Code: I25.10 - Coronary artery disease involving creek coronary artery of creek heart, angina presence unspecified Frannie Bassett Sep 01, 2016 09:51
--- NOTE | 2016-09-01 10:01 | HHI.DS ---
Discharge Summary Admission Date August 24, 2016 at 21:56 Discharge Date: Sep 01, 2016 Admitting Diagnosis congestive heart failure, elevated troponin I (1) Respiratory failure (2) NSTEMI (non-ST elevated myocardial infarction) (3) Chronic kidney disease (4) HYPERTENSION NOS (5) Chronic pain (6) Liver function tests abnormal (7) Dyspnea (8) Anxiety (9) Mixed hyperlipidemia (10) Congestive heart failure (11) DM (diabetes mellitus) (12) JESENIA (acute kidney injury) (13) Anemia (14) Rheumatoid arthritis CBC/BMP: 08/31/16 0527 08/31/16 0527 Significant Findings Laboratory Tests Test 08/30/16 08/31/16 10:15 05:27 White Blood Count 11.4 TH/MM3 11.9 TH/MM3 (4.0-11.0) (4.0-11.0) Red Blood Count 3.98 MIL/MM3 (4.00-5.30) Hemoglobin 10.1 GM/DL 10.6 GM/DL (11.6-15.3) (11.6-15.3) Hematocrit 33.2 % 32.9 % (35.0-46.0) (35.0-46.0) Mean Corpuscular Hemoglobin 25.3 PG 26.5 PG (27.0-34.0) (27.0-34.0) Mean Corpuscular Hemoglobin 30.4 % Concent (32.0-36.0) Neutrophils (%) (Auto) 85.1 % 82.1 % (16.0-70.0) (16.0-70.0) Lymphocytes (%) (Auto) 6.9 % (9.0-44.0) Neutrophils # (Auto) 9.7 TH/MM3 9.8 TH/MM3 (1.8-7.7) (1.8-7.7) Lymphocytes # (Auto) 0.8 TH/MM3 (1.0-4.8) Blood Urea Nitrogen 44 MG/DL (7-18) 44 MG/DL (7-18) Creatinine 1.72 MG/DL 1.63 MG/DL (0.50-1.00) (0.50-1.00) Estimat Glomerular Filtration 35 ML/MIN (>89) 37 ML/MIN (>89) Rate Random Glucose 177 MG/DL 113 MG/DL (74-106) (74-106) Albumin 2.5 GM/DL 2.2 GM/DL (3.4-5.0) (3.4-5.0) Monocytes (%) (Auto) 8.4 % (0.0-8.0) Monocytes # (Auto) 1.0 TH/MM3 (0-0.9) Neutrophils % (Manual) 74 % (16-70) Neutrophils # (Manual) 9.2 TH/MM3 (1.8-7.7) Activated Partial 21.0 SEC Thromboplast Time (24.3-30.1) Calcium Level 8.0 MG/DL (8.5-10.1) Imaging Last Impressions Chest X-Ray 08/30/16 0600 Signed Impressions: Service Date/Time: August 04:03 - CONCLUSION: Slight worsening in aeration Manjinder Serrano MD Renal Ultrasound 08/24/16 0000 Signed Impressions: Service Date/Time: Wednesday, August 24, 2016 22:45 - CONCLUSION: Nonvisualization left kidney. Right kidney is unremarkable Brayan Hagen MD Hospital Course This is a unfortunate 76-year-old black female who according to the record was found per her hospice nurse who had come for initial visit. She was noted to be short of breath and lethargic and was sent to the emergency room for further evaluation. According to the record the patient was short of breath earlier in the day but refused transport from [facility], there was no family at the hospital and attempts were made to get in touch with daughter to get history. Was evaluated in the ED. She was put on BiPAP, she was lethargic but she responded to tactile or verbal stimuli with agitation and restlessness. Pt. evaluated in the ED; DIAGNOSTIC DATA: White blood cell 11, RBC 3.26, hemoglobin 8.6, hematocrit 26.9, platelet count 241, neutrophil percentage 70.8. Monocyte 13.8, PT/INR is 1. Chemistry sodium 135, potassium 4.6, chloride 99, carbon dioxide 25.3, BUN is now 58, creatinine 3.25, glomerular filtration rate 17, random glucose is 94, it was 50 on admission, calcium 8.5. Troponins are positive with 2.58 and 2.79. B-type natriuretic peptide 443. Albumin 3.1, total protein 7.5, her HDL cholesterol is 79.3, TSH 1.040. Urine is hazy and yellow, pH is 5, specific gravity 1.017, protein 30, negative for glucose, ketones, nitrates, bilirubin and leukocyte esterase. Culture is not indicated. Methicillin-resistant Staphylococcus aureus is not indicated with a nasal smear. Blood gas this a.m. shows her temperature to be 98.6, bicarbonate 23, base access negative at 4.2, O2 saturation 92, pH is 7.21, pCO2 59, partial pressure of oxygen 88, o2 content 11.4. this is on BiPap at 30% and she is now at 50%. IMAGING STUDIES: Show chest x-ray to the left lower lobe infiltrate and renal ultrasound shows nonvisual left kidney, the right kidney is unremarkable. Pt. admitted for: (1) Respiratory failure (2) NSTEMI (non-ST elevated myocardial infarction) (3) Anemia (4) Elevated troponin I level (5) Congestive heart failure (6) DM (diabetes mellitus) (7) JESENIA (acute kidney injury) (8) Pneumonia (9) Chronic kidney disease (10) CAD (coronary artery disease) (11) HYPERTENSION NOS (12) Heart murmur During the course of the hospitalization, the following took place: 76 year elderly pt. with multiple comorbidities. Patient was found unresponsive , and respiratory distress Acute respiratory failure, hypercapnic, hypoxic. This was likely due to congestive heart failure. Possible pneumonia, left lower lobe. Maybe aspiration. -Initially admitted to critical care services with pulmonology consultation Put on empiric antibiotics and cultures follow Started on IV steroids and breathing treatments -Became very agitated and requires sedatives. Was put on Precedex drip which improved agitation. She was also started on Seroquel. -Respiratory status improved, she was downgraded to nasal cannula. She was changed to oral steroids. She had no further respiratory distress. Agitation-resolved, likely metabolic -Started on Precedex in the ICU and Seroquel -Mentation improved, was awake alert oriented 3 and cooperative. Somewhat forgetful but otherwise appropriate. Patient found in acute CHF Elevated troponin, possibly non-STEMI secondary to cardiac demand -Initially put on IV diuretics then changed to oral. Monitored intake and output 2-D echo EF 55-60%, aortic valve thickened, mod stenosis -Appreciated cardiology input. [facility] recommended, pt declined further workup -Was initially put on heparin drip which was later discontinued -Appreciated CTS input, consulted for aortic stenosis. CTS discussed with patient, she did not want to pursue any surgery at this time -Continued aspirin -Lipid profile results noted. Unable to start statins due to elevated LFTs -put on BB -Patient had no chest pain, CHF symptoms improved. Was treated medically Acute on CKD, improved. Diuresis well. -Put on IV diuretics initially -renal function improved Consulted nephrology for evaluation -Hyde with discontinued, patient voided well, adequate urine output. Questionable report of OD, ETOH, substance abuse. -drug screen negative -Put on Folic acid and Thiamine and MVI -recommend that family seek OP assistance with substance abuse, spoke to daughter in [place]. Patient had prior history of polysubstance abuse and they were concerned of relapse. Recommended that patient go to [facility] or [facility] after rehabilitation. Anemia, poss. CKD -monitored CBC closely -H&H remained stable, no need for blood transfusion. No active bleeding Hypertension, stable -continue BB -PRN meds added -Medications adjusted. Patient stabilizes, became alert oriented. No further respiratory distress, no more agitation Critical care signed off Patient transferred out of the unit CM consulted for DC planning Physical therapy order for out of bed. [place] DCd We did consult palliative care as the patient had been followed by hospice nurse. IT was never clear as to who had initiated the hospice consultation as outpatient as the patient herself did not recall ever making the appointment. Family was not aware of this as well. Patient wanted to remain full code and was not interested in hospice services Palliative care discussed with patient and family. Pt. and daughter agreeable with SNF placement. Discharged to SNF in stable condition Instructed to: F/U PCP, Cardiology Activity-as tolerated Diet-heart healthy Pt Condition on Discharge: Stable Discharge Disposition: Discharge to SNF Discharge Instructions DIET: Follow Instructions for: Heart Healthy Diet Speech Therapy-Diet Recommends: Mechanical Soft Activities you can perform: Weight Bearing as [place] Follow up Referrals: Cardiology with Real Loaiza MD PCP Follow-up New Medications: Amlodipine (Norvasc) 5 Mg Tab 5 MG PO DAILY Blood Pressure Management #30 TAB Aspirin (Aspirin Low Strength) 81 Mg Chew 324 MG CHEW DAILY CAD #30 EA Furosemide (Furosemide) 40 Mg Tab 40 MG PO DAILY FLUID REMOVAL #30 Ref 0 TAB Ipratropium-Albuterol Neb (Duoneb) 0.5-2.5 Mg/3 Ml Neb 1 AMPULE NEB Q4HR NEB Broncospasm #30 ML Metoprolol Tartrate (Metoprolol Tartrate) 25 Mg Tab 50 MG PO Q12HR CAD #60 Ref 0 TAB Multiple Vitamin (Thera/Beta-Carotene) 1 Tab Tab 1 TAB PO DAILY NUTRITIONAL SUPPLEMENT #30 TAB Prednisone (Prednisone) 10 Mg Tab 10 MG PO DAILY Broncospasm #5 TAB Quetiapine (Quetiapine) 25 Mg Tab 25 MG PO Q8H Agitation #90 Ref 0 TAB Thiamine HCl (Gnp Vitamin B-1) 100 Mg Tab 100 MG PO DAILY NUTRITIONAL SUPPLEMENT #30 TAB ([Folic Acid]) 1 MG TAB 1 MG PO DAILY NUTRITION SUPPLEMENT #30 TAB Frannie Bassett Sep 01, 2016 10:01
--- NOTE | 2016-09-01 10:09 | PD.CARD.PN ---
Subjective Subjective Remarks asleep in nad Objective Vital Signs / I&O Vital Signs Date Time Temp Pulse Resp B/P Pulse Ox O2 Delivery O2 Flow Rate FiO2 09/01/16 08:00 98.1 63 20 168/75 95 09/01/16 07:30 98 21 09/01/16 03:45 98.4 63 16 153/70 100 09/01/16 03:33 96 21 08/31/16 23:55 97 21 08/31/16 23:22 98.6 55 18 147/65 97 08/31/16 20:13 98.2 71 18 161/74 100 08/31/16 20:05 97 21 08/31/16 20:00 Room Air 08/31/16 16:45 Room Air 08/31/16 15:40 97.7 97 20 143/69 97 08/31/16 14:00 60 08/31/16 13:04 18 08/31/16 12:00 68 08/31/16 12:00 100 Room Air 08/31/16 12:00 98.0 64 18 158/74 100 I/O 08/31/16 08/31/16 08/31/16 09/01/16 09/01/16 09/01/16 07:00 15:00 23:00 07:00 15:00 23:00 Intake Total 312 ml 530 ml 480 ml 440 ml Output Total 400 ml 350 ml 100 ml 650 ml Balance -88 ml 180 ml 380 ml -210 ml Intake Oral 240 ml 480 ml 480 ml 440 ml IV Total 72 ml 50 ml Output Urine Total 400 ml 350 ml 100 ml 650 ml # Bowel Movements 0 0 0 1 Physical Exam GENERAL: SKIN: Warm and dry. HEAD: Normocephalic. EYES: No scleral icterus. No injection or drainage. NECK: Supple, trachea midline. No JVD or lymphadenopathy. CARDIOVASCULAR: Regular rate and rhythm without murmurs, gallops, or rubs. RESPIRATORY: Breath sounds equal bilaterally. No accessory muscle use. GASTROINTESTINAL: Abdomen soft, non-tender, nondistended. MUSCULOSKELETAL: No cyanosis, or edema. BACK: Nontender without obvious deformity. No CVA tenderness. Assessment and Plan Problem List: (1) Liver function tests abnormal (2) Chronic kidney disease (3) Troponin level elevated (4) Non-compliant behavior (5) CAD (coronary artery disease) (6) Carotid stenosis (7) DM (diabetes mellitus) (8) JESENIA (acute kidney injury) (9) NSTEMI (non-ST elevated myocardial infarction) Assessment and Plan 1.) NSTEMI - trop elevation due to hypoxia, arf, cri, anemia, on hep, aspirin, ldl at goal, statin held due to elevated lft, leni held due to arf, beta chantel started, continue supportive care. consider cath if patient consents and becomes more medically stable 2.) Moderate to severe - suspect she would be high risk for avr, patient refuses avr, dc heparin, transfer to telemetry 3.) HTN - add norvasc 5 mg qd 4.) f/u with me in office john Problem Qualifiers (1) CAD (coronary artery disease): Qualified Code: I25.10 - Coronary artery disease involving [place] coronary artery of [place] heart, angina presence unspecified (2) DM (diabetes mellitus): Real Loaiza MD Sep 01, 2016 10:09
--- NOTE | 2016-09-01 13:45 | HHI.PR ---
Subjective Remarks 76 YOAA female with Hypercapnoic RF,COPD No Fever Weaned to NC Follows commands, in jolly mood today No new complaint No N,V " I want to go home today" Objective Vital Signs Vital Signs Date Time Temp Pulse Resp B/P Pulse Ox O2 Delivery O2 Flow Rate FiO2 09/01/16 08:15 Room Air 09/01/16 08:00 98.1 63 20 168/75 95 09/01/16 07:58 67 09/01/16 07:30 98 21 09/01/16 03:45 98.4 63 16 153/70 100 09/01/16 03:33 96 21 08/31/16 23:55 97 21 08/31/16 23:22 98.6 55 18 147/65 97 08/31/16 20:13 98.2 71 18 161/74 100 08/31/16 20:05 97 21 08/31/16 20:00 Room Air 08/31/16 16:45 Room Air 08/31/16 15:40 97.7 97 20 143/69 97 08/31/16 14:00 60 I/O 08/31/16 08/31/16 08/31/16 09/01/16 09/01/16 09/01/16 07:00 15:00 23:00 07:00 15:00 23:00 Intake Total 312 ml 530 ml 480 ml 440 ml Output Total 400 ml 350 ml 100 ml 650 ml Balance -88 ml 180 ml 380 ml -210 ml Intake Oral 240 ml 480 ml 480 ml 440 ml IV Total 72 ml 50 ml Output Urine Total 400 ml 350 ml 100 ml 650 ml # Bowel Movements 0 0 0 1 Result Diagram: 08/31/16 0527 08/31/16526 Objective Remarks GENERAL: Obese female, mild sob SKIN: Warm and dry. HEAD: Normocephalic. EYES: No scleral icterus. No injection or drainage. NECK: Supple, trachea midline. No JVD or lymphadenopathy. CARDIOVASCULAR: Regular rate and rhythm without murmurs, gallops, or rubs. RESPIRATORY: Breath sounds equal bilaterally. No accessory muscle use. GASTROINTESTINAL: Abdomen soft, non-tender, nondistended. MUSCULOSKELETAL: No cyanosis, or edema. BACK: Nontender without obvious deformity. No CVA tenderness. A/P Assessment and Plan Hypercpnoic RF COPD HTN RA PLAN: use CPAP PRN Po prednisone Cont Abx Wean off 02 if she maintains RA sat >90% Stable from pulm standpoint. DC Plans for home. Jeff Butterfield MD Sep 01, 2016 13:45
[2016-09-01] MEDS: MELATONIN 5 MG TAB PO SCH (20:41)
[2016-09-02] VITALS (11 sets, daily range): BP systolic 136–184; BP diastolic 62–84; PULSE 60–67; RESP 14–20; TEMP 97.4–99.8; O2SAT 95–99
[2016-09-02] MEDS: RESP: ALBUTEROL 2.5 MG/IPRATROPIUM 0.5 MG NEB (SCH) NEB ×3 (00:16→07:54)
[2016-09-02] MEDS: METOPROLOL TARTRATE 25 MG TAB PO SCH ×3 (01:18→17:18)
[2016-09-02] MEDS: QUEtiapine FUMARATE 25 MG TAB PO SCH ×3 (04:01→20:24)
[2016-09-02] MEDS: HYDROmorphone HCL PF 1 MG/ML VIAL IV PUSH PRN ×3 (04:01→12:46)
[2016-09-02] MEDS: PIPERACIL-TAZO 2.25 GM PREMIX 50 ML IV SCH ×2 (06:09→11:39)
[2016-09-02] MEDS: INSULIN NovoLIN REGULAR SUPPLEMENTAL SCALE SQ SCH ×4 (06:09→20:25)
[2016-09-02] MEDS: FUROSEMIDE 40 MG TAB PO SCH (07:57)
[2016-09-02] MEDS: ASPIRIN 81 MG CHEW TAB CHEW SCH (07:57)
[2016-09-02] MEDS: THIAMINE HCL 100 MG TAB PO SCH (07:57)
[2016-09-02] MEDS: MULTIVITAMIN TAB PO SCH (07:57)
[2016-09-02] MEDS: DOCUSATE SODIUM 50 MG/SENNA 8.6 MG TAB PO SCH ×2 (07:57→20:24)
[2016-09-02] MEDS: FOLIC ACID 1 MG TAB PO SCH (07:57)
[2016-09-02] MEDS: SODIUM CHLORIDE 0.9% FLUSH 10 ML FLUSH IV FLUSH SCH ×2 (07:58→20:45)
[2016-09-02] MEDS: PANTOPRAZOLE SODIUM 40 MG VIAL IV PUSH SCH (07:58)
[2016-09-02] MEDS ORDERED: predniSONE 10 MG TAB PO SCH (09:00)
--- NOTE | 2016-09-02 10:31 | PD.CARD.PN ---
Subjective Subjective Remarks alert in nad Objective Vital Signs / I&O Vital Signs Date Time Temp Pulse Resp B/P Pulse Ox O2 Delivery O2 Flow Rate FiO2 09/02/16 08:11 Room Air 09/02/16 08:11 65 09/02/16 08:00 97.4 67 20 184/84 98 09/02/16 07:55 95 21 09/02/16 04:00 97.8 65 14 150/71 97 09/02/16 04:00 Room Air 09/02/16 03:29 98 21 09/02/16 00:19 97 Nasal Cannula 21 09/02/16 00:00 99.8 65 14 159/71 97 09/02/16 00:00 Room Air 09/01/16 20:04 96 21 09/01/16 20:00 65 09/01/16 20:00 Room Air 09/01/16 20:00 98.1 66 18 143/65 99 09/01/16 16:00 97.8 61 20 168/76 96 09/01/16 12:00 98.1 61 20 152/67 98 I/O 09/01/16 09/01/16 09/01/16 09/02/16 09/02/16 09/02/16 07:00 15:00 23:00 07:00 15:00 23:00 Intake Total 440 ml 772 ml 360 ml 95 ml Output Total 650 ml 1000 ml 500 ml Balance -210 ml -228 ml 360 ml -405 ml Intake Oral 440 ml 720 ml 360 ml IV Total 52 ml 95 ml Output Urine Total 650 ml 1000 ml 500 ml # Voids 2 0 # Bowel Movements 1 1 Physical Exam GENERAL: SKIN: Warm and dry. HEAD: Normocephalic. EYES: No scleral icterus. No injection or drainage. NECK: Supple, trachea midline. No JVD or lymphadenopathy. CARDIOVASCULAR: Regular rate and rhythm without murmurs, gallops, or rubs. RESPIRATORY: Breath sounds equal bilaterally. No accessory muscle use. GASTROINTESTINAL: Abdomen soft, non-tender, nondistended. MUSCULOSKELETAL: No cyanosis, or edema. BACK: Nontender without obvious deformity. No CVA tenderness. Assessment and Plan Problem List: (1) Liver function tests abnormal (2) Chronic kidney disease (3) Troponin level elevated (4) Non-compliant behavior (5) CAD (coronary artery disease) (6) Carotid stenosis (7) DM (diabetes mellitus) (8) JESENIA (acute kidney injury) (9) NSTEMI (non-ST elevated myocardial infarction) Assessment and Plan 1.) NSTEMI - trop elevation due to hypoxia, arf, cri, anemia, on hep, aspirin, ldl at goal, statin held due to elevated lft, leni held due to arf, beta chantel started, continue supportive care. consider cath if patient consents and becomes more medically stable 2.) Moderate to severe - suspect she would be high risk for avr, patient refuses avr, dc heparin, transfer to telemetry 3.) HTN - increase norvasc 10 mg qd 4.) f/u with me in office jonh Problem Qualifiers (1) CAD (coronary artery disease): Qualified Code: I25.10 - Coronary artery disease involving [place] coronary artery of [place] heart, angina presence unspecified (2) DM (diabetes mellitus): Real Loaiza MD Sep 02, 2016 10:31
[2016-09-02] MEDS ORDERED: AMLO5 PO (14:28)
--- NOTE | 2016-09-02 14:28 | HHI.PR ---
Subjective Subjective Remarks awake, oriented x 2 no cp no sob has no complaints states that she was taking pain pills at home for arthritis but no ETOH Review of Systems Constitutional Constitutional Remarks 12 point ROS completed, negative except as noted above, unreliable Vitals/Results Intake & Output 09/01/16 09/01/16 09/02/16 15:00 23:00 07:00 Intake Total 772 ml 360 ml 95 ml Output Total 1000 ml 500 ml Balance -228 ml 360 ml -405 ml Intake Oral 720 ml 360 ml IV Total 52 ml 95 ml Output Urine Total 1000 ml 500 ml # Voids 2 0 # Bowel Movements 1 Vital Signs Vital Signs Date Time Temp Pulse Resp B/P Pulse Ox O2 Delivery O2 Flow Rate FiO2 09/02/16 12:00 98.1 60 20 136/62 96 09/02/16 08:11 Room Air 09/02/16 08:11 65 09/02/16 08:00 97.4 67 20 184/84 98 09/02/16 07:55 95 21 09/02/16 04:00 97.8 65 14 150/71 97 09/02/16 04:00 Room Air 09/02/16 03:29 98 21 09/02/16 00:19 97 Nasal Cannula 21 09/02/16 00:00 99.8 65 14 159/71 97 09/02/16 00:00 Room Air 09/01/16 20:04 96 21 09/01/16 20:00 65 09/01/16 20:00 Room Air 09/01/16 20:00 98.1 66 18 143/65 99 09/01/16 16:00 97.8 61 20 168/76 96 CBC/BMP: 08/31/16 0527 08/31/16 0527 Physical Exam General General Appearance: Well Developed, No Acute Distress, Comfortable Eyes Eye Exam: Pupils Equal, Pupils Reactive Ears & Nose Ears & Nose Exam: Nasal Mucosa [place] Throat Throat Exam: Oral Mucosa [place] & Moist Neck Neck Exam: Neck Supple, Trachea Midline Pulmonary Resp Exam: Decreased Bases Resp Remarks Cardiology CV Exam: Regular, Murmur Gastrointestinal/Abdomen GI Exam: Soft, Non-Tender, Bowel Sounds Present, Non-Distended Genitourinary Exam: Clear Urine Remarks thomason Musculoskeletal MS Exam: Joints Intact Integumentary Skin Exam: Warm, Dry Extremeties Extremities Exam: Pedal Pulses Palpable, Trace Edema Neurologic Neuro Exam: Alert, Awake, Speech Clear, Moving All Extremities, No Focal Deficits Psychiatric Psych Exam: Appropriate Responses VTE Prophylaxis VTE Prophylaxis Device: SCDs VTE Prophylaxis Meds: Heparin Assessment/Plan Problem List: (1) Respiratory failure (2) NSTEMI (non-ST elevated myocardial infarction) (3) Anemia (4) Elevated troponin I level (5) Congestive heart failure (6) DM (diabetes mellitus) (7) JESENIA (acute kidney injury) (8) Pneumonia (9) Chronic kidney disease (10) CAD (coronary artery disease) (11) HYPERTENSION NOS (12) Heart murmur Assessment/Plan 76 year elderly pt. with multiple comorbidities. Patient was found unresponsive , and respiratory distress Acute respiratory failure, hypercapnic, hypoxic Possible pneumonia, left lower lobe. Maybe aspiration. -continue on oxygen as needed Pulmonology also following patient -DC PO prednisone -DC abx -improved, no resp. distress. Now on room air Agitation-resolved, -continue Seroquel -improved, awake, oriented x 2, cooperative Acute CHF Elevated troponin, possibly non-STEMI secondary to cardiac demand -continue PO Lasix Monitor intake and output 2-D echo EF 55-60%, aortic valve thickened, mod stenosis -Appreciate cardiology input. [facility] recommended, pt declined further workup disContinued IV heparin -Appreciate CTS input, d/w patient, she does not want to pursue with any surgery at this time -Continue aspirin -Lipid profile results noted. Unable to start statins due to elevated LFTs -continue BB Acute on CKD, minimal improvement. Diuresing well. -Continue Lasix PO -renal function improved -appreciate nephrology input. -voiding okay Questionable report of OD, ETOH, substance abuse. -drug screen negative -continue Folic acid and Thiamine and MVI -recommend that family seek OP assistance with substance abuse, spoke to daughter in [place] -pt. requesting IV Dilaudid for arthritis pain, explained only oral narcotics for now. -DC IV Dilaudid Anemia, poss. CKD -monitor CBC closely Hypertension, stable -continue BB -PRN meds added -BP elevated, card. increased Norvasc OOB with assistance continue with PT Appreciate palliative care input pt and family declining hospice services. Pt. and daughter agreeable with SNF placement. Discharge to SNF, waiting for insurance auth F/U PCP, Cardiology Activity-as tolerated Diet-heart healthy D/W Dr. Negrete D/W RN D/W pt D/W CM D/W pt's daughter in [place], she wanted drug rehab. Explained pt. needs continued medical care at SNF, questions answered in detail. Recommended that they get involved in dc process at SNF. Pt. may benefit from [facility] or [facility] after rehab. This pt. was seen by myself and Dr. Negrete, this note is written on her behalf. Problem Qualifiers (1) Respiratory failure: Qualified Code: J96.02 - Acute respiratory failure with hypercapnia (2) Anemia: Qualified Code: D64.9 - Anemia, unspecified type (3) Congestive heart failure: Qualified Code: I50.9 - Acute congestive heart failure, unspecified congestive heart failure type (4) DM (diabetes mellitus): (5) Pneumonia: Qualified Code: J18.1 - Pneumonia of left lower lobe due to infectious organism (6) CAD (coronary artery disease): Qualified Code: I25.10 - Coronary artery disease involving [place] coronary artery of [place] heart, angina presence unspecified Frannie Bassett Sep 02, 2016 14:28
--- NOTE | 2016-09-02 14:37 | HHI.PR ---
Subjective Remarks 76 YOAA female with Hypercapnoic RF,COPD No Fever Weaned to NC Follows commands, in jolly mood today No new complaint No N,V Objective Vital Signs Vital Signs Date Time Temp Pulse Resp B/P Pulse Ox O2 Delivery O2 Flow Rate FiO2 09/02/16 12:00 98.1 60 20 136/62 96 09/02/16 08:11 Room Air 09/02/16 08:11 65 09/02/16 08:00 97.4 67 20 184/84 98 09/02/16 07:55 95 21 09/02/16 04:00 97.8 65 14 150/71 97 09/02/16 04:00 Room Air 09/02/16 03:29 98 21 09/02/16 00:19 97 Nasal Cannula 21 09/02/16 00:00 99.8 65 14 159/71 97 09/02/16 00:00 Room Air 09/01/16 20:04 96 21 09/01/16 20:00 65 09/01/16 20:00 Room Air 09/01/16 20:00 98.1 66 18 143/65 99 09/01/16 16:00 97.8 61 20 168/76 96 I/O 09/01/16 09/01/16 09/01/16 09/02/16 09/02/16 09/02/16 07:00 15:00 23:00 07:00 15:00 23:00 Intake Total 440 ml 772 ml 360 ml 95 ml Output Total 650 ml 1000 ml 500 ml Balance -210 ml -228 ml 360 ml -405 ml Intake Oral 440 ml 720 ml 360 ml IV Total 52 ml 95 ml Output Urine Total 650 ml 1000 ml 500 ml # Voids 2 0 # Bowel Movements 1 1 Result Diagram: 08/31/1652608/31/16526 Objective Remarks GENERAL: Obese female, mild sob SKIN: Warm and dry. HEAD: Normocephalic. EYES: No scleral icterus. No injection or drainage. NECK: Supple, trachea midline. No JVD or lymphadenopathy. CARDIOVASCULAR: Regular rate and rhythm without murmurs, gallops, or rubs. RESPIRATORY: Breath sounds equal bilaterally. No accessory muscle use. GASTROINTESTINAL: Abdomen soft, non-tender, nondistended. MUSCULOSKELETAL: No cyanosis, or edema. BACK: Nontender without obvious deformity. No CVA tenderness. A/P Assessment and Plan Hypercpnoic RF COPD HTN RA PLAN: use CPAP PRN Po prednisone Cont Abx Wean off 02 if she maintains RA sat >90% Stable from pulm standpoint. DC Plans Underway for SNF Jeff Butterfield MD Sep 02, 2016 14:37
[2016-09-02] MEDS: ACETAMINOPHEN/HYDROcodone 325 MG/5 MG TAB PO PRN ×2 (17:18→22:30)
[2016-09-02] MEDS: MELATONIN 5 MG TAB PO SCH (20:24)
[2016-09-03] VITALS: BP 139/67; PULSE 63; RESP 18; TEMP 98.1; O2SAT 98
[2016-09-03] MEDS: HYDROmorphone HCL PF 1 MG/ML VIAL IV PUSH PRN (00:01)
[2016-09-03] MEDS: METOPROLOL TARTRATE 25 MG TAB PO SCH ×3 (00:01→16:10)
[2016-09-03 04:00] VITALS: BP 133/65; PULSE 66; RESP 18; TEMP 97.8; O2SAT 98
[2016-09-03] MEDS: ACETAMINOPHEN/HYDROcodone 325 MG/5 MG TAB PO PRN ×3 (04:31→16:10)
[2016-09-03] MEDS: QUEtiapine FUMARATE 25 MG TAB PO SCH ×2 (04:31→14:08)
[2016-09-03] MEDS: INSULIN NovoLIN REGULAR SUPPLEMENTAL SCALE SQ SCH ×3 (06:12→16:00)
[2016-09-03 08:00] VITALS: BP 160/76; PULSE 54; PULSE 58; RESP 20; TEMP 97.6; O2SAT 99
[2016-09-03] MEDS: FOLIC ACID 1 MG TAB PO SCH (08:25)
[2016-09-03] MEDS: MULTIVITAMIN TAB PO SCH (08:25)
[2016-09-03] MEDS: FUROSEMIDE 40 MG TAB PO SCH (08:25)
[2016-09-03] MEDS: THIAMINE HCL 100 MG TAB PO SCH (08:25)
[2016-09-03] MEDS: ASPIRIN 81 MG CHEW TAB CHEW SCH (08:26)
[2016-09-03] MEDS: SODIUM CHLORIDE 0.9% FLUSH 10 ML FLUSH IV FLUSH SCH (08:26)
[2016-09-03] MEDS: DOCUSATE SODIUM 50 MG/SENNA 8.6 MG TAB PO SCH (08:29)
[2016-09-03 11:09] LABS: HEMATOCRIT 35.8 % (35.0-46.0); MEAN CELL VOLUME 84.4 FL (80.0-100.0); MEAN CORPUSCULAR HGB CONC 30.8 % (32.0-36.0); PLATELET COUNT 217 TH/MM3 (150-450); RED BLOOD COUNT 4.24 MIL/MM3 (4.00-5.30); RED CELL DISTRIBUTION WIDTH 16.5 % (11.6-17.2); REVIEW FLAG FINAL; WHITE BLOOD COUNT 12.9 TH/MM3 (4.0-11.0)
[2016-09-03 12:00] VITALS: BP 145/69; PULSE 50; RESP 20; TEMP 98; O2SAT 97
--- NOTE | 2016-09-03 12:22 | PD.CARD.PN ---
Subjective Subjective Remarks alert in nad Objective Vital Signs / I&O Vital Signs Date Time Temp Pulse Resp B/P Pulse Ox O2 Delivery O2 Flow Rate FiO2 09/03/16 11:37 21 09/03/16 08:00 97.6 54 20 160/76 99 09/03/16 04:00 97.8 66 18 133/65 98 09/03/16 00:00 98.1 63 18 139/67 98 09/02/16 21:17 98 21 09/02/16 20:00 97.7 61 16 146/71 99 09/02/16 20:00 64 09/02/16 19:05 Room Air 09/02/16 16:00 98.2 63 20 143/66 97 I/O 09/02/16 09/02/16 09/02/16 09/03/16 09/03/16 09/03/16 07:00 15:00 23:00 07:00 15:00 23:00 Intake Total 95 ml 960 ml 340 ml 240 ml Output Total 500 ml 950 ml 600 ml 800 ml Balance -405 ml 10 ml -260 ml -560 ml Intake Oral 960 ml 240 ml 240 ml IV Total 95 ml 100 ml Output Urine Total 500 ml 950 ml 600 ml 800 ml # Voids 0 1 # Bowel Movements 1 0 0 Physical Exam GENERAL: SKIN: Warm and dry. HEAD: Normocephalic. EYES: No scleral icterus. No injection or drainage. NECK: Supple, trachea midline. No JVD or lymphadenopathy. CARDIOVASCULAR: Regular rate and rhythm without murmurs, gallops, or rubs. RESPIRATORY: Breath sounds equal bilaterally. No accessory muscle use. GASTROINTESTINAL: Abdomen soft, non-tender, nondistended. MUSCULOSKELETAL: No cyanosis, or edema. BACK: Nontender without obvious deformity. No CVA tenderness. Laboratory Laboratory Tests Test 09/03/16 10:38 White Blood Count 12.9 TH/MM3 Red Blood Count 4.24 MIL/MM3 Hemoglobin 11.0 GM/DL Hematocrit 35.8 % Mean Corpuscular Volume 84.4 FL Mean Corpuscular Hemoglobin 26.0 PG Mean Corpuscular Hemoglobin 30.8 % Concent Red Cell Distribution Width 16.5 % Platelet Count 217 TH/MM3 Mean Platelet Volume 8.8 FL Assessment and Plan Problem List: (1) Liver function tests abnormal (2) Chronic kidney disease (3) Troponin level elevated (4) Non-compliant behavior (5) CAD (coronary artery disease) (6) Carotid stenosis (7) DM (diabetes mellitus) (8) JESENIA (acute kidney injury) (9) NSTEMI (non-ST elevated myocardial infarction) Assessment and Plan 1.) NSTEMI - trop elevation due to hypoxia, arf, cri, anemia, on hep, aspirin, ldl at goal, statin held due to elevated lft, leni held due to arf, beta chantel started, continue supportive care. consider cath if patient consents and becomes more medically stable 2.) Moderate to severe - suspect she would be high risk for avr, patient refuses avr, dc heparin, transfer to telemetry 3.) HTN - controlled on norvasc 10 mg qd 4.) f/u with me in office john Problem Qualifiers (1) CAD (coronary artery disease): Qualified Code: I25.10 - Coronary artery disease involving [place] coronary artery of [place] heart, angina presence unspecified (2) DM (diabetes mellitus): Real Loaiza MD Sep 03, 2016 12:22
--- NOTE | 2016-09-03 12:41 | HHI.PR ---
Subjective Subjective Remarks awake, oriented x 2-3 no cp no sob has no complaints upset wants to go home, doesn't understand why she is still here. Explained waiting for authorization, she verbalizes understanding and agrees she needs to go to [facility] Review of Systems Constitutional Constitutional Remarks 12 point ROS completed, negative except as noted above, unreliable Vitals/Results Intake & Output 09/02/16 09/02/16 09/03/16 15:00 23:00 07:00 Intake Total 960 ml 340 ml 240 ml Output Total 950 ml 600 ml 800 ml Balance 10 ml -260 ml -560 ml Intake Oral 960 ml 240 ml 240 ml IV Total 100 ml Output Urine Total 950 ml 600 ml 800 ml # Voids 1 # Bowel Movements 1 0 0 Vital Signs Vital Signs Date Time Temp Pulse Resp B/P Pulse Ox O2 Delivery O2 Flow Rate FiO2 09/03/16 11:37 21 09/03/16 08:00 97.6 54 20 160/76 99 09/03/16 04:00 97.8 66 18 133/65 98 09/03/16 00:00 98.1 63 18 139/67 98 09/02/16 21:17 98 21 09/02/16 20:00 97.7 61 16 146/71 99 09/02/16 20:00 64 09/02/16 19:05 Room Air 09/02/16 16:00 98.2 63 20 143/66 97 CBC/BMP: 09/03/16 1038 08/31/16 0527 Lab Results Laboratory Tests Test 09/03/16 10:38 White Blood Count 12.9 TH/MM3 Red Blood Count 4.24 MIL/MM3 Hemoglobin 11.0 GM/DL Hematocrit 35.8 % Mean Corpuscular Volume 84.4 FL Mean Corpuscular Hemoglobin 26.0 PG Mean Corpuscular Hemoglobin 30.8 % Concent Red Cell Distribution Width 16.5 % Platelet Count 217 TH/MM3 Mean Platelet Volume 8.8 FL Physical Exam General General Appearance: Well Developed, No Acute Distress, Comfortable Eyes Eye Exam: Pupils Equal, Pupils Reactive Ears & Nose Ears & Nose Exam: Nasal Mucosa [place] Throat Throat Exam: Oral Mucosa [place] & Moist Neck Neck Exam: Neck Supple, Trachea Midline Pulmonary Resp Exam: Decreased Bases Resp Remarks Cardiology CV Exam: Regular, Murmur Gastrointestinal/Abdomen GI Exam: Soft, Non-Tender, Bowel Sounds Present, Non-Distended Genitourinary Exam: Clear Urine Remarks thomason Musculoskeletal MS Exam: Joints Intact Integumentary Skin Exam: Warm, Dry Extremeties Extremities Exam: Pedal Pulses Palpable, Trace Edema Neurologic Neuro Exam: Alert, Awake, Speech Clear, Moving All Extremities, No Focal Deficits Psychiatric Psych Exam: Appropriate Responses VTE Prophylaxis VTE Prophylaxis Device: SCDs VTE Prophylaxis Meds: Heparin Assessment/Plan Problem List: (1) Respiratory failure (2) NSTEMI (non-ST elevated myocardial infarction) (3) Anemia (4) Elevated troponin I level (5) Congestive heart failure (6) DM (diabetes mellitus) (7) JESENIA (acute kidney injury) (8) Pneumonia (9) Chronic kidney disease (10) CAD (coronary artery disease) (11) HYPERTENSION NOS (12) Heart murmur Assessment/Plan 76 year elderly pt. with multiple comorbidities. Patient was found unresponsive , and respiratory distress Acute respiratory failure, hypercapnic, hypoxic Possible pneumonia, left lower lobe. Maybe aspiration. -continue on oxygen as needed Pulmonology also following patient -DC PO prednisone -DC abx -improved, no resp. distress. Now on room air Agitation-resolved, -continue Seroquel -improved, awake, oriented x 2, cooperative Acute CHF Elevated troponin, possibly non-STEMI secondary to cardiac demand -continue PO Lasix Monitor intake and output 2-D echo EF 55-60%, aortic valve thickened, mod stenosis -Appreciate cardiology input. [facility] recommended, pt declined further workup disContinued IV heparin -Appreciate CTS input, d/w patient, she does not want to pursue with any surgery at this time -Continue aspirin -Lipid profile results noted. Unable to start statins due to elevated LFTs -continue BB Acute on CKD, minimal improvement. Diuresing well. -Continue Lasix PO -renal function improved -appreciate nephrology input. -voiding okay Questionable report of OD, ETOH, substance abuse. -drug screen negative -continue Folic acid and Thiamine and MVI -recommend that family seek OP assistance with substance abuse, spoke to daughter in [place] -pt. requesting IV Dilaudid for arthritis pain, explained only oral narcotics for now. -DC IV Dilaudid Anemia, poss. CKD -monitor CBC closely Hypertension, stable -continue BB -PRN meds added -BP elevated, card. increased Norvasc OOB with assistance continue with PT Appreciate palliative care input pt and family declining hospice services. Pt. and daughter agreeable with SNF placement. Discharge to SNF, waiting for insurance auth F/U PCP, Cardiology Activity-as tolerated Diet-heart healthy D/W Dr. Negrete D/W RN D/W pt D/W CM This pt. was seen by myself and Dr. Negrete, this note is written on her behalf. Problem Qualifiers (1) Respiratory failure: Qualified Code: J96.02 - Acute respiratory failure with hypercapnia (2) Anemia: Qualified Code: D64.9 - Anemia, unspecified type (3) Congestive heart failure: Qualified Code: I50.9 - Acute congestive heart failure, unspecified congestive heart failure type (4) DM (diabetes mellitus): (5) Pneumonia: Qualified Code: J18.1 - Pneumonia of left lower lobe due to infectious organism (6) CAD (coronary artery disease): Qualified Code: I25.10 - Coronary artery disease involving [place] coronary artery of [place] heart, angina presence unspecified Frannie Bassett Sep 03, 2016 12:41
--- NOTE | 2016-09-03 13:49 | HHI.NPPN ---
Subjective History of Present Illness 76 year old female with ARF/CHF/Pneumonia Objective Data Data 09/02/16 09/03/16 19:00 07:00 Intake Total 1060 ml 480 ml Output Total 950 ml 1400 ml Balance 110 ml -920 ml Intake Oral 960 ml 480 ml IV Total 100 ml Output Urine Total 950 ml 1400 ml # Voids 1 # Bowel Movements 1 0 Vital Signs Date Time Temp Pulse Resp B/P Pulse Ox O2 Delivery O2 Flow Rate FiO2 09/03/16 11:37 21 09/03/16 08:00 97.6 54 20 160/76 99 09/03/16 04:00 97.8 66 18 133/65 98 09/03/16 00:00 98.1 63 18 139/67 98 09/02/16 21:17 98 21 09/02/16 20:00 97.7 61 16 146/71 99 09/02/16 20:00 64 09/02/16 19:05 Room Air 09/02/16 16:00 98.2 63 20 143/66 97 -: 09/03/16 1038 08/31/16 0527 Physical Exam General Appearance: Well Developed, No Acute Distress, Comfortable Eyes Eye Exam: Pupils Equal, Pupils Reactive Ears & Nose Ears & Nose Exam: Nasal Mucosa [place] Throat Throat Exam: Oral Mucosa [place] & Moist Neck Neck Exam: Neck Supple, Trachea Midline Pulmonary Resp Exam: Decreased Bases Cardiology CV Exam: Regular, Murmur Gastrointestinal/Abdomen GI Exam: Soft, Non-Tender, Bowel Sounds Present, Non-Distended Genitourinary Exam: Clear Urine Musculoskeletal MS Exam: Joints Intact Integumentary Skin Exam: Warm, Dry Extremeties Extremities Exam: Pedal Pulses Palpable, Trace Edema Neurologic Neuro Exam: Alert, Awake, Speech Clear, Moving All Extremities, No Focal Deficits Psychiatric Psych Exam: Appropriate Responses VTE Prophylaxis Device: SCDs Assessment/Plan Problem List: (1) JESENIA (acute kidney injury) Plan: She is doing better UOP 2.3 cr 1.6 on Lasix PO chronic medical issues I will follow on PRN bases (2) Carotid artery disease Plan: Status post previous stent (3) Congestive heart failure Plan: She has underlying disorder of the heart (4) DM (diabetes mellitus) Plan: Continue monitor Problem Qualifiers (1) Congestive heart failure: Qualified Code: I50.9 - Acute congestive heart failure, unspecified congestive heart failure type (2) DM (diabetes mellitus): Evelin Samuels MD Sep 03, 2016 13:49
[2016-09-03 16:00] VITALS: BP 161/80; PULSE 58; RESP 20; TEMP 97.9; O2SAT 98
--- NOTE | 2016-09-03 18:13 | HHI.PR ---
Subjective Remarks 76 YOAA female with Hypercapnoic RF,COPD No Fever Weaned to NC Follows commands, in jolly mood today No new complaint No N,V Anxious to go to SNF Objective Vital Signs Vital Signs Date Time Temp Pulse Resp B/P Pulse Ox O2 Delivery O2 Flow Rate FiO2 09/03/16 12:00 98.0 50 20 145/69 97 09/03/16 11:37 21 09/03/16 08:00 58 09/03/16 08:00 Room Air 09/03/16 08:00 97.6 54 20 160/76 99 09/03/16 04:00 97.8 66 18 133/65 98 09/03/16 00:00 98.1 63 18 139/67 98 09/02/16 21:17 98 21 09/02/16 20:00 97.7 61 16 146/71 99 09/02/16 20:00 64 09/02/16 19:05 Room Air I/O 09/02/16 09/02/16 09/02/16 09/03/16 09/03/16 09/03/16 07:00 15:00 23:00 07:00 15:00 23:00 Intake Total 95 ml 960 ml 340 ml 240 ml Output Total 500 ml 950 ml 600 ml 800 ml Balance -405 ml 10 ml -260 ml -560 ml Intake Oral 960 ml 240 ml 240 ml IV Total 95 ml 100 ml Output Urine Total 500 ml 950 ml 600 ml 800 ml # Voids 0 1 # Bowel Movements 1 0 0 Result Diagram: 09/03/16 [facility] 08/31/16 0527 Objective Remarks GENERAL: Obese female, mild sob SKIN: Warm and dry. HEAD: Normocephalic. EYES: No scleral icterus. No injection or drainage. NECK: Supple, trachea midline. No JVD or lymphadenopathy. CARDIOVASCULAR: Regular rate and rhythm without murmurs, gallops, or rubs. RESPIRATORY: Breath sounds equal bilaterally. No accessory muscle use. GASTROINTESTINAL: Abdomen soft, non-tender, nondistended. MUSCULOSKELETAL: No cyanosis, or edema. BACK: Nontender without obvious deformity. No CVA tenderness. A/P Assessment and Plan Hypercpnoic RF COPD HTN RA PLAN: use CPAP PRN Po prednisone Cont Abx Stable on RA Stable from pulm standpoint. DC Plans Underway for [facility] Jeff Butterfield MD Sep 03, 2016 18:13
== END 2016-09-03 18:07 | DRG 280 ==
LOC: NEPC 19:20 → NEDA 21:56 → HIME 08-25 00:25 → N04A 08-31 15:31
PROVIDERS: ADMIT Internal Medicine; ATTEND Internal Medicine
PROC: 5A09457 Assistance with Respiratory Ventilation, 24-96 Consecutive Hours, Continuous Positive Airway Pressure (ICD-10-PCS; principal; 2016-08-25)
DX: I21.4 Non-ST elevation (NSTEMI) myocardial infarction (principal); J96.02 Acute respiratory failure with hypercapnia; N17.9 Acute kidney failure, unspecified; J18.9 Pneumonia, unspecified organism; G93.40 Encephalopathy, unspecified; J96.01 Acute respiratory failure with hypoxia; I13.0 Hypertensive heart and chronic kidney disease with heart failure and stage 1 through stage 4 chronic kidney disease, or unspecified chronic kidney disease; E87.2 Acidosis; E11.22 Type 2 diabetes mellitus with diabetic chronic kidney disease; I50.9 Heart failure, unspecified; J44.0 Chronic obstructive pulmonary disease with (acute) lower respiratory infection; E87.1 Hypo-osmolality and hyponatremia; J44.1 Chronic obstructive pulmonary disease with (acute) exacerbation; I27.2 Other secondary pulmonary hypertension; N18.9 Chronic kidney disease, unspecified; I25.119 Atherosclerotic heart disease of native coronary artery with unspecified angina pectoris; I25.2 Old myocardial infarction; I49.3 Ventricular premature depolarization; I44.4 Left anterior fascicular block; I16.0 Hypertensive urgency; E78.2 Mixed hyperlipidemia; I35.0 Nonrheumatic aortic (valve) stenosis; D64.9 Anemia, unspecified; G62.9 Polyneuropathy, unspecified; G89.4 Chronic pain syndrome; E66.01 Morbid (severe) obesity due to excess calories; M06.9 Rheumatoid arthritis, unspecified; M10.9 Gout, unspecified; M19.90 Unspecified osteoarthritis, unspecified site; F10.10 Alcohol abuse, uncomplicated; R29.6 Repeated falls; F41.9 Anxiety disorder, unspecified; Z78.1 Physical restraint status; Z79.84 Long term (current) use of oral hypoglycemic drugs; Z68.34 Body mass index [BMI] 34.0-34.9, adult; Z87.891 Personal history of nicotine dependence; Z91.19 Patient's noncompliance with other medical treatment and regimen; Z95.5 Presence of coronary angioplasty implant and graft
CPT/HCPCS: 36600; 51702; 71010; 76775; 76937; 80048; 80053; 80061; 80069; 80307; 81001; 82550; 82552; 82805; 82948; 83605; 83735; 83880; 84100; 84443; 84484; 85007; 85025; 85027; 85610; 85730; 86038; 86335; 87040; 87641; 93005; 93306; 94002; 94003; 94640; 94664; 96374; C9113; J0360; J0456; J1170; J1630; J1644; J1940; J2060; J2543; J2920; J7030; J7042; J7050; J7060; J7512

== ENCOUNTER 2017-01-13 17:47 | Emergency (ER) | payer MEDICARE, MEDICAID ==
[~2017-01-13] VITALS: Ht 167.6 cm; Wt 80.0 kg
[~2017-01-13 17:47] MED LIST changes: +AMLO5 PO; -AMLO5TAB22 PO; +ASPI81CH25 CHEW; -DULO20 PO; +FURO40TA PO; -FURO80 PO; +Folic Acid PO; -GLUCTAB PO; +GNP100TA3 PO; -HYDR-3580 PO; -HYDR25TA35 PO; +IPRASOL NEB; -ISOS60 PO; +METO25TA3 PO; -METO50CR PO; -NEUR600T PO; +PRED10 PO; +QUET1TAB7 PO; +THERTAB15 PO; -TIZA4 PO
[2017-01-13 18:42] VITALS: BP 139/69; PULSE 69; RESP 16; TEMP 97.8; O2SAT 97
[2017-01-13] MEDS ORDERED: SODIUM CHLORIDE 0.9% FLUSH 5 ML FLUSH IV FLUSH PRN (19:00)
--- NOTE | 2017-01-13 19:00 | PD ---
HPI Chief Complaint: Alcohol/Drug Intoxication Time Seen by Provider: 18:48 Travel History International Travel<30 days: No Contact w/Intl Traveler<30days: No Traveled to known affect area: No History of Present Illness HPI Patient is a 76-year-old female presents emergency department for evaluation of altered mental status and diarrhea. According to EMS the patient's family called 911 because the patient had a diarrhea episode today. The patient normally drinks heavily and they state that she's probably at her normal baseline mental status. The patient is altered on arrival presumed intoxicated slurred speech needing further history. PFSH Past Medical History Arthritis: No Asthma: Yes Anxiety: No Depression: No Heart Rhythm Problems: No Cancer: No Cardiac Catheterization: Yes Cardiovascular Problems: Yes (3 cardiac stents) High Cholesterol: Yes Chemotherapy: No Chest Pain: No Congestive Heart Failure: No COPD: No Cerebrovascular Accident: No Coronary Artery Disease: Yes Diabetes: Yes Patient Takes Glucophage: No Diminished Hearing: No Endocrine: Yes Gastrointestinal Disorders: No GERD: No Gout: Yes Genitourinary: No Headaches: Yes Hiatal Hernia: No Hypertension: Yes Immune Disorder: No Inguinal Hernia: Yes Implanted Vascular Access Dvce: Yes Kidney Stones: No Musculoskeletal: No Neurologic: Yes Psychiatric: No Reproductive: No Respiratory: Yes Immunizations Current: No Migraines: No Myocardial Infarction: Yes Renal Failure: No Seizures: No Sleep Apnea: No Thyroid Disease: No Ulcer: No ?: Not Menopausal: Yes : 1 Para: 1 Miscarriage: 0 Tubal Ligation: Yes Past Surgical History Abdominal Surgery: Yes (INGUINAL HERNIA REPAIR) Body Medical Devices: heart stents Cardiac Surgery: Yes Coronary Stent: Yes ( 3 STENTS ) Ear Surgery: No Endocrine Surgery: No Eye Surgery: No Genitourinary Surgery: Yes (inguinal hernia) Gynecologic Surgery: No Neurologic Surgery: No Oral Surgery: No Thoracic Surgery: No Other Surgery: Yes (stentsX3) Social History Alcohol Use: Yes (heavy DAILY USE) Tobacco Use: No Substance Use: No Allergies-Medications (Allergen,Severity, Reaction): Coded Allergies: No Known Allergies (Unverified , 08/24/16) Reported Meds & Prescriptions Reported Meds & Active Scripts Active Norvasc (Amlodipine Besylate) 5 Mg Tab 10 Mg PO DAILY Thera/Beta-Carotene (Multiple Vitamin) 1 Tab Tab 1 Tab PO DAILY Gnp Vitamin B-1 (Thiamine HCl) 100 Mg Tab 100 Mg PO DAILY Quetiapine (Quetiapine Fumarate) 25 Mg Tab 25 Mg PO Q8H Prednisone 10 Mg Tab 10 Mg PO DAILY Metoprolol Tartrate 25 Mg Tab 50 Mg PO Q12HR Duoneb (Ipratropium-Albuterol Neb) 0.5-2.5 Mg/3 Ml Neb 1 Ampule NEB Q4HR NEB Furosemide 40 Mg Tab 40 Mg PO DAILY [Folic Acid] 1 MG Tab 1 Mg PO DAILY Aspirin Low Strength (Aspirin) 81 Mg Chew 324 Mg CHEW DAILY Review of Systems Except as stated in HPI: all other systems reviewed are Neg Physical Exam Narrative GENERAL: Well-developed, obese in no obvious distress. Slurred speech. SKIN: Focused skin assessment warm/dry. HEAD: Atraumatic. Normocephalic. EYES: Pupils equal and round. No scleral icterus. No injection or drainage. ENT: No nasal bleeding or discharge. Mucous membranes pink and moist. NECK: Trachea midline. No JVD. CARDIOVASCULAR: Regular rate and rhythm. No murmur appreciated. RESPIRATORY: No accessory muscle use. Clear to auscultation. Breath sounds equal bilaterally. GASTROINTESTINAL: Abdomen soft, non-tender, nondistended. Hepatic and splenic margins not palpable. MUSCULOSKELETAL: No obvious deformities. No clubbing. No cyanosis. No edema. NEUROLOGICAL: Awake and alert. cranial nerves II through XII are grossly intact and nonfocal, 5 out of 5 strength in all 4 extremities. Slurred speech. PSYCHIATRIC: Appropriate mood and affect; insight and judgment normal. Data Data Last Documented VS Vital Signs Date Time Temp Pulse Resp B/P (MAP) Pulse Ox O2 Delivery O2 Flow Rate FiO2 01/14/17 00:10 16 01/13/17 19:27 98.4 73 171/89 (116) 97 Room Air 01/13/17 18:42 2.00 Orders Orders Ammonia (01/13/17 18:55) Complete Blood Count With Diff (01/13/17 18:55) Comprehensive Metabolic Panel (01/13/17 18:55) Prothrombin Time / Inr (Pt) (01/13/17 18:55) Act Partial Throm Time (Ptt) (01/13/17 18:55) Urinalysis - C+S If Indicated (01/13/17 18:55) Blood Glucose (01/13/17 18:55) Ecg Monitoring (01/13/17 18:55) Iv Access Insert/Monitor (01/13/17 18:55) Oximetry (01/13/17 18:55) Sodium Chloride 0.9% Flush (Ns Flush) (01/13/17 19:00) Alcohol (Ethanol) (01/13/17 18:55) Sodium Chlor 0.9% 1000 Ml Inj (Ns 1000 M (01/13/17 20:30) Electrocardiogram (01/13/17 ) Sodium Chlorid 0.9% 500 Ml Inj (Ns 500 M (01/13/17 20:30) Thiamine Inj (Thiamine Inj) (01/13/17 20:30) Folic Acid (Folate) (01/13/17 20:30) Ct Brain W/O Iv Contrast(Rout) (01/13/17 ) Ibuprofen (Motrin) (01/13/17 22:45) Labs Laboratory Tests Test 01/13/17 19:14 01/13/17 19:20 01/13/17 20:30 Ammonia 49 MCMOL/L White Blood Count 5.8 TH/MM3 Red Blood Count 4.12 MIL/MM3 Hemoglobin 11.1 GM/DL Hematocrit 35.2 % Mean Corpuscular Volume 85.4 FL Mean Corpuscular Hemoglobin 26.9 PG Mean Corpuscular Hemoglobin Concent 31.5 % Red Cell Distribution Width 19.9 % Platelet Count 238 TH/MM3 Mean Platelet Volume 7.1 FL Neutrophils (%) (Auto) 34.7 % Lymphocytes (%) (Auto) 41.8 % Monocytes (%) (Auto) 10.8 % Eosinophils (%) (Auto) 12.2 % Basophils (%) (Auto) 0.5 % Neutrophils # (Auto) 2.0 TH/MM3 Lymphocytes # (Auto) 2.4 TH/MM3 Monocytes # (Auto) 0.6 TH/MM3 Eosinophils # (Auto) 0.7 TH/MM3 Basophils # (Auto) 0.0 TH/MM3 CBC Comment DIFF FINAL Differential Comment Prothrombin Time 10.8 SEC Prothromb Time International Ratio 1.0 RATIO Activated Partial Thromboplast Time 23.4 SEC Blood Urea Nitrogen 9 MG/DL Creatinine 0.93 MG/DL Random Glucose 87 MG/DL Total Protein 8.0 GM/DL Albumin 3.3 GM/DL Calcium Level 8.8 MG/DL Alkaline Phosphatase 117 U/L Aspartate Amino Transf (AST/SGOT) 31 U/L Alanine Aminotransferase (ALT/SGPT) 16 U/L Total Bilirubin 0.2 MG/DL Sodium Level 127 MEQ/L Potassium Level 5.6 MEQ/L Chloride Level 97 MEQ/L Carbon Dioxide Level 19.8 MEQ/L Anion Gap 10 MEQ/L Estimat Glomerular Filtration Rate 71 ML/MIN Ethyl Alcohol Level 275 MG/DL Urine Color LIGHT-YELLOW Urine Turbidity CLEAR Urine pH 5.5 Urine Specific [place] 1.007 Urine Protein 30 mg/dL Urine Glucose (UA) NEG mg/dL Urine Ketones NEG mg/dL Urine Occult Blood NEG Urine Nitrite NEG Urine Bilirubin NEG Urine Urobilinogen LESS THAN 2.0 MG/DL Urine Leukocyte Esterase NEG Urine RBC 1 /hpf Urine WBC LESS THAN 1 /hpf Urine Squamous Epithelial Cells <1 /hpf Urine Amorphous Sediment RARE Urine Hyaline Casts 1 /lpf Urine Mucus FEW /lpf Microscopic Urinalysis Comment CATH-CULT NOT IND MDM Medical Decision Making Medical Screen Exam Complete: Yes Emergency Medical Condition: Yes Differential Diagnosis Alcohol intoxication, altered mental status, head injury, electrolyte abnormality. Narrative Course Patient roomed in emergency department the story from EMS is that granddaughters called 911 today because the patient had been having some diarrhea. Patient was worked up showing a significant elevated alcohol level to 275. Patient is minimally hyponatremic to 127, potassium 5.6 without EKG changes and this is a hemolyzed sample. After workup the patient was discussed with her daughter lives in [facility]. She states that her daughters who live with the patient called 911 today because the patient had been drinking wine and a lot of it and this concerned them. There is no report of diarrhea per the daughter. The patient does however endorse diarrhea. She is becoming much more alert as time goes on here in the emergency department. Unfortunately no one is able to come sampler pickup the patient tonight. She will be allowed to sleep it off in the emergency department and reassess in the morning for discharge and discharge planning. Diagnosis Primary Impression: Alcohol intoxication Qualified Codes: F10.929 - Alcohol use, unspecified with intoxication, unspecified Referrals: [facility] Disposition: 01 DISCHARGE HOME Condition: Stable Marvin Malone MD Jan 13, 2017 19:00
[2017-01-13 19:22] VITALS: RESP 16; O2SAT 97
[2017-01-13 19:27] VITALS: BP 171/89; PULSE 73; RESP 16; TEMP 98.4; O2SAT 97
[2017-01-13 19:32] LABS: BASOPHIL % 0.5 % (0.0-2.0); EOSINOPHIL # 0.7 TH/MM3 (0-0.4); EOSINOPHIL % 12.2 % (0.0-4.0); HEMATOCRIT 35.2 % (35.0-46.0); HEMO FLAGS DIFF FINAL; LYMPH % 41.8 % (9.0-44.0); LYMPHOCYTE # 2.4 TH/MM3 (1.0-4.8); MEAN CELL VOLUME 85.4 FL (80.0-100.0); MEAN CORPUSCULAR HEMOGLOBIN 26.9 PG (27.0-34.0); MEAN CORPUSCULAR HGB CONC 31.5 % (32.0-36.0); MONO % 10.8 % (0.0-8.0); NEUT % 34.7 % (16.0-70.0); PLATELET COUNT 238 TH/MM3 (150-450); RED BLOOD COUNT 4.12 MIL/MM3 (4.00-5.30); RED CELL DISTRIBUTION WIDTH 19.9 % (11.6-17.2); WHITE BLOOD COUNT 5.8 TH/MM3 (4.0-11.0)
[2017-01-13 19:48] LABS: PROTHROMBIN TIME - PATIENT 10.8 SEC (9.8-11.6)
[2017-01-13 19:50] LABS: APTT (PATIENT) 23.4 SEC (24.3-30.1)
[2017-01-13 19:59] LABS: ALT (GPT) 16 U/L (10-53)
[2017-01-13 20:01] LABS: ALCOHOL 275 MG/DL (0-5); ANION GAP 10 MEQ/L (5-15); AST (GOT) 31 U/L (15-37); BICARBONATE 19.8 MEQ/L (21.0-32.0); BLOOD UREA NITROGEN 9 MG/DL (7-18); CHLORIDE 97 MEQ/L (98-107); GLOMERULAR FILTRATION RATE 71 ML/MIN (>89); POTASSIUM 5.6 MEQ/L (3.5-5.1); SODIUM (NA) 127 MEQ/L (136-145)
[2017-01-13 20:02] LABS: ALKALINE PHOSPHATASE 117 U/L (45-117); TOTAL BILIRUBIN ADULT 0.2 MG/DL (0.2-1.0)
[2017-01-13] MEDS ORDERED: SODIUM CHLOR 0.9% 1000 ML INJ 1,000 ML IV ONE (20:30)
[2017-01-13] MEDS ORDERED: FOLIC ACID 1 MG TAB PO ONE (20:30)
[2017-01-13] MEDS ORDERED: THIAMINE INJ 100 MG in SODIUM CHLORIDE 0.9% INJ 100 ML IV ONE (20:30)
[2017-01-13] MEDS ORDERED: SODIUM CHLORID 0.9% 500 ML INJ 500 ML IV ONE (20:30)
[2017-01-13 21:02] LABS: BLOOD, URINE NEG (NEG); GLUCOSE,URINE NEG (NEG); HYALINE CAST, URINE 1 /lpf (RARE); KETONE, URINE NEG (NEG); MUCUS URINE FEW /lpf (OCC); NITRITE,URINE NEG (NEG); PH, URINE 5.5 (5.0-8.5); SQUAMOUS EPITHELIAL CELL URINE <1 /hpf (0-5); URINE COLOR LIGHT-YELLOW (YELLW/STRAW)
[2017-01-13 21:03] LABS: COMMENT (UR) CATH-CULT NOT IND; CULTURE IF INDICATED CATH CULTURE NOT IND
[2017-01-13 22:00] VITALS: BP 176/87; PULSE 62; RESP 16; O2SAT 98
--- NOTE | 2017-01-13 22:39 | RADRPT ---
EXAM DATE/TIME: 01/13/2017 22:21 [facility] COMPARISON: CT BRAIN W/O CONTRAST, November 01, 2015, 14:01. INDICATIONS : Altered mental status. RADIATION DOSE: 31.38 CTDIvol (mGy) MEDICAL HISTORY : Hypertension. Diabetes mellitus type 2. Cardiovascular diseaseETOH abuse SURGICAL HISTORY : Tubal ligation. ENCOUNTER: Initial ACUITY: 1 day PAIN SCALE: Non-responsive LOCATION: cranial TECHNIQUE: Multiple contiguous axial images were obtained of the head. Using automated exposure control and adj ustment of the mA and/or kV according to patient size, radiation dose was kept as low as reasonably a chievable to obtain optimal diagnostic quality images. DICOM format image data is available electro nically for review and comparison. FINDINGS: CEREBRUM: The ventricles are normal for age. No evidence of midline shift, mass lesion, hemorrhage or acute in farction. No extra-axial fluid collections are seen. POSTERIOR FOSSA: The cerebellum and brainstem are intact. The 4th ventricle is midline. The cerebellopontine angle i s unremarkable. EXTRACRANIAL: The visualized portion of the orbits is intact. SKULL: The calvaria is intact. No evidence of skull fracture. CONCLUSION: Stable; no evidence of acute infarct, hemorrhage, mass or edema. Jarred Bronson MD on January 13, 2017 at 22:37 Board Certified Radiologist. This report was verified electronically.
[2017-01-13] MEDS ORDERED: IBUPROFEN 600 MG TAB PO ONE (22:45)
[2017-01-14 02:00] VITALS: BP 171/87; PULSE 73; RESP 16; O2SAT 98
--- NOTE | 2017-01-14 05:56 | PD ---
Physical Exam Date Seen by Provider: Jan 14, 2017 Time Seen by Provider: 05:53 Data Data Last Documented VS Vital Signs Date Time Temp Pulse Resp B/P (MAP) Pulse Ox O2 Delivery O2 Flow Rate FiO2 01/14/17 00:10 16 01/13/17 19:27 98.4 73 171/89 (116) 97 Room Air 01/13/17 18:42 2.00 Orders Orders Ammonia (01/13/17 18:55) Complete Blood Count With Diff (01/13/17 18:55) Comprehensive Metabolic Panel (01/13/17 18:55) Prothrombin Time / Inr (Pt) (01/13/17 18:55) Act Partial Throm Time (Ptt) (01/13/17 18:55) Urinalysis - C+S If Indicated (01/13/17 18:55) Blood Glucose (01/13/17 18:55) Ecg Monitoring (01/13/17 18:55) Iv Access Insert/Monitor (01/13/17 18:55) Oximetry (01/13/17 18:55) Sodium Chloride 0.9% Flush (Ns Flush) (01/13/17 19:00) Alcohol (Ethanol) (01/13/17 18:55) Sodium Chlor 0.9% 1000 Ml Inj (Ns 1000 M (01/13/17 20:30) Electrocardiogram (01/13/17 ) Sodium Chlorid 0.9% 500 Ml Inj (Ns 500 M (01/13/17 20:30) Thiamine Inj (Thiamine Inj) (01/13/17 20:30) Folic Acid (Folate) (01/13/17 20:30) Ct Brain W/O Iv Contrast(Rout) (01/13/17 ) Ibuprofen (Motrin) (01/13/17 22:45) Labs Laboratory Tests Test 01/13/17 19:14 01/13/17 19:20 01/13/17 20:30 Ammonia 49 MCMOL/L White Blood Count 5.8 TH/MM3 Red Blood Count 4.12 MIL/MM3 Hemoglobin 11.1 GM/DL Hematocrit 35.2 % Mean Corpuscular Volume 85.4 FL Mean Corpuscular Hemoglobin 26.9 PG Mean Corpuscular Hemoglobin Concent 31.5 % Red Cell Distribution Width 19.9 % Platelet Count 238 TH/MM3 Mean Platelet Volume 7.1 FL Neutrophils (%) (Auto) 34.7 % Lymphocytes (%) (Auto) 41.8 % Monocytes (%) (Auto) 10.8 % Eosinophils (%) (Auto) 12.2 % Basophils (%) (Auto) 0.5 % Neutrophils # (Auto) 2.0 TH/MM3 Lymphocytes # (Auto) 2.4 TH/MM3 Monocytes # (Auto) 0.6 TH/MM3 Eosinophils # (Auto) 0.7 TH/MM3 Basophils # (Auto) 0.0 TH/MM3 CBC Comment DIFF FINAL Differential Comment Prothrombin Time 10.8 SEC Prothromb Time International Ratio 1.0 RATIO Activated Partial Thromboplast Time 23.4 SEC Blood Urea Nitrogen 9 MG/DL Creatinine 0.93 MG/DL Random Glucose 87 MG/DL Total Protein 8.0 GM/DL Albumin 3.3 GM/DL Calcium Level 8.8 MG/DL Alkaline Phosphatase 117 U/L Aspartate Amino Transf (AST/SGOT) 31 U/L Alanine Aminotransferase (ALT/SGPT) 16 U/L Total Bilirubin 0.2 MG/DL Sodium Level 127 MEQ/L Potassium Level 5.6 MEQ/L Chloride Level 97 MEQ/L Carbon Dioxide Level 19.8 MEQ/L Anion Gap 10 MEQ/L Estimat Glomerular Filtration Rate 71 ML/MIN Ethyl Alcohol Level 275 MG/DL Urine Color LIGHT-YELLOW Urine Turbidity CLEAR Urine pH 5.5 Urine Specific [place] 1.007 Urine Protein 30 mg/dL Urine Glucose (UA) NEG mg/dL Urine Ketones NEG mg/dL Urine Occult Blood NEG Urine Nitrite NEG Urine Bilirubin NEG Urine Urobilinogen LESS THAN 2.0 MG/DL Urine Leukocyte Esterase NEG Urine RBC 1 /hpf Urine WBC LESS THAN 1 /hpf Urine Squamous Epithelial Cells <1 /hpf Urine Amorphous Sediment RARE Urine Hyaline Casts 1 /lpf Urine Mucus FEW /lpf Microscopic Urinalysis Comment CATH-CULT NOT IND MDM Medical Record Reviewed: Yes Supervised Visit with KIZZY: Yes Interpretation(s) CBC & BMP Diagram 01/13/17 19:20 Total Protein 8.0, Albumin 3.3 L, Calcium Level 8.8, Alkaline Phosphatase 117, Aspartate Amino Transf (AST/SGOT) 31, Alanine Aminotransferase (ALT/SGPT) 16, Total Bilirubin 0.2 Last [address] 01/13/17 0000 Signed Impressions: Service Date/Time: Friday, January 13, 2017 22:21 - CONCLUSION: Stable; no evidence of acute infarct, hemorrhage, mass or edema. Jarred Bronson MD Differential Diagnosis . Narrative Course This is a patient who had been seen earlier this evening by Dr. Malone. He has asked that the patient be monitored here in the ER when she exhibits sobriety she may be discharged home. The patient has been here now 12 hours. She has sobered up and she is able to ambulate freely. She does not exhibit any intoxication. The patient is allowed to take a taxi home. We have discussed this with the family members who feel comfortable with this. Diagnosis Primary Impression: Alcohol intoxication Qualified Codes: F10.929 - Alcohol use, unspecified with intoxication, unspecified [facility]errals: [facility] Patient Instructions: General Instructions Additional Instruction: Rest. Avoid alcohol. Follow-up with your doctor this week for recheck. Return to the ER for emergencies. Disposition: 01 DISCHARGE HOME Condition: Stable Jr Grijalva Jan 14, 2017 05:56
[2017-01-14 07:02] VITALS: BP 171/76; PULSE 68; RESP 18; O2SAT 98
[2017-01-14 07:45] VITALS: BP 149/68; PULSE 95; RESP 19; TEMP 98.3; O2SAT 97
--- NOTE | 2017-01-14 22:37 | EKG ---
Date Performed: 01/13/2017 Time Performed: 20:58:42 PTAGE: 76 years EKG: Sinus rhythm LEFT AXIS SEPTAL MYOCARDIAL INFARCTION ABNORMAL ECG PREVIOUS TRACING : 01/13/2017 20.50 Compared to prior tracing no significant change DOCTOR: Bridger Santiago Interpretating Date/Time 01/14/2017 22:35:02
== END 2017-01-14 08:50 | disposition home or self-care (01) ==
LOC: NEPD 17:47
DX: F10.129 Alcohol abuse with intoxication, unspecified (principal); I25.10 Atherosclerotic heart disease of native coronary artery without angina pectoris; I10 Essential (primary) hypertension; I25.2 Old myocardial infarction; E11.9 Type 2 diabetes mellitus without complications; Y90.8 Blood alcohol level of 240 mg/100 ml or more; Z79.899 Other long term (current) drug therapy
CPT/HCPCS: 70450; 80053; 80307; 81001; 82140; 85025; 85610; 85730; 93005

== ENCOUNTER 2017-02-05 20:28 | Emergency (ER) | payer MEDICARE, MEDICAID ==
[~2017-02-05] VITALS: Ht 170.2 cm; Wt 73.0 kg
[~2017-02-05 20:28] MED LIST changes: -GNP100TA3 PO; +THIA100 PO
[2017-02-05 21:18] VITALS: BP 136/64; PULSE 88; RESP 18; TEMP 97.4; O2SAT 95
[2017-02-05 22:48] VITALS: BP 162/77; PULSE 94; RESP 18; O2SAT 97
--- NOTE | 2017-02-05 23:44 | PD ---
HPI Chief Complaint: Alcohol/Drug Intoxication Time Seen by Provider: 23:35 Travel History International Travel<30 days: No Contact w/Intl Traveler<30days: No Traveled to known affect area: No History of Present Illness HPI 77-year-old female was brought in by family for alcohol intoxication. Family member states that she has been drinking alcohol today and unable to take care of herself. Patient states that today's her birthday and she had alcohol drinks. Patient denies any headache. Patient denies any chest pain or shortness of breath. Patient denies abdominal pain. Patient denies any focal weakness or numbness of extremity. Patient has history of gallops, asthma, CAD status post stent placement, diabetes, hyperlipidemia, ME, hypertension. Patient states that she has been taking her medications as directed. PFSH Past Medical History Arthritis: No Asthma: Yes Anxiety: No Depression: No Heart Rhythm Problems: No Cancer: No Cardiac Catheterization: Yes Cardiovascular Problems: Yes (3 cardiac stents) High Cholesterol: Yes Chemotherapy: No Chest Pain: No Congestive Heart Failure: No COPD: No Cerebrovascular Accident: No Coronary Artery Disease: Yes Diabetes: Yes Patient Takes Glucophage: No (unknown) Diminished Hearing: No Endocrine: Yes Gastrointestinal Disorders: No GERD: No Gout: Yes Genitourinary: No Headaches: Yes Hiatal Hernia: No Hypertension: Yes Immune Disorder: No Inguinal Hernia: Yes Implanted Vascular Access Dvce: Yes Kidney Stones: No Musculoskeletal: No Neurologic: Yes Psychiatric: No Reproductive: No Respiratory: Yes Immunizations Current: No Migraines: No Myocardial Infarction: Yes Renal Failure: No Seizures: No Sleep Apnea: No Thyroid Disease: No Ulcer: No ?: Not Menopausal: Yes : 1 Para: 1 Miscarriage: 0 Tubal Ligation: Yes Past Surgical History Abdominal Surgery: Yes (INGUINAL HERNIA REPAIR) Body Medical Devices: heart stents Cardiac Surgery: Yes Coronary Stent: Yes ( 3 STENTS ) Ear Surgery: No Endocrine Surgery: No Eye Surgery: No Genitourinary Surgery: Yes (inguinal hernia) Gynecologic Surgery: No Neurologic Surgery: No Oral Surgery: No Thoracic Surgery: No Other Surgery: Yes (stentsX3) Social History Alcohol Use: Yes (pt states she had 2 drinks today) Tobacco Use: No Substance Use: No Allergies-Medications (Allergen,Severity, Reaction): Coded Allergies: No Known Allergies (Unverified Adverse Reaction, Unknown, 02/05/17) Reported Meds & Prescriptions Reported Meds & Active Scripts Active Norvasc (Amlodipine Besylate) 5 Mg Tab 10 Mg PO DAILY Thera/Beta-Carotene (Multiple Vitamin) 1 Tab Tab 1 Tab PO DAILY Gnp Vitamin B-1 (Thiamine HCl) 100 Mg Tab 100 Mg PO DAILY Quetiapine (Quetiapine Fumarate) 25 Mg Tab 25 Mg PO Q8H Prednisone 10 Mg Tab 10 Mg PO DAILY Metoprolol Tartrate 25 Mg Tab 50 Mg PO Q12HR Duoneb (Ipratropium-Albuterol Neb) 0.5-2.5 Mg/3 Ml Neb 1 Ampule NEB Q4HR NEB Furosemide 40 Mg Tab 40 Mg PO DAILY [Folic Acid] 1 MG Tab 1 Mg PO DAILY Aspirin Low Strength (Aspirin) 81 Mg Chew 324 Mg CHEW DAILY Review of Systems General / Constitutional: No: Fever Eyes: No: Visual changes HENT: No: Headaches Cardiovascular: No: Chest Pain or Discomfort Respiratory: No: Shortness of Breath Gastrointestinal: No: Abdominal Pain Genitourinary: No: Dysuria Musculoskeletal: No: Pain Skin: No Rash Neurologic: No: Weakness Psychiatric: No: Depression Endocrine: No: Polydipsia Hematologic/Lymphatic: No: Easy Bruising Physical Exam Narrative GENERAL: Well-nourished, well-developed patient. SKIN: Focused skin assessment warm/dry. HEAD: Normocephalic. EYES: No scleral icterus. No injection or drainage. NECK: Supple, trachea midline. No JVD or lymphadenopathy. CARDIOVASCULAR: Regular rate and rhythm without murmurs, gallops, or rubs. RESPIRATORY: Breath sounds equal bilaterally. No accessory muscle use. GASTROINTESTINAL: Abdomen soft, non-tender, nondistended. MUSCULOSKELETAL: No cyanosis, or edema. BACK: Nontender without obvious deformity. No CVA tenderness. Neurologic exam: Patient's awake and alert oriented 3. Patient moves all extremity well. No obvious focal neurological deficit. Data Data Last Documented VS Vital Signs Date Time Temp Pulse Resp B/P (MAP) Pulse Ox O2 Delivery O2 Flow Rate FiO2 02/05/17 22:48 94 18 162/77 (105) 97 Room Air 02/05/17 21:18 97.4 Orders Orders Complete Blood Count With Diff (02/05/17 23:38) Comprehensive Metabolic Panel (02/05/17 23:38) Urinalysis - C+S If Indicated (02/05/17 23:38) Iv Access Insert/Monitor (02/05/17 23:38) Ecg Monitoring (02/05/17 23:38) Oximetry (02/05/17 23:38) MDM Medical Decision Making Medical Screen Exam Complete: Yes Emergency Medical Condition: Yes Differential Diagnosis Differential diagnosis including alcohol intoxication, electrolyte imbalance. Narrative Course 77-year-old female with alcohol intoxication. Patient has been to the emergency room several times in the past with same problem. Josep Olsen MD Feb 05, 2017 23:44
[2017-02-06 00:24] VITALS: PULSE 78; RESP 18; O2SAT 98
[2017-02-06 00:33] LABS: AUTOMATED NEUTROPHIL # 3.7 TH/MM3 (1.8-7.7); BASOPHIL % 0.4 % (0.0-2.0); EOSINOPHIL # 1.2 TH/MM3 (0-0.4); EOSINOPHIL % 17.4 % (0.0-4.0); HEMATOCRIT 36.8 % (35.0-46.0); HEMO FLAGS DIFF FINAL; LYMPH % 22.5 % (9.0-44.0); LYMPHOCYTE # 1.5 TH/MM3 (1.0-4.8); MEAN CELL VOLUME 87.5 FL (80.0-100.0); MEAN CORPUSCULAR HEMOGLOBIN 27.8 PG (27.0-34.0); MEAN CORPUSCULAR HGB CONC 31.8 % (32.0-36.0); MONO % 4.8 % (0.0-8.0); NEUT % 54.9 % (16.0-70.0); PLATELET COUNT 360 TH/MM3 (150-450); RED BLOOD COUNT 4.21 MIL/MM3 (4.00-5.30); RED CELL DISTRIBUTION WIDTH 18.7 % (11.6-17.2); WHITE BLOOD COUNT 6.7 TH/MM3 (4.0-11.0)
[2017-02-06 00:38] LABS: BACTERIA, URINE RARE /hpf; BLOOD, URINE NEG (NEG); GLUCOSE,URINE NEG (NEG); KETONE, URINE NEG (NEG); MUCUS URINE FEW /lpf (OCC); NITRITE,URINE NEG (NEG); PH, URINE 5.5 (5.0-8.5); URINE COLOR LIGHT-YELLOW (YELLW/STRAW)
[2017-02-06 00:47] LABS: COMMENT (UR) CULT NOT INDICATED; CULTURE IF INDICATED CULT NOT INDICATED
[2017-02-06 01:03] LABS: ALKALINE PHOSPHATASE 148 U/L (45-117); ALT (GPT) 17 U/L (10-53); TOTAL BILIRUBIN ADULT 0.3 MG/DL (0.2-1.0)
[2017-02-06 01:12] LABS: ANION GAP 12 MEQ/L (5-15); AST (GOT) 43 U/L (15-37); BICARBONATE 21.2 MEQ/L (21.0-32.0); BLOOD UREA NITROGEN 8 MG/DL (7-18); CHLORIDE 102 MEQ/L (98-107); GLOMERULAR FILTRATION RATE 73 ML/MIN (>89); SODIUM (NA) 135 MEQ/L (136-145)
[2017-02-06 01:14] LABS: POTASSIUM 5.7 MEQ/L (3.5-5.1)
[2017-02-06 01:59] LABS: ALCOHOL 110 MG/DL (0-5)
--- NOTE | 2017-02-06 02:14 | PD ---
Physical Exam Narrative Patient was signed out to me by Dr. Olsen pending laboratory results. Please see his documentation for full H&P. Data Data Last Documented VS Vital Signs Date Time Temp Pulse Resp B/P (MAP) Pulse Ox O2 Delivery O2 Flow Rate FiO2 02/06/17 10:56 02/06/17 08:30 98 16 99 02/06/17 04:20 Room Air 02/05/17 21:18 97.4 Orders Orders Complete Blood Count With Diff (02/05/17 23:38) Comprehensive Metabolic Panel (02/05/17 23:38) Urinalysis - C+S If Indicated (02/05/17 23:38) Iv Access Insert/Monitor (02/05/17 23:38) Ecg Monitoring (02/05/17 23:38) Oximetry (02/05/17 23:38) Alcohol (Ethanol) (02/06/17 00:20) Hydroxyzine Pamoate (Vistaril) (02/06/17 03:00) Diet Regular Basic (02/06/17 Breakfast) Labs Laboratory Tests Test 02/06/17 00:00 02/06/17 00:20 Urine Color LIGHT-YELLOW Urine Turbidity CLEAR Urine pH 5.5 Urine Specific [place] 1.005 Urine Protein NEG mg/dL Urine Glucose (UA) NEG mg/dL Urine Ketones NEG mg/dL Urine Occult Blood NEG Urine Nitrite NEG Urine Bilirubin NEG Urine Urobilinogen LESS THAN 2.0 MG/DL Urine Leukocyte Esterase NEG Urine RBC LESS THAN 1 /hpf Urine Bacteria RARE /hpf Urine Mucus FEW /lpf Microscopic Urinalysis Comment CULT NOT INDICATED White Blood Count 6.7 TH/MM3 Red Blood Count 4.21 MIL/MM3 Hemoglobin 11.7 GM/DL Hematocrit 36.8 % Mean Corpuscular Volume 87.5 FL Mean Corpuscular Hemoglobin 27.8 PG Mean Corpuscular Hemoglobin Concent 31.8 % Red Cell Distribution Width 18.7 % Platelet Count 360 TH/MM3 Mean Platelet Volume 7.3 FL Neutrophils (%) (Auto) 54.9 % Lymphocytes (%) (Auto) 22.5 % Monocytes (%) (Auto) 4.8 % Eosinophils (%) (Auto) 17.4 % Basophils (%) (Auto) 0.4 % Neutrophils # (Auto) 3.7 TH/MM3 Lymphocytes # (Auto) 1.5 TH/MM3 Monocytes # (Auto) 0.3 TH/MM3 Eosinophils # (Auto) 1.2 TH/MM3 Basophils # (Auto) 0.0 TH/MM3 CBC Comment DIFF FINAL Differential Comment Blood Urea Nitrogen 8 MG/DL Creatinine 0.91 MG/DL Random Glucose 68 MG/DL Total Protein 8.2 GM/DL Albumin 3.3 GM/DL Calcium Level 8.9 MG/DL Alkaline Phosphatase 148 U/L Aspartate Amino Transf (AST/SGOT) 43 U/L Alanine Aminotransferase (ALT/SGPT) 17 U/L Total Bilirubin 0.3 MG/DL Sodium Level 135 MEQ/L Potassium Level 5.7 MEQ/L Chloride Level 102 MEQ/L Carbon Dioxide Level 21.2 MEQ/L Anion Gap 12 MEQ/L Estimat Glomerular Filtration Rate 73 ML/MIN Ethyl Alcohol Level 110 MG/DL MDM Supervised Visit with KIZZY: No Narrative Course Laboratory results reviewed. Shows slightly elevated potassium was hemolyzed and blood alcohol level of 110. No other significant abnormalities noted. Patient will be monitored in the emergency department until clinically sober and able to ambulate on their own or until a sober responsible adult comes to pick them up. RN is aware of this. Diagnosis Primary Impression: Alcohol intoxication Qualified Codes: F10.920 - Alcohol use, unspecified with intoxication, uncomplicated Referrals: [facility] Patient Instructions: Alcohol Intoxication (ED), General Instructions Additional Instruction: Follow-up with your primary care physician and/or In[facility] Esc[facility] for detox. Return to the emergency department if symptoms get worse. Disposition: 01 DISCHARGE HOME Condition: Stable Lauri Smallwood Feb 06, 2017 02:14
[2017-02-06] MEDS ORDERED: hydrOXYzine PAMOATE 25 MG CAP PO ONE (03:00)
[2017-02-06 04:20] VITALS: BP 177/84; PULSE 106; RESP 16; O2SAT 99
[2017-02-06 08:30] VITALS: BP 160/82; PULSE 98; RESP 16; O2SAT 99
== END 2017-02-06 10:58 | disposition home or self-care (01) ==
LOC: NEPD 20:28
DX: F10.129 Alcohol abuse with intoxication, unspecified (principal); J45.909 Unspecified asthma, uncomplicated; E78.00 Pure hypercholesterolemia, unspecified; I25.10 Atherosclerotic heart disease of native coronary artery without angina pectoris; E11.9 Type 2 diabetes mellitus without complications; M10.9 Gout, unspecified; I10 Essential (primary) hypertension; I25.2 Old myocardial infarction; Z79.899 Other long term (current) drug therapy
CPT/HCPCS: 80053; 80307; 81001; 85025; 99285; Q0177

== ENCOUNTER 2017-02-26 16:00 | Inpatient (IN) | payer MEDICARE, MEDICAID ==
[2017-02-26] VITALS (16 sets, daily range): BP systolic 128–161; BP diastolic 68–93; PULSE 77–92; RESP 16–19; TEMP 97.5–98; O2SAT 96–100
[~2017-02-26] VITALS: Ht 170.2 cm; Wt 78.4 kg
[2017-02-26] MEDS ORDERED: CELE20TA PO (16:18)
[2017-02-26] MEDS ORDERED: mapap (16:23)
[2017-02-26] MEDS ORDERED: MEMA28CA PO (16:23)
[2017-02-26] MEDS ORDERED: SODIUM CHLORIDE 0.9% FLUSH 5 ML FLUSH IV FLUSH PRN (16:45)
--- NOTE | 2017-02-26 17:04 | RADRPT ---
EXAM DATE/TIME: 02/26/2017 16:40 [facility] COMPARISON: CHEST SINGLE AP, August 30, 2016, 4:03. INDICATIONS : Syncope. MEDICAL HISTORY : Hypertension. Diabetes mellitus type 2. Cardiovascular disease, ETOH abuse. SURGICAL HISTORY : Tubal ligation. ENCOUNTER: Initial ACUITY: 1 day PAIN SCORE: Non-responsive. LOCATION: Bilateral chest FINDINGS: There is mild parenchymal opacity at the left lung base with some costophrenic angle blunting which m ay reflect mild associated effusion. Heart size and pulmonary vascular is satisfactory for technique and projection. CONCLUSION: Mild left base parenchymal opacity Manjinder Serrano MD on February 26, 2017 at 17:01 Board Certified Radiologist. This report was verified electronically.
[2017-02-26] MEDS ORDERED: ETOMIDATE 20 MG/10 ML VIAL ONE (17:15)
[2017-02-26] MEDS ORDERED: SUCCINYLCHOLINE CHLORIDE 200 MG/10 ML VIAL ONE (17:15)
[2017-02-26] MEDS ORDERED: PROPOFOL 1000 MG/100 ML INJ 100 ML ONE (17:36)
[2017-02-26] MEDS ORDERED: ETOMIDATE 20 MG/10 ML VIAL IV PUSH ONE (17:45)
[2017-02-26] MEDS ORDERED: SUCCINYLCHOLINE CHLORIDE 100 MG/5 ML SYRINGE IV PUSH ONE (17:45)
[2017-02-26] MEDS ORDERED: PROPOFOL 1000 MG/100 ML INJ 100 ML IV PRN (17:45)
[2017-02-26 17:56] LABS: PROTHROMBIN TIME - PATIENT 11.6 SEC (9.8-11.6)
--- NOTE | 2017-02-26 17:59 | PD ---
HPI Chief Complaint: Altered Mental Status Time Seen by Provider: 16:33 Travel History International Travel<30 days: No Contact w/Intl Traveler<30days: No Traveled to known affect area: No History of Present Illness HPI 77-year-old female was brought to the emergency room by EMS for altered mental status. She was found by her granddaughter and her house unresponsive with empty beer cans around her. Patient apparently is a chronic alcoholic. Patient was GCS of 3 upon arrival. She was managing her respirations and oxygen saturation. However she was in no condition to give any meaningful history. There was no family members with her any additional history either. Vital signs were relatively stable. [facility] Past Medical History Narrative Medical List of her past medical, surgical, social and family history is reviewed from the nursing note. Arthritis: No Asthma: Yes Anxiety: No Depression: No Heart Rhythm Problems: No Cancer: No Cardiac Catheterization: Yes Cardiovascular Problems: Yes (3 cardiac stents) High Cholesterol: Yes Chemotherapy: No Chest Pain: No Congestive Heart Failure: No COPD: No Cerebrovascular Accident: No Coronary Artery Disease: Yes Diabetes: Yes Patient Takes Glucophage: No Diminished Hearing: No Endocrine: Yes Gastrointestinal Disorders: No GERD: No Gout: Yes Genitourinary: No Headaches: Yes Hiatal Hernia: No Hypertension: Yes Immune Disorder: No Inguinal Hernia: Yes Implanted Vascular Access Dvce: Yes Kidney Stones: No Musculoskeletal: No Neurologic: Yes Psychiatric: No Reproductive: No Respiratory: Yes Immunizations Current: No Migraines: No Myocardial Infarction: Yes Renal Failure: No Seizures: No Sleep Apnea: No Thyroid Disease: No Ulcer: No ?: Not Menopausal: Yes : 1 Para: 1 Miscarriage: 0 Tubal Ligation: Yes Past Surgical History Abdominal Surgery: Yes (INGUINAL HERNIA REPAIR) Body Medical Devices: heart stents Cardiac Surgery: Yes Coronary Stent: Yes ( 3 STENTS ) Ear Surgery: No Endocrine Surgery: No Eye Surgery: No Genitourinary Surgery: Yes (inguinal hernia) Gynecologic Surgery: No Neurologic Surgery: No Oral Surgery: No Thoracic Surgery: No Other Surgery: Yes (stentsX3) Social History Alcohol Use: Yes (pt states she had 2 drinks today) Tobacco Use: No Substance Use: No Allergies-Medications (Allergen,Severity, Reaction): Coded Allergies: No Known Allergies (Verified Adverse Reaction, Unknown, 02/26/17) Comments No known drug allergies. Reported Meds & Prescriptions Reported Meds & Active Scripts Active Active Prescriptions or Reported Medications Unobtainable Narrative Medication List of her home medications reviewed from the nursing note. Review of Systems ROS Limitations: Unresponsive Except as stated in HPI: all other systems reviewed are Neg Physical Exam Narrative GENERAL: Unresponsive, looks older than her age SKIN: Focused skin assessment warm/dry. HEAD: Atraumatic. Normocephalic. EYES: Pupils equal and round. No scleral icterus. No injection or drainage. ENT: No nasal bleeding or discharge. Mucous membranes pink and moist. NECK: Trachea midline. No JVD. CARDIOVASCULAR: Regular rate and rhythm. No murmur appreciated. RESPIRATORY: No accessory muscle use. Clear to auscultation. Breath sounds equal bilaterally. GASTROINTESTINAL: Abdomen soft, non-tender, nondistended. Hepatic and splenic margins not palpable. MUSCULOSKELETAL: No obvious deformities. No clubbing. No cyanosis. No edema. NEUROLOGICAL: GCS of 3 PSYCHIATRIC: Unable to assess Data Data Last Documented VS Vital Signs Date Time Temp Pulse Resp B/P (MAP) Pulse Ox O2 Delivery O2 Flow Rate FiO2 02/26/17 18:11 80 18 149/77 (101) 100 Ventilator 50 02/26/17 17:26 2.00 02/26/17 16:30 98.0 Orders Orders Electrocardiogram (02/26/17 16:35) Ammonia (02/26/17 16:35) Complete Blood Count With Diff (02/26/17 16:35) Comprehensive Metabolic Panel (02/26/17 16:35) Creatine Kinase (Cpk) (02/26/17 16:35) Prothrombin Time / Inr (Pt) (02/26/17 16:35) Troponin I (02/26/17 16:35) Urinalysis - C+S If Indicated (02/26/17 16:35) Lactic Acid Sepsis Protocol (02/26/17 16:35) Blood Culture (02/26/17 16:35) Chest, Single Ap (02/26/17 16:35) Ct Brain W/O Iv Contrast(Rout) (02/26/17 16:35) Blood Glucose (02/26/17 16:35) Ecg Monitoring (02/26/17 16:35) Iv Access Insert/Monitor (02/26/17 16:35) Oximetry (02/26/17 16:35) Sodium Chloride 0.9% Flush (Ns Flush) (02/26/17 16:45) Drug Screen, Random Urine (02/26/17 16:35) Alcohol (Ethanol) (02/26/17 16:35) Tylenol (Acetaminophen) (02/26/17 16:35) Salicylates (Aspirin) (02/26/17 16:35) ^ Straight Catheter (02/26/17 16:35) Etomidate Inj (Amidate Inj) (02/26/17 17:15) Succinylcholine Inj (Quelicin Inj) (02/26/17 17:15) Propofol 1000 Mg/100 Ml Inj (Diprivan 10 (02/26/17 17:36) Succinylcholine Inj (Quelicin Inj) (02/26/17 17:45) Etomidate Inj (Amidate Inj) (02/26/17 17:45) Urinary Catheter Insert/Apply (02/26/17 17:41) ^ Orogastric Tube (02/26/17 17:41) Propofol 1000 Mg/100 Ml Inj (Diprivan 10 (02/26/17 17:45) Neurological Rass Scale Q30MX2,Q2HX4,Q4H (02/26/17 17:41) Restraints Non-Violent RUBY.Q3H (02/26/17 17:41) Chest, Single Ap (02/26/17 ) Urine Culture (02/26/17 17:40) CKMB (02/26/17 17:25) CKMB% (02/26/17 17:25) Piperacil-Tazo 4.5 Gm Premix (Zosyn 4.5 (02/26/17 18:30) Vancomycin Inj (Vancomycin Inj) (02/26/17 18:30) Sodium Chlor 0.9% 1000 Ml Inj (Ns 1000 M (02/26/17 18:30) Admit Order (Ed Use Only) (02/26/17 18:28) Labs Laboratory Tests Test 02/26/17 17:25 02/26/17 17:40 02/26/17 18:10 Prothrombin Time 11.6 SEC Prothromb Time International Ratio 1.0 RATIO Blood Urea Nitrogen 16 MG/DL Creatinine 1.48 MG/DL Random Glucose 76 MG/DL Total Protein 8.2 GM/DL Albumin 3.0 GM/DL Calcium Level 8.6 MG/DL Alkaline Phosphatase 142 U/L Aspartate Amino Transf (AST/SGOT) 56 U/L Alanine Aminotransferase (ALT/SGPT) 25 U/L Total Bilirubin 0.4 MG/DL Sodium Level 121 MEQ/L Potassium Level 5.3 MEQ/L Chloride Level 90 MEQ/L Carbon Dioxide Level 19.4 MEQ/L Anion Gap 12 MEQ/L Estimat Glomerular Filtration Rate 41 ML/MIN Lactic Acid Level 4.4 mmol/L Ammonia 25 MCMOL/L Total Creatine Kinase 203 U/L Creatine Kinase MB 3.0 NG/ML Creatine Kinase MB % 1.5 % Troponin I 0.10 NG/ML Acetaminophen Level LESS THAN 2.0 MCG/ML Ethyl Alcohol Level 257 MG/DL Urine Color YELLOW Urine Turbidity HAZY Urine pH 5.5 Urine Specific [place] 1.012 Urine Protein 30 mg/dL Urine Glucose (UA) NEG mg/dL Urine Ketones NEG mg/dL Urine Occult Blood NEG Urine Nitrite NEG Urine Bilirubin NEG Urine Urobilinogen LESS THAN 2.0 MG/DL Urine Leukocyte Esterase NEG Urine RBC LESS THAN 1 /hpf Urine WBC 1 /hpf Urine Squamous Epithelial Cells 2 /hpf Urine Bacteria RARE /hpf Urine Hyaline Casts 6 /lpf Urine Mucus FEW /lpf Microscopic Urinalysis Comment CATH-CULTURE IND MDM Medical Decision Making Medical Screen Exam Complete: Yes Emergency Medical Condition: Yes Medical Record Reviewed: Yes Interpretation(s) Twelve-lead EKG is reviewed by me. Normal sinus rhythm, axis deviation, anterior ST elevations of indeterminate origin. Heart rate of 77 bpm. Differential Diagnosis Intracranial bleed, acute alcohol intoxication, metabolic encephalopathy, substance overdose Narrative Course 5:57 PM nurses were unable to get a peripheral IV established. A central line was inserted by me. Please refer to my procedure note. Given the patient's extreme altered mental status and at one point she had vomited and as per the nurse seemed like she might have aspirated because oxygen saturation went down I decided to intubate the patient to protect her airway. The nurse try to call her daughter who lives in [place] but was unable to get a CODE STATUS from her. Please refer to my procedure note regarding the intubation. Patient tolerated both procedures well. Awaiting for blood test and CT scan of her head and post intubation and line placement x-ray. Patient will be admitted to the intensive care unit. 6:29 PM blood test results are coming back and chemistry is significant for lactic acidosis, hyponatremia, alcohol toxicity. CBC is pending. X-rays and CT scan shows lines to be in good place and negative for intracranial bleed. Patient has been admitted to the ICU under Dr. Pantoja's care. Her troponin level is mildly elevated as well. Critical Care Narrative Aggregate critical care time was 75 minutes. Time to perform other separately billable procedures was not included in the critical care time. My time did not include minutes spent treating any other patients simultaneously or on activities that did not directly contribute to the patient's treatment. The services I provided to this patient were to treat and/or prevent clinically significant deterioration that could result in: Unresponsive, respiratory failure I provided critical care services requiring my management, as noted below: Chart data review, documentation time, medication orders and management, vital sign assessments/reviewing monitor data, ordering and reviewing lab tests, ordering and interpreting/reviewing x-rays and diagnostic studies, care of the patient and discussion of the patient with the admitting physicians. Procedures Procedure Narrative After the risks and benefits were discussed the following procedure was performed: INTUBATION: The patient was put in optimal position for the procedure. Rapid sequence intubation was initiated by me using 20 milligrams of etomidate IV and 100 milligrams of succinylcholine IV. The patient was intubated with a 7.5 cuffed endotracheal tube. Tube placement was confirmed by visualization of the tube and balloon passing through the cords, capnometry and subsequent chest x-ray. Breath sounds were equal and well aerated bilaterally postintubation. No breath sounds over stomach. Patient tolerated procedure well. CENTRAL VENOUS LINE: The site was prepped with Betadine and sterilely draped. It was infiltrated with 1% lidocaine plain. The deep vein was cannulated using normal Seldinger technique. A triple lumen central line was placed in the right subclavian site and secured with simple interrupted suture. The site was sterilely dressed. The patient tolerated the procedure well. EKG Prior to Arrival: No Physician Communication Physician Communication Dr. Pantoja Diagnosis Primary Impression: Unresponsive Additional Impressions: Respiratory failure Qualified Codes: J96.00 - Acute respiratory failure, unspecified whether with hypoxia or hypercapnia Lactic acidosis Alcohol poisoning Qualified Codes: T51.94XA - Toxic effect of unspecified alcohol, undetermined , initial encounter Hyponatremia Elevated troponin I level Admitting Information Admitting Physician Requests: Admit Scripts Unable to Obtain Active Prescriptions or Reported Meds Yesenia,Shravanti R. MD Feb 26, 2017 17:59
--- NOTE | 2017-02-26 18:05 | RADRPT ---
EXAM DATE/TIME: 02/26/2017 17:47 [facility] COMPARISON: CT BRAIN W/O CONTRAST, January 13, 2017, 22:21. INDICATIONS : Found unresponsive. RADIATION DOSE: 56.35 CTDIvol (mGy) MEDICAL HISTORY : Cardiovascular disease. Hypertension. Diabetes mellitus type 2.Asthma SURGICAL HISTORY : Tubal ligation. ENCOUNTER: Initial ACUITY: 1 day PAIN SCALE: Non-responsive LOCATION: chest TECHNIQUE: Multiple contiguous axial images were obtained of the head. Using automated exposure control and adj ustment of the mA and/or kV according to patient size, radiation dose was kept as low as reasonably a chievable to obtain optimal diagnostic quality images. DICOM format image data is available electro nically for review and comparison. FINDINGS: CEREBRUM: The ventricles are normal for age. No evidence of midline shift, mass lesion, hemorrhage or acute in farction. No extra-axial fluid collections are seen. POSTERIOR FOSSA: The cerebellum and brainstem are intact. The 4th ventricle is midline. The cerebellopontine angle i s unremarkable. EXTRACRANIAL: The visualized portion of the orbits is intact. SKULL: The calvaria is intact. No evidence of skull fracture. CONCLUSION: Normal examination. Manjinder Serrano MD on February 26, 2017 at 18:01 Board Certified Radiologist. This report was verified electronically.
[2017-02-26 18:10] LABS: BACTERIA, URINE RARE /hpf; BLOOD, URINE NEG (NEG); GLUCOSE,URINE NEG (NEG); HYALINE CAST, URINE 6 /lpf (RARE); KETONE, URINE NEG (NEG); MUCUS URINE FEW /lpf (OCC); NITRITE,URINE NEG (NEG); PH, URINE 5.5 (5.0-8.5); SQUAMOUS EPITHELIAL CELL URINE 2 /hpf (0-5); URINE COLOR YELLOW (YELLW/STRAW)
[2017-02-26 18:11] LABS: COMMENT (UR) CATH-CULTURE IND; CULTURE IF INDICATED CATH CULTURE IND
[2017-02-26 18:18] LABS: ACETAMINOPHEN LESS THAN 2.0 MCG/ML (10.0-30.0); ALCOHOL 257 MG/DL (0-5); ALKALINE PHOSPHATASE 142 U/L (45-117); ALT (GPT) 25 U/L (10-53); ANION GAP 12 MEQ/L (5-15); AST (GOT) 56 U/L (15-37); BICARBONATE 19.4 MEQ/L (21.0-32.0); BLOOD UREA NITROGEN 16 MG/DL (7-18); CHLORIDE 90 MEQ/L (98-107); CREATINE KINASE 203 U/L (26-192); GLOMERULAR FILTRATION RATE 41 ML/MIN (>89); POTASSIUM 5.3 MEQ/L (3.5-5.1); TOTAL BILIRUBIN ADULT 0.4 MG/DL (0.2-1.0)
[2017-02-26 18:20] LABS: SODIUM (NA) 121 MEQ/L (136-145)
--- NOTE | 2017-02-26 18:24 | RADRPT ---
EXAM DATE/TIME: 02/26/2017 18:06 [facility] COMPARISON: CHEST SINGLE AP, February 26, 2017, 16:40. INDICATIONS : Patient found unresponsive, intubated. MEDICAL HISTORY : Cardiovascular disease. Hypertension. Diabetes mellitus type 2.Asthma SURGICAL HISTORY : Tubal ligation. ENCOUNTER: Subsequent ACUITY: 1 day PAIN SCORE: Non-responsive. LOCATION: chest FINDINGS: A single view of the chest demonstrates the lungs to be symmetrically aerated without evidence of mas s, infiltrate or effusion. The endotracheal tube with tip 2 cm above the shani. Nasogastric tube tip in stomach. Cardiomegaly. Right subclavian central line with tip in the SVC. No pneumothorax.. Osse ous structures are intact. CONCLUSION: Cardiomegaly. Support lines and tubes as described above. Wilfredo Fox MD on February 26, 2017 at 18:21 Board Certified Radiologist. This report was verified electronically.
[2017-02-26] MEDS ORDERED: VANCOMYCIN INJ 1,000 MG in SODIUM CHLOR 0.9% 250 ML INJ 250 ML IV ONE (18:30)
[2017-02-26] MEDS ORDERED: PIPERACIL-TAZO 4.5 GM PREMIX 100 ML IV ONE (18:30)
[2017-02-26] MEDS ORDERED: SODIUM CHLOR 0.9% 1000 ML INJ 1,000 ML IV ONE ×2 (18:30→23:00)
[2017-02-26] MEDS ORDERED: SODIUM CHLOR 0.9% 1000 ML INJ 1,000 ML IV SCH (19:07)
--- NOTE | 2017-02-26 19:14 | HHI.HP ---
HPI Service Critical Care Medicine Primary Care Physician Unknown Admission Diagnosis unresponsive, respiratory failure, lactic acidosis, alcohol toxicity Diagnosis: Travel History International Travel<30 Days: No Contact w/Intl Traveler <30 Da: No Traveled to Known Affected Are: No History of Present Illness 77-year-old female was brought by EMS for altered mental status. She was found by her granddaughter and her house unresponsive with empty beer cans around her. Patient apparently is a chronic alcoholic. Patient was GCS of 3 upon arrival and there was some concern of possible aspiration. She was intubated for an airway protection by ED attending. Review of Systems ROS Unobtainable patient is sedated and intubated Past Family Social History Allergies: Coded Allergies: No Known Allergies (Verified Adverse Reaction, Unknown, 02/26/17) Past Medical History Noncompliance Coronary artery disease Dyslipidemia Rheumatoid arthritis Gout Chronic pain syndrome [id number] diabetes mellitus Hypertension Asthma Headaches Implanted vascular device Previous myocardial infarction Cardiomegaly Past Surgical History Tubal ligation Inguinal hernia repair Coronary stents Reported Medications Reported Meds & Active Scripts Active Active Prescriptions or Reported Medications Unobtainable Active Ordered Medications Current Medications Medications (Trade) Dose Ordered Sig/Apolinar Route PRN Reason Start Time Stop Time Status Last Admin Dose Admin Sodium Chloride 1,000 ml @ 84 mls/hr [id number] IV 02/26/17 19:07 02/26/17 20:12 Sodium Chloride (NS Flush) 2 ml UNSCH PRN IV FLUSH FLUSH AFTER USING IV ACCESS 02/26/17 19:15 Sodium Chloride (NS Flush) 2 ml BID IV FLUSH 02/26/17 21:00 02/26/17 21:30 Acetaminophen (Tylenol) 650 mg Q6H PRN PO PAIN 1-10 AND/OR FEVER >101F 02/26/17 19:15 Famotidine (Pepcid Inj) 20 mg DAILY IV PUSH 02/26/17 21:00 02/26/17 22:01 Midazolam HCl (Versed Inj) 2 mg Q1H PRN IV PUSH SEDATION 02/26/17 19:15 Albuterol/ Ipratropium (Duoneb Neb) 1 ampule Q6HR NEB INH 02/26/17 22:00 02/26/17 19:57 Albuterol/ Ipratropium (Duoneb Neb) 1 ampule Q2HR NEB PRN INH WHEEZING 02/26/17 19:15 Heparin Sodium (Porcine) (Heparin Inj) 5,000 units Q8H SQ 02/26/17 20:00 02/26/17 20:45 Miscellaneous Information 1 [id number] XX 02/26/17 19:15 Chlorhexidine Gluconate (Chlorhexidine 2% Cloth) 3 pack Taper DAILY@04 TOP 02/27/17 04:00 02/23/18 03:59 Chlorhexidine Gluconate (Chlorhexidine 2% Cloth) 3 pack UNSCH PRN TOP HYGIENIC CARE 02/26/17 19:15 Senna/Docusate Sodium (Lindsey-Colace) 1 tab BID PO 02/26/17 21:00 02/26/17 21:32 Magnesium Hydroxide (Milk Of Magnesia Liq) 30 ml Q12H PRN PO Mild constipation 02/26/17 19:15 Sennosides (Senokot) 17.2 mg Q12H PRN PO Moderate constipation 02/26/17 19:15 Bisacodyl (Dulcolax Supp) 10 mg DAILY PRN RECTAL SEVERE CONSITIPATION 02/26/17 19:15 Lactulose (Lactulose Liq) 30 ml DAILY PRN PO SEVERE CONSITIPATION 02/26/17 19:15 Chlorhexidine Gluconate (Peridex 0.12% Liq) 15 ml BID@08,20 MT 02/26/17 20:00 Propofol 100 ml @ 2.4 mls/hr TITRATE PRN IV SEDATION 02/26/17 19:15 02/26/17 21:31 Family History Unable to obtain Social History Per record daily alcohol use, unknown history of illicit drug or tobacco use Physical Exam Vital Signs Vital Signs Date Time Temp Pulse Resp B/P (MAP) Pulse Ox O2 Delivery O2 Flow Rate FiO2 02/26/17 18:42 78 18 132/68 (89) 100 Ventilator 50 02/26/17 18:11 80 18 149/77 (101) 100 Ventilator 50 02/26/17 18:00 97 100 02/26/17 17:46 80 18 139/77 (97) 100 Ventilator 50 02/26/17 17:30 97 50 02/26/17 17:27 50 02/26/17 17:26 85 16 128/74 (92) 100 Nasal Cannula 2.00 02/26/17 16:56 85 18 128/74 (92) 98 Nasal Cannula 2.00 02/26/17 16:30 98.0 92 18 128/74 (92) 96 Physical Exam GENERAL: Elderly woman sedated and intubated. SKIN: Warm and dry. HEAD: Normocephalic. EYES: No scleral icterus. No injection or drainage. NECK: Supple, trachea midline. No JVD or lymphadenopathy. CARDIOVASCULAR: Regular rate and rhythm without murmurs, gallops, or rubs. RESPIRATORY: Breath sounds equal bilaterally. No accessory muscle use. GASTROINTESTINAL: Abdomen soft, non-tender, nondistended. MUSCULOSKELETAL: No cyanosis, or edema. BACK: Nontender without obvious deformity. NEURO EXAM: GCS: M1 V t E 1 Mental Status: The patient is sedated and intubated. Cranial Nerves: Pupils are pinpoint Reflexes: No clonus. Laboratory Laboratory Tests Test 02/26/17 17:25 02/26/17 17:40 02/26/17 18:10 Prothrombin Time 11.6 Prothromb Time International Ratio 1.0 Blood Urea Nitrogen 16 Creatinine 1.48 Random Glucose 76 Total Protein 8.2 Albumin 3.0 Calcium Level 8.6 Alkaline Phosphatase 142 Aspartate Amino Transf (AST/SGOT) 56 Alanine Aminotransferase (ALT/SGPT) 25 Total Bilirubin 0.4 Sodium Level 121 Potassium Level 5.3 Chloride Level 90 Carbon Dioxide Level 19.4 Anion Gap 12 Estimat Glomerular Filtration Rate 41 Lactic Acid Level 4.4 Ammonia 25 Total Creatine Kinase 203 Creatine Kinase MB 3.0 Creatine Kinase MB % 1.5 Troponin I 0.10 Acetaminophen Level LESS THAN 2.0 Ethyl Alcohol Level 257 Urine Color YELLOW Urine Turbidity HAZY Urine pH 5.5 Urine Specific [place] 1.012 Urine Protein 30 Urine Glucose (UA) NEG Urine Ketones NEG Urine Occult Blood NEG Urine Nitrite NEG Urine Bilirubin NEG Urine Urobilinogen LESS THAN 2.0 Urine Leukocyte Esterase NEG Urine RBC LESS THAN 1 Urine WBC 1 Urine Squamous Epithelial Cells 2 Urine Bacteria RARE Urine Hyaline Casts 6 Urine Mucus FEW Microscopic Urinalysis Comment CATH-CULTURE IND Date/Time Source Procedure Growth Status 02/26/17 17:25 Blood Peripheral Aerobic Blood Culture Pending Received 02/26/17 17:25 Blood Peripheral Anaerobic Blood Culture Pending Received 02/26/17 17:40 Urine Catheterized Urine Urine Culture Pending Received Result Diagram: 02/26/17 1725 Imaging Last [address] 02/26/17 1635 Signed Impressions: Service Date/Time: Sunday, February 26, 2017 17:47 - CONCLUSION: Normal examination. Manjinder Serrano MD Chest X-Ray 02/26/17 1635 Signed Impressions: Service Date/Time: Sunday, February 26, 2017 16:40 - CONCLUSION: Mild left base parenchymal opacity Manjinder Serrano MD Chest X-Ray 02/26/17 0000 Signed Impressions: Service Date/Time: Sunday, February 26, 2017 18:06 - CONCLUSION: Cardiomegaly. Support lines and tubes as described above. Wilfredo Fox MD Caprinjefry VTE Risk Assessment Caprini VTE Risk Assessment: Mod/High Risk (score >= 2) Caprini Risk Assessment Model Point Value = 1 Point Value = 2 Point Value = 3 Point Value = 5 Age 41-60 Minor surgery BMI > 25 kg/m2 Swollen legs Varicose veins or History of unexplained or recurrent spontaneous Oral contraceptives or hormone replacement Sepsis (< 1 month) Serious lung disease, including pneumonia (< 1 month) Abnormal pulmonary function Acute myocardial infarction Congestive heart failure (< 1 month) History of inflammatory bowel disease Medical patient at bed rest Age 61-74 Arthroscopic surgery Major open surgery (> 45 min) Laparoscopic surgery (> 45 min) Malignancy Confined to bed (> 72 hours) Immobilizing plaster cast Central venous access Age >= 75 History of VTE Family history of VTE Factor V Leiden Prothrombin [id number] Lupus anticoagulant Anticardiolipin antibodies Elevated serum homocysteine Heparin-induced thrombocytopenia Other congenital or acquired thrombophilia Stroke (< 1 month) Elective arthroplasty Hip, pelvis, or leg fracture Acute spinal cord injury (< 1 month) Prophylaxis Regimen Total Risk Factor Score Risk Level Prophylaxis Regimen 0-1 Low Early ambulation 2 Moderate Order ONE of the following: *Sequential Compression Device (SCD) *Heparin 5000 units SQ BID 3-4 Higher Order ONE of the following medications: *Heparin 5000 units SQ TID *Enoxaparin/Lovenox 40 mg SQ daily (WT < 150 kg, CrCl > 30 mL/min) *Enoxaparin/Lovenox 30 mg SQ daily (WT < 150 kg, CrCl > 10-29 mL/min) *Enoxaparin/Lovenox 30 mg SQ BID (WT < 150 kg, CrCl > 30 mL/min) AND/OR *Sequential Compression Device (SCD) 5 or more Highest Order ONE of the following medications: *Heparin 5000 units SQ TID (Preferred with Epidurals) *Enoxaparin/Lovenox 40 mg SQ daily (WT < 150 kg, CrCl > 30 mL/min) *Enoxaparin/Lovenox 30 mg SQ daily (WT < 150 kg, CrCl > 10-29 mL/min) *Enoxaparin/Lovenox 30 mg SQ BID (WT < 150 kg, CrCl > 30 mL/min) AND *Sequential Compression Device (SCD) Assessment and Plan Assessment and Plan Unresponsiveness - Intoxication - CT head negative - Chronic alcohol abuse - Toxicology screen pending - EEG a.m. Coronary artery disease - No EKG changes suggestive ACS - Series of troponins and EKGs to follow Chronic pain syndrome - Monitor for withdrawal Fxn-mgtrpju-obkutzuza diabetes mellitus - Insulin sliding scale while intubated Hypertension - When necessary meds to keep SBP less than 150 Hyponatremia - Chronic alcohol abuse - IV fluid hydration Metabolic acidosis - Monitor lactic acid trend - Sodium bicarbonate drip DVT GI prophylaxis - Teds SCDs - Subcutaneous heparin - Pepcid Critical Care: The total critical care time was 35 minutes. Time to perform other separately billable procedures was not included in the critical care time. Cooper Pantoja MD Feb 26, 2017 19:14
[2017-02-26] MEDS ORDERED: MIDAZOLAM HCL 2 MG/2 ML VIAL IV PUSH PRN (19:15)
[2017-02-26] MEDS ORDERED: SODIUM CHLORIDE 0.9% FLUSH 10 ML FLUSH IV FLUSH PRN (19:15)
[2017-02-26] MEDS ORDERED: MAGNESIUM HYDROXIDE SUSP 30 ML CUP PO PRN (19:15)
[2017-02-26] MEDS ORDERED: RESP: ALBUTEROL 2.5 MG/IPRATROPIUM 0.5 MG NEB (PRN) INH (19:15)
[2017-02-26] MEDS ORDERED: MISCELLANEOUS NURSING INFORMATION XX SCH (19:15)
[2017-02-26] MEDS ORDERED: ACETAMINOPHEN 325 MG TAB PO PRN (19:15)
[2017-02-26] MEDS ORDERED: BISACODYL 10 MG SUPP RECTAL PRN (19:15)
[2017-02-26] MEDS ORDERED: CHLORHEXIDINE GLUCONATE 2 % 1 PACK (2 CLOTHS) TOP PRN (19:15)
[2017-02-26] MEDS ORDERED: SENNOSIDES 8.6 MG TAB PO PRN (19:15)
[2017-02-26] MEDS ORDERED: LACTULOSE SYRUP 20 GM/30 ML CUP PO PRN (19:15)
[2017-02-26 19:26] LABS: BLOOD GAS BASE EXCESS -9.2 mmol/L (-2-2); BLOOD GAS CARBOXYHEMOGLOBIN 1.2 % (0-4); BLOOD GAS HCO3 15 mmol/L (22-26); BLOOD GAS METHEMOGLOBIN 0.5 % (0-2); BLOOD GAS O2 HGB SATURATION 98 % (90-100); BLOOD GAS PCO2 27 mmHg (38-42); BLOOD GAS PO2 196 mmHG (61-120); BLOOD GAS TOTAL HGB 10.7 G/DL (12.0-16.0)
[2017-02-26 19:27] LABS: DRAW SITE RT RADIAL; FIO2 50 %; NUMBER OF ARTERIAL PUNCTURES 1; OXYGEN DEVICE VENTILATOR; STAT YES; ULNAR PULSE PRESENT; VENT SETTINGS PRVC / AC /
[2017-02-26 19:37] LABS: LACTIC ACID GHOST NOT REPORTABLE
[2017-02-26 19:42] LABS: CRITICAL VALUE YES
[2017-02-26] MEDS: RESP: ALBUTEROL 2.5 MG/IPRATROPIUM 0.5 MG NEB (SCH) INH (19:57)
[2017-02-26] MEDS: CHLORHEXIDINE 0.12% (ORAL KIT) 15 ML CUP MT SCH (20:00)
[2017-02-26 20:05] LABS: AUTOMATED NEUTROPHIL # 3.9 TH/MM3 (1.8-7.7); BASOPHIL % 0.5 % (0.0-2.0); EOSINOPHIL # 0.4 TH/MM3 (0-0.4); EOSINOPHIL % 7.2 % (0.0-4.0); HEMATOCRIT 31.6 % (35.0-46.0); HEMO FLAGS DIFF FINAL; LYMPH % 13.1 % (9.0-44.0); LYMPHOCYTE # 0.7 TH/MM3 (1.0-4.8); MEAN CELL VOLUME 88.1 FL (80.0-100.0); MEAN CORPUSCULAR HEMOGLOBIN 28.7 PG (27.0-34.0); MEAN CORPUSCULAR HGB CONC 32.6 % (32.0-36.0); MONO % 8.9 % (0.0-8.0); NEUT % 70.3 % (16.0-70.0); PLATELET COUNT 319 TH/MM3 (150-450); RED BLOOD COUNT 3.58 MIL/MM3 (4.00-5.30); WHITE BLOOD COUNT 5.5 TH/MM3 (4.0-11.0)
[2017-02-26] MEDS: HEPARIN SODIUM - SQ 10,000 UNITS/ML VIAL SQ SCH (20:45)
[2017-02-26] MEDS: SODIUM CHLORIDE 0.9% FLUSH 10 ML FLUSH IV FLUSH SCH (21:30)
[2017-02-26] MEDS: PROPOFOL 1000 MG/100 ML INJ 100 ML IV PRN (21:31)
[2017-02-26] MEDS: DOCUSATE SODIUM 50 MG/SENNA 8.6 MG TAB PO SCH (21:32)
[2017-02-26] MEDS: FAMOTIDINE 20 MG/2 ML VIAL IV PUSH SCH (22:01)
[2017-02-26] MEDS ORDERED: SODIUM BICARBONATE 8.4% INJ 150 MEQ in DEXTROSE 5% IN WATE 1000ML INJ 1,000 ML IV SCH ×2 (22:45)
[2017-02-27] VITALS (19 sets, daily range): BP systolic 113–184; BP diastolic 63–97; PULSE 90–115; RESP 20–26; TEMP 97.6–98.5; O2SAT 98–100
[2017-02-27] MEDS: hydrALAZINE HCL 20 MG/ML VIAL IV PUSH PRN (00:32)
[2017-02-27] MEDS: PROPOFOL 1000 MG/100 ML INJ 100 ML IV PRN ×3 (01:38→10:34)
[2017-02-27] MEDS: RESP: ALBUTEROL 2.5 MG/IPRATROPIUM 0.5 MG NEB (SCH) INH ×4 (03:41→21:23)
[2017-02-27] MEDS: CHLORHEXIDINE GLUCONATE 2 % 1 PACK (2 CLOTHS) TOP SCH (04:00)
[2017-02-27] MEDS: HEPARIN SODIUM - SQ 10,000 UNITS/ML VIAL SQ SCH ×3 (04:41→20:04)
[2017-02-27 04:58] LABS: BLOOD GAS BASE EXCESS -5.6 mmol/L (-2-2); BLOOD GAS CARBOXYHEMOGLOBIN 0.6 % (0-4); BLOOD GAS HCO3 18 mmol/L (22-26); BLOOD GAS METHEMOGLOBIN 1.2 % (0-2); BLOOD GAS O2 HGB SATURATION 97 % (90-100); BLOOD GAS OXYGEN CONTENT 16.7 Vol % (12.0-20.0); BLOOD GAS PCO2 29 mmHg (38-42); BLOOD GAS PO2 139 mmHg (61-120); BLOOD GAS TOTAL HGB 12.1 G/DL (12.0-16.0); CRITICAL VALUE NO; OXYGEN DEVICE VENTILATOR; TEMP CORR TO 98.6
[2017-02-27 04:59] LABS: DRAW SITE RT RADIAL; FIO2 35 %; NUMBER OF ARTERIAL PUNCTURES 1; STAT NO; ULNAR PULSE PRESENT; VENT SETTINGS PRVC12/500/1.0/+5
[2017-02-27 05:01] LABS: AUTOMATED NEUTROPHIL # 12.9 TH/MM3 (1.8-7.7); BASOPHIL % 0.2 % (0.0-2.0); EOSINOPHIL # 0.4 TH/MM3 (0-0.4); EOSINOPHIL % 2.7 % (0.0-4.0); HEMATOCRIT 36.3 % (35.0-46.0); HEMO FLAGS DIFF FINAL; LYMPH % 2.8 % (9.0-44.0); LYMPHOCYTE # 0.4 TH/MM3 (1.0-4.8); MEAN CELL VOLUME 88.6 FL (80.0-100.0); MEAN CORPUSCULAR HEMOGLOBIN 28.8 PG (27.0-34.0); MEAN CORPUSCULAR HGB CONC 32.6 % (32.0-36.0); MONO % 4.7 % (0.0-8.0); NEUT % 89.6 % (16.0-70.0); PLATELET COUNT 327 TH/MM3 (150-450); RED CELL DISTRIBUTION WIDTH 18.4 % (11.6-17.2); WHITE BLOOD COUNT 14.4 TH/MM3 (4.0-11.0)
--- NOTE | 2017-02-27 05:04 | RADRPT ---
EXAM DATE/TIME: 02/27/2017 03:50 [facility] COMPARISON: CHEST SINGLE AP, February 26, 2017, 18:06. INDICATIONS : Shortness of breath. MEDICAL HISTORY : Cardiovascular disease. Hypertension. Diabetes mellitus type 2.Asthma SURGICAL HISTORY : Tubal ligation. ENCOUNTER: Subsequent ACUITY: 2 days PAIN SCORE: Non-responsive. LOCATION: Bilateral chest FINDINGS: The ET tube, NG tube and right subclavian line are well placed. The heart size is normal. There is mi ld increased density at the left base. The right lung is grossly clear. CONCLUSION: Mild atelectasis or consolidation at the left base. Manjinder Ramirez MD on February 27, 2017 at 5:02 Board Certified Radiologist. This report was verified electronically.
--- NOTE | 2017-02-27 05:10 | EKG ---
Date Performed: 02/26/2017 Time Performed: 18:34:45 PTAGE: 77 years EKG: Sinus rhythm POSSIBLE LEFT ATRIAL ENLARGEMENT MARKED LEFT AXIS DEVIATION ANTEROSEPTAL MYOCARDIAL INFARCTION ABNOR MAL ECG No significant change from prior electrocardiogram. NO PREVIOUS TRACING DOCTOR: Silvestre Anderson Interpretating Date/Time 02/27/2017 05:08:34
[2017-02-27 05:35] LABS: ALKALINE PHOSPHATASE 112 U/L (45-117); ALT (GPT) 22 U/L (10-53); ANION GAP 11 MEQ/L (5-15); AST (GOT) 21 U/L (15-37); BICARBONATE 21.3 MEQ/L (21.0-32.0); BLOOD UREA NITROGEN 11 MG/DL (7-18); CHLORIDE 101 MEQ/L (98-107); GLOMERULAR FILTRATION RATE 64 ML/MIN (>89); POTASSIUM 3.3 MEQ/L (3.5-5.1); SODIUM (NA) 133 MEQ/L (136-145); TOTAL BILIRUBIN ADULT 0.3 MG/DL (0.2-1.0)
--- NOTE | 2017-02-27 09:40 | HHI.FPPN ---
Subjective Remarks 02/26: 77-year-old female, history of chronic alcoholism, hypertension, diabetes , coronary artery disease, and questionable COPD presents after found down at home with GCS of 3. Patient was originally found unresponsive surrounded by beer cans. There is concern of respiratory compromise the emergency department and the patient was intubated and sedated. 02/27: Since being admitted to the ICU last night the patient has been weaned off sedation and CPAP. The patient has been responsive overnight; she will make babbling noises when startled and appears to be in distress when CPAP is weaned. No acute events overnight. No obvious symptoms of withdrawal at this point. (Rosa Buckner MD R2) Objective Vitals Vital Signs Date Time Temp Pulse Resp B/P (MAP) Pulse Ox O2 Delivery O2 Flow Rate FiO2 02/27/17 08:05 100 35 02/27/17 06:00 100 02/27/17 04:05 100 35 02/27/17 04:00 98.5 105 26 113/64 (80) 100 02/27/17 04:00 105 02/27/17 04:00 40 02/27/17 02:00 109 02/27/17 01:03 100 40 02/27/17 00:00 40 02/27/17 00:00 97.6 90 23 184/97 (126) 100 02/27/17 00:00 90 02/26/17 22:10 100 40 02/26/17 22:00 90 02/26/17 21:00 40 02/26/17 21:00 97.5 85 19 161/93 (115) 100 02/26/17 21:00 85 02/26/17 20:45 02/26/17 20:40 100 40 02/26/17 20:03 40 02/26/17 20:00 100 100 02/26/17 19:40 100 40 02/26/17 19:29 50 02/26/17 19:20 77 16 130/71 (90) 100 Auto-Vent 50 02/26/17 19:20 78 18 100 Auto-Vent 50 02/26/17 19:16 100 50 02/26/17 18:42 78 18 132/68 (89) 100 Ventilator 50 02/26/17 18:11 80 18 149/77 (101) 100 Ventilator 50 02/26/17 18:00 97 100 02/26/17 17:46 80 18 139/77 (97) 100 Ventilator 50 02/26/17 17:30 97 50 02/26/17 17:27 50 02/26/17 17:26 85 16 128/74 (92) 100 Nasal Cannula 2.00 02/26/17 16:56 85 18 128/74 (92) 98 Nasal Cannula 2.00 02/26/17 16:30 98.0 92 18 128/74 (92) 96 I/O 02/26/17 02/26/17 02/26/17 02/27/17 02/27/17 02/27/17 07:00 15:00 23:00 07:00 15:00 23:00 Intake Total 1660 ml 1100 ml Output Total 1675 ml 1240 ml Balance -15 ml -140 ml Intake IV Total 1660 ml 1100 ml Output Urine Total 1175 ml 1240 ml Gastric Drainage Total 500 ml (Rosa Buckner MD R2) Result Diagram: 02/27/17 0430 02/27/17 0430 Other Results Laboratory Tests Test 02/26/17 17:25 02/26/17 17:40 02/26/17 19:07 02/26/17 19:15 Prothrombin Time 11.6 SEC Prothromb Time International Ratio 1.0 RATIO Blood Urea Nitrogen 16 MG/DL Creatinine 1.48 MG/DL Random Glucose 76 MG/DL Total Protein 8.2 GM/DL Albumin 3.0 GM/DL Calcium Level 8.6 MG/DL Alkaline Phosphatase 142 U/L Aspartate Amino Transf (AST/SGOT) 56 U/L Alanine Aminotransferase (ALT/SGPT) 25 U/L Total Bilirubin 0.4 MG/DL Sodium Level 121 MEQ/L Potassium Level 5.3 MEQ/L Chloride Level 90 MEQ/L Carbon Dioxide Level 19.4 MEQ/L Anion Gap 12 MEQ/L Estimat Glomerular Filtration Rate 41 ML/MIN Lactic Acid Level 4.4 mmol/L Ammonia 25 MCMOL/L Total Creatine Kinase 203 U/L Creatine Kinase MB 3.0 NG/ML Creatine Kinase MB % 1.5 % Troponin I 0.10 NG/ML 0.11 NG/ML Salicylates Level LESS THAN 1.7 MG/DL Acetaminophen Level LESS THAN 2.0 MCG/ML Ethyl Alcohol Level 257 MG/DL Urine Color YELLOW Urine Turbidity HAZY Urine pH 5.5 Urine Specific [place] 1.012 Urine Protein 30 mg/dL Urine Glucose (UA) NEG mg/dL Urine Ketones NEG mg/dL Urine Occult Blood NEG Urine Nitrite NEG Urine Bilirubin NEG Urine Urobilinogen LESS THAN 2.0 MG/DL Urine Leukocyte Esterase NEG Urine RBC LESS THAN 1 /hpf Urine WBC 1 /hpf Urine Squamous Epithelial Cells 2 /hpf Urine Bacteria RARE /hpf Urine Hyaline Casts 6 /lpf Urine Mucus FEW /lpf Microscopic Urinalysis Comment CATH-CULTURE IND Urine Opiates Screen NEG Urine Barbiturates Screen NEG Urine Amphetamines Screen NEG Urine Benzodiazepines Screen NEG Urine Cocaine Screen NEG Urine Cannabinoids Screen NEG White Blood Count 5.5 TH/MM3 Red Blood Count 3.58 MIL/MM3 Hemoglobin 10.3 GM/DL Hematocrit 31.6 % Mean Corpuscular Volume 88.1 FL Mean Corpuscular Hemoglobin 28.7 PG Mean Corpuscular Hemoglobin Concent 32.6 % Red Cell Distribution Width 18.0 % Platelet Count 319 TH/MM3 Mean Platelet Volume 7.6 FL Neutrophils (%) (Auto) 70.3 % Lymphocytes (%) (Auto) 13.1 % Monocytes (%) (Auto) 8.9 % Eosinophils (%) (Auto) 7.2 % Basophils (%) (Auto) 0.5 % Neutrophils # (Auto) 3.9 TH/MM3 Lymphocytes # (Auto) 0.7 TH/MM3 Monocytes # (Auto) 0.5 TH/MM3 Eosinophils # (Auto) 0.4 TH/MM3 Basophils # (Auto) 0.0 TH/MM3 CBC Comment DIFF FINAL Differential Comment Test 02/26/17 19:17 02/26/17 21:00 02/27/17 04:30 02/27/17 04:50 Blood Gas Puncture Site RT RADIAL RT RADIAL Blood Gas Patient Temperature 37.0 98.6 Blood Gas HCO3 15 mmol/L 18 mmol/L Blood Gas Base Excess -9.2 mmol/L -5.6 mmol/L Blood Gas Oxygen Saturation 98 % 97 % Arterial Blood pH 7.36 7.41 Arterial Blood Partial Pressure CO2 27 mmHg 29 mmHg Arterial Blood Partial Pressure O2 196 mmHG 139 mmHg Arterial Blood Oxygen Content 15.0 Vol % 16.7 Vol % Arterial Blood Carboxyhemoglobin 1.2 % 0.6 % Arterial Blood Methemoglobin 0.5 % 1.2 % Blood Gas Hemoglobin 10.7 G/DL 12.1 G/DL Oxygen Delivery Device VENTILATOR VENTILATOR Blood Gas Ventilator Setting PRVC / AC / PRVC12/500/1.0/+5 Blood Gas Inspired Oxygen 50 % 35 % Nasal Screen MRSA (PCR) MRSA NOT DETECTED White Blood Count 14.4 TH/MM3 Red Blood Count 4.10 MIL/MM3 Hemoglobin 11.8 GM/DL Hematocrit 36.3 % Mean Corpuscular Volume 88.6 FL Mean Corpuscular Hemoglobin 28.8 PG Mean Corpuscular Hemoglobin Concent 32.6 % Red Cell Distribution Width 18.4 % Platelet Count 327 TH/MM3 Mean Platelet Volume 7.4 FL Neutrophils (%) (Auto) 89.6 % Lymphocytes (%) (Auto) 2.8 % Monocytes (%) (Auto) 4.7 % Eosinophils (%) (Auto) 2.7 % Basophils (%) (Auto) 0.2 % Neutrophils # (Auto) 12.9 TH/MM3 Lymphocytes # (Auto) 0.4 TH/MM3 Monocytes # (Auto) 0.7 TH/MM3 Eosinophils # (Auto) 0.4 TH/MM3 Basophils # (Auto) 0.0 TH/MM3 CBC Comment DIFF FINAL Differential Comment Blood Urea Nitrogen 11 MG/DL Creatinine 1.01 MG/DL Random Glucose 101 MG/DL Total Protein 6.7 GM/DL Albumin 2.5 GM/DL Calcium Level 7.6 MG/DL Phosphorus Level 2.8 MG/DL Magnesium Level 1.0 MG/DL Alkaline Phosphatase 112 U/L Aspartate Amino Transf (AST/SGOT) 21 U/L Alanine Aminotransferase (ALT/SGPT) 22 U/L Total Bilirubin 0.3 MG/DL Sodium Level 133 MEQ/L Potassium Level 3.3 MEQ/L Chloride Level 101 MEQ/L Carbon Dioxide Level 21.3 MEQ/L Anion Gap 11 MEQ/L Estimat Glomerular Filtration Rate 64 ML/MIN Troponin I 0.14 NG/ML Imaging Last Impressions Chest X-Ray 02/27/17 0000 Signed Impressions: Service Date/Time: Monday, February 27, 2017 03:50 - CONCLUSION: Mild atelectasis or consolidation at the left base. Manjinder Ramirez MD Head CT 02/26/17 1635 Signed Impressions: Service Date/Time: Sunday, February 26, 2017 17:47 - CONCLUSION: Normal examination. Manjinder Serrano MD Objective Remarks GENERAL: Elderly woman on CPAP with OG tube, lightly sedated, makes noises when elicited, does not open eyes at time of exam SKIN: Warm and dry. HEAD: Normocephalic. EYES: No scleral icterus. No injection or drainage. NECK: Supple, trachea midline. No JVD or lymphadenopathy. CARDIOVASCULAR: Regular rate and rhythm without murmurs, gallops, or rubs. RESPIRATORY: Breath sounds equal bilaterally. No accessory muscle use. GASTROINTESTINAL: Abdomen soft, non-tender, nondistended. MUSCULOSKELETAL: No cyanosis, or edema. BACK: Nontender without obvious deformity. Neuro: Eyes: 4 Verbal: 2t Motor: 6 Mental status: sedated (Rosa Buckner MD R2) Urinary Catheter: Yes Assessment to: Continue Hyde insert reason: Measure Accurate Output (Rosa Buckner MD R2) Vascular Central Line Catheter: Yes Assessment to: Continue Date of Insertion: Feb 26, 2017 Line: Central Venous Catheter Side: Right Location: Subclavian (Rosa Buckner MD R2) A/P Assessment and Plan CVS: - Troponin .10 --> .11 --> .14 - EKG normal - BP range 113-184/68-97 , BP WNL this morning - Cont Hydralazine 20 IVP PRN for >150/>90 Neuro: - GCS of 3 on admission, GCS of 10t this morning , intubated, on sedation - Daily sedation vacation; propofol @ 25uqs/kg/min w/ titrate, wean CPAP - + Alc tox screen - Start CIWA protocol after extubation - f/u EEG Resp: - Concern for aspiration pneumo in ED - CXR: left base parenchymal opacity - On mechanical ventilation, vent bundle - Daily CPAP trials to decide extubation - COnt duonebs q6 GI: - On tube feeds, advance to goal as tolerated if not extubated - hold for possible extubation Endocrine: - DMII - BS WNL - COnt ISS /Renal: - Strict I/O - monitor electrolytes, BUN/Creat - Cont Hyde catheter Heme: - Hyponatremia (Na 133) via chronic alcoholism - Cont NS IVF ID: - Metabolic acidosis - Lactic acid trend: 4.0 --> 4.4 - f/u LA - D/C bicarb drip - s/p Vanc & Zosyn x 1 in ED - Cont Zosyn 3.375g IV q6h for possible aspiration pneumo prophylaxis: - Pepcid 20mg daily IVP - Per-Colace 1tab BID - Heparin 5000U q8 SQ (Rosa Buckner MD R2) Attending Attestation Patient seen and examined earlier with resident Dr. Babcock. Discussed findings and developed assessment and plan as outlined above. Agree with above note. Patient remains orally intubated on mechanical ventilation undergoing C Pap trials to decide extubation. (Elroy Marie MD) Rosa Buckner MD R2 Feb 27, 2017 09:40 Elroy Marie MD Feb 27, 2017 13:01
[2017-02-27] MEDS ORDERED: MAGNESIUM SULFATE INJ 2 GM in SODIUM CHLORIDE 0.9% INJ 96 ML IV PRN (10:00)
[2017-02-27] MEDS ORDERED: SODIUM PHOSPHATE INJ 30 MMOL in SODIUM CHLOR 0.9% 250 ML INJ 240 ML IV PRN (10:00)
[2017-02-27] MEDS ORDERED: POTASSIUM CHLORIDE 25 MEQ EFFERVESCENT TAB PO PRN (10:00)
[2017-02-27] MEDS ORDERED: POTASSIUM CHLOR 40 MEQ PREMIX 100 ML IV PRN ×2 (10:00)
[2017-02-27] MEDS ORDERED: POTASSIUM PHOSPHATE MONOBASIC 500 MG TAB PO PRN (10:00)
[2017-02-27] MEDS ORDERED: POTASSIUM PHOSPHATE MONOBASIC 500 MG TAB PO/TUBE PRN (10:00)
[2017-02-27] MEDS ORDERED: POTASSIUM PHOSPHATE INJ 30 MMOL in SODIUM CHLOR 0.9% 250 ML INJ 250 ML IV PRN (10:00)
[2017-02-27] MEDS ORDERED: MAGNESIUM OXIDE 400 MG TAB PO PRN (10:00)
[2017-02-27] MEDS ORDERED: MAGNESIUM SULFATE INJ 4 GM in SODIUM CHLORIDE 0.9% INJ 92 ML IV PRN (10:00)
[2017-02-27] MEDS ORDERED: POTASSIUM CHLOR 20 MEQ PREMIX 100 ML IV PRN ×2 (10:00)
[2017-02-27] MEDS: DOCUSATE SODIUM 50 MG/SENNA 8.6 MG TAB PO SCH ×2 (10:34→20:04)
[2017-02-27] MEDS: FAMOTIDINE 20 MG/2 ML VIAL IV PUSH SCH (10:34)
[2017-02-27] MEDS: SODIUM CHLORIDE 0.9% FLUSH 10 ML FLUSH IV FLUSH SCH ×2 (10:39→20:04)
[2017-02-27] MEDS: CHLORHEXIDINE 0.12% (ORAL KIT) 15 ML CUP MT SCH ×2 (10:54→20:00)
[2017-02-27] MEDS: PIPERACIL-TAZO 3.375 GM PREMIX 50 ML IV SCH ×3 (12:12→20:04)
[2017-02-27] MEDS: ACETAMINOPHEN/HYDROcodone 325 MG/5 MG TAB PO PRN ×2 (18:41→23:57)
[2017-02-28] VITALS (17 sets, daily range): BP systolic 113–168; BP diastolic 57–82; PULSE 101–129; RESP 18–25; TEMP 98.4–100.1; O2SAT 94–100
[2017-02-28] MEDS ORDERED: FLUMAZENIL 0.5 MG/5 ML VIAL IV PUSH PRN (01:45)
[2017-02-28] MEDS ORDERED: LORazepam 1 MG TAB PO PRN (01:45)
[2017-02-28] MEDS ORDERED: LORazepam 2 MG/ML VIAL IV PUSH PRN ×3 (01:45)
[2017-02-28] MEDS: LORazepam 2 MG/ML VIAL IV PUSH PRN ×2 (01:58→21:02)
[2017-02-28] MEDS: RESP: ALBUTEROL 2.5 MG/IPRATROPIUM 0.5 MG NEB (SCH) INH ×4 (02:54→19:13)
[2017-02-28] MEDS: CHLORHEXIDINE GLUCONATE 2 % 1 PACK (2 CLOTHS) TOP SCH (04:00)
[2017-02-28] MEDS: PIPERACIL-TAZO 3.375 GM PREMIX 50 ML IV SCH ×4 (04:10→23:18)
[2017-02-28] MEDS: HEPARIN SODIUM - SQ 10,000 UNITS/ML VIAL SQ SCH ×3 (04:10→21:02)
[2017-02-28] MEDS: CHLORHEXIDINE 0.12% (ORAL KIT) 15 ML CUP MT SCH ×2 (08:00→20:00)
[2017-02-28] MEDS: FAMOTIDINE 20 MG/2 ML VIAL IV PUSH SCH (08:34)
[2017-02-28] MEDS: DOCUSATE SODIUM 50 MG/SENNA 8.6 MG TAB PO SCH ×2 (08:34→21:00)
[2017-02-28] MEDS: ACETAMINOPHEN/HYDROcodone 325 MG/5 MG TAB PO PRN ×3 (08:38→21:03)
[2017-02-28] MEDS: SODIUM CHLORIDE 0.9% FLUSH 10 ML FLUSH IV FLUSH SCH ×2 (09:00→21:02)
[2017-02-28] MEDS: MULTIVITAMIN TAB PO SCH (13:55)
[2017-02-28] MEDS: THIAMINE HCL 100 MG TAB PO SCH (13:55)
[2017-02-28] MEDS: diphenhydrAMINE HCL 25 MG CAP PO PRN (15:49)
[2017-02-28] MEDS: hydrALAZINE HCL 20 MG/ML VIAL IV PUSH PRN (23:22)
[2017-03-01] VITALS: BP 155/77; PULSE 110; PULSE 119; RESP 22; TEMP 98.7; O2SAT 96
[2017-03-01] MEDS: diphenhydrAMINE HCL 25 MG CAP PO PRN (00:09)
[2017-03-01] MEDS: LORazepam 2 MG/ML VIAL IV PUSH PRN (01:24)
[2017-03-01] MEDS: HEPARIN SODIUM - SQ 10,000 UNITS/ML VIAL SQ SCH ×2 (02:41→11:03)
[2017-03-01] MEDS: ACETAMINOPHEN/HYDROcodone 325 MG/5 MG TAB PO PRN (02:42)
[2017-03-01] MEDS: CHLORHEXIDINE GLUCONATE 2 % 1 PACK (2 CLOTHS) TOP SCH (02:49)
[2017-03-01] MEDS: RESP: ALBUTEROL 2.5 MG/IPRATROPIUM 0.5 MG NEB (SCH) INH ×2 (03:26→08:17)
[2017-03-01 04:00] VITALS: BP 130/68; PULSE 111; RESP 21; TEMP 98.8; O2SAT 95
[2017-03-01 04:10] VITALS: PULSE 111
[2017-03-01] MEDS: PIPERACIL-TAZO 3.375 GM PREMIX 50 ML IV SCH ×2 (05:09→11:03)
[2017-03-01] MEDS: CHLORHEXIDINE 0.12% (ORAL KIT) 15 ML CUP MT SCH (07:27)
[2017-03-01] MEDS: SODIUM CHLORIDE 0.9% FLUSH 10 ML FLUSH IV FLUSH SCH (07:27)
[2017-03-01] MEDS: MULTIVITAMIN TAB PO SCH (08:13)
[2017-03-01] MEDS: DOCUSATE SODIUM 50 MG/SENNA 8.6 MG TAB PO SCH (08:13)
[2017-03-01] MEDS: THIAMINE HCL 100 MG TAB PO SCH (08:13)
[2017-03-01] MEDS: FAMOTIDINE 20 MG/2 ML VIAL IV PUSH SCH (08:13)
[2017-03-01 08:18] VITALS: O2SAT 98
[2017-03-01 08:35] VITALS: BP 143/74; PULSE 110; RESP 17; TEMP 98.4; O2SAT 95
--- NOTE | 2017-03-01 11:37 | HHI.PR ---
Subjective Remarks More awake and alert today. Says she is eating well, no n/v/d/c. No fever ro chills. She is not coughing. has no pain at this time. Objective Vitals Vital Signs Date Time Temp Pulse Resp B/P (MAP) Pulse Ox O2 Delivery O2 Flow Rate FiO2 03/01/17 08:35 98.4 110 17 143/74 (97) 95 03/01/17 08:18 98 03/01/17 04:10 111 03/01/17 04:00 98.8 111 21 130/68 (88) 95 03/01/17 00:00 98.7 110 22 155/77 (103) 96 03/01/17 00:00 119 02/28/17 22:49 109 02/28/17 22:40 98.7 108 20 152/70 (97) 94 02/28/17 22:00 116 02/28/17 20:00 98.4 118 25 168/82 (110) 99 02/28/17 20:00 112 02/28/17 19:15 100 21 02/28/17 18:00 110 02/28/17 16:00 99.3 108 18 141/60 (87) 98 02/28/17 16:00 110 02/28/17 15:27 100 21 02/28/17 12:00 99.8 129 18 129/65 (86) 98 02/28/17 12:00 110 I/O 02/28/17 02/28/17 02/28/17 03/01/17 03/01/17 03/01/17 07:00 15:00 23:00 07:00 15:00 23:00 Intake Total 340 ml 50 ml 320 ml 300 ml Output Total 350 ml 1525 ml 750 ml Balance -10 ml 50 ml -1205 ml -450 ml Intake Oral 240 ml 320 ml 200 ml IV Total 100 ml 50 ml 100 ml Output Urine Total 350 ml 1525 ml 750 ml # Bowel Movements 4 1 2 Result Diagram: 02/27/17 0430 02/27/17 0430 Imaging Last Impressions Chest X-Ray 02/27/17 0000 Signed Impressions: Service Date/Time: Monday, February 27, 2017 03:50 - CONCLUSION: Mild atelectasis or consolidation at the left base. Manjinder Ramirez MD Head CT 02/26/17 1635 Signed Impressions: Service Date/Time: Sunday, February 26, 2017 17:47 - CONCLUSION: Normal examination. Manjinder Serrano MD Objective Remarks GENERAL: Elderly woman in the bed appears in nad. CARDIOVASCULAR: Regular rate and rhythm without murmurs, gallops, or rubs. RESPIRATORY: Breath sounds equal bilaterally. No accessory muscle use. GASTROINTESTINAL: Abdomen soft, non-tender, nondistended. MUSCULOSKELETAL: No cyanosis, or edema. BACK: Nontender without obvious deformity. NEURO EXAM: Alert and oriented. Pleasant, answering questions appropriately. No focal motor deficit. Following commands. CN grossly normal. Date of Insertion: Feb 26, 2017 Line: Central Venous Catheter Side: Right Location: Subclavian A/P Assessment and Plan Unresponsiveness - Intoxication - CT head negative - Chronic alcohol abuse - Toxicology screen pending - EEG a.m. Coronary artery disease - No EKG changes suggestive ACS - Series of troponins and EKGs to follow Chronic pain syndrome - Monitor for withdrawal Ovv-toffyid-koagihsta diabetes mellitus - Insulin sliding scale while intubated Hypertension - When necessary meds to keep SBP less than 150 Hyponatremia - Chronic alcohol abuse - IV fluid hydration Metabolic acidosis - Monitor lactic acid trend - Sodium bicarbonate drip DVT GI prophylaxis - Teds SCDs - Subcutaneous heparin - Pepcid Discussed with the patient, nurse, case management Discharge Planning Patient is improved discharged to [facility] today Judy Blackburn MD Mar 01, 2017 11:37
[2017-03-01] MEDS ORDERED: THERTAB15 PO (11:39)
[2017-03-01] MEDS ORDERED: PERI PO (11:39)
[2017-03-01] MEDS ORDERED: THIA100 PO (11:39)
[2017-03-01 12:00] VITALS: BP 129/73; PULSE 110; RESP 20; TEMP 99; O2SAT 94
--- NOTE | 2017-03-01 12:29 | HHI.DS ---
Discharge Summary Admission Date Feb 26, 2017 at 18:30 Discharge Date: Mar 01, 2017 Admitting Diagnosis unresponsive, respiratory failure, lactic acidosis, alcohol toxicity (1) Dyspnea ICD Code: R06.00 - Dyspnea, unspecified Status: Acute (2) Chronic pain ICD Code: G89.29 - Chronic pain Status: Acute (3) Respiratory failure ICD Code: J96.90 - Respiratory failure, unspecified, unspecified whether with hypoxia or hypercapnia Status: Acute (4) Rheumatoid arthritis Status: Chronic (5) Carotid stenosis ICD Code: I65.29 - Carotid stenosis Status: Acute (6) Chronic kidney disease ICD Code: N18.9 - Chronic kidney disease Status: Acute Procedures intubation/extubation Brief History - From Admission 77-year-old female was brought by EMS for altered mental status. She was found by her granddaughter and her house unresponsive with empty beer cans around her. Patient apparently is a chronic alcoholic. Patient was GCS of 3 upon arrival and there was some concern of possible aspiration. She was intubated for an airway protection by ED attending. CBC/BMP: 02/27/17 0430 02/27/17 0430 Significant Findings Laboratory Tests Test 02/26/17 17:25 02/26/17 17:40 02/26/17 19:07 02/26/17 19:15 Creatinine 1.48 MG/DL (0.50-1.00) Albumin 3.0 GM/DL (3.4-5.0) Alkaline Phosphatase 142 U/L (45-117) Aspartate Amino Transf (AST/SGOT) 56 U/L (15-37) Sodium Level 121 MEQ/L (136-145) Potassium Level 5.3 MEQ/L (3.5-5.1) Chloride Level 90 MEQ/L (98-107) Carbon Dioxide Level 19.4 MEQ/L (21.0-32.0) Estimat Glomerular Filtration Rate 41 ML/MIN (>89) Lactic Acid Level 4.4 mmol/L (0.4-2.0) Total Creatine Kinase 203 U/L (26-192) Troponin I 0.10 NG/ML (0.02-0.05) 0.11 NG/ML (0.02-0.05) Salicylates Level LESS THAN 1.7 MG/DL Acetaminophen Level LESS THAN 2.0 MCG/ML Ethyl Alcohol Level 257 MG/DL (0-5) Urine Turbidity HAZY (CLEAR) Urine Protein 30 mg/dL (NEG-TRACE) Urine Bacteria RARE /hpf (NONE) Urine Mucus FEW /lpf (OCC) Red Blood Count 3.58 MIL/MM3 (4.00-5.30) Hemoglobin 10.3 GM/DL (11.6-15.3) Hematocrit 31.6 % (35.0-46.0) Red Cell Distribution Width 18.0 % (11.6-17.2) Neutrophils (%) (Auto) 70.3 % (16.0-70.0) Monocytes (%) (Auto) 8.9 % (0.0-8.0) Eosinophils (%) (Auto) 7.2 % (0.0-4.0) Lymphocytes # (Auto) 0.7 TH/MM3 (1.0-4.8) Test 02/26/17 19:17 02/26/17 21:00 02/27/17 04:30 02/27/17 04:50 Blood Gas HCO3 15 mmol/L (22-26) 18 mmol/L (22-26) Blood Gas Base Excess -9.2 mmol/L (-2-2) -5.6 mmol/L (-2-2) Arterial Blood pH 7.36 (7.380-7.420) Arterial Blood Partial Pressure CO2 27 mmHg (38-42) 29 mmHg (38-42) Arterial Blood Partial Pressure O2 196 mmHG (61-120) 139 mmHg (61-120) Blood Gas Hemoglobin 10.7 G/DL (12.0-16.0) White Blood Count 14.4 TH/MM3 (4.0-11.0) Red Cell Distribution Width 18.4 % (11.6-17.2) Neutrophils (%) (Auto) 89.6 % (16.0-70.0) Lymphocytes (%) (Auto) 2.8 % (9.0-44.0) Neutrophils # (Auto) 12.9 TH/MM3 (1.8-7.7) Lymphocytes # (Auto) 0.4 TH/MM3 (1.0-4.8) Creatinine 1.01 MG/DL (0.50-1.00) Albumin 2.5 GM/DL (3.4-5.0) Calcium Level 7.6 MG/DL (8.5-10.1) Magnesium Level 1.0 MG/DL (1.5-2.5) Sodium Level 133 MEQ/L (136-145) Potassium Level 3.3 MEQ/L (3.5-5.1) Estimat Glomerular Filtration Rate 64 ML/MIN (>89) Troponin I 0.14 NG/ML (0.02-0.05) Imaging Last Impressions Chest X-Ray 02/27/17 0000 Signed Impressions: Service Date/Time: Monday, February 27, 2017 03:50 - CONCLUSION: Mild atelectasis or consolidation at the left base. Manjinder Ramirez MD Head CT 02/26/17 1635 Signed Impressions: Service Date/Time: Sunday, February 26, 2017 17:47 - CONCLUSION: Normal examination. Manjinder Serrano MD PE at Discharge GENERAL: Elderly woman in the bed appears in nad. She is noted ambulating with a walker. More awake and alert. Conversant. CARDIOVASCULAR: Regular rate and rhythm without murmurs, gallops, or rubs. RESPIRATORY: Breath sounds equal bilaterally. No accessory muscle use. GASTROINTESTINAL: Abdomen soft, non-tender, nondistended. MUSCULOSKELETAL: No cyanosis, or edema. BACK: Nontender without obvious deformity. NEURO EXAM: Alert and oriented. Pleasant, answering questions appropriately. No focal motor deficit. Following commands. CN grossly normal. Noted walking with a walker in the room. Hospital Course 77-year-old female was brought by EMS for altered mental status. She was found by her granddaughter and her house unresponsive with empty beer cans around her. Patient apparently is a chronic alcoholic. Patient was GCS of 3 upon arrival and there was some concern of possible aspiration. She was intubated for an airway protection by ED attending. The patient was admitted to ICU and was successfully extubated. Patient was noted on metabolic acidosis received bicarbonate and 8 by treatment in ICU. The patient was started on Zosyn for possible pneumonia. She improved significantly. She is more awake and alert she was noted walking with a walker in the room. Physical therapy is evaluating the patient and recommended rehabilitation. The patient improved significantly, she was discharged in fairly stable condition to rehabilitation. To follow-up with PCP in [facility] as outpatient. Pt Condition on Discharge: Stable Discharge Disposition: Discharge to SNF Discharge Time: > 30 minutes Discharge Instructions DIET: Follow Instructions for: Heart Healthy Diet, Diabetic Diet Activities you can perform: Regular-No Restrictions Follow up Referrals: PCP Follow-up - 2-3 Days New Medications: Lactobacillus Acidophilus (Lactinex) 1 Chew 1 TAB CHEW DAILY for Nutritional Supplement, #30 TAB 0 Refills Levofloxacin (Levaquin) 750 Mg Tablet 750 MG PO DAILY for Infection, #7 TAB 0 Refills Lorazepam (Lorazepam) 0.5 Mg Tab 0.5 MG PO Q8H PRN for ANXIETY, #20 TAB 0 Refills Multivitamin with Folic Acid (Thera Tablet) 400 Mcg Tablet 1 TAB PO DAILY for Nutritional Supplement, #30 MG Sennosides-Docusate Sodium ([facility] Senna Plus 8.6-50 mg) 8.6 Mg-50 Mg Tab 1 TAB PO BID for Constipation, #60 TAB Thiamine HCl ([facility] Vitamin B-1) 100 Mg Tab 100 MG PO DAILY for Nutritional Supplement, #30 TAB Judy Blackburn MD Mar 01, 2017 12:29
[2017-03-01] MEDS ORDERED: LEVA750T9 PO (12:31)
[2017-03-01] MEDS ORDERED: LACTCHW3 CHEW (12:31)
[2017-03-01] MEDS ORDERED: LORA0.5T PO (12:32)
== END 2017-03-01 13:59 | DRG 208 ==
LOC: NEPC 16:00 → NEDA 18:30 → HIME 20:35 → N04B 02-28 22:35
PROVIDERS: ADMIT Hospitalist; ATTEND Hospitalist
PROC: 0BH17EZ Insertion of Endotracheal Airway into Trachea, Via Natural or Artificial Opening (ICD-10-PCS; principal; 2017-02-26)
PROC: 5A1945Z Respiratory Ventilation, 24-96 Consecutive Hours (ICD-10-PCS; 2017-02-26)
DX: J96.90 Respiratory failure, unspecified, unspecified whether with hypoxia or hypercapnia (principal); E87.2 Acidosis; E11.22 Type 2 diabetes mellitus with diabetic chronic kidney disease; M06.9 Rheumatoid arthritis, unspecified; E87.1 Hypo-osmolality and hyponatremia; T51.0X1A Toxic effect of ethanol, accidental (unintentional), initial encounter; R74.8 Abnormal levels of other serum enzymes; I25.10 Atherosclerotic heart disease of native coronary artery without angina pectoris; Z95.5 Presence of coronary angioplasty implant and graft; E78.5 Hyperlipidemia, unspecified; F10.20 Alcohol dependence, uncomplicated; N18.9 Chronic kidney disease, unspecified; I12.9 Hypertensive chronic kidney disease with stage 1 through stage 4 chronic kidney disease, or unspecified chronic kidney disease; G89.4 Chronic pain syndrome; I25.2 Old myocardial infarction; I51.7 Cardiomegaly; I65.29 Occlusion and stenosis of unspecified carotid artery; J45.909 Unspecified asthma, uncomplicated; M10.9 Gout, unspecified; Z79.84 Long term (current) use of oral hypoglycemic drugs; Z91.19 Patient's noncompliance with other medical treatment and regimen
CPT/HCPCS: 31500; 36556; 36600; 51702; 70450; 71010; 76937; 80053; 80307; 81001; 82140; 82550; 82552; 82805; 83605; 83735; 84100; 84484; 85025; 85610; 87040; 87070; 87086; 87205; 87641; 93005; 94002; 94003; 94640; 94664; 96374; 99292; J0330; J0360; J1644; J2060; J2543; J3370; J3480; J7030; J7050; J7070